=== PATIENT | male | born 1935 | race Hispanic/Latino ===

== ENCOUNTER 2016-11-15 10:06 | Emergency (ER) | payer MEDICARE ==
[2016-11-15 10:09] VITALS: O2SAT 99
[2016-11-15 10:10] VITALS: BMI 31.8
--- NOTE | 2016-11-15 10:20 | ED PDOC ---
HPI: General Adult Time Seen by Provider: 11/15/16 10:17 Chief Complaint (Provider): left shoulder pain History Per: Patient History/Exam Limitations: no limitations Additional Complaint(s): 81yo male complaining of severe left shoulder pain for several days. States he comes here for chemotherapy for "blood cancer".no chest pain. Past Medical History Reviewed: Historical Data, Nursing Documentation, Vital Signs Vital Signs: Last Vital Signs Temp 98.4 F 11/15/16 16:20 Pulse 80 11/15/16 16:20 Resp 20 11/15/16 16:20 BP 153/68 H 11/15/16 16:20 Pulse Ox 99 11/29/16 20:51 - Medical History PMH: Arthritis (ankle), Gastritis, HTN Denies: Chronic Kidney Disease - Surgical History Surgical History: CABG, Cholecystectomy - Family History Family History: States: Unknown Family Hx - Home Medications Home Medications: Ambulatory Orders Medication Instructions Recorded MetFORMIN [glucoPHAGE] 1,000 mg PO BID 04/01/14 Simvastatin 20 mg PO DAILY 04/01/14 Losartan/Hydrochlorothiazide 1 tab PO DAILY 11/18/14 [Hyzaar 25 mg-100 mg] Glipizide [Glucotrol] 5 mg PO BID 09/15/15 Metoprolol Tartrate [Lopressor] 50 mg PO DAILY 09/15/15 Omeprazole [Prilosec] 20 mg PO DAILY 09/15/15 Furosemide [Lasix] 1 tab PO DAILY 11/10/15 Aspirin [Ecotrin] 1 tab PO DAILY 12/08/15 traMADol [Ultram] 50 mg PO TID #20 tab 11/18/16 - Allergies Allergies/Adverse Reactions: Allergies Allergy/AdvReac Type Severity Reaction Status Date / Time tape Allergy RASH Uncoded 11/29/16 10:06 Review of Systems ROS Statement: Except As Marked, All Systems Reviewed And Found Negative Cardiovascular: Negative for: Chest Pain Musculoskeletal: Positive for: Shoulder Pain Physical Exam - Reviewed Nursing Documentation Reviewed: Yes Vital Signs Reviewed: Yes - Physical Exam Appears: Positive for: Well, Non-toxic, Uncomfortable (moderate painful distress ) Head Exam: Positive for: ATRAUMATIC, NORMAL INSPECTION, NORMOCEPHALIC Skin: Positive for: Warm, Dry Eye Exam: Positive for: EOMI, PERRL Cardiovascular/Chest: Positive for: Regular Rate, Rhythm, Other (Port in left chest wall) Respiratory: Positive for: Normal Breath Sounds. Negative for: Rales, Rhonchi, Wheezing Extremity: Positive for: Tenderness (left shoulder), Deformity (left shoulder). Negative for: Other (left shoudler erythema or induration) - Laboratory Results Result Diagrams: 11/15/16 10:48 11/15/16 10:48 - ECG O2 Sat by Pulse Oximetry: 99 (RA) Pulse Ox Interpretation: Normal Medical Decision Making Medical Decision Makin EKG, CXR, XR Left shoulder, labs, morphine 2mg ordered. 1103 XR Left shoulder reviewed. CT left upper extremity ordered 1125 patient still in pain. morphine 2mg ordered. Disposition - Clinical Impression Clinical Impression: Bursitis, Calcific tendinitis - Disposition Referrals: Dann Grey MD [Staff Provider] - Disposition: Routine/Home Disposition Time: 16:06 Condition: IMPROVED Instructions: Shoulder Bursitis (ED), Calcific Tendinitis (ED) Additional Comments - Additional Comments Additional Comments: Scribe Attestation: Documented by Shlomo Cuellar, acting as a scribe for Sangita Lebron MD. Provider Scribe Attestation: All medical record entries made by the Scribe were at my direction and personally dictated by me. I have reviewed the chart and agree that the record accurately reflects my personal performance of the history, physical exam, medical decision making, and the department course for this patient. I have also personally directed, reviewed, and agree with the discharge instructions and disposition.
[2016-11-15 10:59] LABS: BASO % 0.6 % (0.0-2.0); EOS # 0.2 K/uL (0.0-0.7); EOS % 6.5 % (0.0-4.0); HEMATOCRIT 33.6 % (35.0-51.0); LYMPH # 0.5 K/uL (1.0-4.3); LYMPH % 15.6 % (20.0-40.0); MEAN CELL VOLUME 81.7 fl (80.0-94.0); MEAN CORPUSCULAR HEMOGLOBIN 25.7 pg (27.0-31.0); MEAN CORPUSCULAR HGB CONC 31.5 g/dL (33.0-37.0); MEAN PLATELET VOLUME 8.3 fl (7.2-11.7); MONO # 0.1 K/uL (0.0-0.8); MONO % 4.5 % (0.0-10.0); NEUT # 2.1 K/uL (1.8-7.0); NEUT % 72.8 % (50.0-75.0); RED CELL DISTRIBUTION WIDTH 23.3 % (11.5-14.5); WHITE BLOOD COUNT 2.9 K/uL (4.8-10.8)
[2016-11-15 11:31] LABS: ALB/GLOB RATIO 1.2 (1.0-2.1); ALKALINE PHOSPHATASE 127 U/L (38-126); ALT/SGPT 45 U/L (21-72); AST/SGOT 50 U/L (17-59); BLOOD UREA NITROGEN 34 mg/dl (9-20); CALCIUM 9.7 mg/dL (8.4-10.2); CARBON DIOXIDE 24 mmol/L (22-30); CHLORIDE 104 mmol/L (98-107); GFR AFRICAN-AMERICAN > 60; GLUCOSE,RANDOM 206 mg/dL (75-110); POTASSIUM 4.3 MMOL/L (3.6-5.0); SODIUM 143 mmol/l (132-148); TOTAL PROTEIN 6.9 G/DL (6.3-8.2)
[2016-11-15 11:36] VITALS: PULSE 80
[2016-11-15 11:57] LABS: PARTIAL THROMBOPLASTIN TIME 25.3 SECONDS (23.3-32.5)
--- NOTE | 2016-11-15 13:32 | CT ---
PROCEDURE: CT of the left shoulder without contrast HISTORY: Shoulder pain COMPARISON: Comparison is made to the previous x-ray of the left shoulder dated 11/15/2016 TECHNIQUE: Axial and reformatted coronal and sagittal CT images of the left shoulder were obtained without IV contrast administration. Total exam DLP = 329.51 mGy-cm. This CT exam was performed using one or more of the following dose reduction techniques: Automated exposure control, adjustment of the mA and/or kV according to patient size, and/or use of iterative reconstruction technique. FINDINGS: There is no evidence of acute fracture or dislocation. Advanced osteoarthritic changes are noted associated with marginal osteophyte and narrowing of the glenohumeral joint. There are also moderate osteoarthritic changes at the AC joint associated with moderate to severe narrowing of the subacromial space. There are foci of soft tissue calcification lateral and superior to the left humeral head may represent calcified tendinitis. The possibility of rotator cuff tear should be considered. Fluid density surrounding the glenohumeral joint may represent a combination of joint effusion and bursitis. IMPRESSION: No evidence of acute fracture or dislocation. 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 Moderate to severe narrowing of the subacromial space and soft tissue calcifications suspicious for calcified tendinitis. The possibility of rotator cuff tear should be considered. Further assessment by MRI is suggested if not contraindicated.
--- NOTE | 2016-11-15 14:13 | RAD ---
PROCEDURE: Radiographs of the Left Shoulder HISTORY: L shoulder pain COMPARISON: Comparison made with concurrent CT scan of the left shoulder FINDINGS: BONES: Normal. No fracture. JOINTS: Moderate degenerative osteoarthritis of the left acromioclavicular and glenohumeral joints. SOFT TISSUES: Normal. OTHER FINDINGS: None. 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
--- NOTE | 2016-11-15 14:33 | RAD ---
HISTORY: L shoulder pain COMPARISON: Comparison chest 06/21/2016. FINDINGS: LUNGS: Re- demonstrated are what are felt to represent scattered calcified pleural plaque changes within the mid to upper lung zones on bilaterally. Note that on the changes at in the left upper lung field are seen to somewhat better advantage on concurrent CT scan of the left shoulder which also imaged left lung apex and left upper lobe. . These findings may be secondary to prior asbestos exposure however clinical correlation recommended. Poor inspiration with low lung volumes, crowded bronchovascular markings and mild bibasilar atelectasis. PLEURA: No significant pleural effusion identified, no pneumothorax apparent. CARDIOVASCULAR: Sternotomy wires again noted. . OSSEOUS STRUCTURES: No significant abnormalities. VISUALIZED UPPER ABDOMEN: Normal. OTHER FINDINGS: No change right IJ MediPort with tip in the SVC IMPRESSION: Scattered calcified pleural plaque changes seen in the upper lobes bilaterally. Poor inspiration with low lung volumes, mild crowded bronchovascular markings and mild bibasilar atelectasis.
[2016-11-15 15:01] LABS: RBC URINE 3 /hpf (0-3); URINE BACTERIA RARE (<OCC); URINE BILIRUBIN NEGATIVE (NEGATIVE); URINE BLOOD NEGATIVE (NEGATIVE); URINE COLOR YELLOW (YELLOW); URINE GLUCOSE (UA) NEG (Normal); URINE KETONE NEGATIVE (NEGATIVE); URINE LEUKOCYTE ESTERASE NEG Leu/uL (Negative); URINE PROTEIN NEGATIVE (NEGATIVE); URINE UROBILINOGEN 0.2-1.0 mg/dL (0.2-1.0); WBC URINE 3 /hpf (0-5)
[2016-11-15 16:42] VITALS: BP 153/68; RESP 20; TEMP 98.4
--- NOTE | 2016-11-15 19:43 | CARD ---
APPROVED REPORT EKG Measurement Heart [id number] OR 144P-23 [id number] <Conclusion> Sinus rhythm with premature ventricular complexes Right bundle branch block Cannot rule out Inferior infarct, age undetermined Abnormal ECG
== END 2016-11-15 16:44 | disposition home or self-care (01) ==
LOC: H.ER 10:06
DX: M19.012 Primary osteoarthritis, left shoulder (principal); I49.3 Ventricular premature depolarization; C91.00 Acute lymphoblastic leukemia not having achieved remission
CPT/HCPCS: 71010; 73030; 73200; 80053; 80162; 81003; 84484; 85025; 85610; 85730; 93005; 96374; 96376; 99285; J2270

== ENCOUNTER 2016-11-17 19:49 | Observation (INO) | payer MEDICARE ==
[2016-11-17 19:50] VITALS: BMI 36.2
--- NOTE | 2016-11-17 23:15 | CP.PCM.HP ---
History of Present Illness - History of Present Illness History of Present Illness: PCP: Miguel Ángel Walker MD Chief Complaint: Left shoulder Pain HPI: 81 years old male with hx of Myelodysplastic Syndrome on chmotherapy, CAD s /p CABG, and DM II, was seen at the [facility] ED on 11/15/16 for left shoulder pain, Dx with Calcific Tendonitis and discharged with Toradol. He returns today stating that the pain had ceased with the treatment but while doing some activity the pain returned to the left shoulder radiating down the arm ,forearm to the fingers, Sharp, continuous and not relieved with the Toradol. No trauma to the shoulder, no chest pain, palpitation nor SOB, no headache nor dizziness. He could not use his cane to ambulate because of the pain. In the ED he was given Morphine and the pain level decreased. PMH: DM II; HTN: IBS: Cataract; CAD: Gastritis: Arthritis of the ankles; Myelodysplastic Syndrome on Chemotherapy every Tuesday, PSH: CABG: Cholecystectomy; Left Total Hip replacement; Deviated Septum surgery ; Cataract surgery SH: No Illegal Substance abuse; Occasional Alcohol; Never smoked; FH: No known family hx Allergies: NKDA , Allergic to tape Present on Admission - Present on Admission Any Indicators Present on Admission: No History of DVT/PE: No History of Uncontrolled Diabetes: No Urinary Catheter: No Decubitus Ulcer Present: No Review of Systems - Constitutional Constitutional: absent: Anorexia, Chills, Fatigue, Fever, Headache, Lethargy - EENT Eyes: Requires Corrective Lenses. absent: Blurred Vision, Diplopia, Photophobia Nose/Mouth/Throat: absent: Epistaxis, Nasal Congestion, Nasal Discharge, Sinus Pain, Sinus Pressure, Sore Throat Additional comments: Upper and lower dentures. - Cardiovascular Cardiovascular: Leg Edema. absent: Chest Pain, Dyspnea - Respiratory Respiratory: absent: Cough, Dyspnea, Wheezing, Stridor - Gastrointestinal Gastrointestinal: absent: Nausea, Vomiting Additional comments: Diarrhea alternating with constipation. Epigastric pains - Genitourinary Genitourinary: absent: Dysuria, Flank Pain, Hematuria, Urinary Frequency, Freq UTI - Musculoskeletal Additional comments: Walks with canebecause of right leg pain. left shoulder pain, radiating down left arm and forearm. - Integumentary Integumentary: Dry Skin. absent: Pruritus, Sores Additional comments: Bilateral leg swelling with stasis dermatitis - Neurological Neurological: absent: Confusion, Focal Weakness, Headaches, Memory Loss - Psychiatric Psychiatric: absent: Anxiety, Depression, Panic Attacks - Endocrine Endocrine: absent: Palpitations, Polydipsia, Polyphagia, Polyuria - Hematologic/Lymphatic Hematologic: absent: Easy Bleeding, Easy Bruising Past Patient History - Past Medical History & Family History Past Medical History?: Yes - Past Social History Smoking Status: Never Smoked Chewing Tobacco Use: No Cigar Use: No Alcohol: Occasional Drugs: Denies Home Situation {Lives}: With Family - CARDIAC Hx Cardiac Disorders: Yes Hx Hypertension: Yes Hx Peripheral Edema: Yes - PULMONARY Hx Respiratory Disorders: No - NEUROLOGICAL Hx Neurological Disorder: No - HEENT Hx HEENT Problems: Yes Hx Cataracts: Yes - RENAL Hx Chronic Kidney Disease: No - ENDOCRINE/METABOLIC Hx Endocrine Disorders: Yes Hx Diabetes Mellitus Type 2: Yes - HEMATOLOGICAL/ONCOLOGICAL Hx Blood Disorders: Yes Hx Blood Transfusions: Yes Hx Bruising: Yes Hx Cancer: Yes (MDS) Other/Comment: myelodysplasic syndrome - INTEGUMENTARY Hx Dermatological Problems: No - MUSCULOSKELETAL/RHEUMATOLOGICAL Hx Musculoskeletal Disorders: Yes Hx Arthritis: Yes (ankle) - GASTROINTESTINAL Hx Gastrointestinal Disorders: Yes Hx Gastritis: Yes - GENITOURINARY/GYNECOLOGICAL Hx Genitourinary Disorders: No - PSYCHIATRIC Hx Psychophysiologic Disorder: No Hx Substance Use: No - SURGICAL HISTORY Hx Surgeries: Yes Hx Cholecystectomy: Yes Hx Coronary Artery Bypass Graft: Yes - ANESTHESIA Hx Anesthesia: Yes Hx Anesthesia Reactions: No Hx Malignant Hyperthermia: No Meds Allergies/Adverse Reactions: Allergies Allergy/AdvReac Type Severity Reaction Status Date / Time tape Allergy RASH Uncoded 11/17/16 23:30 Physical Exam - Constitutional Appears: No Acute Distress - Head Exam Head Exam: ATRAUMATIC, NORMAL INSPECTION, NORMOCEPHALIC - Eye Exam Eye Exam: EOMI, Normal appearance Pupil Exam: NORMAL ACCOMODATION, PERRL - ENT Exam ENT Exam: Mucous Membranes Moist, Normal Exam, Normal External Ear Exam, Normal Oropharynx - Neck Exam Neck exam: Positive for: Full Rom, Normal Inspection. Negative for: Lymphadenopathy, Tenderness - Respiratory Exam Respiratory Exam: Clear to Auscultation Bilateral. absent: Rales, Rhonchi, Wheezes - Cardiovascular Exam Cardiovascular Exam: REGULAR RHYTHM, RRR, +S1, +S2. absent: Gallop, JVD - GI/Abdominal Exam Additional comments: Obese, soft, mild tenderness at the epigastric region, no guarding, no rebound tenderness - Rectal Exam Rectal Exam: Deferred - Extremities Exam Additional comments: Left shoulder painful on extension, rotation and Abduction. no edema nor erythema seen. both legs with trace edema with bronz color at the distal 2/3 of the legs non blanching and non tender to palpation. - Back Exam Back exam: NORMAL INSPECTION. absent: CVA tenderness (L), CVA tenderness (R) - Neurological Exam Neurological exam: Alert, CN II-XII Intact, Oriented x3, Reflexes Normal - Psychiatric Exam Psychiatric exam: Normal Affect, Normal Mood - Skin Skin Exam: Dry, Intact, Warm Results - Vital Signs Recent Vital Signs: Last Vital Signs Temp 98 F 11/17/16 19:52 Pulse 85 11/17/16 19:52 Resp 22 11/17/16 19:52 BP 150/87 11/17/16 19:52 Pulse Ox 97 11/17/16 19:52 - Labs Result Diagrams: 11/17/16 23:27 11/17/16 23:27 - EKG Data EKG comments: 11/15/16 Sinus with PAC, RBBB, 84/min - Imaging and Cardiology Chest x-ray Status: Image reviewed by me, Report reviewed by me Additional comment: 11/17/16 No active disease. Portacath at upper right chest. Sutures of sternotomy seen. Right Shoulder X-Ray Status: Image reviewed by me, Report reviewed by me Additional comment: 11/15/16 Moderate Degenerative osteoarthritis of Left Glenohymoral and left acromioclavicular joint. CT left arm Status: Report reviewed by me Additional comment: 10/16/16 No fractura nor dislocation Advance degenerative changes at the left shoulder. Moderate to severe narrowing of the subacrominal space and soft tissue calcification, suspicious for Calcific Tendinitis. Possibility of rotator cuff tear should be considered. Assessment & Plan - Assessment and Plan (Free Text) Assessment: #. Calcific Tendinitis #. Intractible left shoulder Pain #. DM II uncontrolled #. HTN #. Myelodysplastic Syndrome #. Pancytopenia #. CAD #. Gastritis Plan: 81 years old male with hx of Myelodysplastic Syndrome on chmotherapy, CAD s/p CABG, and DM II, was seen at the [facility] ED on 11/15/16 for left shoulder pain, Dx with Calcific Tendonitis and discharged with Toradol. He returns today stating that the pain had ceased with the treatment but while doing some activity the pain returned to the left shoulder radiating down the arm ,forearm to the fingers, Sharp, continuous and not relieved with the Toradol. #. Calcific Tendinitis with intractible left shoulder pain - Observation - Pain management with Tramidol and Morphine - consult Anesthesia for Pain management #. DM II uncontrolled - Regular insulin sliding scale according to accucheck - Metformin - Hemaglobin A1c #. HTN Uncontrolled - lopressor/ Losartan - Follow blood Pressures #. 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 Pancytopenia secondary to the Mylodysplastic Syndrome - Followed by Hematology #. CAD stable - ASA/ Simvastatin #. Gastritis -Pantoprazole #. DVT Prophylaxis with SCD #. Code Status: Full - Date & Time Date: 11/17/16 Time: 23:15
[2016-11-17 23:35] LABS: BASO % 0.4 % (0.0-2.0); EOS # 0.2 K/uL (0.0-0.7); EOS % 5.7 % (0.0-4.0); HEMATOCRIT 31.9 % (35.0-51.0); LYMPH # 0.5 K/uL (1.0-4.3); LYMPH % 19.5 % (20.0-40.0); MEAN CELL VOLUME 81.5 fl (80.0-94.0); MEAN CORPUSCULAR HEMOGLOBIN 26.1 pg (27.0-31.0); MEAN PLATELET VOLUME 7.8 fl (7.2-11.7); MONO # 0.2 K/uL (0.0-0.8); MONO % 8.7 % (0.0-10.0); NEUT # 1.8 K/uL (1.8-7.0); NEUT % 65.7 % (50.0-75.0); NRBC % 0.1 % (0.0-0.0); RED CELL DISTRIBUTION WIDTH 22.7 % (11.5-14.5); WHITE BLOOD COUNT 2.7 K/uL (4.8-10.8)
[2016-11-17 23:43] LABS: BLOOD UREA NITROGEN 34 mg/dl (9-20); CALCIUM 8.9 mg/dL (8.4-10.2); CARBON DIOXIDE 24 mmol/L (22-30); CHLORIDE 101 mmol/L (98-107); GFR AFRICAN-AMERICAN > 60; GLUCOSE,RANDOM 172 mg/dL (75-110); POTASSIUM 4.1 MMOL/L (3.6-5.0); SODIUM 141 mmol/l (132-148)
[2016-11-18 02:50] LABS: URINE BILIRUBIN NEGATIVE (NEGATIVE); URINE BLOOD NEGATIVE (NEGATIVE); URINE COLOR YELLOW (YELLOW); URINE GLUCOSE (UA) NEG (Normal); URINE KETONE NEGATIVE (NEGATIVE); URINE LEUKOCYTE ESTERASE NEG Leu/uL (Negative); URINE PROTEIN NEGATIVE (NEGATIVE); URINE UROBILINOGEN 0.2-1.0 mg/dL (0.2-1.0); WBC URINE < 1 /hpf (0-5)
[2016-11-18 07:42] VITALS: PULSE 81; TEMP 98.2
[2016-11-18] MEDS ORDERED: Digoxin 125 mcg (0.125 mg) Tab PO SCH (09:00)
[2016-11-18] MEDS ORDERED: Patient's Own Med (Simvastatin [Simvastatin] 20 MG) PO SCH (09:00)
[2016-11-18] MEDS ORDERED: Pantoprazole 20 mg EC Tab PO SCH (09:00)
[2016-11-18 09:22] VITALS: PULSE 81
--- NOTE | 2016-11-18 09:52 | RAD ---
HISTORY: admission COMPARISON: 11/15/2016 FINDINGS: LUNGS: No active pulmonary disease. PLEURA: Calcified pleural plaques CARDIOVASCULAR: Mild cardiomegaly. OSSEOUS STRUCTURES: Sternal wires VISUALIZED UPPER ABDOMEN: Normal. OTHER FINDINGS: Port-A-Cath IMPRESSION: No active disease.
[2016-11-18 16:30] VITALS: BP 129/68; RESP 68; O2SAT 18
--- NOTE | 2016-11-18 17:15 | CP.PCM.DIS ---
Provider - Provider Date of Admission: 11/17/16 22:17 Attending physician: Eugene Stokes Primary care physician: Hector Celis MD Time Spent in preparation of Discharge (in minutes): 15 Hospital Course - Lab Results Lab Results: Most Recent Lab Values WBC 2.7 K/uL (4.8-10.8) L 11/17/16: RBC 3.91 Mil/uL (4.40-5.90) L 11/17/16: Hgb 10.2 g/dL (12.0-18.0) L 11/17/16: Hct 31.9 % (35.0-51.0) L 11/17/16: MCV 81.5 fl (80.0-94.0) 11/17/16: MCH 26.1 pg (27.0-31.0) L 11/17/16: MCHC 32.0 g/dL (33.0-37.0) L 11/17/16: RDW 22.7 % (11.5-14.5) H 11/17/16: Plt Count 59 K/uL (130-400) L 11/17/16: MPV 7.8 fl (7.2-11.7) 11/17/16: Neut % (Auto) 65.7 % (50.0-75.0) 11/17/16: Lymph % (Auto) 19.5 % (20.0-40.0) L 11/17/16: [place] % (Auto) 8.7 % (0.0-10.0) 11/17/16: Eos % (Auto) 5.7 % (0.0-4.0) H 11/17/16: Baso % (Auto) 0.4 % (0.0-2.0) 11/17/16: Neut # 1.8 K/uL (1.8-7.0) 11/17/16: Lymph # 0.5 K/uL (1.0-4.3) L 11/17/16: [place] # 0.2 K/uL (0.0-0.8) 04/05/17 23:27 Eos # 0.2 K/uL (0.0-0.7) 11/17/16 23:27 Baso # 0.0 K/uL (0.0-0.2) 11/17/16 23:27 Sodium 141 mmol/l (132-148) 11/17/16 23:27 Potassium 4.1 MMOL/L (3.6-5.0) 11/17/16 23:27 Chloride 101 mmol/L (98-107) 11/17/16 23:27 Carbon Dioxide 24 mmol/L (22-30) 11/17/16 23:27 Anion Gap 21 (10-20) H 11/17/16 23:27 BUN 34 mg/dl (9-20) H 11/17/16 23:27 Creatinine 1.0 mg/dL (0.8-1.5) 11/17/16 23:27 Est GFR ( Amer) > 60 11/17/16 23:27 Est GFR (Non-Af Amer) > 60 11/17/16 23:27 POC Glucose (mg/dL) 87 mg/dL (65-110) 11/18/16 15:50 Random Glucose 172 mg/dL (75-110) H 11/17/16 23:27 Hemoglobin A1c 6.0 % (4.2-6.5) 11/18/16 09:24 Calcium 8.9 mg/dL (8.4-10.2) 11/17/16 23:27 Urine Color Yellow (YELLOW) 11/17/16 02:27 Urine Clarity Clear (Clear) 11/17/16 02:27 Urine pH 6.0 (5.0-8.0) 11/17/16 02:27 Ur Specific [place] 1.015 (1.003-1.030) 11/17/16 02:27 Urine Protein Negative mg/dL (NEGATIVE) 11/17/16 02:27 Urine Glucose (UA) Neg mg/dL (Normal) 11/17/16 02:27 Urine Ketones Negative mg/dL (NEGATIVE) 11/17/16 02:27 Urine Blood Negative (NEGATIVE) 11/17/16 02:27 Urine Nitrate Negative (NEGATIVE) 11/17/16 02:27 Urine Bilirubin Negative (NEGATIVE) 11/17/16 02:27 Urine Urobilinogen 0.2-1.0 mg/dL (0.2-1.0) 11/17/16 02:27 Ur Leukocyte Esterase Neg [place]/uL (Negative) 11/17/16 02:27 Urine Microscopic WBC < 1 /hpf (0-5) 11/17/16 02:27 - Hospital Course Hospital Course: 81 years old male with hx of Myelodysplastic Syndrome on chemotherapy, CAD s/p CABG, and DM II, was seen at the [facility] ED on 11/15/16 for left shoulder pain, Dx with Calcific Tendonitis and discharged with Toradol. He returns stating that the pain had ceased with the treatment but while doing some activity the pain returned to the left shoulder radiating down the arm , forearm to the fingers, Sharp, continuous and not relieved with the Toradol. Patient was placed under observation for intrcatable shoulder pain, started omn Morphin eIV, placed on arm sling. Patient clinically improved. Will discharge patient home on PO Ultram. Advised to follow up with ortho as out patient, keep arm sling Patient is hemodynamically stable. Will discharge home. 1 Calcific Tendinitis with intractible left shoulder pain pain controlled at present will d/c home on Ultram Follow up with ortho outpatient 2 DM II uncontrolled Continue home meds 3. HTN Uncontrolled Continue lopressor/ Losartan 4. Myelodysplastic Syndrome Followed by Dr Yanes Stereotype Caster 5. Pancytopenia secondary to the Mylodysplastic Syndrome - Followed by Hematology 6. CAD stable continue ASA/ Simvastatin 7. Gastritis on Pantoprazole 8. DVT Prophylaxis with SCD Discharge Exam - Head Exam Head Exam: ATRAUMATIC, NORMAL INSPECTION, NORMOCEPHALIC - Eye Exam Eye Exam: EOMI, Normal appearance, PERRL Pupil Exam: NORMAL ACCOMODATION - ENT Exam ENT Exam: Mucous Membranes Moist, Normal Exam - Neck Exam Neck exam: Full Rom, Normal Inspection - Respiratory Exam Respiratory Exam: Clear to PA & Lateral. absent: Accessory Muscle Use, Prolonged Expiratory Phase, Respiratory Distress - Cardiovascular Exam Cardiovascular Exam: REGULAR RHYTHM. absent: JVD - GI/Abdominal Exam GI & Abdominal Exam: Normal Bowel Sounds, Soft. absent: Distended, Guarding, Rebound - Rectal Exam Rectal Exam: Deferred - Extremities Exam Extremities exam: pedal pulses present Additional comments: bilateral LE stasis dermatitis pulses intact - Back Exam Back exam: NORMAL INSPECTION - Neurological Exam Neurological exam: Alert, CN II-XII Intact, Reflexes Normal - Psychiatric Exam Psychiatric exam: Anxious - Skin Skin Exam: Dry, Warm Discharge Plan - Discharge Medications Prescriptions: traMADol [Ultram] 50 mg PO TID #20 tab - Follow Up Plan Condition: GOOD Disposition: HOME/ ROUTINE Patient education suggested?: Yes Additional Instructions: Follow up with ortho as out patient Referrals: Hector Celis MD [Primary Care Provider] -
--- NOTE | 2016-11-18 19:09 | CARD ---
APPROVED REPORT EKG Measurement Heart [id number] 144P-21 [id number] <Conclusion> Normal sinus rhythm Right bundle branch block Abnormal ECG
== END 2016-11-18 19:00 | disposition home or self-care (01) ==
LOC: H.ER 19:49 → H.ERHOLD 22:17 → H.MEDSURG1 11-18 00:18
PROVIDERS: ADMIT Internal Medicine; ATTEND Internal Medicine
DX: M75.32 Calcific tendinitis of left shoulder (principal); E11.65 Type 2 diabetes mellitus with hyperglycemia; I10 Essential (primary) hypertension; I25.10 Atherosclerotic heart disease of native coronary artery without angina pectoris; Z95.1 Presence of aortocoronary bypass graft; K29.70 Gastritis, unspecified, without bleeding; K58.9 Irritable bowel syndrome, unspecified; Z96.642 Presence of left artificial hip joint; D61.818 Other pancytopenia; D46.9 Myelodysplastic syndrome, unspecified; I87.2 Venous insufficiency (chronic) (peripheral); M19.072 Primary osteoarthritis, left ankle and foot; M19.071 Primary osteoarthritis, right ankle and foot
CPT/HCPCS: 36415; 71010; 80048; 81003; 82948; 83036; 85025; 93005; 96372; 96374; 96376; 99283; G0378; J2270

== ENCOUNTER 2017-01-21 11:06 | Day surgery (SDC) | payer MEDICARE ==
[2017-01-21 11:49] VITALS: BMI 31.3
[2017-01-21] MEDS ORDERED: Lidocaine 1% Inj (20ml) ONE (13:56)
--- NOTE | 2017-01-21 14:35 | CP.SDSHP ---
Same Day Surgery H & P - History Proposed Procedure: US guided aspiration left shoulder Pre-Op Diagnosis: Left shoulder swelling - Allergies Allergies: Allergies tape Allergy (Uncoded 12/27/16 18:06) RASH - Physical Exam Vital Signs: Vital Signs 01/21/17 01/21/17 01/21/17 11:49 11:57 14:07 Temperature 98.2 F 97 F L Pulse Rate 94 H 93 H 75 Respiratory 18 18 Rate Blood Pressure 137/72 139/69 O2 Sat by Pulse 96 99 Oximetry Mental Status: Alert & Oriented x3 Neuro: WNL Heart: WNL Lungs: WNL - Impression Impression: Pt with complex left shoulder collection. Plan US guided aspiration. Pt. Evaluated Today:Candidate for Anesthesia & Procedure: No - Date & Time Date: 01/21/17 Time: 14:15 Short Stay Discharge - Short Stay Discharge Admitting Diagnosis/Reason for Visit: LT SHOULDER ASP, MDS Referrals: Hector Celis MD [Primary Care Provider] - Progress Note/Discharge Note with Instructions: S/P left shoulder aspiration
--- NOTE | 2017-01-21 14:37 | PCM.SURG1 ---
Surgeon's Initial Post Op Note - Surgeon's Notes Surgeon: Osmar Barrios MD C++ Professor: NONE Type of Anesthesia: Local Pre-Operative Diagnosis: Left shoulder collection Operative Findings: Complex left shoulder collection. Post-Operative Diagnosis: Left shoulder collection Operation Performed: US guided aspiration. Hematoma left shoulder. Very viscous fluid. Specimen/Specimens Removed: 4 cc old blood products Estimated Blood Loss: EBL {In ML}: 0 Blood Products Given: N/A Drains Used: No Drains Post-Op Condition: Good Date of Surgery/Procedure: 01/21/17 Time of Surgery/Procedure: 14:30
[2017-01-21 14:56] VITALS: RESP 20
[2017-01-21 15:23] VITALS: BP 147/69; PULSE 87; TEMP 97.8; O2SAT 100
--- NOTE | 2017-01-24 09:31 | VASCULAR ---
PROCEDURE: Date of procedure: 01/21/2017 Procedure: Ultrasound-guided aspiration of left shoulder collection. Medications: 8 cc 2% Lidocaine HISTORY: Swollen left shoulder with complex collection. TECHNIQUE: Following informed consent and procedure time-out, limb ultrasound of patient's left shoulder showed complex soft tissue collection which is isoechoic to muscle. The patient left shoulder was prepped and draped in the usual sterile fashion. After the skin was anesthetized with 2 percent lidocaine, a BrightTALK catheter was advanced under direct ultrasound guidance into the complex collection of. Correlation was made with the MRI of the shoulder obtained previously. There was return of small amount of dark blood likely representing a resolving hematoma. The fluid specimen was sent for culture and sensitivity along with cytology. IMPRESSION: Ultrasound-guided aspiration of complex left shoulder collection. The shoulder collection may represent an old hematoma. Small amount of fluid was aspirated and sent for culture and sensitivity along with cytology.
== END 2017-01-21 15:30 | disposition home or self-care (01) ==
LOC: H.OPSURG 11:06
PROVIDERS: ATTEND Specialist
DX: M25.412 Effusion, left shoulder (principal)
CPT/HCPCS: 20611; 76942; 82948; 87070; 88173; C1729

== ENCOUNTER 2017-04-02 13:25 | Inpatient (IN) | payer MEDICARE ==
[2017-04-02 13:26] VITALS: PULSE 81; BMI 38.4
[2017-04-02] MEDS ORDERED: Sodium Chloride 0.9% 1,000 ML IV STA (13:46)
--- NOTE | 2017-04-02 13:56 | ED PDOC ---
HPI: Altered Mental Status Chief Complaint (Provider): "he was unresponsive" History Per: Family History/Exam Limitations: Clinical Condition Onset/Duration Of Symptoms: Hrs (2), Sudden Onset Onset Of Symptoms: <3 Hours Current Symptoms Are (Timing): Still Present Description Of Symptoms: Not At Baseline Usual Baseline: Alert Oriented Exacerbating Factor(s): Unknown Use Of Anticoag/Antiplatlets: No Decreased Ability To: Stand, Walk, Sit Severity: Severe Additional History Per: Prior Records Associated Symptoms: Chills, Sweating Additional Complaint(s): 81yo male per daughter undergoing chemo for myelodysplastic syndrome, last night didnt feel well, thought he had a fever, today around noon was standing at table and started having rigors, then became less responsive, EMS called, arrived in ED diaphoretic, unable to give reliable history. <Sanchez Rodriguez III - Last Filed: 04/02/17 15:41> <Sangita Lebron - Last Filed: 04/02/17 18:36> Time Seen by Provider: 04/02/17 13:30 Chief Complaint (Nursing): Altered Mental Status Past Medical History Reviewed: Historical Data, Nursing Documentation, Vital Signs Vital Signs: Last Vital Signs Temp Pulse 97 H 04/02/17 13:29 Resp 23 04/02/17 13:29 BP 107/75 04/02/17 13:29 Pulse Ox 98 04/02/17 13:29 - Medical History PMH: Anemia, Anxiety, Arthritis, Gastritis, HTN, Hypercholesterolemia, Peripheral Edema Denies: Chronic Kidney Disease - Surgical History Surgical History: CABG, Cholecystectomy - Family History Family History: States: Unknown Family Hx - Living Arrangements Living Arrangements: With Family - Social History Current smoker - smoking cessation education provided: No <Sanchez Rodriguez III - Last Filed: 04/02/17 15:41> Vital Signs: Last Vital Signs Temp 98 F 04/02/17 17:30 Pulse 80 04/02/17 17:30 Resp 20 04/02/17 17:30 BP 118/62 04/02/17 17:30 Pulse Ox 96 04/02/17 17:30 <Sangita Lebron - Last Filed: 04/02/17 18:36> - Home Medications Home Medications: Ambulatory Orders Medication Instructions Recorded MetFORMIN [glucoPHAGE] 1,000 mg PO BID 04/01/14 Simvastatin 20 mg PO DAILY 04/01/14 Losartan/Hydrochlorothiazide 1 tab PO DAILY 11/18/14 [Hyzaar 25 mg-100 mg] Glipizide [Glucotrol] 5 mg PO BID 09/15/15 Metoprolol Tartrate [Lopressor] 50 mg PO DAILY 09/15/15 Omeprazole [Prilosec] 20 mg PO DAILY 09/15/15 Gabapentin [Neurontin] 100 mg PO TID 03/15/17 traMADol [Ultram] 50 mg PO Q6 PRN 04/02/17 - Allergies Allergies/Adverse Reactions: Allergies Allergy/AdvReac Type Severity Reaction Status Date / Time tape Allergy RASH Uncoded 04/02/17 13:29 Review of Systems Review Of Systems: ROS cannot be obtained secondary to pt's inabilty to answer questions. <Sanchez Rodriguez III - Last Filed: 04/02/17 15:41> Physical Exam - Reviewed Nursing Documentation Reviewed: Yes Vital Signs Reviewed: Yes - Physical Exam Appears: Positive for: Uncomfortable, In Acute Distress (diaphoretic, speech slow but intact) Head Exam: Positive for: ATRAUMATIC, NORMAL INSPECTION, NORMOCEPHALIC Skin: Positive for: Warm, Diaphoresis, Pallor Eye Exam: Positive for: EOMI, Normal appearance, PERRL ENT: Positive for: Normal ENT Inspection Neck: Positive for: Normal, Painless ROM Cardiovascular/Chest: Positive for: Regular Rate, Rhythm, Other (midline scar) Respiratory: Positive for: Decreased Breath Sounds Gastrointestinal/Abdominal: Positive for: Bowel Sounds, Soft. Negative for: Tenderness Back: Positive for: Normal Inspection Extremity: Positive for: Normal ROM Neurologic/Psych: Positive for: Alert, Gait (unable to assess), Aphasia (slow speech but intact), Other (+moves all extremities with equal tone 4/5, speech slow with mild dysarthria, unable to test finger/nose due to AMS). Negative for : Facial Droop <Sanchez Rodriguez III - Last Filed: 04/02/17 15:41> - Laboratory Results Result Diagrams: 04/02/17 14:08 04/02/17 14:08 - ECG ECG: Positive for: Interpreted By Me Interpretation Of ECG: QRS 136 RBBB Rate: 92 O2 Sat by Pulse Oximetry: 98 Pulse Ox Interpretation: Normal - Critical Care Total Time (In Min): 35 <Sanchez Rodriguez III - Last Filed: 04/02/17 15:41> - Laboratory Results Result Diagrams: 04/02/17 14:08 04/02/17 14:08 <Sangita Lebron - Last Filed: 04/02/17 18:36> Medical Decision Making Medical Decision Making: Pt required immediate bedside attention, 81yo M undergoing chemo with rigors/ diaphoresis/ AMS. Rule-out sepsis syndrome, acute cerebral ischemia, ICH, toxic metabolic encephalopathy, cardiac ischemia, among other diagnoses not listed. labs reviewed, WBC 5.2 (normally leukopenic baseline) Fisher Scallop normal Mild elev LFTs compared to prior, Lactate elev 3.5 CXR mild increased markings L>R but similar to 11/18/16 UA mild RBC, no leuks 330p- more awake, denies cough, urinary symptoms, headache or pain at port site. Does not mild abdominal discomfort and soft stools last few days. Given no obvious source infection, mild elev LFTs, CT abd pelv ordered. Vanco Zosyn initiated. 330p D/w Dr Salma Yanes, requests admit hospitalist 335p d/w Dr Mosley for admission, pending CT abd pelv result. <Sanchez Rodriguez III - Last Filed: 04/02/17 15:41> Disposition - Patient ED Disposition Is Patient to be Admitted: Yes Counseled Patient/Family Regarding: Studies Performed - Disposition Disposition: Routine/Home Disposition Time: 15:15 - Pt Status Changed To: Hospital Disposition Of: Inpatient - Admit Certification Admit to Inpatient:: After my assessment, the patient will require hospitalization for at least two midnights. This is because of the severity of symptoms shown, intensity of services needed, and/or the medical risk in this patient being treated as an outpatient. - POA Present On Arrival: None <Sanchez Rodriguez III - Last Filed: 04/02/17 15:41> <Sangita Lebron - Last Filed: 04/02/17 18:36> - Clinical Impression Clinical Impression: Severe sepsis - Disposition Condition: GUARDED Addendum Addendum: 04/02/17 18:35 Received call in ED from Radiologist: Accession No. : [id number] Patient Name / ID : ERIN GUERRA / [id number] Exam Date : 04/02/2017 16:42:21 ( Approved ) Study Comment : Sex / Age : M / 81Y Creator : Dick Poole MD Dictator : Dick Poole MD Vp & General Counsel : Skin Lifter Bacon : Dick Poole MD Approver2 : Report Date : 04/02/2017 18:35:11 My Comment : This report is currently processing and HAS NOT BEEN OFFICIALLY SIGNED BY THE PHYSICIAN - ESTIMATED TIME OF APPROVAL IS 04/02/2017 18:40. PROCEDURE: CT abdomen pelvis and pelvis 04/02/2017 HISTORY: fever, sepsis, cancer patient COMPARISON: Comparison made with CT scan of the abdomen and pelvis dated 12/26/2013. TECHNIQUE: Contiguous axial images of the abdomen and pelvis performed following intravenous injection of approximately 9 9 cc Omnipaque 300 contrast material. Additional 2 dimensional sagittal and coronal reformats provided. Findings: Intravenous contrast. . Radiation dose: Total exam DLP = 87.65 mGy-cm. This CT exam was performed using one or more of the following dose reduction techniques: Automated exposure control, adjustment of the mA and/or kV according to patient size, and/or use of iterative reconstruction technique. FINDINGS: LOWER THORAX: Mild bibasilar atelectasis and or scarring changes both lung bases including the lingular and middle lobe regions. Questionable minor pleural thickening and /or trace effusions. Heart appears mildly enlarged. Small hiatal hernia. LIVER: The liver is mildly enlarged measuring approximately 19 cm in cc dimension. The liver exhibits nodular surface contour and slightly heterogeneous parenchyma suggesting cirrhosis. Clinical correlation recommended. Portal and splenic veins are opacified. Small to medium amount of perihepatic ascites present extending into right para colonic gutter and pelvis GALLBLADDER AND BILE DUCTS: Status post cholecystectomy. There meant multiple on metallic clips in the gallbladder fossa as well as multiple calculi possibly new within the gallbladder fossa as well. PANCREAS: Pancreas appears atrophic and fatty replaced. SPLEEN: Spleen is markedly enlarged measuring nearly 19 cm in AP dimension. . Small amount of perihepatic splenic ascites noted ADRENALS: No adrenal lesions. KIDNEYS AND URETERS: Kidneys demonstrate symmetric nephrograms. Elliptical shaped low-attenuation focus posteromedial border midpole left kidney probably represent cysts. No evidence of hydronephrosis. BLADDER: Urinary bladder is collapsed about an unclamped in situ Woods catheter. Woods balloon appears distended likely within the floor of the collapsed urinary bladder. It is unclear the balloon is partially located within the prostatic urethra as streak and beam hardening artifact arising from left total hip replacement, the partially obscures the floor urinary bladder prostate gland. Mild wall thickening of the urinary bladder likely due to underdistention and muscular hypertrophy. Cystitis not excluded. REPRODUCTIVE: Prostate is poorly seen due to streak and beam hardening artifact arising from total hip replacement. Prostatic calcifications are present APPENDIX: Appendix not seen with certainty on likely in part due to on opacified bowel and ascites BOWEL: There is marked wall thickening of the stomach of uncertain etiology. Rule out gastritis. Rule out other intrinsic/invasive wall lesion such as gastric carcinoma. Ascites may contribute. Visualized loops of small bowel exhibit normal contour and caliber. No evidence of acute mechanical small bowel obstruction. Stool and air seen throughout the colon. Mild wall thickening of the cecum and at ascending colon may in part be due to incomplete distention peristalsis and under opacified stool however inflammatory process not excluded. Ischemia would be less likely absence of a pertinent clinical history though also not excluded. A moderate amount of stool seen within the rectum. PERITONEUM: Abdominal ascites as described. LYMPH NODES: Evaluation for adenopathy is limited however there does appear to be multiple small nonspecific retroperitoneal lymph nodes. Adenopathy surrounding the celiac access and adjacent to the pancreas also felt to be present. VASCULATURE: No definitive evidence of abdominal aortic aneurysm BONES: Multilevel degenerative spondylosis of the lower thoracic and lumbar spine. Slight anterior subluxation L4 over L5 likely due to hypertrophic facets as no definitive pars defects seen. OTHER FINDINGS: None. IMPRESSION: Cardiomegaly. Hepatomegaly. Findings suggestive of cirrhosis however clinical correlation recommended. Marked splenomegaly. Moderate amount of of abdominal and pelvic ascites. Marked wall thickening of the stomach could be due to gastritis however other intrinsic/invasive wall lesion such as gastric carcinoma not excluded. The the. Cholecystectomy with multiple apparent gallbladder calculi in the gallbladder fossa region. Clinic correlation recommended. Results discussed with Dr. Mosley. <Sangita Lebron - Last Filed: 04/02/17 18:36>
[2017-04-02 14:07] LABS: ABG ALLEN TEST YES; ARTERIAL BLOOD GAS HCO3 24.1 mmol/L (21-28); ARTERIAL BLOOD GAS PH 7.45 (7.35-7.45); ARTERIAL BLOOD GAS PO2 85 mm/Hg (80-100)
[2017-04-02 14:19] LABS: BASO % 0.2 % (0.0-2.0); HEMATOCRIT 28.4 % (35.0-51.0); LYMPH # 0.3 K/uL (1.0-4.3); LYMPH % 5.7 % (20.0-40.0); MEAN CORPUSCULAR HEMOGLOBIN 25.3 pg (27.0-31.0); MEAN CORPUSCULAR HGB CONC 31.2 g/dL (33.0-37.0); MEAN PLATELET VOLUME 7.1 fl (7.2-11.7); MONO # 0.5 K/uL (0.0-0.8); MONO % 9.9 % (0.0-10.0); NEUT # 4.4 K/uL (1.8-7.0); NEUT % 84.2 % (50.0-75.0); PLATELET COUNT 83 K/uL (130-400); RED CELL DISTRIBUTION WIDTH 22.2 % (11.5-14.5)
[2017-04-02 14:27] LABS: RBC URINE 49 /hpf (0-3); URINE BILIRUBIN NEGATIVE (NEGATIVE); URINE BLOOD MODERATE (NEGATIVE); URINE COLOR YELLOW (YELLOW); URINE GLUCOSE (UA) NEG (Normal); URINE KETONE NEGATIVE (NEGATIVE); URINE LEUKOCYTE ESTERASE NEG Leu/uL (Negative); URINE PROTEIN 30 mg/dL (NEGATIVE); WBC URINE 2 /hpf (0-5)
[2017-04-02 14:28] LABS: ALB/GLOB RATIO 1.2 (1.0-2.1); ALKALINE PHOSPHATASE 129 U/L (38-126); ALT/SGPT 73 U/L (21-72); AST/SGOT 98 U/L (17-59); BILIRUBIN,TOTAL 2.8 mg/dl (0.2-1.3); BLOOD UREA NITROGEN 27 mg/dl (9-20); CARBON DIOXIDE 22 mmol/L (22-30); CHLORIDE 103 mmol/L (98-107); GFR AFRICAN-AMERICAN > 60; GLUCOSE,RANDOM 158 mg/dL (75-110); MAGNESIUM 1.7 MG/DL (1.6-2.3); PHOSPHOROUS 2.7 mg/dl (2.5-4.5); POTASSIUM 4.8 MMOL/L (3.6-5.0); SODIUM 137 mmol/l (132-148); TOTAL PROTEIN 6.6 G/DL (6.3-8.2)
[2017-04-02 14:29] LABS: WHITE BLOOD COUNT 5.2 K/uL (4.8-10.8)
[2017-04-02 14:32] LABS: URINE BACTERIA RARE (<OCC)
[2017-04-02 14:33] LABS: PARTIAL THROMBOPLASTIN TIME 29.6 Seconds (25.6-37.1)
[2017-04-02 15:28] LABS: NEUTROPHIL 84 % (42-75); TOTAL CELLS COUNTED 100
[2017-04-02] MEDS ORDERED: Piperacillin/Tazobact 4.5 GM in Sodium Chloride 0.9% 100 ML IVPB STA (15:35)
--- NOTE | 2017-04-02 15:43 | CT ---
PROCEDURE: CT HEAD WITHOUT CONTRAST. HISTORY: AMS/ fever/ on chemo COMPARISON: None available. TECHNIQUE: Axial computed tomography images were obtained through the head/brain without intravenous contrast. Radiation dose: Total exam DLP = 2996.45 mGy-cm. This CT exam was performed using one or more of the following dose reduction techniques: Automated exposure control, adjustment of the mA and/or kV according to patient size, and/or use of iterative reconstruction technique. FINDINGS: HEMORRHAGE: No intracranial hemorrhage. BRAIN: Moderate diffuse/confluent chronic periventricular white matter ischemic changes with patchy presumed ischemic changes seen within deep and subcortical white matter both cerebral hemispheres. There appears to be some extension of these changes into white matter tracts of both basal nuclei. . Note that the possibility of concomitant sequela of chemotherapy not excluded. No obvious parenchymal nor extra-axial mass or collection. Moderate generalized volume loss. Vascular calcifications of both carotid siphons. VENTRICLES: No obstructive hydrocephalus. CALVARIUM: No acute calvarial fractures. PARANASAL SINUSES: Complete opacification of the right maxillary antrum with questionable loculated proteinaceous fluid collection along the lateral margin of the maxillary antrum. MASTOID AIR CELLS: Unremarkable as visualized. No inflammatory changes. OTHER FINDINGS: Changes of bilateral cataract surgery. IMPRESSION: No acute intracranial hemorrhage. Confluent periventricular with more patchy deep and subcortical white matter ischemic changes; rule out concomitant sequela of chemotherapy. Moderate volume loss. No obvious parenchymal nor extra-axial mass or collection seen on this noncontrast study.
[2017-04-02 15:59] LABS: VENOUS BLOOD GAS BASE EXCESS 0.8 mmol/L (0.0-2.0); VENOUS BLOOD GAS PCO2 39 mmHg (40-60); VENOUS BLOOD PH 7.42 (7.32-7.43)
--- NOTE | 2017-04-02 16:15 | RAD ---
HISTORY: Sepsis Patient COMPARISON: Comparison chest dated 11/18/2016 FINDINGS: LUNGS: In situ right IJ MediPort with tip in the SVC. . Mild bibasilar atelectasis PLEURA: No significant pleural effusion identified, no pneumothorax apparent. CARDIOVASCULAR: Sternotomy wires and CABG clips noted. Heart size is upper limits of normal. Open tech OSSEOUS STRUCTURES: No significant abnormalities. VISUALIZED UPPER ABDOMEN: Normal. OTHER FINDINGS: None. IMPRESSION: Mild bibasilar atelectasis
[2017-04-02] MEDS ORDERED: Vancomycin 1 g Inj ONE (16:17)
[2017-04-02] MEDS ORDERED: Iohexol 300 100 ML IJ ONE (16:38)
[2017-04-02] MEDS ORDERED: Sodium Chloride 0.9% 50 ML IV ONE (16:39)
--- NOTE | 2017-04-02 16:46 | CP.PCM.HP ---
History of Present Illness - History of Present Illness History of Present Illness: 81 yo male with history of Myelodysplastic Syndrome, CAD (s/p Quadruple By-Pass , 1995) and DM2 brought in because of confusion accompanied with fever and chills since last night. Denied any other complaint but daughter thought she looked SOB when EMS arrived in their home. Presently more alert and only admitted having chills and feeling cold earlier. Denied chest pain, nausea or vomiting. Present on Admission - Present on Admission Any Indicators Present on Admission: No History of DVT/PE: No History of Uncontrolled Diabetes: No Urinary Catheter: No Decubitus Ulcer Present: No Review of Systems - Review of Systems All systems: reviewed and no additional remarkable complaints except (aside from those mentioned above, 12 point system review were negative by me) Past Patient History - Tetanus Immunizations Tetanus Immunization: Unknown - Past Medical History & Family History Past Medical History?: Yes Past Family History: Reviewed and not pertinent - Past Social History Smoking Status: Former Smoker Alcohol: Occasional - CARDIAC Hx Hypercholesterolemia: Yes Hx Hypertension: Yes Hx Peripheral Edema: Yes - PULMONARY Hx Respiratory Disorders: No - NEUROLOGICAL Hx Neurological Disorder: No - HEENT Hx HEENT Problems: Yes Hx Cataracts: Yes (left) - RENAL Hx Chronic Kidney Disease: No - ENDOCRINE/METABOLIC Hx Endocrine Disorders: Yes Hx Diabetes Mellitus Type 2: Yes - HEMATOLOGICAL/ONCOLOGICAL Hx Anemia: Yes Other/Comment: 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 - INTEGUMENTARY Hx Dermatological Problems: No - MUSCULOSKELETAL/RHEUMATOLOGICAL Hx Arthritis: Yes - GASTROINTESTINAL Hx Gastritis: Yes - GENITOURINARY/GYNECOLOGICAL Hx Genitourinary Disorders: No - PSYCHIATRIC Hx Anxiety: Yes - SURGICAL HISTORY Hx Cholecystectomy: Yes Hx Coronary Artery Bypass Graft: Yes Hx Joint Replacement: Yes (left THR) Hx Orthopedic Surgery: Yes - ANESTHESIA Hx Anesthesia: Yes Hx Anesthesia Reactions: No Hx Malignant Hyperthermia: No Meds Allergies/Adverse Reactions: Allergies Allergy/AdvReac Type Severity Reaction Status Date / Time tape Allergy RASH Uncoded 04/02/17 13:29 Physical Exam - Constitutional Appears: No Acute Distress - Head Exam Head Exam: ATRAUMATIC - Eye Exam Eye Exam: absent: Scleral icterus - ENT Exam ENT Exam: Mucous Membranes Moist - Neck Exam Neck exam: Negative for: Meningismus - Respiratory Exam Respiratory Exam: absent: Rhonchi, Wheezes, Respiratory Distress - Cardiovascular Exam Cardiovascular Exam: REGULAR RHYTHM, +S1, +S2 - GI/Abdominal Exam GI & Abdominal Exam: Distended, Soft. absent: Tenderness - Rectal Exam Rectal Exam: Deferred - Extremities Exam Extremities exam: Positive for: pedal edema - Neurological Exam Neurological exam: Alert, Oriented x3 - Psychiatric Exam Psychiatric exam: Normal Affect - Skin Skin Exam: Dry, Intact Results - Vital Signs Recent Vital Signs: Last Vital Signs Temp 100.4 F H 04/02/17 16:34 Pulse 78 04/02/17 16:34 Resp 19 04/02/17 16:34 BP 125/66 04/02/17 16:34 Pulse Ox 98 04/02/17 16:34 - Labs Result Diagrams: 04/02/17 14:08 04/02/17 14:08 Labs: Laboratory Results - last 24 hr 04/02/17 04/02/17 04/02/17 14:02 14:08 14:08 WBC 5.2 D RBC 3.50 L Hgb 8.9 L Hct 28.4 L MCV 81.0 MCH 25.3 L MCHC 31.2 L RDW 22.2 H Plt Count 83 L D MPV 7.1 L Neut % (Auto) 84.2 H Lymph % (Auto) 5.7 L [place] % (Auto) 9.9 Eos % (Auto) 0.0 Baso % (Auto) 0.2 Neut # 4.4 Lymph # 0.3 L [place] # 0.5 Eos # 0.0 Baso # 0.0 Neutrophils % (Manual) 84 H Lymphocytes % (Manual) 6 L Monocytes % (Manual) 10 Platelet Estimate Slightly decreased L Hypochromasia (manual) Slight Poikilocytosis (manual Slight Anisocytosis (manual) Moderate Microcytosis (manual) Slight Tear Drop Cells Slight Ovalocytes Slight PT INR APTT pCO2 32 L pO2 85 HCO3 24.1 ABG pH 7.45 ABG Total CO2 23.2 ABG O2 Saturation 99.4 H ABG Base Excess -1.0 Mason Test Yes ABG Potassium 4.6 VBG pH VBG pCO2 VBG HCO3 VBG Total CO2 VBG O2 Sat (Calc) VBG Base Excess VBG Potassium A-a O2 Difference 46.0 Sodium 135.0 137 Chloride 105.0 103 Glucose 162 H Lactate 3.5 H FiO2 24.0 Potassium 4.8 Carbon Dioxide 22 Anion Gap 17 BUN 27 H Creatinine 1.2 Est GFR ( Amer) > 60 Est GFR (Non-Af Amer) 58 Random Glucose 158 H Calcium 9.0 Phosphorus 2.7 Magnesium 1.7 Total Bilirubin 2.8 H AST 98 H D ALT 73 H D Alkaline Phosphatase 129 H D Total Creatine Kinase 99 NT-Pro-B Natriuret Pep 1270 H Total Protein 6.6 Albumin 3.7 Globulin 3.0 Albumin/Globulin Ratio 1.2 Arterial Blood Potassium 4.6 Venous Blood Potassium Urine Color Urine Clarity Urine pH Ur Specific [place] Urine Protein Urine Glucose (UA) Urine Ketones Urine Blood Urine Nitrate Urine Bilirubin Urine Urobilinogen Ur Leukocyte Esterase Urine RBC (Auto) Urine Microscopic WBC Urine Bacteria 04/02/17 04/02/17 04/02/17 14:08 14:08 15:55 WBC RBC Hgb Hct MCV MCH MCHC RDW Plt Count MPV Neut % (Auto) Lymph % (Auto) [place] % (Auto) Eos % (Auto) Baso % (Auto) Neut # Lymph # [place] # Eos # Baso # Neutrophils % (Manual) Lymphocytes % (Manual) Monocytes % (Manual) Platelet Estimate Hypochromasia (manual) Poikilocytosis (manual Anisocytosis (manual) Microcytosis (manual) Tear Drop Cells Ovalocytes PT 18.6 H INR 1.8 H APTT 29.6 pCO2 pO2 40 HCO3 ABG pH ABG Total CO2 ABG O2 Saturation ABG Base Excess Mason Test ABG Potassium VBG pH 7.42 VBG pCO2 39 L VBG HCO3 25.0 VBG Total CO2 26.5 VBG O2 Sat (Calc) 83.4 H VBG Base Excess 0.8 VBG Potassium 4.1 A-a O2 Difference Sodium 136.0 Chloride 108.0 H Glucose 118 H Lactate 2.6 H FiO2 21.0 Potassium Carbon Dioxide Anion Gap BUN Creatinine Est GFR ( Amer) Est GFR (Non-Af Amer) Random Glucose Calcium Phosphorus Magnesium Total Bilirubin AST ALT Alkaline Phosphatase Total Creatine Kinase NT-Pro-B Natriuret Pep Total Protein Albumin Globulin Albumin/Globulin Ratio Arterial Blood Potassium Venous Blood Potassium 4.1 Urine Color Yellow Urine Clarity Slighty-cloudy Urine pH 6.0 Ur Specific [place] 1.017 Urine Protein 30 Urine Glucose (UA) Neg Urine Ketones Negative Urine Blood Moderate Urine Nitrate Negative Urine Bilirubin Negative Urine Urobilinogen 2.0 Ur Leukocyte Esterase Neg Urine RBC (Auto) 49 H Urine Microscopic WBC 2 Urine Bacteria Rare Assessment & Plan (1) Severe sepsis Status: Acute Comment: admit to telemetry. blood culture x 2. urine culture. Vanco 1gm IV q 12hrs. Meropenem 1gm IV q 8hrs. ID consult with Dr Wallis (2) Myelodysplasia (myelodysplastic syndrome) Status: Acute Comment: Oncology consult with Dr Torres (3) DM2 (diabetes mellitus, type 2) Status: Acute Comment: BS relatively controlled. accuchek ACHS. Glipizide 5mg PO BID. Metformin 1000mg PO BID. HgA1C, BMP in am (4) HTN (hypertension) Status: Acute Comment: BP stable. continue Losart/HCTZ and Metoprolol (5) CAD (coronary artery disease) Status: Acute Comment: asymptomatic. continue statin and Metoprolol
--- NOTE | 2017-04-02 18:37 | CT ---
PROCEDURE: CT abdomen pelvis and pelvis 04/02/2017 HISTORY: fever, sepsis, cancer patient COMPARISON: Comparison made with CT scan of the abdomen and pelvis dated 12/26/2013. TECHNIQUE: Contiguous axial images of the abdomen and pelvis performed following intravenous injection of approximately 9 9 cc Omnipaque 300 contrast material. Additional 2 dimensional sagittal and coronal reformats provided. Findings: Intravenous contrast. . Radiation dose: Total exam DLP = 87.65 mGy-cm. This CT exam was performed using one or more of the following dose reduction techniques: Automated exposure control, adjustment of the mA and/or kV according to patient size, and/or use of iterative reconstruction technique. FINDINGS: LOWER THORAX: Mild bibasilar atelectasis and or scarring changes both lung bases including the lingular and middle lobe regions. Questionable minor pleural thickening and/or trace effusions. Heart appears mildly enlarged. Small hiatal hernia. LIVER: The liver is mildly enlarged measuring approximately 19 cm in cc dimension. The liver exhibits nodular surface contour and slightly heterogeneous parenchyma suggesting cirrhosis. Clinical correlation recommended. Portal and splenic veins are opacified. Small to medium amount of perihepatic ascites present extending into right para colonic gutter and pelvis GALLBLADDER AND BILE DUCTS: Status post cholecystectomy. There meant multiple on metallic clips in the gallbladder fossa as well as multiple calculi possibly new within the gallbladder fossa as well. PANCREAS: Pancreas appears atrophic and fatty replaced. SPLEEN: Spleen is markedly enlarged measuring nearly 19 cm in AP dimension. . Small amount of perihepatic splenic ascites noted ADRENALS: No adrenal lesions. KIDNEYS AND URETERS: Kidneys demonstrate symmetric nephrograms. Elliptical shaped low-attenuation focus posteromedial border midpole left kidney probably represent cysts. No evidence of hydronephrosis. BLADDER: Urinary bladder is collapsed about an unclamped in situ Woods catheter. Woods balloon appears distended likely within the floor of the collapsed urinary bladder. It is unclear the balloon is partially located within the prostatic urethra as streak and beam hardening artifact arising from left total hip replacement, the partially obscures the floor urinary bladder prostate gland. Mild wall thickening of the urinary bladder likely due to underdistention and muscular hypertrophy. Cystitis not excluded. REPRODUCTIVE: Prostate is poorly seen due to streak and beam hardening artifact arising from total hip replacement. Prostatic calcifications are present APPENDIX: Appendix not seen with certainty on likely in part due to on opacified bowel and ascites BOWEL: There is marked wall thickening of the stomach of uncertain etiology. Rule out gastritis. Rule out other intrinsic/invasive wall lesion such as gastric carcinoma. Ascites may contribute. Visualized loops of small bowel exhibit normal contour and caliber. No evidence of acute mechanical small bowel obstruction. Stool and air seen throughout the colon. Mild wall thickening of the cecum and at ascending colon may in part be due to incomplete distention peristalsis and under opacified stool however inflammatory process not excluded. Ischemia would be less likely absence of a pertinent clinical history though also not excluded. A moderate amount of stool seen within the rectum. PERITONEUM: Abdominal ascites as described. LYMPH NODES: Evaluation for adenopathy is limited however there does appear to be multiple small nonspecific retroperitoneal lymph nodes. Adenopathy surrounding the celiac access and adjacent to the pancreas also felt to be present. VASCULATURE: No definitive evidence of abdominal aortic aneurysm BONES: Multilevel degenerative spondylosis of the lower thoracic and lumbar spine. Slight anterior subluxation L4 over L5 likely due to hypertrophic facets as no definitive pars defects seen. OTHER FINDINGS: None. IMPRESSION: Cardiomegaly. Hepatomegaly. Findings suggestive of cirrhosis however clinical correlation recommended. Marked splenomegaly. Moderate amount of of abdominal and pelvic ascites. Marked wall thickening of the stomach could be due to gastritis however other intrinsic/invasive wall lesion such as gastric carcinoma not excluded. The the. Cholecystectomy with multiple apparent gallbladder calculi in the gallbladder fossa region. Clinic correlation recommended. See above discussion for additional findings and details. Note that these findings were discussed with Dr. Lebron at approximately 6 p.m. with written down and read back verification
[2017-04-02] MEDS ORDERED: Sodium Chloride 3% for Inhalation 4 ML VIAL.NEB IH PRN (18:42)
[2017-04-02] MEDS: Meropenem 1 GM in Sodium Chloride 0.9% 100 ML IVPB SCH (19:30)
[2017-04-02] MEDS ORDERED: Piperacillin/Tazobact 3.375 GM in Sodium Chloride 0.9% 100 ML IVPB SCH (22:00)
[2017-04-03] MEDS: Meropenem 1 GM in Sodium Chloride 0.9% 100 ML IVPB SCH ×3 (01:01→16:36)
[2017-04-03] MEDS: Sodium Chloride 0.9% 1,000 ML IV SCH ×2 (05:37→18:29)
[2017-04-03 08:34] LABS: BLOOD UREA NITROGEN 27 mg/dl (9-20); CALCIUM 8.4 mg/dL (8.4-10.2); CARBON DIOXIDE 26 mmol/L (22-30); CHLORIDE 105 mmol/L (98-107); GFR AFRICAN-AMERICAN > 60; GLUCOSE,RANDOM 129 mg/dL (75-110); POTASSIUM 3.8 MMOL/L (3.6-5.0); SODIUM 137 mmol/l (132-148)
[2017-04-03] MEDS ORDERED: LOSARTAN PO SCH (09:00)
[2017-04-03] MEDS ORDERED: HYDROCHLOROTHIAZIDE PO SCH (09:00)
[2017-04-03 09:04] LABS: THYROID STIMULATING HORMONE 0.44 mIU/ML (0.46-4.68)
[2017-04-03] MEDS: HCTZ/Losartan 12.5/50 Tab PO SCH (09:10)
[2017-04-03] MEDS: Pantoprazole 40 mg EC Tab PO SCH (09:14)
[2017-04-03 09:57] LABS: BASO % 0.7 % (0.0-2.0); HEMATOCRIT 24.5 % (35.0-51.0); LYMPH # 0.3 K/uL (1.0-4.3); LYMPH % 16.8 % (20.0-40.0); MEAN CELL VOLUME 81.8 fl (80.0-94.0); MEAN CORPUSCULAR HEMOGLOBIN 25.5 pg (27.0-31.0); MEAN CORPUSCULAR HGB CONC 31.2 g/dL (33.0-37.0); MONO # 0.5 K/uL (0.0-0.8); MONO % 28.3 % (0.0-10.0); NEUT % 54.2 % (50.0-75.0); NRBC % 0.2 % (0.0-0.0); RED CELL DISTRIBUTION WIDTH 22.1 % (11.5-14.5)
[2017-04-03 10:10] LABS: PLATELET COUNT 54 K/uL (130-400); WHITE BLOOD COUNT 1.8 K/uL (4.8-10.8)
--- NOTE | 2017-04-03 10:19 | CARD ---
APPROVED REPORT EKG Measurement Heart [id number] <Conclusion> Base line artefacts++ P waves could not be identified. Wide QRS rhythm Right bundle branch block Abnormal ECG
--- NOTE | 2017-04-03 11:02 | CP.PCM.CON ---
History of Present Illness - History of Present Illness History of Present Illness: This is a 81 yrs old male who was brought to the ER with c/o a temp of 102, and being a little confused. however when he came to the ER he was well oriented but had a fever. He had a CT scan which showed a cirrhotic liver,with a enlarged spleen. His CBC was stable for his disease, and brain ct was normal. The lungs showed evidence of scarring . 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 He has always tolerated the treatments well. His blood counts are usually a little low and he has been on procrit weekly. His last chemo was 2 weeks ago and at that time I had also given him 1 dose of granix because his WBC was a little lower than usual. He has a past h/o CAD with CABG, and is being followed by Dr Mulligan.for the same. When I first saw him there was a h/o liver cirrhosis and elevated bilirubin. he does not drink and I believe his primary physician had done a work up to see the etiology for the cirrhosis. His LFT however have always been normal, even 2 weeks ago. He had a cholecystectomy in the past so it cannot be a bile stone causing an obstruction. now his LFT are elevated and bilirubin is 2.8. He had a history of smoking in the past, and had a mild COPD. No cough, or expectoration. He is also a diabetic with a foot ulcer for which he is seen in the wound clinic. He has osteoarthritis and recently has been having problems 2ith the left shoulder for which he is on physical therapy and gets steroid injections to the joint. Past Patient History - Tetanus Immunizations Tetanus Immunization: Unknown - Past Medical History & Family History Past Medical History?: Yes Past Family History: Reviewed and not pertinent - Past Social History Smoking Status: Former Smoker Alcohol: Occasional - CARDIAC Hx Cardiac Disorders: Yes Hx Congestive Heart Failure: Yes Hx Hypercholesterolemia: Yes Hx Hypertension: Yes Hx Peripheral Edema: Yes Other/Comment: CABG - PULMONARY Hx Respiratory Disorders: No - NEUROLOGICAL Hx Neurological Disorder: No - HEENT Hx HEENT Problems: Yes Hx Cataracts: Yes (left) - RENAL Hx Chronic Kidney Disease: No - ENDOCRINE/METABOLIC Hx Endocrine Disorders: Yes Hx Diabetes Mellitus Type 2: Yes - HEMATOLOGICAL/ONCOLOGICAL Hx Anemia: Yes Hx Cancer: Yes (MDS) Other/Comment: 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 - INTEGUMENTARY Hx Dermatological Problems: No - MUSCULOSKELETAL/RHEUMATOLOGICAL Hx Arthritis: Yes - GASTROINTESTINAL Hx Gastritis: Yes - GENITOURINARY/GYNECOLOGICAL Hx Genitourinary Disorders: No - PSYCHIATRIC Hx Anxiety: Yes - SURGICAL HISTORY Hx Cholecystectomy: Yes Hx Orthopedic Surgery: Yes - ANESTHESIA Hx Anesthesia: Yes Hx Anesthesia Reactions: No Hx Malignant Hyperthermia: No Meds Allergies/Adverse Reactions: Allergies Allergy/AdvReac Type Severity Reaction Status Date / Time tape Allergy RASH Uncoded 04/02/17 13:29 - Medications Medications: Current Medications Acetaminophen (Tylenol 325 Mg Supp) 975 mg RI ONCE PRN PRN Reason: Fever >100.4 F Last Admin: 04/02/17 15:06 Dose: 975 mg Gabapentin (Neurontin) 100 mg PO TID [facility] Last Admin: 04/03/17 09:14 Dose: 100 mg Glipizide (Glucotrol) 5 mg PO BID [facility] Last Admin: 04/03/17 09:09 Dose: 5 mg HCTZ/Losartan Potassium (Hyzaar 12.5 Mg-50 Mg) 1 tab PO DAILY [facility] Last Admin: 04/03/17 09:10 Dose: 1 tab Sodium Chloride (Sodium Chloride 0.9%) 1,000 mls @ 80 mls/hr IV .[id number] [facility] Last Admin: 04/03/17 05:37 Dose: 80 mls/hr Vancomycin HCl 1 gm/ Sodium (Chloride) 250 mls @ 166.667 mls/hr IVPB Q12 [facility] Last Admin: 04/03/17 09:13 Dose: 166.667 mls/hr Meropenem 1 gm/ Sodium (Chloride) 100 mls @ 100 mls/hr IVPB Q8 [facility] Last Admin: 04/03/17 01:01 Dose: 100 mls/hr Metformin HCl (Glucophage) 1,000 mg PO BID [facility] Last Admin: 04/03/17 09:09 Dose: 1,000 mg Metoprolol Tartrate (Lopressor) 50 mg PO DAILY [facility] Last Admin: 04/03/17 09:10 Dose: 50 mg Pantoprazole Sodium (Protonix Ec Tab) 40 mg PO DAILY [facility] Last Admin: 04/03/17 09:14 Dose: 40 mg Tramadol HCl (Ultram) 50 mg PO Q6 PRN PRN Reason: Pain, moderate (4-7) Physical Exam - Additional Findings Additional findings: Physical Exam; Alert well oriented, in no acute distress neck; Supple, no adenopathy Chest; ASir entry good bilaterally, no rales or rhonchi Heart; RSR, no murmur Abd; Soft, ascitis 2+, liver is not palpable but the spleen is enlarged. Results - Vital Signs Recent Vital Signs: Last Vital Signs Temp 98.4 F 04/03/17 08:00 Pulse 71 04/03/17 09:10 Resp 18 04/03/17 08:00 BP 102/52 L 04/03/17 09:10 Pulse Ox 96 04/03/17 08:00 - Labs Result Diagrams: 04/03/17 06:00 04/03/17 06:00 Labs: Laboratory Results - last 24 hr 04/02/17 04/02/17 04/03/17 15:55 21:57 05:28 WBC RBC Hgb Hct MCV MCH MCHC RDW Plt Count MPV Neut % (Auto) Lymph % (Auto) Dodge % (Auto) Eos % (Auto) Baso % (Auto) Neut # Lymph # Dodge # Eos # Baso # pO2 40 VBG pH 7.42 VBG pCO2 39 L VBG HCO3 25.0 VBG Total CO2 26.5 VBG O2 Sat (Calc) 83.4 H VBG Base Excess 0.8 VBG Potassium 4.1 Sodium 136.0 Chloride 108.0 H Glucose 118 H Lactate 2.6 H FiO2 21.0 Potassium Carbon Dioxide Anion Gap BUN Creatinine Est GFR ( Amer) Est GFR (Non-Af Amer) POC Glucose (mg/dL) 150 H 177 H Random Glucose Calcium TSH 3rd Generation Venous Blood Potassium 4.1 04/03/17 04/03/17 06:00 06:00 WBC 1.8 L* D RBC 2.99 L Hgb 7.6 L Hct 24.5 L MCV 81.8 MCH 25.5 L MCHC 31.2 L RDW 22.1 H Plt Count 54 L D MPV 7.0 L Neut % (Auto) 54.2 Lymph % (Auto) 16.8 L Dodge % (Auto) 28.3 H Eos % (Auto) 0.0 Baso % (Auto) 0.7 Neut # 1.0 L Lymph # 0.3 L Dodge # 0.5 Eos # 0.0 Baso # 0.0 pO2 VBG pH VBG pCO2 VBG HCO3 VBG Total CO2 VBG O2 Sat (Calc) VBG Base Excess VBG Potassium Sodium 137 Chloride 105 Glucose Lactate FiO2 Potassium 3.8 Carbon Dioxide 26 Anion Gap 10 BUN 27 H Creatinine 1.2 Est GFR ( Amer) > 60 Est GFR (Non-Af Amer) 58 POC Glucose (mg/dL) Random Glucose 129 H Calcium 8.4 TSH 3rd Generation 0.44 L Venous Blood Potassium Assessment & Plan - Assessment and Plan (Free Text) Assessment: Impression; Pancytopenia which coulds be a combination of the MDS and the large spleen. Liver cirrhosis, etiology to be determined. Diabetes mellitus with peripheral neuropathy, and non healing wound of the right toe . Plan: Plan; Will give him Granix to keep the ANC above 2000. Procrit q tuesday, Suggest a GI consult to evaluate the cirrhosis, and gastric wall thickening. Would continure the antibiotics and request a consult with podiatry I will be away for [address] Tristan Gee will cover for me - Date & Time Date: 04/03/17 Time: 11:12
--- NOTE | 2017-04-03 11:36 | CP.PCM.PN ---
Subjective - Date & Time of Evaluation Date of Evaluation: 04/03/17 Time of Evaluation: 11:19 - Subjective Subjective: Patient admitted to diarrhea and mild abdominal pain yesterday. Tmax overnight 101.2, otherwise HD stable. CT abd pel yesterday showed cirrhosis with marked splenomegaly. Moderate abdominal and pelvic ascites. Possible gastritis. Cholecystectomy. Complains of diabetic foot ulcer on R great toe, consulted Podiatry. Discussed case with Dr. Salma Yanes, pt LFTs were normal 2 weeks ago. Pt hx of MDS, will give Granx x2, and pt is on Procrit EVERY TUESDAY. GI consulted today for SBP evaluation. Pt is on Merrem, will discuss with ID. No other complaints today, clinically appears well. HD stable, NAD. Objective - Vital Signs/Intake and Output Vital Signs (last 24 hours): Temp Pulse Resp BP Pulse Ox 98.4 F 71 18 102/52 L 96 04/03/17 08:00 04/03/17 09:10 04/03/17 08:00 04/03/17 09:10 04/03/17 08:00 GEN: WDWN, ALERT, COOPERATIVE HEENT: NCAT, PERRL, EOMI HEART: +S1+S2, RRR NO MRG LUNG: CTAB, NO WRR ABD: +ASCITES. OBESE, SOFT BSX4 NT ND NO HSM NO MASS EXT: WARM, WELL PERFUSED NEURO: AAOX3, STRENGTH AND SENSATION EQUAL AND BILATERAL SKIN: WARM DRY PSYCH: NORMAL MOOD NORMAL AFFECT Intake and Output: 04/03/17 04/03/17 06:59 18:59 Intake Total 1490 Output Total 1100 Balance 390 - Medications Medications: Current Medications Acetaminophen (Tylenol 325 Mg Supp) 975 mg WI ONCE PRN PRN Reason: Fever >100.4 F Last Admin: 04/02/17 15:06 Dose: 975 mg Gabapentin (Neurontin) 100 mg PO TID [facility] Last Admin: 04/03/17 09:14 Dose: 100 mg Glipizide (Glucotrol) 5 mg PO BID [facility] Last Admin: 04/03/17 09:09 Dose: 5 mg HCTZ/Losartan Potassium (Hyzaar 12.5 Mg-50 Mg) 1 tab PO DAILY [facility] Last Admin: 04/03/17 09:10 Dose: 1 tab Sodium Chloride (Sodium Chloride 0.9%) 1,000 mls @ 80 mls/hr IV .[id number] [facility] Last Admin: 04/03/17 05:37 Dose: 80 mls/hr Vancomycin HCl 1 gm/ Sodium (Chloride) 250 mls @ 166.667 mls/hr IVPB Q12 [facility] Last Admin: 04/03/17 09:13 Dose: 166.667 mls/hr Meropenem 1 gm/ Sodium (Chloride) 100 mls @ 100 mls/hr IVPB Q8 [facility] Last Admin: 04/03/17 10:44 Dose: 100 mls/hr Metformin HCl (Glucophage) 1,000 mg PO BID [facility] Last Admin: 04/03/17 09:09 Dose: 1,000 mg Metoprolol Tartrate (Lopressor) 50 mg PO DAILY [facility] Last Admin: 04/03/17 09:10 Dose: 50 mg Pantoprazole Sodium (Protonix Ec Tab) 40 mg PO DAILY [facility] Last Admin: 04/03/17 09:14 Dose: 40 mg Tramadol HCl (Ultram) 50 mg PO Q6 PRN PRN Reason: Pain, moderate (4-7) - Labs Labs: 04/03/17 06:00 04/03/17 06:00 PT 18.6 Seconds (9.8-13.1) H 04/02/17 14:08 INR 1.8 (0.9-1.2) H 04/02/17 14:08 APTT 29.6 Seconds (25.6-37.1) 04/02/17 14:08 Assessment and Plan - Assessment and Plan (Free Text) Plan: 81 yo male with history of Myelodysplastic Syndrome, CAD (s/p Quadruple By-Pass , 1995) and DM2 brought in because of confusion accompanied with fever and chills since last night. Denied any other complaint but daughter thought she looked SOB when EMS arrived in their home. Presently more alert and only admitted having chills and feeling cold earlier. Denied chest pain, nausea or vomiting. HEAD CT neg CXR: mild bibasilar atelectasis CT Abd Pel: cirrhosis with marked splenomegaly. Moderate abdominal and pelvic ascites. Possible gastritis. Cholecystectomy. 04/03/17 Patient admitted to diarrhea and mild abdominal pain yesterday. Tmax overnight 101.2, otherwise HD stable. CT abd pel yesterday showed cirrhosis with marked splenomegaly. Moderate abdominal and pelvic ascites. Possible gastritis. Cholecystectomy. Complains of diabetic foot ulcer on R great toe, consulted Podiatry. Discussed case with Dr. Salma Yanes, pt LFTs were normal 2 weeks ago. Pt hx of MDS, will give Granx x2, and pt is on Procrit EVERY TUESDAY. GI consulted today for SBP evaluation. Pt is on Merrem, will discuss with ID. Sepsis secondary to gastritis vs SBP? admit to telemetry. febrile overnight, HD stable currently blood culture x 2 -GRAM POS COCCI IN CHAINS urine culture pending Vanco 1gm IV q 12hrs. Meropenem 1gm IV q 8hrs. ID consult with Dr Wallis GI consult called for eval for possible SBP LFTs pending today, mildly elevated yesterday. TBili 2.8 yesterday, INR 1.8 Myelodysplasia (myelodysplastic syndrome) Oncology consult with Dr Torres, discussed case today Will give Granx x2 doses today and tomorrow Pt receives Procrit EVERY Tuesday baseline WBC 1.5-1.[address] Abd/Pel, pt with history GI Consult Dr. Neri for eval for SBP Hep Panel is pending Coagulopathy INR 1.8 secondary to cirrhosis monitor DM2 (diabetes mellitus, type 2) BS relatively controlled. accuchek ACHS. Glipizide 5mg PO BID. Metformin 1000mg PO BID. HgA1C, BMP in am Diabetic Toe Ulcer R great toe patient sees Dr. Smith, consulted for evaluation HTN (hypertension) BP stable. continue Losart/HCTZ and Metoprolol CAD (coronary artery disease) asymptomatic. continue statin and Metoprolol
[2017-04-03 12:17] LABS: NEUTROPHIL 58 % (42-75); TOTAL CELLS COUNTED 100
[2017-04-03 12:20] LABS: LARGE PLATELETS PRESENT; SPHEROCYTES SLIGHT
--- NOTE | 2017-04-03 12:21 | CP.PCM.CON ---
History of Present Illness - History of Present Illness History of Present Illness: Infectious Disease Consult Note- asked to see this patient at the request of Hospitalist for sepsis HPI- Patient is a 81 year old male with pmh of DM II, CAD s/p CABG, HTN, MDS undergoing once a week chemo by his oncologist who was admitted with fever and somewhat confused and was found to have fever and high lactate and low wbc ( secondary to his MDS) and hence I was asked to evaluate and help with antibiotic management. Pt. states he was feverish yesterday and also felt weak but he states today he feels much better compared to yesterday. Denies any LORENZANA, denies any cough, denies any sob, denies any chest pain, denies any abd. pain. states had loose BM today but not before, denies any dysurea. Upon further questioning pt. also mentions that few weeks ago he fell at home on his right side but denies sustaining any injury. He also mentions he developed right shoulder pain and states he saw 2 orthopedic docs but they recommneded conservative management and PT as he was deemed poor surgical candidate ( as per pt). pt. states he has had his port for about almost 2 years and that he gets one week per month chemo for his MDS and the week after the "boost " for his wbc. Review of Systems - Review of Systems Review of Systems: ROS- denies any LORENZANA, + fever yesterday, denies any cough, denies any sob, denies any chest pain, denies any abd. pain, denies any n/v, denies any dysurea, denies any diarrhea until today right knee/leg pain ( apparently had a fall at home on that side few weeks ago). denies any sick contacts denies any recent travel Past Patient History - Tetanus Immunizations Tetanus Immunization: Unknown - Past Medical History & Family History Past Medical History?: Yes Past Family History: Reviewed and not pertinent - Past Social History Smoking Status: Former Smoker Alcohol: Occasional - CARDIAC Hx Cardiac Disorders: Yes Hx Congestive Heart Failure: Yes Hx Hypercholesterolemia: Yes Hx Hypertension: Yes Hx Peripheral Edema: Yes Other/Comment: CABG - PULMONARY Hx Respiratory Disorders: No - NEUROLOGICAL Hx Neurological Disorder: No - HEENT Hx HEENT Problems: Yes Hx Cataracts: Yes (left) - RENAL Hx Chronic Kidney Disease: No - ENDOCRINE/METABOLIC Hx Endocrine Disorders: Yes Hx Diabetes Mellitus Type 2: Yes - HEMATOLOGICAL/ONCOLOGICAL Hx Anemia: Yes Hx Cancer: Yes (MDS) Other/Comment: 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 - INTEGUMENTARY Hx Dermatological Problems: No - MUSCULOSKELETAL/RHEUMATOLOGICAL Hx Arthritis: Yes - GASTROINTESTINAL Hx Gastritis: Yes - GENITOURINARY/GYNECOLOGICAL Hx Genitourinary Disorders: No - PSYCHIATRIC Hx Anxiety: Yes - SURGICAL HISTORY Hx Cholecystectomy: Yes Hx Orthopedic Surgery: Yes - ANESTHESIA Hx Anesthesia: Yes Hx Anesthesia Reactions: No Hx Malignant Hyperthermia: No Meds Allergies/Adverse Reactions: Allergies Allergy/AdvReac Type Severity Reaction Status Date / Time tape Allergy RASH Uncoded 04/02/17 13:29 - Medications Medications: Current Medications Acetaminophen (Tylenol 325 Mg Supp) 975 mg DE ONCE PRN PRN Reason: Fever >100.4 F Last Admin: 04/02/17 15:06 Dose: 975 mg Gabapentin (Neurontin) 100 mg PO TID [facility] Last Admin: 04/03/17 09:14 Dose: 100 mg Glipizide (Glucotrol) 5 mg PO BID [facility] Last Admin: 04/03/17 09:09 Dose: 5 mg HCTZ/Losartan Potassium (Hyzaar 12.5 Mg-50 Mg) 1 tab PO DAILY [facility] Last Admin: 04/03/17 09:10 Dose: 1 tab Sodium Chloride (Sodium Chloride 0.9%) 1,000 mls @ 80 mls/hr IV .[id number] [facility] Last Admin: 04/03/17 05:37 Dose: 80 mls/hr Vancomycin HCl 1 gm/ Sodium (Chloride) 250 mls @ 166.667 mls/hr IVPB Q12 [facility] Last Admin: 04/03/17 09:13 Dose: 166.667 mls/hr Meropenem 1 gm/ Sodium (Chloride) 100 mls @ 100 mls/hr IVPB Q8 [facility] Last Admin: 04/03/17 10:44 Dose: 100 mls/hr Metformin HCl (Glucophage) 1,000 mg PO BID [facility] Last Admin: 04/03/17 09:09 Dose: 1,000 mg Metoprolol Tartrate (Lopressor) 50 mg PO DAILY [facility] Last Admin: 04/03/17 09:10 Dose: 50 mg Pantoprazole Sodium (Protonix Ec Tab) 40 mg PO DAILY [facility] Last Admin: 04/03/17 09:14 Dose: 40 mg Tramadol HCl (Ultram) 50 mg PO Q6 PRN PRN Reason: Pain, moderate (4-7) Physical Exam - Constitutional Appears: No Acute Distress - Head Exam Head Exam: ATRAUMATIC - Eye Exam Eye Exam: EOMI - ENT Exam ENT Exam: Normal Oropharynx - Neck Exam Neck exam: Positive for: Full Rom - Respiratory Exam Respiratory Exam: NORMAL BREATHING PATTERN Additional comments: slightly decreased breath sounds at left base - Cardiovascular Exam Cardiovascular Exam: RRR, +S1, +S2 Additional comments: ight upper chest port site no erythema, nontender - GI/Abdominal Exam GI & Abdominal Exam: Normal Bowel Sounds, Soft Additional comments: NT, ND - Extremities Exam Additional comments: b/l le edema and venous stasis changes right knee region with erythema and slightly edematous right great toe with small superficial ulcer. no opening, no discharge - Neurological Exam Neurological exam: Alert, Oriented x3 Results - Vital Signs Recent Vital Signs: Last Vital Signs Temp 98.4 F 04/03/17 12:00 Pulse 60 04/03/17 12:00 Resp 18 04/03/17 12:00 BP 108/54 L 04/03/17 12:00 Pulse Ox 96 04/03/17 12:00 - Labs Result Diagrams: 04/03/17 06:00 04/03/17 06:00 Labs: Laboratory Results - last 24 hr 04/02/17 04/02/17 04/03/17 15:55 21:57 05:28 WBC RBC Hgb Hct MCV MCH MCHC RDW Plt Count MPV Neut % (Auto) Lymph % (Auto) [place] % (Auto) Eos % (Auto) Baso % (Auto) Neut # Lymph # [place] # Eos # Baso # Neutrophils % (Manual) Band Neutrophils % Lymphocytes % (Manual) Monocytes % (Manual) Platelet Estimate Large Platelets Hypochromasia (manual) Poikilocytosis (manual Anisocytosis (manual) Spherocytes Tear Drop Cells Ovalocytes Schistocytes pO2 40 VBG pH 7.42 VBG pCO2 39 L VBG HCO3 25.0 VBG Total CO2 26.5 VBG O2 Sat (Calc) 83.4 H VBG Base Excess 0.8 VBG Potassium 4.1 Sodium 136.0 Chloride 108.0 H Glucose 118 H Lactate 2.6 H FiO2 21.0 Potassium Carbon Dioxide Anion Gap BUN Creatinine Est GFR ( Amer) Est GFR (Non-Af Amer) POC Glucose (mg/dL) 150 H 177 H Random Glucose Calcium TSH 3rd Generation Venous Blood Potassium 4.1 04/03/17 04/03/17 04/03/17 06:00 06:00 11:06 WBC 1.8 L* D RBC 2.99 L Hgb 7.6 L Hct 24.5 L MCV 81.8 MCH 25.5 L MCHC 31.2 L RDW 22.1 H Plt Count 54 L D MPV 7.0 L Neut % (Auto) 54.2 Lymph % (Auto) 16.8 L [place] % (Auto) 28.3 H Eos % (Auto) 0.0 Baso % (Auto) 0.7 Neut # 1.0 L Lymph # 0.3 L [place] # 0.5 Eos # 0.0 Baso # 0.0 Neutrophils % (Manual) 58 Band Neutrophils % 4 H Lymphocytes % (Manual) 16 L Monocytes % (Manual) 22 H Platelet Estimate Decreased L Large Platelets Present Hypochromasia (manual) Slight Poikilocytosis (manual Slight Anisocytosis (manual) Moderate Spherocytes Slight Tear Drop Cells Slight Ovalocytes Slight Schistocytes Slight pO2 VBG pH VBG pCO2 VBG HCO3 VBG Total CO2 VBG O2 Sat (Calc) VBG Base Excess VBG Potassium Sodium 137 Chloride 105 Glucose Lactate FiO2 Potassium 3.8 Carbon Dioxide 26 Anion Gap 10 BUN 27 H Creatinine 1.2 Est GFR ( Amer) > 60 Est GFR (Non-Af Amer) 58 POC Glucose (mg/dL) 197 H Random Glucose 129 H Calcium 8.4 TSH 3rd Generation 0.44 L Venous Blood Potassium Laboratory Results - last 72 hr 04/02/17 04/02/17 04/02/17 13:28 14:02 14:08 WBC 5.2 D RBC 3.50 L Hgb 8.9 L Hct 28.4 L MCV 81.0 MCH 25.3 L MCHC 31.2 L RDW 22.2 H Plt Count 83 L D MPV 7.1 L Neut % (Auto) 84.2 H Lymph % (Auto) 5.7 L [place] % (Auto) 9.9 Eos % (Auto) 0.0 Baso % (Auto) 0.2 Neut # 4.4 Lymph # 0.3 L [place] # 0.5 Eos # 0.0 Baso # 0.0 Neutrophils % (Manual) 84 H Band Neutrophils % Lymphocytes % (Manual) 6 L Monocytes % (Manual) 10 Platelet Estimate Slightly decreased L Large Platelets Hypochromasia (manual) Slight Poikilocytosis (manual Slight Anisocytosis (manual) Moderate Microcytosis (manual) Slight Spherocytes Tear Drop Cells Slight Ovalocytes Slight Schistocytes PT INR APTT pCO2 32 L pO2 85 HCO3 24.1 ABG pH 7.45 ABG Total CO2 23.2 ABG O2 Saturation 99.4 H ABG Base Excess -1.0 Mason Test Yes ABG Potassium 4.6 VBG pH VBG pCO2 VBG HCO3 VBG Total CO2 VBG O2 Sat (Calc) VBG Base Excess VBG Potassium A-a O2 Difference 46.0 Sodium 135.0 Chloride 105.0 Glucose 162 H Lactate 3.5 H FiO2 24.0 Potassium Carbon Dioxide Anion Gap BUN Creatinine Est GFR ( Amer) Est GFR (Non-Af Amer) POC Glucose (mg/dL) 183 H Random Glucose Calcium Phosphorus Magnesium Total Bilirubin Direct Bilirubin AST ALT Alkaline Phosphatase Total Creatine Kinase NT-Pro-B Natriuret Pep Total Protein Albumin Globulin Albumin/Globulin Ratio TSH 3rd Generation Arterial Blood Potassium 4.6 Venous Blood Potassium Urine Color Urine Clarity Urine pH Ur Specific [place] Urine Protein Urine Glucose (UA) Urine Ketones Urine Blood Urine Nitrate Urine Bilirubin Urine Urobilinogen Ur Leukocyte Esterase Urine RBC (Auto) Urine Microscopic WBC Urine Bacteria 04/02/17 04/02/17 04/02/17 14:08 14:08 14:08 WBC RBC Hgb Hct MCV MCH MCHC RDW Plt Count MPV Neut % (Auto) Lymph % (Auto) [place] % (Auto) Eos % (Auto) Baso % (Auto) Neut # Lymph # [place] # Eos # Baso # Neutrophils % (Manual) Band Neutrophils % Lymphocytes % (Manual) Monocytes % (Manual) Platelet Estimate Large Platelets Hypochromasia (manual) Poikilocytosis (manual Anisocytosis (manual) Microcytosis (manual) Spherocytes Tear Drop Cells Ovalocytes Schistocytes PT 18.6 H INR 1.8 H APTT 29.6 pCO2 pO2 HCO3 ABG pH ABG Total CO2 ABG O2 Saturation ABG Base Excess Mason Test ABG Potassium VBG pH VBG pCO2 VBG HCO3 VBG Total CO2 VBG O2 Sat (Calc) VBG Base Excess VBG Potassium A-a O2 Difference Sodium 137 Chloride 103 Glucose Lactate FiO2 Potassium 4.8 Carbon Dioxide 22 Anion Gap 17 BUN 27 H Creatinine 1.2 Est GFR ( Amer) > 60 Est GFR (Non-Af Amer) 58 POC Glucose (mg/dL) Random Glucose 158 H Calcium 9.0 Phosphorus 2.7 Magnesium 1.7 Total Bilirubin 2.8 H Direct Bilirubin AST 98 H D ALT 73 H D Alkaline Phosphatase 129 H D Total Creatine Kinase 99 NT-Pro-B Natriuret Pep 1270 H Total Protein 6.6 Albumin 3.7 Globulin 3.0 Albumin/Globulin Ratio 1.2 TSH 3rd Generation Arterial Blood Potassium Venous Blood Potassium Urine Color Yellow Urine Clarity Slighty-cloudy Urine pH 6.0 Ur Specific [place] 1.017 Urine Protein 30 Urine Glucose (UA) Neg Urine Ketones Negative Urine Blood Moderate Urine Nitrate Negative Urine Bilirubin Negative Urine Urobilinogen 2.0 Ur Leukocyte Esterase Neg Urine RBC (Auto) 49 H Urine Microscopic WBC 2 Urine Bacteria Rare 04/02/17 04/02/17 04/03/17 15:55 21:57 05:28 WBC RBC Hgb Hct MCV MCH MCHC RDW Plt Count MPV Neut % (Auto) Lymph % (Auto) [place] % (Auto) Eos % (Auto) Baso % (Auto) Neut # Lymph # [place] # Eos # Baso # Neutrophils % (Manual) Band Neutrophils % Lymphocytes % (Manual) Monocytes % (Manual) Platelet Estimate Large Platelets Hypochromasia (manual) Poikilocytosis (manual Anisocytosis (manual) Microcytosis (manual) Spherocytes Tear Drop Cells Ovalocytes Schistocytes PT INR APTT pCO2 pO2 40 HCO3 ABG pH ABG Total CO2 ABG O2 Saturation ABG Base Excess Mason Test ABG Potassium VBG pH 7.42 VBG pCO2 39 L VBG HCO3 25.0 VBG Total CO2 26.5 VBG O2 Sat (Calc) 83.4 H VBG Base Excess 0.8 VBG Potassium 4.1 A-a O2 Difference Sodium 136.0 Chloride 108.0 H Glucose 118 H Lactate 2.6 H FiO2 21.0 Potassium Carbon Dioxide Anion Gap BUN Creatinine Est GFR ( Amer) Est GFR (Non-Af Amer) POC Glucose (mg/dL) 150 H 177 H Random Glucose Calcium Phosphorus Magnesium Total Bilirubin Direct Bilirubin AST ALT Alkaline Phosphatase Total Creatine Kinase NT-Pro-B Natriuret Pep Total Protein Albumin Globulin Albumin/Globulin Ratio TSH 3rd Generation Arterial Blood Potassium Venous Blood Potassium 4.1 Urine Color Urine Clarity Urine pH Ur Specific [place] Urine Protein Urine Glucose (UA) Urine Ketones Urine Blood Urine Nitrate Urine Bilirubin Urine Urobilinogen Ur Leukocyte Esterase Urine RBC (Auto) Urine Microscopic WBC Urine Bacteria 04/03/17 04/03/17 04/03/17 06:00 06:00 11:06 WBC 1.8 L* D RBC 2.99 L Hgb 7.6 L Hct 24.5 L MCV 81.8 MCH 25.5 L MCHC 31.2 L RDW 22.1 H Plt Count 54 L D MPV 7.0 L Neut % (Auto) 54.2 Lymph % (Auto) 16.8 L [place] % (Auto) 28.3 H Eos % (Auto) 0.0 Baso % (Auto) 0.7 Neut # 1.0 L Lymph # 0.3 L [place] # 0.5 Eos # 0.0 Baso # 0.0 Neutrophils % (Manual) 58 Band Neutrophils % 4 H Lymphocytes % (Manual) 16 L Monocytes % (Manual) 22 H Platelet Estimate Decreased L Large Platelets Present Hypochromasia (manual) Slight Poikilocytosis (manual Slight Anisocytosis (manual) Moderate Microcytosis (manual) Spherocytes Slight Tear Drop Cells Slight Ovalocytes Slight Schistocytes Slight PT INR APTT pCO2 pO2 HCO3 ABG pH ABG Total CO2 ABG O2 Saturation ABG Base Excess [place] Test ABG Potassium VBG pH VBG pCO2 VBG HCO3 VBG Total CO2 VBG O2 Sat (Calc) VBG Base Excess VBG Potassium A-a O2 Difference Sodium 137 Chloride 105 Glucose Lactate FiO2 Potassium 3.8 Carbon Dioxide 26 Anion Gap 10 BUN 27 H Creatinine 1.2 Est GFR ( Amer) > 60 Est GFR (Non-Af Amer) 58 POC Glucose (mg/dL) 197 H Random Glucose 129 H Calcium 8.4 Phosphorus Magnesium Total Bilirubin Direct Bilirubin AST ALT Alkaline Phosphatase Total Creatine Kinase NT-Pro-B Natriuret Pep Total Protein Albumin Globulin Albumin/Globulin Ratio TSH 3rd Generation 0.44 L Arterial Blood Potassium Venous Blood Potassium Urine Color Urine Clarity Urine pH Ur Specific [place] Urine Protein Urine Glucose (UA) Urine Ketones Urine Blood Urine Nitrate Urine Bilirubin Urine Urobilinogen Ur Leukocyte Esterase Urine RBC (Auto) Urine Microscopic WBC Urine Bacteria 04/03/17 04/03/17 12:40 12:40 WBC RBC Hgb Hct MCV MCH MCHC RDW Plt Count MPV Neut % (Auto) Lymph % (Auto) [place] % (Auto) Eos % (Auto) Baso % (Auto) Neut # Lymph # [place] # Eos # Baso # Neutrophils % (Manual) Band Neutrophils % Lymphocytes % (Manual) Monocytes % (Manual) Platelet Estimate Large Platelets Hypochromasia (manual) Poikilocytosis (manual Anisocytosis (manual) Microcytosis (manual) Spherocytes Tear Drop Cells Ovalocytes Schistocytes PT 18.5 H INR 1.8 H APTT 31.5 pCO2 pO2 HCO3 ABG pH ABG Total CO2 ABG O2 Saturation ABG Base Excess [place] Test ABG Potassium VBG pH VBG pCO2 VBG HCO3 VBG Total CO2 VBG O2 Sat (Calc) VBG Base Excess VBG Potassium A-a O2 Difference Sodium Chloride Glucose Lactate FiO2 Potassium Carbon Dioxide Anion Gap BUN Creatinine Est GFR ( Amer) Est GFR (Non-Af Amer) POC Glucose (mg/dL) Random Glucose Calcium Phosphorus Magnesium Total Bilirubin 1.9 H Direct Bilirubin 0.4 AST 70 H D ALT 69 Alkaline Phosphatase 101 Total Creatine Kinase NT-Pro-B Natriuret Pep Total Protein 6.1 L Albumin 3.2 L Globulin 2.9 Albumin/Globulin Ratio 1.1 TSH 3rd Generation Arterial Blood Potassium Venous Blood Potassium Urine Color Urine Clarity Urine pH Ur Specific [place] Urine Protein Urine Glucose (UA) Urine Ketones Urine Blood Urine Nitrate Urine Bilirubin Urine Urobilinogen Ur Leukocyte Esterase Urine RBC (Auto) Urine Microscopic WBC Urine Bacteria Microbiology 04/02/17 14:08 Urine Urine Culture - Final No Growth (<1,000 CFU/ML) 04/02/17 14:08 Blood Blood Culture - Preliminary Gram Pos Cocci In Chains 04/02/17 14:08 Blood Gram Stain - Final Microbiology 01/21/17 14:32 Shoulder - Left Gram Stain - Final 01/21/17 14:32 Shoulder - Left Wound Culture - Final No growth. Accession No. : [id number] Patient Name / ID : ERIN GUERRA / [id number] Exam Date : 04/02/2017 14:13:11 ( Approved ) Study Comment : Sex / Age : M / 81Y Creator : Dick Poole MD Dictator : Dick Poole MD Case Finisher : Jig Borer : Dick Poole MD Approver2 : Report Date : 04/02/2017 16:14:12 My Comment : HISTORY: Sepsis Patient COMPARISON: Comparison chest dated 11/18/2016 FINDINGS: LUNGS: In situ right IJ MediPort with tip in the SVC. . Mild bibasilar atelectasis PLEURA: No significant pleural effusion identified, no pneumothorax apparent. CARDIOVASCULAR: Sternotomy wires and CABG clips noted. Heart size is upper limits of normal. Open tech OSSEOUS STRUCTURES: No significant abnormalities. VISUALIZED UPPER ABDOMEN: Normal. OTHER FINDINGS: None. IMPRESSION: Mild bibasilar atelectasis Accession No. : [id number] Patient Name / ID : ERIN GUERRA / [id number] Exam Date : 04/02/2017 14:41:01 ( Approved ) Study Comment : Sex / Age : M / 81Y Creator : Dick Poole MD Dictator : Dick Poole MD Case Finisher : Jig Borer : Dick Poole MD Approver2 : Report Date : 04/02/2017 15:41:51 My Comment : PROCEDURE: CT HEAD WITHOUT CONTRAST. HISTORY: AMS/ fever/ on chemo COMPARISON: None available. TECHNIQUE: Axial computed tomography images were obtained through the head/brain without intravenous contrast. Radiation dose: Total exam DLP = 2996.45 mGy-cm. This CT exam was performed using one or more of the following dose reduction techniques: Automated exposure control, adjustment of the mA and/or kV according to patient size, and/or use of iterative reconstruction technique. FINDINGS: HEMORRHAGE: No intracranial hemorrhage. BRAIN: Moderate diffuse/confluent chronic periventricular white matter ischemic changes with patchy presumed ischemic changes seen within deep and subcortical white matter both cerebral hemispheres. There appears to be some extension of these changes into white matter tracts of both basal nuclei. . Note that the possibility of concomitant sequela of chemotherapy not excluded. No obvious parenchymal nor extra-axial mass or collection. Moderate generalized volume loss. Vascular calcifications of both carotid siphons. VENTRICLES: No obstructive hydrocephalus. CALVARIUM: No acute calvarial fractures. PARANASAL SINUSES: Complete opacification of the right maxillary antrum with questionable loculated proteinaceous fluid collection along the lateral margin of the maxillary antrum. MASTOID AIR CELLS: Unremarkable as visualized. No inflammatory changes. OTHER FINDINGS: Changes of bilateral cataract surgery. IMPRESSION: No acute intracranial hemorrhage. Confluent periventricular with more patchy deep and subcortical white matter ischemic changes; rule out concomitant sequela of chemotherapy. Moderate volume loss. No obvious parenchymal nor extra-axial mass or collection seen on this noncontrast study. Accession No. : [id number] Patient Name / ID : ERIN GUERRA / [id number] Exam Date : 04/02/2017 16:42:21 ( Approved ) Study Comment : Sex / Age : M / 81Y Creator : Dick Poole MD Dictator : Dick Poole MD Case Finisher : Jig Borer : Dick Poole MD Approver2 : Report Date : 04/02/2017 18:35:11 My Comment : PROCEDURE: CT abdomen pelvis and pelvis 04/02/2017 HISTORY: fever, sepsis, cancer patient COMPARISON: Comparison made with CT scan of the abdomen and pelvis dated 12/26/2013. TECHNIQUE: Contiguous axial images of the abdomen and pelvis performed following intravenous injection of approximately 9 9 cc Omnipaque 300 contrast material. Additional 2 dimensional sagittal and coronal reformats provided. Findings: Intravenous contrast. . Radiation dose: Total exam DLP = 87.65 mGy-cm. This CT exam was performed using one or more of the following dose reduction techniques: Automated exposure control, adjustment of the mA and/or kV according to patient size, and/or use of iterative reconstruction technique. FINDINGS: LOWER THORAX: Mild bibasilar atelectasis and or scarring changes both lung bases including the lingular and middle lobe regions. Questionable minor pleural thickening and /or trace effusions. Heart appears mildly enlarged. Small hiatal hernia. LIVER: The liver is mildly enlarged measuring approximately 19 cm in cc dimension. The liver exhibits nodular surface contour and slightly heterogeneous parenchyma suggesting cirrhosis. Clinical correlation recommended. Portal and splenic veins are opacified. Small to medium amount of perihepatic ascites present extending into right para colonic gutter and pelvis GALLBLADDER AND BILE DUCTS: Status post cholecystectomy. There meant multiple on metallic clips in the gallbladder fossa as well as multiple calculi possibly new within the gallbladder fossa as well. PANCREAS: Pancreas appears atrophic and fatty replaced. SPLEEN: Spleen is markedly enlarged measuring nearly 19 cm in AP dimension. . Small amount of perihepatic splenic ascites noted ADRENALS: No adrenal lesions. KIDNEYS AND URETERS: Kidneys demonstrate symmetric nephrograms. Elliptical shaped low-attenuation focus posteromedial border midpole left kidney probably represent cysts. No evidence of hydronephrosis. BLADDER: Urinary bladder is collapsed about an unclamped in situ Woods catheter. Woods balloon appears distended likely within the floor of the collapsed urinary bladder. It is unclear the balloon is partially located within the prostatic urethra as streak and beam hardening artifact arising from left total hip replacement, the partially obscures the floor urinary bladder prostate gland. Mild wall thickening of the urinary bladder likely due to underdistention and muscular hypertrophy. Cystitis not excluded. REPRODUCTIVE: Prostate is poorly seen due to streak and beam hardening artifact arising from total hip replacement. Prostatic calcifications are present APPENDIX: Appendix not seen with certainty on likely in part due to on opacified bowel and ascites BOWEL: There is marked wall thickening of the stomach of uncertain etiology. Rule out gastritis. Rule out other intrinsic/invasive wall lesion such as gastric carcinoma. Ascites may contribute. Visualized loops of small bowel exhibit normal contour and caliber. No evidence of acute mechanical small bowel obstruction. Stool and air seen throughout the colon. Mild wall thickening of the cecum and at ascending colon may in part be due to incomplete distention peristalsis and under opacified stool however inflammatory process not excluded. Ischemia would be less likely absence of a pertinent clinical history though also not excluded. A moderate amount of stool seen within the rectum. PERITONEUM: Abdominal ascites as described. LYMPH NODES: Evaluation for adenopathy is limited however there does appear to be multiple small nonspecific retroperitoneal lymph nodes. Adenopathy surrounding the celiac access and adjacent to the pancreas also felt to be present. VASCULATURE: No definitive evidence of abdominal aortic aneurysm BONES: Multilevel degenerative spondylosis of the lower thoracic and lumbar spine. Slight anterior subluxation L4 over L5 likely due to hypertrophic facets as no definitive pars defects seen. OTHER FINDINGS: None. IMPRESSION: Cardiomegaly. Hepatomegaly. Findings suggestive of cirrhosis however clinical correlation recommended. Marked splenomegaly. Moderate amount of of abdominal and pelvic ascites. Marked wall thickening of the stomach could be due to gastritis however other intrinsic/invasive wall lesion such as gastric carcinoma not excluded. The the. Cholecystectomy with multiple apparent gallbladder calculi in the gallbladder fossa region. Clinic correlation recommended. See above discussion for additional findings and details. Note that these findings were discussed with Dr. Lebron at approximately 6 p.m. with written down and read back verification Assessment & Plan (1) Myelodysplasia (myelodysplastic syndrome) Status: Acute (2) Severe sepsis Status: Acute (3) DM2 (diabetes mellitus, type 2) Status: Acute (4) Venous stasis dermatitis of both lower extremities Status: Acute - Assessment and Plan (Free Text) Assessment: A/P- 81 year old male with multiple medical conditions including CAD s/p CABG, DM II , MDS undergoing chemo who presented with fever and confusion yesterday. today he is clinically better. and afebrile and not confused. however, found to have positive blood cx for GPC. etiology of the sepsis and bacteremia unclear at this time would advise to continue to cover with broad spectrum antibiotics specially since pt. is immunocompromised with leukopenia and was febrile yesterday pending further results. advise to check echo rule out any vegetations. also advise to check CT of the right knee /thigh region rule out any fluid collection. plan- check 2 more Blood cx. await ID and sensitivity of the GPC in chains in blood cx. check TTE r/o vegetations. continue with IV vancomycin for GPC bacteremia. keep trough <20. continue with empiric meropenem pending further results and till wbc rises. podiatry eval of the superficial right toe ulcer. found to have transaminitis and cirrhosis on ct report, unknown etiology. advise to rule out hepatitis profile . Thank you for allowing met o take part in the care of this patient. will f/u. d/w hospitalist the plan of care.
[2017-04-03 13:30] LABS: ALB/GLOB RATIO 1.1 (1.0-2.1); BILIRUBIN,TOTAL 1.9 mg/dl (0.2-1.3); TOTAL PROTEIN 6.1 G/DL (6.3-8.2)
[2017-04-03 13:40] LABS: PARTIAL THROMBOPLASTIN TIME 31.5 Seconds (25.6-37.1)
--- NOTE | 2017-04-03 15:00 | CP.PCM.CON ---
History of Present Illness - History of Present Illness History of Present Illness: 81 year old male with seen at bedside for right hallux ulceration. Pt is followed by attending, Dr. Smith on an outpatient basis. Pt has noted mild swelling and pain in the right hallux over past week, though did not think much of it. Pt reports about 2 weeks ago he fell on his right side, though fall did not impact his daily activity level as he still ambulates to baseline levels with cane at pre-incident levels. Pt reports h has noted increased swelling ro the right lower leg over the past 5 days. Pt does not recall any traumatic events, bug bites, or invasion from foreign bodies in the area of concern. Pt presented to [facility] ER for lethargy, feeling if chills, confusion, nausea, and rigors. PMH: Anemia, Myelodysplastic Syndrome, Diabetes Mellitus-2, HTN, Anxiety, Arthritis, Gastritis, Hypercholesterolemia, & Peripheral Edema Past Patient History - Tetanus Immunizations Tetanus Immunization: Unknown - Past Medical History & Family History Past Medical History?: Yes Past Family History: Reviewed and not pertinent - Past Social History Smoking Status: Former Smoker Alcohol: Occasional - CARDIAC Hx Cardiac Disorders: Yes Hx Congestive Heart Failure: Yes Hx Hypercholesterolemia: Yes Hx Hypertension: Yes Hx Peripheral Edema: Yes Other/Comment: CABG - PULMONARY Hx Respiratory Disorders: No - NEUROLOGICAL Hx Neurological Disorder: No - HEENT Hx HEENT Problems: Yes Hx Cataracts: Yes (left) - RENAL Hx Chronic Kidney Disease: No - ENDOCRINE/METABOLIC Hx Endocrine Disorders: Yes Hx Diabetes Mellitus Type 2: Yes - HEMATOLOGICAL/ONCOLOGICAL Hx Anemia: Yes Hx Cancer: Yes (MDS) Other/Comment: 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 - INTEGUMENTARY Hx Dermatological Problems: No - MUSCULOSKELETAL/RHEUMATOLOGICAL Hx Arthritis: Yes - GASTROINTESTINAL Hx Gastritis: Yes - GENITOURINARY/GYNECOLOGICAL Hx Genitourinary Disorders: No - PSYCHIATRIC Hx Anxiety: Yes - SURGICAL HISTORY Hx Cholecystectomy: Yes Hx Orthopedic Surgery: Yes - ANESTHESIA Hx Anesthesia: Yes Hx Anesthesia Reactions: No Hx Malignant Hyperthermia: No Meds Allergies/Adverse Reactions: Allergies Allergy/AdvReac Type Severity Reaction Status Date / Time tape Allergy RASH Uncoded 04/02/17 13:29 - Medications Medications: Current Medications Acetaminophen (Tylenol 325 Mg Supp) 975 mg NE ONCE PRN PRN Reason: Fever >100.4 F Last Admin: 04/02/17 15:06 Dose: 975 mg Gabapentin (Neurontin) 100 mg PO TID [facility] Last Admin: 04/03/17 12:47 Dose: 100 mg Glipizide (Glucotrol) 5 mg PO BID [facility] Last Admin: 04/03/17 09:09 Dose: 5 mg HCTZ/Losartan Potassium (Hyzaar 12.5 Mg-50 Mg) 1 tab PO DAILY [facility] Last Admin: 04/03/17 09:10 Dose: 1 tab Sodium Chloride (Sodium Chloride 0.9%) 1,000 mls @ 80 mls/hr IV .[id number] [facility] Last Admin: 04/03/17 05:37 Dose: 80 mls/hr Vancomycin HCl 1 gm/ Sodium (Chloride) 250 mls @ 166.667 mls/hr IVPB Q12 [facility] Last Admin: 04/03/17 09:13 Dose: 166.667 mls/hr Meropenem 1 gm/ Sodium (Chloride) 100 mls @ 100 mls/hr IVPB Q8 [facility] Last Admin: 04/03/17 10:44 Dose: 100 mls/hr Metformin HCl (Glucophage) 1,000 mg PO BID [facility] Last Admin: 04/03/17 09:09 Dose: 1,000 mg Metoprolol Tartrate (Lopressor) 50 mg PO DAILY [facility] Last Admin: 04/03/17 09:10 Dose: 50 mg Pantoprazole Sodium (Protonix Ec Tab) 40 mg PO DAILY [facility] Last Admin: 04/03/17 09:14 Dose: 40 mg Tramadol HCl (Ultram) 50 mg PO Q6 PRN PRN Reason: Pain, moderate (4-7) Physical Exam - Constitutional Appears: Well, Non-toxic, No Acute Distress - Extremities Exam Additional comments: Lower extremity focused exam. Vasc: DP and PT pulses fully palpable b/l, graded 2/4. Diffused non-pitting edema to right lower leg below knee, +1 pitting edema to left foot and leg. Skin temperature warm to warm from proximal to distal in right lower extremity. Skin temperature warm to cool from proximal to distal in left lower extremity, within normal limits. CRF is <3 seconds in all 10 digits. Neuro: Epicritic and protective sensation grossly absent bilaterally. Negative for clonus. Derm: Pre-ulcerative hyperkeratotic lesion noted to distal asprect of right hallux. Lateral border of hallux demonstrates non-blanchable but non-streaking erythema. Patchy streaking non-blanchable erythema noted to proximal lateral aspect of lef, inferior to knee joint. No open wounds noted. MSK:Right foot demonstrates moderate mid-foot arch collapse. Pedal muscle strength in all 4 major pedal muscle groups is graded 4/5 bilaterally. - Neurological Exam Neurological exam: Alert, Oriented x3 - Psychiatric Exam Psychiatric exam: Normal Affect, Normal Mood Results - Vital Signs Recent Vital Signs: Last Vital Signs Temp 98.4 F 04/03/17 12:00 Pulse 60 04/03/17 12:00 Resp 18 04/03/17 12:00 BP 108/54 L 04/03/17 12:00 Pulse Ox 96 04/03/17 12:00 - Labs Result Diagrams: 04/03/17 06:00 04/03/17 06:00 Labs: Laboratory Results - last 24 hr 04/02/17 04/02/17 04/03/17 15:55 21:57 05:28 WBC RBC Hgb Hct MCV MCH MCHC RDW Plt Count MPV Neut % (Auto) Lymph % (Auto) Whitman % (Auto) Eos % (Auto) Baso % (Auto) Neut # Lymph # Whitman # Eos # Baso # Neutrophils % (Manual) Band Neutrophils % Lymphocytes % (Manual) Monocytes % (Manual) Platelet Estimate Large Platelets Hypochromasia (manual) Poikilocytosis (manual Anisocytosis (manual) Spherocytes Tear Drop Cells Ovalocytes Schistocytes PT INR APTT pO2 40 VBG pH 7.42 VBG pCO2 39 L VBG HCO3 25.0 VBG Total CO2 26.5 VBG O2 Sat (Calc) 83.4 H VBG Base Excess 0.8 VBG Potassium 4.1 Sodium 136.0 Chloride 108.0 H Glucose 118 H Lactate 2.6 H FiO2 21.0 Potassium Carbon Dioxide Anion Gap BUN Creatinine Est GFR ( Amer) Est GFR (Non-Af Amer) POC Glucose (mg/dL) 150 H 177 H Random Glucose Calcium Total Bilirubin Direct Bilirubin AST ALT Alkaline Phosphatase Total Protein Albumin Globulin Albumin/Globulin Ratio TSH 3rd Generation Venous Blood Potassium 4.1 04/03/17 04/03/17 04/03/17 06:00 06:00 11:06 WBC 1.8 L* D RBC 2.99 L Hgb 7.6 L Hct 24.5 L MCV 81.8 MCH 25.5 L MCHC 31.2 L RDW 22.1 H Plt Count 54 L D MPV 7.0 L Neut % (Auto) 54.2 Lymph % (Auto) 16.8 L Whitman % (Auto) 28.3 H Eos % (Auto) 0.0 Baso % (Auto) 0.7 Neut # 1.0 L Lymph # 0.3 L Whitman # 0.5 Eos # 0.0 Baso # 0.0 Neutrophils % (Manual) 58 Band Neutrophils % 4 H Lymphocytes % (Manual) 16 L Monocytes % (Manual) 22 H Platelet Estimate Decreased L Large Platelets Present Hypochromasia (manual) Slight Poikilocytosis (manual Slight Anisocytosis (manual) Moderate Spherocytes Slight Tear Drop Cells Slight Ovalocytes Slight Schistocytes Slight PT INR APTT pO2 VBG pH VBG pCO2 VBG HCO3 VBG Total CO2 VBG O2 Sat (Calc) VBG Base Excess VBG Potassium Sodium 137 Chloride 105 Glucose Lactate FiO2 Potassium 3.8 Carbon Dioxide 26 Anion Gap 10 BUN 27 H Creatinine 1.2 Est GFR ( Amer) > 60 Est GFR (Non-Af Amer) 58 POC Glucose (mg/dL) 197 H Random Glucose 129 H Calcium 8.4 Total Bilirubin Direct Bilirubin AST ALT Alkaline Phosphatase Total Protein Albumin Globulin Albumin/Globulin Ratio TSH 3rd Generation 0.44 L Venous Blood Potassium 04/03/17 04/03/17 12:40 12:40 WBC RBC Hgb Hct MCV MCH MCHC RDW Plt Count MPV Neut % (Auto) Lymph % (Auto) Whitman % (Auto) Eos % (Auto) Baso % (Auto) Neut # Lymph # Whitman # Eos # Baso # Neutrophils % (Manual) Band Neutrophils % Lymphocytes % (Manual) Monocytes % (Manual) Platelet Estimate Large Platelets Hypochromasia (manual) Poikilocytosis (manual Anisocytosis (manual) Spherocytes Tear Drop Cells Ovalocytes Schistocytes PT 18.5 H INR 1.8 H APTT 31.5 pO2 VBG pH VBG pCO2 VBG HCO3 VBG Total CO2 VBG O2 Sat (Calc) VBG Base Excess VBG Potassium Sodium Chloride Glucose Lactate FiO2 Potassium Carbon Dioxide Anion Gap BUN Creatinine Est GFR ( Amer) Est GFR (Non-Af Amer) POC Glucose (mg/dL) Random Glucose Calcium Total Bilirubin 1.9 H Direct Bilirubin 0.4 AST 70 H D ALT 69 Alkaline Phosphatase 101 Total Protein 6.1 L Albumin 3.2 L Globulin 2.9 Albumin/Globulin Ratio 1.1 TSH 3rd Generation Venous Blood Potassium Assessment & Plan - Assessment and Plan (Free Text) Assessment: 81 year old diabetic male with right hallux pre-ulcerative lesion and leg cellulits. Plan: Pt evaluated and treated. Chart, labs, and vitals reviewed. Discussed findings with attending, Dr. Smith who endorsed the following plan. Right foot and tib-fib radiographs to rule-out soft tissue empysema. No local wound care planned a thtis time. Cellulits margins marked, trend pattern of regression. Continue IV abx per ID. 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 - Date & Time Date: 04/03/17 Time: 15:00
--- NOTE | 2017-04-03 15:49 | CP.PCM.CON ---
History of Present Illness - History of Present Illness History of Present Illness: 81 yo male with h/o MDS and DM 2admitted for confusion, fever and chills. Patient with h/o liver cirrhosis cause unknownPatint denies heavy alcohol use. Also has h/o CAD and underwenr CABG Review of Systems - Constitutional Constitutional: Chills - EENT Eyes: absent: Blurred Vision Ears: absent: Decreased Hearing Nose/Mouth/Throat: absent: Epistaxis - Cardiovascular Cardiovascular: absent: Chest Pain - Respiratory Respiratory: absent: Dyspnea - Gastrointestinal Gastrointestinal: absent: Abdominal Pain Past Patient History - Tetanus Immunizations Tetanus Immunization: Unknown - Past Medical History & Family History Past Medical History?: Yes Past Family History: Reviewed and not pertinent - Past Social History Smoking Status: Former Smoker Alcohol: Occasional - CARDIAC Hx Cardiac Disorders: Yes Hx Congestive Heart Failure: Yes Hx Hypercholesterolemia: Yes Hx Hypertension: Yes Hx Peripheral Edema: Yes Other/Comment: CABG - PULMONARY Hx Respiratory Disorders: No - NEUROLOGICAL Hx Neurological Disorder: No - HEENT Hx HEENT Problems: Yes Hx Cataracts: Yes (left) - RENAL Hx Chronic Kidney Disease: No - ENDOCRINE/METABOLIC Hx Endocrine Disorders: Yes Hx Diabetes Mellitus Type 2: Yes - HEMATOLOGICAL/ONCOLOGICAL Hx Anemia: Yes Hx Cancer: Yes (MDS) Other/Comment: 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 - INTEGUMENTARY Hx Dermatological Problems: No - MUSCULOSKELETAL/RHEUMATOLOGICAL Hx Arthritis: Yes - GASTROINTESTINAL Hx Gastritis: Yes - GENITOURINARY/GYNECOLOGICAL Hx Genitourinary Disorders: No - PSYCHIATRIC Hx Anxiety: Yes - SURGICAL HISTORY Hx Cholecystectomy: Yes Hx Orthopedic Surgery: Yes - ANESTHESIA Hx Anesthesia: Yes Hx Anesthesia Reactions: No Hx Malignant Hyperthermia: No Meds Allergies/Adverse Reactions: Allergies Allergy/AdvReac Type Severity Reaction Status Date / Time tape Allergy RASH Uncoded 04/02/17 13:29 - Medications Medications: Current Medications Acetaminophen (Tylenol 325 Mg Supp) 975 mg [place] ONCE PRN PRN Reason: Fever >100.4 F Last Admin: 04/02/17 15:06 Dose: 975 mg Gabapentin (Neurontin) 100 mg PO TID [facility] Last Admin: 04/03/17 12:47 Dose: 100 mg Glipizide (Glucotrol) 5 mg PO BID [facility] Last Admin: 04/03/17 09:09 Dose: 5 mg HCTZ/Losartan Potassium (Hyzaar 12.5 Mg-50 Mg) 1 tab PO DAILY [facility] Last Admin: 04/03/17 09:10 Dose: 1 tab Sodium Chloride (Sodium Chloride 0.9%) 1,000 mls @ 80 mls/hr IV .[id number] [facility] Last Admin: 04/03/17 05:37 Dose: 80 mls/hr Vancomycin HCl 1 gm/ Sodium (Chloride) 250 mls @ 166.667 mls/hr IVPB Q12 [facility] Last Admin: 04/03/17 09:13 Dose: 166.667 mls/hr Meropenem 1 gm/ Sodium (Chloride) 100 mls @ 100 mls/hr IVPB Q8 [facility] Last Admin: 04/03/17 10:44 Dose: 100 mls/hr Lactic Acid (Lac-Hydrin 12% Cream (140 G)) 1 ea TOP DAILY [facility] Metformin HCl (Glucophage) 1,000 mg PO BID [facility] Last Admin: 04/03/17 09:09 Dose: 1,000 mg Metoprolol Tartrate (Lopressor) 50 mg PO DAILY [facility] Last Admin: 04/03/17 09:10 Dose: 50 mg Pantoprazole Sodium (Protonix Ec Tab) 40 mg PO DAILY [facility] Last Admin: 04/03/17 09:14 Dose: 40 mg Tramadol HCl (Ultram) 50 mg PO Q6 PRN PRN Reason: Pain, moderate (4-7) Physical Exam - Head Exam Head Exam: ATRAUMATIC - Eye Exam Pupil Exam: PERRL - ENT Exam ENT Exam: Mucous Membranes Moist - Neck Exam Neck exam: Positive for: Full Rom - Respiratory Exam Respiratory Exam: Clear to Auscultation Bilateral - Cardiovascular Exam Cardiovascular Exam: REGULAR RHYTHM, +S1, +S2 - GI/Abdominal Exam GI & Abdominal Exam: Normal Bowel Sounds, Soft Results - Vital Signs Recent Vital Signs: Last Vital Signs Temp 98.4 F 04/03/17 12:00 Pulse 60 04/03/17 12:00 Resp 18 04/03/17 12:00 BP 108/54 L 04/03/17 12:00 Pulse Ox 96 04/03/17 12:00 - Labs Result Diagrams: 04/03/17 06:00 04/03/17 06:00 Labs: Laboratory Results - last 24 hr 04/02/17 04/02/17 04/03/17 15:55 21:57 05:28 WBC RBC Hgb Hct MCV MCH MCHC RDW Plt Count MPV Neut % (Auto) Lymph % (Auto) Lares % (Auto) Eos % (Auto) Baso % (Auto) Neut # Lymph # Lares # Eos # Baso # Neutrophils % (Manual) Band Neutrophils % Lymphocytes % (Manual) Monocytes % (Manual) Platelet Estimate Large Platelets Hypochromasia (manual) Poikilocytosis (manual Anisocytosis (manual) Spherocytes Tear Drop Cells Ovalocytes Schistocytes PT INR APTT pO2 40 VBG pH 7.42 VBG pCO2 39 L VBG HCO3 25.0 VBG Total CO2 26.5 VBG O2 Sat (Calc) 83.4 H VBG Base Excess 0.8 VBG Potassium 4.1 Sodium 136.0 Chloride 108.0 H Glucose 118 H Lactate 2.6 H FiO2 21.0 Potassium Carbon Dioxide Anion Gap BUN Creatinine Est GFR ( Amer) Est GFR (Non-Af Amer) POC Glucose (mg/dL) 150 H 177 H Random Glucose Calcium Total Bilirubin Direct Bilirubin AST ALT Alkaline Phosphatase Total Protein Albumin Globulin Albumin/Globulin Ratio TSH 3rd Generation Venous Blood Potassium 4.1 04/03/17 04/03/17 04/03/17 06:00 06:00 11:06 WBC 1.8 L* D RBC 2.99 L Hgb 7.6 L Hct 24.5 L MCV 81.8 MCH 25.5 L MCHC 31.2 L RDW 22.1 H Plt Count 54 L D MPV 7.0 L Neut % (Auto) 54.2 Lymph % (Auto) 16.8 L Lares % (Auto) 28.3 H Eos % (Auto) 0.0 Baso % (Auto) 0.7 Neut # 1.0 L Lymph # 0.3 L Lares # 0.5 Eos # 0.0 Baso # 0.0 Neutrophils % (Manual) 58 Band Neutrophils % 4 H Lymphocytes % (Manual) 16 L Monocytes % (Manual) 22 H Platelet Estimate Decreased L Large Platelets Present Hypochromasia (manual) Slight Poikilocytosis (manual Slight Anisocytosis (manual) Moderate Spherocytes Slight Tear Drop Cells Slight Ovalocytes Slight Schistocytes Slight PT INR APTT pO2 VBG pH VBG pCO2 VBG HCO3 VBG Total CO2 VBG O2 Sat (Calc) VBG Base Excess VBG Potassium Sodium 137 Chloride 105 Glucose Lactate FiO2 Potassium 3.8 Carbon Dioxide 26 Anion Gap 10 BUN 27 H Creatinine 1.2 Est GFR ( Amer) > 60 Est GFR (Non-Af Amer) 58 POC Glucose (mg/dL) 197 H Random Glucose 129 H Calcium 8.4 Total Bilirubin Direct Bilirubin AST ALT Alkaline Phosphatase Total Protein Albumin Globulin Albumin/Globulin Ratio TSH 3rd Generation 0.44 L Venous Blood Potassium 04/03/17 04/03/17 12:40 12:40 WBC RBC Hgb Hct MCV MCH MCHC RDW Plt Count MPV Neut % (Auto) Lymph % (Auto) Lares % (Auto) Eos % (Auto) Baso % (Auto) Neut # Lymph # Lares # Eos # Baso # Neutrophils % (Manual) Band Neutrophils % Lymphocytes % (Manual) Monocytes % (Manual) Platelet Estimate Large Platelets Hypochromasia (manual) Poikilocytosis (manual Anisocytosis (manual) Spherocytes Tear Drop Cells Ovalocytes Schistocytes PT 18.5 H INR 1.8 H APTT 31.5 pO2 VBG pH VBG pCO2 VBG HCO3 VBG Total CO2 VBG O2 Sat (Calc) VBG Base Excess VBG Potassium Sodium Chloride Glucose Lactate FiO2 Potassium Carbon Dioxide Anion Gap BUN Creatinine Est GFR ( Amer) Est GFR (Non-Af Amer) POC Glucose (mg/dL) Random Glucose Calcium Total Bilirubin 1.9 H Direct Bilirubin 0.4 AST 70 H D ALT 69 Alkaline Phosphatase 101 Total Protein 6.1 L Albumin 3.2 L Globulin 2.9 Albumin/Globulin Ratio 1.1 TSH 3rd Generation Venous Blood Potassium - Imaging and Cardiology CT scan - abdomen Status: Report reviewed by me Assessment & Plan (1) Cirrhosis of liver Assessment and Plan: H/o cryptogenic cirrhosis. Currently LFTs are moderately elevated though Bili has gone down since admission admission (2.8 to 1.9). There is gastric wall thickening and upper endoscopy is indicated when patient's sepsis is controlled to rule out malignancy. Status: Acute
[2017-04-04] MEDS: Meropenem 1 GM in Sodium Chloride 0.9% 100 ML IVPB SCH ×3 (00:41→16:12)
[2017-04-04] MEDS: Sodium Chloride 0.9% 1,000 ML IV SCH ×2 (05:51→20:33)
--- NOTE | 2017-04-04 06:51 | CP.PCM.PN ---
Subjective - Date & Time of Evaluation Date of Evaluation: 04/04/17 Time of Evaluation: 06:50 - Subjective Subjective: Podiatry- Dr. Smith 81 year old male with seen at bedside for right hallux ulceration. Pt is followed by attending, Dr. Smith on an outpatient basis. Pt has noted mild swelling and pain in the right hallux over past week, though did not think much of it. Pt presented to [facility] ER for lethargy, feeling if chills, confusion, nausea, and rigors. Patient states that today he is feeling markedly improved. Denies any pain and denies any further pedal complaints at this time. Denies N/V /F/C/CP/SOB PMH: Anemia, Myelodysplastic Syndrome, Diabetes Mellitus-2, HTN, Anxiety, Arthritis, Gastritis, Hypercholesterolemia, & Peripheral Edema Objective - Vital Signs/Intake and Output Vital Signs (last 24 hours): Temp Pulse Resp BP Pulse Ox 98.1 F 74 18 108/68 96 04/04/17 05:00 04/04/17 05:00 04/04/17 05:00 04/04/17 05:00 04/04/17 05:00 Intake and Output: 04/03/17 04/04/17 18:59 06:59 Intake Total 3075 Output Total 1101 Balance 1974 - Medications Medications: Current Medications Acetaminophen (Tylenol 325 Mg Supp) 975 mg [place] ONCE PRN PRN Reason: Fever >100.4 F Last Admin: 04/02/17 15:06 Dose: 975 mg Gabapentin (Neurontin) 100 mg PO TID [facility] Last Admin: 04/03/17 16:36 Dose: 100 mg Glipizide (Glucotrol) 5 mg PO BID [facility] Last Admin: 04/03/17 16:36 Dose: 5 mg HCTZ/Losartan Potassium (Hyzaar 12.5 Mg-50 Mg) 1 tab PO DAILY [facility] Last Admin: 04/03/17 09:10 Dose: 1 tab Sodium Chloride (Sodium Chloride 0.9%) 1,000 mls @ 80 mls/hr IV .[id number] [facility] Last Admin: 04/04/17 05:51 Dose: 80 mls/hr Vancomycin HCl 1 gm/ Sodium (Chloride) 250 mls @ 166.667 mls/hr IVPB Q12 [facility] Last Admin: 04/03/17 20:23 Dose: 166.667 mls/hr Meropenem 1 gm/ Sodium (Chloride) 100 mls @ 100 mls/hr IVPB Q8 [facility] Last Admin: 04/04/17 00:41 Dose: 100 mls/hr Lactic Acid (Lac-Hydrin 12% Cream (140 G)) 1 ea TOP DAILY [facility] Metformin HCl (Glucophage) 1,000 mg PO BID [facility] Last Admin: 04/03/17 16:36 Dose: 1,000 mg Metoprolol Tartrate (Lopressor) 50 mg PO DAILY [facility] Last Admin: 04/03/17 09:10 Dose: 50 mg Pantoprazole Sodium (Protonix Ec Tab) 40 mg PO DAILY [facility] Last Admin: 04/03/17 09:14 Dose: 40 mg Tramadol HCl (Ultram) 50 mg PO Q6 PRN PRN Reason: Pain, moderate (4-7) Last Admin: 04/04/17 00:40 Dose: 50 mg - Labs Labs: 04/03/17 06:00 04/03/17 06:00 PT 18.5 Seconds (9.8-13.1) H 04/03/17 12:40 INR 1.8 (0.9-1.2) H 04/03/17 12:40 APTT 31.5 Seconds (25.6-37.1) 04/03/17 12:40 - Constitutional Appears: Well, Non-toxic, No Acute Distress - Extremities Exam Additional comments: Lower extremity focused exam. Vasc: DP and PT pulses fully palpable b/l, graded 2/4. Diffused non-pitting edema to right lower leg below knee, +1 pitting edema to left foot and leg. Skin temperature warm to warm from proximal to distal in right lower extremity. Skin temperature warm to cool from proximal to distal in left lower extremity, within normal limits. CRF is <3 seconds in all 10 digits. Neuro: Epicritic and protective sensation grossly absent bilaterally. Negative for clonus. Derm: Pre-ulcerative hyperkeratotic lesion noted to distal asprect of right hallux. Lateral border of hallux demonstrates non-blanchable but non-streaking erythema. Patchy streaking non-blanchable erythema noted to proximal lateral aspect of le, inferior to knee joint. No open wounds noted. Erythema is noted to be at same level of knee as yesterday MSK:Right foot demonstrates moderate mid-foot arch collapse. Pedal muscle strength in all 4 major pedal muscle groups is graded 4/5 bilaterally. - Neurological Exam Neurological Exam: Alert, Awake, Oriented x3 - Psychiatric Exam Psychiatric exam: Normal Affect, Normal Mood Assessment and Plan - Assessment and Plan (Free Text) Assessment: 81 year old diabetic male with right hallux pre-ulcerative lesion and leg cellulits. Plan: Pt evaluated and treated. Chart, labs, and vitals reviewed. Discussed findings with attending, Dr. Smith who endorsed the following plan. Right foot and tib-fib radiographs to rule-out soft tissue emphysema still pending No local wound care planned a this time. Cellulits margins marked, trend pattern of regression. Continue IV abx per ID. Dr. Smith to round tomorrow with possible debridement of right hallux ulceration at that time Podiatry will continue to follow patient while inhouse.
[2017-04-04 07:10] LABS: BASO % 0.2 % (0.0-2.0); EOS % 0.1 % (0.0-4.0); HEMATOCRIT 24.7 % (35.0-51.0); LYMPH # 0.5 K/uL (1.0-4.3); LYMPH % 8.2 % (20.0-40.0); MEAN CELL VOLUME 80.9 fl (80.0-94.0); MEAN CORPUSCULAR HEMOGLOBIN 26.2 pg (27.0-31.0); MEAN CORPUSCULAR HGB CONC 32.4 g/dL (33.0-37.0); MEAN PLATELET VOLUME 7.5 fl (7.2-11.7); MONO # 0.7 K/uL (0.0-0.8); MONO % 11.2 % (0.0-10.0); NEUT # 4.8 K/uL (1.8-7.0); NEUT % 80.3 % (50.0-75.0); NRBC % 0.2 % (0.0-0.0); RED CELL DISTRIBUTION WIDTH 22.6 % (11.5-14.5)
[2017-04-04 07:29] LABS: ALKALINE PHOSPHATASE 89 U/L (38-126); ALT/SGPT 61 U/L (21-72); AST/SGOT 55 U/L (17-59); BILIRUBIN,TOTAL 1.6 mg/dl (0.2-1.3); BLOOD UREA NITROGEN 30 mg/dl (9-20); CALCIUM 8.4 mg/dL (8.4-10.2); CARBON DIOXIDE 24 mmol/L (22-30); CHLORIDE 107 mmol/L (98-107); GFR AFRICAN-AMERICAN > 60; GLUCOSE,RANDOM 108 mg/dL (75-110); POTASSIUM 4.1 MMOL/L (3.6-5.0); SODIUM 138 mmol/l (132-148); TOTAL PROTEIN 5.4 G/DL (6.3-8.2)
[2017-04-04 08:26] LABS: PARTIAL THROMBOPLASTIN TIME 30.8 Seconds (25.6-37.1)
--- NOTE | 2017-04-04 08:48 | RAD ---
PROCEDURE: Radiographs of the right tibia and fibula. HISTORY: r/o soft tissue emphysema COMPARISON: None available. TECHNIQUE: Frontal and lateral views obtained. FINDINGS: BONES: No fracture or destructive lesion. JOINT SPACES: Degenerate changes seen at the knee and ankle joints incidentally. OTHER FINDINGS: Soft tissue calcification at the distal leg soft tissues laterally more than medially, likely reflecting phleboliths. IMPRESSION: No acute fracture or dislocation right tibia and fibula.
--- NOTE | 2017-04-04 08:52 | RAD ---
PROCEDURE: Right Foot Radiographs. HISTORY: r/o soft tissue emphysema COMPARISON: None. FINDINGS: BONES: Pes planus is not excluded. Gross degenerate changes seen at the tibiotalar joint with the neck of the anterior calcaneus appearing somewhat compressed either on degenerative basis or from or chronic fracture. Acute fracture is not excluded. Clinically correlate further. Diffuse osteopenia suggests osteoporosis. JOINTS: Advanced degenerate changes are also seen at the talonavicular joint inner moderate at the tarsal metatarsal and tarsal tarsal joints diffusely. Similar moderate degenerative joint changes seen throughout the metatarsal phalangeal joints and throughout the digits as well. SOFT TISSUES: No emphysema soft tissue changes are identified with trace nonspecific soft tissue calcification seen the mid dorsal foot soft tissues. OTHER FINDINGS: None. IMPRESSION: 1. No emphysema soft tissue changes are identified. 2. Probable degenerative deformity of the anterior calcaneus is appreciated this patient with potential pes planus. Clinically correlate further. A fracture of indeterminate age is difficult to exclude. 3. 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 4. Diffuse osteopenia suggests osteoporosis.
--- NOTE | 2017-04-04 08:52 | CP.PCM.PN ---
Subjective - Date & Time of Evaluation Date of Evaluation: 04/04/17 Time of Evaluation: 08:48 - Subjective Subjective: Pt is afebrile, but c/o pain in the right hallux The LFT are trending down..CBC is stable. Pt is to have a endoscopy. Objective - Vital Signs/Intake and Output Vital Signs (last 24 hours): Temp Pulse Resp BP Pulse Ox 97.7 F 88 18 136/58 L 98 04/04/17 08:00 04/04/17 08:00 04/04/17 08:00 04/04/17 08:00 04/04/17 08:00 Intake and Output: 04/04/17 04/04/17 06:59 18:59 Intake Total 3075 Output Total 1101 Balance 1974 - Medications Medications: Current Medications Acetaminophen (Tylenol 325 Mg Supp) 975 mg [place] ONCE PRN PRN Reason: Fever >100.4 F Last Admin: 04/02/17 15:06 Dose: 975 mg Gabapentin (Neurontin) 100 mg PO TID [facility] Last Admin: 04/03/17 16:36 Dose: 100 mg Glipizide (Glucotrol) 5 mg PO BID [facility] Last Admin: 04/03/17 16:36 Dose: 5 mg HCTZ/Losartan Potassium (Hyzaar 12.5 Mg-50 Mg) 1 tab PO DAILY [facility] Last Admin: 04/03/17 09:10 Dose: 1 tab Sodium Chloride (Sodium Chloride 0.9%) 1,000 mls @ 80 mls/hr IV .[id number] [facility] Last Admin: 04/04/17 05:51 Dose: 80 mls/hr Vancomycin HCl 1 gm/ Sodium (Chloride) 250 mls @ 166.667 mls/hr IVPB Q12 [facility] Last Admin: 04/03/17 20:23 Dose: 166.667 mls/hr Meropenem 1 gm/ Sodium (Chloride) 100 mls @ 100 mls/hr IVPB Q8 [facility] Last Admin: 04/04/17 00:41 Dose: 100 mls/hr Lactic Acid (Lac-Hydrin 12% Cream (140 G)) 1 ea TOP DAILY [facility] Metformin HCl (Glucophage) 1,000 mg PO BID [facility] Last Admin: 04/03/17 16:36 Dose: 1,000 mg Metoprolol Tartrate (Lopressor) 50 mg PO DAILY [facility] Last Admin: 04/03/17 09:10 Dose: 50 mg Pantoprazole Sodium (Protonix Ec Tab) 40 mg PO DAILY [facility] Last Admin: 04/03/17 09:14 Dose: 40 mg Tramadol HCl (Ultram) 50 mg PO Q6 PRN PRN Reason: Pain, moderate (4-7) Last Admin: 04/04/17 00:40 Dose: 50 mg - Labs Labs: 04/04/17 05:35 04/04/17 05:35 PT 15.1 Seconds (9.8-13.1) H 04/04/17 05:35 INR 1.5 (0.9-1.2) H 04/04/17 05:35 APTT 30.8 Seconds (25.6-37.1) 04/04/17 05:35
--- NOTE | 2017-04-04 09:17 | PQF GENQUE ---
This form is a permanent part of the medical record 04/04/17 Dr. Marty Yanes, Would you be able to further clarify the Myelodysplastic Syndrome : See physician response section. Documentation of a history of Myelodysplastic Syndrome in a patient who is receiving chemotherapy presents with Sepsis. Clarification of your documentation is requested to better reflect the severity of illness and intensity of treatment of your patient. 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 Present On Admission (POA) Indicator: [] Present at the time of admission [] Not present at the time of admission [] Clinically Undetermined In responding to this query, please exercise your independent professional judgment. The fact that a question is asked does not imply that any particular answer is desired or expected. Thank you for your clarification on this documentation. If you have any questions please call:ext [phone] * Thank you, Alem Melendez RN [facility]
[2017-04-04] MEDS: HCTZ/Losartan 12.5/50 Tab PO SCH (09:21)
[2017-04-04] MEDS: Ammonium Lactate 12% Cream (140 g) TOP SCH (09:22)
[2017-04-04] MEDS: Pantoprazole 40 mg EC Tab PO SCH (09:23)
--- NOTE | 2017-04-04 12:17 | CP.PCM.PN ---
Subjective - Date & Time of Evaluation Date of Evaluation: 04/04/17 Time of Evaluation: 12:16 - Subjective Subjective: Pt seen and examined at bedside. No complaints this morning, feeling mildly improved. Denies CP, Dyspnea, Calftenderness. HD stable NAD. Objective - Vital Signs/Intake and Output Vital Signs (last 24 hours): Temp Pulse Resp BP Pulse Ox 97.7 F 88 18 136/58 L 98 04/04/17 08:00 04/04/17 09:28 04/04/17 08:00 04/04/17 09:28 04/04/17 08:00 GEN: WDWN, alert, cooperative HEENT: NCAT, PERRL, EOMI NECK: supple, no JVD, no lymphadenopathy CARDIAC: +S1S2 RRR LUNG: CTAB No WRR ABD: SOFT NT ND BSX4 NO MASSES NO HSM EXT: +pedal pulses, equal strength NEURO: AAOx3 SKIN warm, dry PSYCH normal mood, normal affect Intake and Output: 04/04/17 04/04/17 06:59 18:59 Intake Total 3075 Output Total 1101 Balance 1974 - Medications Medications: Current Medications Acetaminophen (Tylenol 325 Mg Supp) 975 mg [place] ONCE PRN PRN Reason: Fever >100.4 F Last Admin: 04/02/17 15:06 Dose: 975 mg Gabapentin (Neurontin) 100 mg PO TID [facility] Last Admin: 04/04/17 09:23 Dose: 100 mg Glipizide (Glucotrol) 5 mg PO BID [facility] Last Admin: 04/04/17 09:21 Dose: 5 mg HCTZ/Losartan Potassium (Hyzaar 12.5 Mg-50 Mg) 1 tab PO DAILY [facility] Last Admin: 04/04/17 09:21 Dose: 1 tab Sodium Chloride (Sodium Chloride 0.9%) 1,000 mls @ 80 mls/hr IV .[id number] [facility] Last Admin: 04/04/17 05:51 Dose: 80 mls/hr Vancomycin HCl 1 gm/ Sodium (Chloride) 250 mls @ 166.667 mls/hr IVPB Q12 [facility] Last Admin: 04/04/17 09:23 Dose: 166.667 mls/hr Meropenem 1 gm/ Sodium (Chloride) 100 mls @ 100 mls/hr IVPB Q8 [facility] Last Admin: 04/04/17 09:22 Dose: 100 mls/hr Lactic Acid (Lac-Hydrin 12% Cream (140 G)) 1 ea TOP DAILY [facility] Last Admin: 04/04/17 09:22 Dose: 1 applic Metformin HCl (Glucophage) 1,000 mg PO BID [facility] Last Admin: 04/04/17 09:21 Dose: 1,000 mg Metoprolol Tartrate (Lopressor) 50 mg PO DAILY [facility] Last Admin: 04/04/17 09:28 Dose: 50 mg Pantoprazole Sodium (Protonix Ec Tab) 40 mg PO DAILY [facility] Last Admin: 04/04/17 09:23 Dose: 40 mg Tramadol HCl (Ultram) 50 mg PO Q6 PRN PRN Reason: Pain, moderate (4-7) Last Admin: 04/04/17 00:40 Dose: 50 mg - Labs Labs: 04/04/17 05:35 04/04/17 05:35 PT 15.1 Seconds (9.8-13.1) H 04/04/17 05:35 INR 1.5 (0.9-1.2) H 04/04/17 05:35 APTT 30.8 Seconds (25.6-37.1) 04/04/17 05:35 Assessment and Plan - Assessment and Plan (Free Text) Plan: 81 yo male with history of Myelodysplastic Syndrome, CAD (s/p Quadruple By-Pass , 1995) and DM2 brought in because of confusion accompanied with fever and chills since last night. Denied any other complaint but daughter thought she looked SOB when EMS arrived in their home. Presently more alert and only admitted having chills and feeling cold earlier. Denied chest pain, nausea or vomiting. HEAD CT neg CXR: mild bibasilar atelectasis CT Abd Pel: cirrhosis with marked splenomegaly. Moderate abdominal and pelvic ascites. Possible gastritis. Cholecystectomy. 04/03/17 Patient admitted to diarrhea and mild abdominal pain yesterday. Tmax overnight 101.2, otherwise HD stable. CT abd pel yesterday showed cirrhosis with marked splenomegaly. Moderate abdominal and pelvic ascites. Possible gastritis. Cholecystectomy. Complains of diabetic foot ulcer on R great toe, consulted Podiatry. Discussed case with Dr. Salma Yanes, pt LFTs were normal 2 weeks ago. Pt hx of MDS, will give Granx x2, and pt is on Procrit EVERY TUESDAY. GI consulted today for SBP evaluation. Pt is on Merrem, will discuss with ID. 04/04/17 discussed wtih GI, EGD likely Tue. Afebrile overnight. Sepsis secondary to gastritis vs SBP? admit to telemetry. febrile overnight, HD stable currently blood culture x 2 -GRAM POS COCCI IN CHAINS urine culture pending Vanco 1gm IV q 12hrs. Meropenem 1gm IV q 8hrs. ID consult with Dr Wallis GI consult called for eval for possible SBP LFTs pending today, mildly elevated yesterday. TBili 2.8 yesterday, INR 1.8 Myelodysplasia (myelodysplastic syndrome) Oncology consult with Dr Torres, discussed case today Will give Granx x2 doses today and tomorrow Pt receives Procrit EVERY Tuesday baseline WBC 1.5-1.[address] Abd/Pel, pt with history GI Consult Dr. Neri for eval for SBP Hep Panel is pending Upper Endo with GI once stable, likely Tue Bili trending down Coagulopathy INR 1.8 secondary to cirrhosis monitor DM2 (diabetes mellitus, type 2) BS relatively controlled. accuchek ACHS. Glipizide 5mg PO BID. Metformin 1000mg PO BID. HgA1C, BMP in am Diabetic Toe Ulcer R great toe patient sees Dr. Smith, consulted for evaluation HTN (hypertension) BP stable. continue Losart/HCTZ and Metoprolol CAD (coronary artery disease) asymptomatic. continue statin and Metoprolol
--- NOTE | 2017-04-04 13:29 | CP.PCM.PN ---
Subjective - Date & Time of Evaluation Date of Evaluation: 04/04/17 Time of Evaluation: 13:29 - Subjective Subjective: ID Note- Pt. seen and examined today. Denies any fever or chills today. states feels slightly better but states the right great toe has been bothering him for some time. Objective - Vital Signs/Intake and Output Vital Signs (last 24 hours): Temp Pulse Resp BP Pulse Ox 97.5 F L 58 L 18 106/58 L 98 04/04/17 13:00 04/04/17 13:00 04/04/17 13:00 04/04/17 13:00 04/04/17 13:00 Intake and Output: 04/04/17 04/04/17 06:59 18:59 Intake Total 3075 Output Total 1101 Balance 1974 - Medications Medications: Current Medications Acetaminophen (Tylenol 325 Mg Supp) 975 mg ID ONCE PRN PRN Reason: Fever >100.4 F Last Admin: 04/02/17 15:06 Dose: 975 mg Gabapentin (Neurontin) 100 mg PO TID [facility] Last Admin: 04/04/17 12:18 Dose: 100 mg Glipizide (Glucotrol) 5 mg PO BID [facility] Last Admin: 04/04/17 09:21 Dose: 5 mg HCTZ/Losartan Potassium (Hyzaar 12.5 Mg-50 Mg) 1 tab PO DAILY [facility] Last Admin: 04/04/17 09:21 Dose: 1 tab Sodium Chloride (Sodium Chloride 0.9%) 1,000 mls @ 80 mls/hr IV .[id number] [facility] Last Admin: 04/04/17 05:51 Dose: 80 mls/hr Vancomycin HCl 1 gm/ Sodium (Chloride) 250 mls @ 166.667 mls/hr IVPB Q12 [facility] Last Admin: 04/04/17 09:23 Dose: 166.667 mls/hr Meropenem 1 gm/ Sodium (Chloride) 100 mls @ 100 mls/hr IVPB Q8 [facility] Last Admin: 04/04/17 09:22 Dose: 100 mls/hr Lactic Acid (Lac-Hydrin 12% Cream (140 G)) 1 ea TOP DAILY [facility] Last Admin: 04/04/17 09:22 Dose: 1 applic Metformin HCl (Glucophage) 1,000 mg PO BID [facility] Last Admin: 04/04/17 09:21 Dose: 1,000 mg Metoprolol Tartrate (Lopressor) 50 mg PO DAILY [facility] Last Admin: 04/04/17 09:28 Dose: 50 mg Pantoprazole Sodium (Protonix Ec Tab) 40 mg PO DAILY [facility] Last Admin: 04/04/17 09:23 Dose: 40 mg Tramadol HCl (Ultram) 50 mg PO Q6 PRN PRN Reason: Pain, moderate (4-7) Last Admin: 04/04/17 00:40 Dose: 50 mg - Labs Labs: - Additional Findings Additional findings: - Constitutional Appears: No Acute Distress - Head Exam Head Exam: ATRAUMATIC - Eye Exam Eye Exam: EOMI - ENT Exam ENT Exam: Normal Oropharynx - Neck Exam Neck exam: Positive for: Full Rom - Respiratory Exam Respiratory Exam: NORMAL BREATHING PATTERN Additional comments: slightly decreased breath sounds at left base - Cardiovascular Exam Cardiovascular Exam: RRR, +S1, +S2 Additional comments: ight upper chest port site no erythema, nontender - GI/Abdominal Exam GI & Abdominal Exam: Normal Bowel Sounds, Soft Additional comments: NT, ND - Extremities Exam Additional comments: b/l le edema and venous stasis changes right knee region with erythema and slightly edematous, less erythema today right great toe with small superficial ulcer. no opening, no discharge - Neurological Exam Neurological exam: Alert, Oriented x 3 Laboratory Results - last 72 hr 04/02/17 04/02/17 04/02/17 13:28 14:02 14:08 WBC 5.2 D RBC 3.50 L Hgb 8.9 L Hct 28.4 L MCV 81.0 MCH 25.3 L MCHC 31.2 L RDW 22.2 H Plt Count 83 L D MPV 7.1 L Neut % (Auto) 84.2 H Lymph % (Auto) 5.7 L Hudson % (Auto) 9.9 Eos % (Auto) 0.0 Baso % (Auto) 0.2 Neut # 4.4 Lymph # 0.3 L Hudson # 0.5 Eos # 0.0 Baso # 0.0 Neutrophils % (Manual) 84 H Band Neutrophils % Lymphocytes % (Manual) 6 L Monocytes % (Manual) 10 Platelet Estimate Slightly decreased L Large Platelets Hypochromasia (manual) Slight Poikilocytosis (manual Slight Anisocytosis (manual) Moderate Microcytosis (manual) Slight Spherocytes Tear Drop Cells Slight Ovalocytes Slight Schistocytes PT INR APTT pCO2 32 L pO2 85 HCO3 24.1 ABG pH 7.45 ABG Total CO2 23.2 ABG O2 Saturation 99.4 H ABG Base Excess -1.0 Mason Test Yes ABG Potassium 4.6 VBG pH VBG pCO2 VBG HCO3 VBG Total CO2 VBG O2 Sat (Calc) VBG Base Excess VBG Potassium A-a O2 Difference 46.0 Sodium 135.0 Chloride 105.0 Glucose 162 H Lactate 3.5 H FiO2 24.0 Potassium Carbon Dioxide Anion Gap BUN Creatinine Est GFR ( Amer) Est GFR (Non-Af Amer) POC Glucose (mg/dL) 183 H Random Glucose Hemoglobin A1c Calcium Phosphorus Magnesium Total Bilirubin Direct Bilirubin AST ALT Alkaline Phosphatase Total Creatine Kinase NT-Pro-B Natriuret Pep Total Protein Albumin Globulin Albumin/Globulin Ratio TSH 3rd Generation Arterial Blood Potassium 4.6 Venous Blood Potassium Urine Color Urine Clarity Urine pH Ur Specific [place] Urine Protein Urine Glucose (UA) Urine Ketones Urine Blood Urine Nitrate Urine Bilirubin Urine Urobilinogen Ur Leukocyte Esterase Urine RBC (Auto) Urine Microscopic WBC Urine Bacteria Vancomycin Trough 04/02/17 04/02/17 04/02/17 14:08 14:08 14:08 WBC RBC Hgb Hct MCV MCH MCHC RDW Plt Count MPV Neut % (Auto) Lymph % (Auto) Hudson % (Auto) Eos % (Auto) Baso % (Auto) Neut # Lymph # Hudson # Eos # Baso # Neutrophils % (Manual) Band Neutrophils % Lymphocytes % (Manual) Monocytes % (Manual) Platelet Estimate Large Platelets Hypochromasia (manual) Poikilocytosis (manual Anisocytosis (manual) Microcytosis (manual) Spherocytes Tear Drop Cells Ovalocytes Schistocytes PT 18.6 H INR 1.8 H APTT 29.6 pCO2 pO2 HCO3 ABG pH ABG Total CO2 ABG O2 Saturation ABG Base Excess Mason Test ABG Potassium VBG pH VBG pCO2 VBG HCO3 VBG Total CO2 VBG O2 Sat (Calc) VBG Base Excess VBG Potassium A-a O2 Difference Sodium 137 Chloride 103 Glucose Lactate FiO2 Potassium 4.8 Carbon Dioxide 22 Anion Gap 17 BUN 27 H Creatinine 1.2 Est GFR ( Amer) > 60 Est GFR (Non-Af Amer) 58 POC Glucose (mg/dL) Random Glucose 158 H Hemoglobin A1c Calcium 9.0 Phosphorus 2.7 Magnesium 1.7 Total Bilirubin 2.8 H Direct Bilirubin AST 98 H D ALT 73 H D Alkaline Phosphatase 129 H D Total Creatine Kinase 99 NT-Pro-B Natriuret Pep 1270 H Total Protein 6.6 Albumin 3.7 Globulin 3.0 Albumin/Globulin Ratio 1.2 TSH 3rd Generation Arterial Blood Potassium Venous Blood Potassium Urine Color Yellow Urine Clarity Slighty-cloudy Urine pH 6.0 Ur Specific [place] 1.017 Urine Protein 30 Urine Glucose (UA) Neg Urine Ketones Negative Urine Blood Moderate Urine Nitrate Negative Urine Bilirubin Negative Urine Urobilinogen 2.0 Ur Leukocyte Esterase Neg Urine RBC (Auto) 49 H Urine Microscopic WBC 2 Urine Bacteria Rare Vancomycin Trough 04/02/17 04/02/17 04/03/17 15:55 21:57 05:28 WBC RBC Hgb Hct MCV MCH MCHC RDW Plt Count MPV Neut % (Auto) Lymph % (Auto) Hudson % (Auto) Eos % (Auto) Baso % (Auto) Neut # Lymph # Hudson # Eos # Baso # Neutrophils % (Manual) Band Neutrophils % Lymphocytes % (Manual) Monocytes % (Manual) Platelet Estimate Large Platelets Hypochromasia (manual) Poikilocytosis (manual Anisocytosis (manual) Microcytosis (manual) Spherocytes Tear Drop Cells Ovalocytes Schistocytes PT INR APTT pCO2 pO2 40 HCO3 ABG pH ABG Total CO2 ABG O2 Saturation ABG Base Excess Mason Test ABG Potassium VBG pH 7.42 VBG pCO2 39 L VBG HCO3 25.0 VBG Total CO2 26.5 VBG O2 Sat (Calc) 83.4 H VBG Base Excess 0.8 VBG Potassium 4.1 A-a O2 Difference Sodium 136.0 Chloride 108.0 H Glucose 118 H Lactate 2.6 H FiO2 21.0 Potassium Carbon Dioxide Anion Gap BUN Creatinine Est GFR ( Amer) Est GFR (Non-Af Amer) POC Glucose (mg/dL) 150 H 177 H Random Glucose Hemoglobin A1c Calcium Phosphorus Magnesium Total Bilirubin Direct Bilirubin AST ALT Alkaline Phosphatase Total Creatine Kinase NT-Pro-B Natriuret Pep Total Protein Albumin Globulin Albumin/Globulin Ratio TSH 3rd Generation Arterial Blood Potassium Venous Blood Potassium 4.1 Urine Color Urine Clarity Urine pH Ur Specific [place] Urine Protein Urine Glucose (UA) Urine Ketones Urine Blood Urine Nitrate Urine Bilirubin Urine Urobilinogen Ur Leukocyte Esterase Urine RBC (Auto) Urine Microscopic WBC Urine Bacteria Vancomycin Trough 04/03/17 04/03/17 04/03/17 06:00 06:00 06:00 WBC 1.8 L* D RBC 2.99 L Hgb 7.6 L Hct 24.5 L MCV 81.8 MCH 25.5 L MCHC 31.2 L RDW 22.1 H Plt Count 54 L D MPV 7.0 L Neut % (Auto) 54.2 Lymph % (Auto) 16.8 L Hudson % (Auto) 28.3 H Eos % (Auto) 0.0 Baso % (Auto) 0.7 Neut # 1.0 L Lymph # 0.3 L Hudson # 0.5 Eos # 0.0 Baso # 0.0 Neutrophils % (Manual) 58 Band Neutrophils % 4 H Lymphocytes % (Manual) 16 L Monocytes % (Manual) 22 H Platelet Estimate Decreased L Large Platelets Present Hypochromasia (manual) Slight Poikilocytosis (manual Slight Anisocytosis (manual) Moderate Microcytosis (manual) Spherocytes Slight Tear Drop Cells Slight Ovalocytes Slight Schistocytes Slight PT INR APTT pCO2 pO2 HCO3 ABG pH ABG Total CO2 ABG O2 Saturation ABG Base Excess Mason Test ABG Potassium VBG pH VBG pCO2 VBG HCO3 VBG Total CO2 VBG O2 Sat (Calc) VBG Base Excess VBG Potassium A-a O2 Difference Sodium 137 Chloride 105 Glucose Lactate FiO2 Potassium 3.8 Carbon Dioxide 26 Anion Gap 10 BUN 27 H Creatinine 1.2 Est GFR ( Amer) > 60 Est GFR (Non-Af Amer) 58 POC Glucose (mg/dL) Random Glucose 129 H Hemoglobin A1c 5.6 Calcium 8.4 Phosphorus Magnesium Total Bilirubin Direct Bilirubin AST ALT Alkaline Phosphatase Total Creatine Kinase NT-Pro-B Natriuret Pep Total Protein Albumin Globulin Albumin/Globulin Ratio TSH 3rd Generation 0.44 L Arterial Blood Potassium Venous Blood Potassium Urine Color Urine Clarity Urine pH Ur Specific [place] Urine Protein Urine Glucose (UA) Urine Ketones Urine Blood Urine Nitrate Urine Bilirubin Urine Urobilinogen Ur Leukocyte Esterase Urine RBC (Auto) Urine Microscopic WBC Urine Bacteria Vancomycin Trough 04/03/17 04/03/17 04/03/17 11:06 12:40 12:40 WBC RBC Hgb Hct MCV MCH MCHC RDW Plt Count MPV Neut % (Auto) Lymph % (Auto) Hudson % (Auto) Eos % (Auto) Baso % (Auto) Neut # Lymph # Hudson # Eos # Baso # Neutrophils % (Manual) Band Neutrophils % Lymphocytes % (Manual) Monocytes % (Manual) Platelet Estimate Large Platelets Hypochromasia (manual) Poikilocytosis (manual Anisocytosis (manual) Microcytosis (manual) Spherocytes Tear Drop Cells Ovalocytes Schistocytes PT 18.5 H INR 1.8 H APTT 31.5 pCO2 pO2 HCO3 ABG pH ABG Total CO2 ABG O2 Saturation ABG Base Excess Mason Test ABG Potassium VBG pH VBG pCO2 VBG HCO3 VBG Total CO2 VBG O2 Sat (Calc) VBG Base Excess VBG Potassium A-a O2 Difference Sodium Chloride Glucose Lactate FiO2 Potassium Carbon Dioxide Anion Gap BUN Creatinine Est GFR ( Amer) Est GFR (Non-Af Amer) POC Glucose (mg/dL) 197 H Random Glucose Hemoglobin A1c Calcium Phosphorus Magnesium Total Bilirubin 1.9 H Direct Bilirubin 0.4 AST 70 H D ALT 69 Alkaline Phosphatase 101 Total Creatine Kinase NT-Pro-B Natriuret Pep Total Protein 6.1 L Albumin 3.2 L Globulin 2.9 Albumin/Globulin Ratio 1.1 TSH 3rd Generation Arterial Blood Potassium Venous Blood Potassium Urine Color Urine Clarity Urine pH Ur Specific [place] Urine Protein Urine Glucose (UA) Urine Ketones Urine Blood Urine Nitrate Urine Bilirubin Urine Urobilinogen Ur Leukocyte Esterase Urine RBC (Auto) Urine Microscopic WBC Urine Bacteria Vancomycin Trough 04/03/17 04/03/17 04/04/17 17:19 22:53 05:35 WBC 6.0 D RBC 3.05 L Hgb 8.0 L Hct 24.7 L MCV 80.9 MCH 26.2 L MCHC 32.4 L RDW 22.6 H Plt Count 62 L MPV 7.5 Neut % (Auto) 80.3 H Lymph % (Auto) 8.2 L Hudson % (Auto) 11.2 H Eos % (Auto) 0.1 Baso % (Auto) 0.2 Neut # 4.8 Lymph # 0.5 L Hudson # 0.7 Eos # 0.0 Baso # 0.0 Neutrophils % (Manual) Band Neutrophils % Lymphocytes % (Manual) Monocytes % (Manual) Platelet Estimate Large Platelets Hypochromasia (manual) Poikilocytosis (manual Anisocytosis (manual) Microcytosis (manual) Spherocytes Tear Drop Cells Ovalocytes Schistocytes PT INR APTT pCO2 pO2 HCO3 ABG pH ABG Total CO2 ABG O2 Saturation ABG Base Excess Mason Test ABG Potassium VBG pH VBG pCO2 VBG HCO3 VBG Total CO2 VBG O2 Sat (Calc) VBG Base Excess VBG Potassium A-a O2 Difference Sodium Chloride Glucose Lactate FiO2 Potassium Carbon Dioxide Anion Gap BUN Creatinine Est GFR ( Amer) Est GFR (Non-Af Amer) POC Glucose (mg/dL) 122 H 111 H Random Glucose Hemoglobin A1c Calcium Phosphorus Magnesium Total Bilirubin Direct Bilirubin AST ALT Alkaline Phosphatase Total Creatine Kinase NT-Pro-B Natriuret Pep Total Protein Albumin Globulin Albumin/Globulin Ratio TSH 3rd Generation Arterial Blood Potassium Venous Blood Potassium Urine Color Urine Clarity Urine pH Ur Specific [place] Urine Protein Urine Glucose (UA) Urine Ketones Urine Blood Urine Nitrate Urine Bilirubin Urine Urobilinogen Ur Leukocyte Esterase Urine RBC (Auto) Urine Microscopic WBC Urine Bacteria Vancomycin Trough 04/04/17 04/04/17 04/04/17 05:35 05:35 05:41 WBC RBC Hgb Hct MCV MCH MCHC RDW Plt Count MPV Neut % (Auto) Lymph % (Auto) [place] % (Auto) Eos % (Auto) Baso % (Auto) Neut # Lymph # [place] # Eos # Baso # Neutrophils % (Manual) Band Neutrophils % Lymphocytes % (Manual) Monocytes % (Manual) Platelet Estimate Large Platelets Hypochromasia (manual) Poikilocytosis (manual Anisocytosis (manual) Microcytosis (manual) Spherocytes Tear Drop Cells Ovalocytes Schistocytes PT 15.1 H INR 1.5 H APTT 30.8 pCO2 pO2 HCO3 ABG pH ABG Total CO2 ABG O2 Saturation ABG Base Excess Mason Test ABG Potassium VBG pH VBG pCO2 VBG HCO3 VBG Total CO2 VBG O2 Sat (Calc) VBG Base Excess VBG Potassium A-a O2 Difference Sodium 138 Chloride 107 Glucose Lactate FiO2 Potassium 4.1 Carbon Dioxide 24 Anion Gap 11 BUN 30 H Creatinine 1.2 Est GFR ( Amer) > 60 Est GFR (Non-Af Amer) 58 POC Glucose (mg/dL) 128 H Random Glucose 108 Hemoglobin A1c Calcium 8.4 Phosphorus Magnesium Total Bilirubin 1.6 H Direct Bilirubin AST 55 ALT 61 Alkaline Phosphatase 89 Total Creatine Kinase NT-Pro-B Natriuret Pep Total Protein 5.4 L Albumin 2.7 L Globulin 2.7 Albumin/Globulin Ratio 1.0 TSH 3rd Generation Arterial Blood Potassium Venous Blood Potassium Urine Color Urine Clarity Urine pH Ur Specific [place] Urine Protein Urine Glucose (UA) Urine Ketones Urine Blood Urine Nitrate Urine Bilirubin Urine Urobilinogen Ur Leukocyte Esterase Urine RBC (Auto) Urine Microscopic WBC Urine Bacteria Vancomycin Trough 04/04/17 04/04/17 08:50 11:58 WBC RBC Hgb Hct MCV MCH MCHC RDW Plt Count MPV Neut % (Auto) Lymph % (Auto) [place] % (Auto) Eos % (Auto) Baso % (Auto) Neut # Lymph # [place] # Eos # Baso # Neutrophils % (Manual) Band Neutrophils % Lymphocytes % (Manual) Monocytes % (Manual) Platelet Estimate Large Platelets Hypochromasia (manual) Poikilocytosis (manual Anisocytosis (manual) Microcytosis (manual) Spherocytes Tear Drop Cells Ovalocytes Schistocytes PT INR APTT pCO2 pO2 HCO3 ABG pH ABG Total CO2 ABG O2 Saturation ABG Base Excess Mason Test ABG Potassium VBG pH VBG pCO2 VBG HCO3 VBG Total CO2 VBG O2 Sat (Calc) VBG Base Excess VBG Potassium A-a O2 Difference Sodium Chloride Glucose Lactate FiO2 Potassium Carbon Dioxide Anion Gap BUN Creatinine Est GFR ( Amer) Est GFR (Non-Af Amer) POC Glucose (mg/dL) 195 H Random Glucose Hemoglobin A1c Calcium Phosphorus Magnesium Total Bilirubin Direct Bilirubin AST ALT Alkaline Phosphatase Total Creatine Kinase NT-Pro-B Natriuret Pep Total Protein Albumin Globulin Albumin/Globulin Ratio TSH 3rd Generation Arterial Blood Potassium Venous Blood Potassium Urine Color Urine Clarity Urine pH Ur Specific [place] Urine Protein Urine Glucose (UA) Urine Ketones Urine Blood Urine Nitrate Urine Bilirubin Urine Urobilinogen Ur Leukocyte Esterase Urine RBC (Auto) Urine Microscopic WBC Urine Bacteria Vancomycin Trough 16.5 H Microbiology 04/02/17 18:42 Sputum Gram Stain - Preliminary 04/02/17 19:00 Blood Blood Culture - Preliminary Gram Positive Cocci 04/02/17 19:00 Blood Gram Stain - Final 04/02/17 14:08 Blood Blood Culture - Preliminary Gram Pos Cocci In Chains 04/02/17 14:08 Blood Gram Stain - Final 04/02/17 14:08 Urine Urine Culture - Final No Growth (<1,000 CFU/ML) Accession No. : [id number] Patient Name / ID : ERIN GUERRA / [id number] Exam Date : 04/03/2017 17:04:36 ( Approved ) Study Comment : Sex / Age : M / 81Y Creator : Atilio King MD Dictator : Atilio King MD Staff Development Coordinator : Waste Baler : Atilio King MD Approver2 : Report Date : 04/04/2017 08:47:16 My Comment : PROCEDURE: Right Foot Radiographs. HISTORY: r/o soft tissue emphysema COMPARISON: None. FINDINGS: BONES: Pes planus is not excluded. Gross degenerate changes seen at the tibiotalar joint with the neck of the anterior calcaneus appearing somewhat compressed either on degenerative basis or from or chronic fracture. Acute fracture is not excluded. Clinically correlate further. Diffuse osteopenia suggests osteoporosis. JOINTS: Advanced degenerate changes are also seen at the talonavicular joint inner moderate at the tarsal metatarsal and tarsal tarsal joints diffusely. Similar moderate degenerative joint changes seen throughout the metatarsal phalangeal joints and throughout the digits as well. SOFT TISSUES: No emphysema soft tissue changes are identified with trace nonspecific soft tissue calcification seen the mid dorsal foot soft tissues. OTHER FINDINGS: None. IMPRESSION: 1. No emphysema soft tissue changes are identified. 2. Probable degenerative deformity of the anterior calcaneus is appreciated this patient with potential pes planus. Clinically correlate further. A fracture of indeterminate age is difficult to exclude. 3. 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 4. Diffuse osteopenia suggests osteoporosis. Accession No. : [id number] Patient Name / ID : ERIN GUERRA / [id number] Exam Date : 04/03/2017 17:01:40 ( Approved ) Study Comment : Sex / Age : M / 81Y Creator : Atilio King MD Dictator : Atilio King MD Staff Development Coordinator : Waste Baler : Atilio King MD Approver2 : Report Date : 04/04/2017 08:42:18 My Comment : PROCEDURE: Radiographs of the right tibia and fibula. HISTORY: r/o soft tissue emphysema COMPARISON: None available. TECHNIQUE: Frontal and lateral views obtained. FINDINGS: BONES: No fracture or destructive lesion. JOINT SPACES: Degenerate changes seen at the knee and ankle joints incidentally. OTHER FINDINGS: Soft tissue calcification at the distal leg soft tissues laterally more than medially, likely reflecting phleboliths. IMPRESSION: No acute fracture or dislocation right tibia and fibula. Assessment and Plan (1) Myelodysplasia (myelodysplastic syndrome) Status: Acute (2) Severe sepsis Status: Acute (3) DM2 (diabetes mellitus, type 2) Status: Acute (4) Venous stasis dermatitis of both lower extremities Status: Acute - Assessment and Plan (Free Text) Assessment: A/P- 81 year old male with multiple medical conditions including CAD s/p CABG, DM II , MDS undergoing chemo who presented with fever and confusion yesterday. afebrile today. Leukopenia resolved post granix injection but has anemia and thrombocytopenia most likely from his MDS . blood cx- gram pos cocci in chains x 2 urine cx- neg sputum cx- pending tib/fib xray- no fracture pr report foot xray- no emphysema as per report. plan- check 2 more Blood cx. await ID and sensitivity of the GPC in chains in blood cx. check TTE r/o vegetations. continue with IV vancomycin for GPC bacteremia. keep trough <20. day #2 continue with empiric meropenem pending further results . podiatry eval of the superficial right toe ulcer. check ESR. may need CT or MRI for better evaluation of the toe ulcer and rule out OM. found to have transaminitis and cirrhosis on ct report, unknown etiology. advise to rule out hepatitis profile .
--- NOTE | 2017-04-04 14:23 | CARD ---
APPROVED REPORT EXAM: Two-dimensional and M-mode echocardiogram with Doppler and color Doppler. Other Information Quality : GoodRhythm : NSR INDICATION Infection: Surgery/Intervention CABD DIMENSIONS IVSd1.30 (0.7-1.1cm)LVDd5.41 (3.9-5.9cm) LVOT Diameter2.46 (1.8-2.4cm)PWd0.84 (0.7-1.1cm) IVSs1.66 (0.8-1.2cm)LVDs3.60 (2.5-4.0cm) FS (%) 33.3 %PWs1.16 (0.8-1.2cm) M-Mode DIMENSIONS Left Atrium (MM)4.72 (2.5-4.0cm)IVSd0.84 (0.7-1.1cm) Aortic Root3.28 (2.2-3.7cm)LVDd7.47 (4.0-5.6cm) Aortic Cusp Exc.1.75 (1.5-2.0cm)PWd1.29 (0.7-1.1cm) IVSs1.82 cmFS (%) 50 % LVDs3.77 (2.0-3.8cm)PWs1.68 cm Mitral Valve MV E Pzgmpxlk18.0cm/sMV DECEL [id number] A Tibstvkx77.8cm/s MV [id number]/A ratio1.1MVA (PHT)3.52cm2 TDI Lateral E' Peak V16.87cm/sMedial E' Peak V9.53cm/sE/Lateral E'5.6 E/Medial E'10.0 Tricuspid Valve TR Peak [id number] [id number] Peak Gr.19mmHg [id number] LEFT VENTRICLE The left ventricle is normal size. There is borderline to mild concentric left ventricular hypertrophy. The left ventricular function is normal. The left ventricular ejection fraction is - 70%. There is normal LV segmental wall motion. The left ventricular diastolic function is normal. No left ventricle thrombus noted on this study. There is no ventricular septal defect visualized. There is no left ventricular aneurysm. There is no mass noted in the left ventricle. RIGHT VENTRICLE The right ventricle is mildly dilated on some 2D views. There is normal right ventricular wall thickness. The right ventricular systolic function is normal. ATRIA The left atrium is mildly dilated. There is no thrombus suspected in the left atrium. The right atrium is mildly dilated on some 2D views. The interatrial septum is intact with no evidence for an atrial septal defect. AORTIC VALVE The aortic valve is normal in structure and function. No aortic regurgitation is present. There is no aortic valvular stenosis. There is no aortic valvular vegetation. MITRAL VALVE The mitral valve is normal in structure and function. There is no evidence of mitral valve prolapse. There is no mitral valve stenosis. Mitral regurgitation is mild. TRICUSPID VALVE The tricuspid valve is normal in structure and function. There is mild tricuspid regurgitation. Right ventricular systolic pressure is estimated at 29 mmHg. There is no tricuspid valve prolapse or vegetation. There is no tricuspid valve stenosis. PULMONIC VALVE The pulmonic valve is not well visualized. Doppler studies of the left ventricle were not performed. GREAT VESSELS The aortic root is normal in size. The IVC collapses <50% with inspiration. PERICARDIAL EFFUSION The pericardium appears normal. There is no pleural effusion. <Conclusion> The left ventricle is normal in size. There is borderline to mild concentric left ventricular hypertrophy. The left ventricular function is normal. The left ventricular ejection fraction is - 70%. The left atrium is mildly dilated. The right ventricle and right atrium are mildly enlarged on some 2D views. The aortic, mitral and tricuspid valves are normal. No valvular vegetations were seen. There is mild mitral regurgitation and mild tricuspid regurgitation.
[2017-04-04 16:47] LABS: IRON 12 ug/dL (49-181)
--- NOTE | 2017-04-04 18:41 | CP.PCM.PN ---
Subjective - Date & Time of Evaluation Date of Evaluation: 04/04/17 Time of Evaluation: 18:38 - Subjective Subjective: Clinically feeling well. WBC is up after given growth factor. Objective - Vital Signs/Intake and Output Vital Signs (last 24 hours): Temp Pulse Resp BP Pulse Ox 98.4 F 72 20 121/65 94 L 04/04/17 15:39 04/04/17 15:39 04/04/17 15:39 04/04/17 15:39 04/04/17 15:39 Intake and Output: 04/04/17 04/04/17 06:59 18:59 Intake Total 3075 1250 Output Total 1101 500 Balance 1974 750 - Medications Medications: Current Medications Acetaminophen (Tylenol 325 Mg Supp) 975 mg [place] ONCE PRN PRN Reason: Fever >100.4 F Last Admin: 04/02/17 15:06 Dose: 975 mg Gabapentin (Neurontin) 100 mg PO TID [facility] Last Admin: 04/04/17 16:11 Dose: 100 mg Glipizide (Glucotrol) 5 mg PO BID [facility] Last Admin: 04/04/17 16:11 Dose: 5 mg HCTZ/Losartan Potassium (Hyzaar 12.5 Mg-50 Mg) 1 tab PO DAILY [facility] Last Admin: 04/04/17 09:21 Dose: 1 tab Sodium Chloride (Sodium Chloride 0.9%) 1,000 mls @ 80 mls/hr IV .[id number] [facility] Last Admin: 04/04/17 05:51 Dose: 80 mls/hr Vancomycin HCl 1 gm/ Sodium (Chloride) 250 mls @ 166.667 mls/hr IVPB Q12 [facility] Last Admin: 04/04/17 09:23 Dose: 166.667 mls/hr Meropenem 1 gm/ Sodium (Chloride) 100 mls @ 100 mls/hr IVPB Q8 [facility] Last Admin: 04/04/17 16:12 Dose: 100 mls/hr Lactic Acid (Lac-Hydrin 12% Cream (140 G)) 1 ea TOP DAILY [facility] Last Admin: 04/04/17 09:22 Dose: 1 applic Metformin HCl (Glucophage) 1,000 mg PO BID [facility] Last Admin: 04/04/17 16:11 Dose: 1,000 mg Metoprolol Tartrate (Lopressor) 50 mg PO DAILY [facility] Last Admin: 04/04/17 09:28 Dose: 50 mg Pantoprazole Sodium (Protonix Ec Tab) 40 mg PO DAILY [facility] Last Admin: 04/04/17 09:23 Dose: 40 mg Tramadol HCl (Ultram) 50 mg PO Q6 PRN PRN Reason: Pain, moderate (4-7) Last Admin: 04/04/17 00:40 Dose: 50 mg - Labs Labs: 04/04/17 05:35 04/04/17 05:35 PT 15.1 Seconds (9.8-13.1) H 04/04/17 05:35 INR 1.5 (0.9-1.2) H 04/04/17 05:35 APTT 30.8 Seconds (25.6-37.1) 04/04/17 05:35 - Head Exam Head Exam: ATRAUMATIC - Eye Exam Eye Exam: Normal appearance Pupil Exam: PERRL - ENT Exam ENT Exam: Normal Exam - Respiratory Exam Respiratory Exam: NORMAL BREATHING PATTERN - Cardiovascular Exam Cardiovascular Exam: +S1, +S2 - GI/Abdominal Exam GI & Abdominal Exam: Distended, Soft Assessment and Plan (1) Cirrhosis of liver Assessment & Plan: Sepsis related to MDS. On antibiotics. Gastric wall thickening on imaging. Will do upper endoscopy on Tuesday. Status: Acute
[2017-04-05] MEDS: Meropenem 1 GM in Sodium Chloride 0.9% 100 ML IVPB SCH ×3 (00:40→16:34)
[2017-04-05 06:23] LABS: BASO % 0.2 % (0.0-2.0); EOS % 0.4 % (0.0-4.0); HEMATOCRIT 28.2 % (35.0-51.0); LYMPH # 0.7 K/uL (1.0-4.3); LYMPH % 7.6 % (20.0-40.0); MEAN CELL VOLUME 81.8 fl (80.0-94.0); MEAN CORPUSCULAR HEMOGLOBIN 25.5 pg (27.0-31.0); MEAN CORPUSCULAR HGB CONC 31.1 g/dL (33.0-37.0); MEAN PLATELET VOLUME 7.1 fl (7.2-11.7); MONO # 0.6 K/uL (0.0-0.8); MONO % 6.5 % (0.0-10.0); NEUT # 8.2 K/uL (1.8-7.0); NEUT % 85.3 % (50.0-75.0); NRBC % 0.1 % (0.0-0.0); RED CELL DISTRIBUTION WIDTH 22.8 % (11.5-14.5); WHITE BLOOD COUNT 9.7 K/uL (4.8-10.8)
[2017-04-05 06:31] LABS: ALB/GLOB RATIO 1.1 (1.0-2.1); ALKALINE PHOSPHATASE 109 U/L (38-126); ALT/SGPT 54 U/L (21-72); AST/SGOT 50 U/L (17-59); BILIRUBIN,TOTAL 1.2 mg/dl (0.2-1.3); BLOOD UREA NITROGEN 31 mg/dl (9-20); CALCIUM 8.7 mg/dL (8.4-10.2); CARBON DIOXIDE 23 mmol/L (22-30); CHLORIDE 108 mmol/L (98-107); GFR AFRICAN-AMERICAN > 60; GLUCOSE,RANDOM 99 mg/dL (75-110); POTASSIUM 4.1 MMOL/L (3.6-5.0); SODIUM 141 mmol/l (132-148); TOTAL PROTEIN 5.9 G/DL (6.3-8.2)
[2017-04-05 06:32] LABS: PARTIAL THROMBOPLASTIN TIME 28.6 Seconds (25.6-37.1)
--- NOTE | 2017-04-05 08:19 | CP.PCM.PN ---
Subjective - Date & Time of Evaluation Date of Evaluation: 04/05/17 Time of Evaluation: 08:16 - Subjective Subjective: Podiatry- Dr. Smith 81 year old male with seen at bedside with attending Dr. Smith for right hallux ulceration. Pt is followed by attending, Dr. Smith on an outpatient basis. Patient states that today he is feeling markedly improved. overall but states that his right hallux ulceration continues to hurt him. Denies any further pedal complaints at this time. Denies N/V/F/C/CP/SOB PMH: Anemia, Myelodysplastic Syndrome, Diabetes Mellitus-2, HTN, Anxiety, Arthritis, Gastritis, Hypercholesterolemia, & Peripheral Edema Objective - Vital Signs/Intake and Output Vital Signs (last 24 hours): Temp Pulse Resp BP Pulse Ox 98.5 F 86 20 120/68 97 04/05/17 04:39 04/05/17 04:39 04/05/17 04:39 04/05/17 04:39 04/05/17 04:39 Intake and Output: 04/05/17 04/05/17 06:59 18:59 Intake Total 1250 Output Total 800 Balance 450 - Medications Medications: Current Medications Acetaminophen (Tylenol 325 Mg Supp) 975 mg [place] ONCE PRN PRN Reason: Fever >100.4 F Last Admin: 04/02/17 15:06 Dose: 975 mg Gabapentin (Neurontin) 100 mg PO TID [facility] Last Admin: 04/04/17 16:11 Dose: 100 mg Glipizide (Glucotrol) 5 mg PO BID [facility] Last Admin: 04/04/17 16:11 Dose: 5 mg HCTZ/Losartan Potassium (Hyzaar 12.5 Mg-50 Mg) 1 tab PO DAILY [facility] Last Admin: 04/04/17 09:21 Dose: 1 tab Sodium Chloride (Sodium Chloride 0.9%) 1,000 mls @ 80 mls/hr IV .[id number] [facility] Last Admin: 04/04/17 20:33 Dose: 80 mls/hr Vancomycin HCl 1 gm/ Sodium (Chloride) 250 mls @ 166.667 mls/hr IVPB Q12 [facility] Last Admin: 04/04/17 20:32 Dose: 166.667 mls/hr Meropenem 1 gm/ Sodium (Chloride) 100 mls @ 100 mls/hr IVPB Q8 [facility] Last Admin: 04/05/17 00:40 Dose: 100 mls/hr Lactic Acid (Lac-Hydrin 12% Cream (140 G)) 1 ea TOP DAILY [facility] Last Admin: 04/04/17 09:22 Dose: 1 applic Metformin HCl (Glucophage) 1,000 mg PO BID [facility] Last Admin: 04/04/17 16:11 Dose: 1,000 mg Metoprolol Tartrate (Lopressor) 50 mg PO DAILY [facility] Last Admin: 04/04/17 09:28 Dose: 50 mg Pantoprazole Sodium (Protonix Ec Tab) 40 mg PO DAILY [facility] Last Admin: 04/04/17 09:23 Dose: 40 mg Tramadol HCl (Ultram) 50 mg PO Q6 PRN PRN Reason: Pain, moderate (4-7) Last Admin: 04/04/17 00:40 Dose: 50 mg - Labs Labs: 04/05/17 05:40 04/05/17 05:40 PT 14.8 Seconds (9.8-13.1) H 04/05/17 05:40 INR 1.4 (0.9-1.2) H 04/05/17 05:40 APTT 28.6 Seconds (25.6-37.1) 04/05/17 05:40 - Constitutional Appears: Well, Non-toxic, No Acute Distress - Extremities Exam Additional comments: Lower extremity focused exam. Vasc: DP and PT pulses fully palpable b/l, graded 2/4. Diffuse non-pitting edema to right lower leg below knee, +1 pitting edema to left foot and leg. Skin temperature warm to warm from proximal to distal in right lower extremity WNL. Skin temperature warm to cool from proximal to distal in left lower extremity, within normal limits. CRF is <3 seconds in all 10 digits. Neuro: Epicritic and protective sensation grossly absent bilaterally. Negative for clonus. Derm: Pre-ulcerative hyperkeratotic lesion noted to distal asprect of right hallux. Erythema at lateral border of right hallux has diminished significantly since yesterday. Patchy streaking non-blanchable erythema noted to proximal lateral aspect of leg, inferior to knee joint and decreased since yesterday. No open wounds noted to b/l LE. MSK: Right foot demonstrates moderate mid-foot arch collapse. Pedal muscle strength in all 4 major pedal muscle groups is graded 4/5 bilaterally. - Neurological Exam Neurological Exam: Alert, Awake, Oriented x3 - Psychiatric Exam Psychiatric exam: Normal Affect, Normal Mood Assessment and Plan - Assessment and Plan (Free Text) Assessment: 81 year old diabetic male with right hallux pre-ulcerative lesion and leg cellulits. Plan: Pt evaluated and treated with attending Dr. Smith. Chart, labs, and vitals reviewed. Right foot and tib-fib radiographs show OA degenerative changes to foot with no signs of OM and no fx of tib/fib with no signs of OM No local wound care planned a this time. Cellulits margins to RLE decreased from yesterday Continue IV abx per ID. Podiatry will continue to follow patient while in house.
--- NOTE | 2017-04-05 08:29 | CP.PCM.PN ---
Subjective - Date & Time of Evaluation Date of Evaluation: 04/05/17 Time of Evaluation: 08:26 - Subjective Subjective: Generally better though he c/o multiple loose BMs daily Objective - Vital Signs/Intake and Output Vital Signs (last 24 hours): Temp Pulse Resp BP Pulse Ox 98.5 F 86 20 120/68 97 04/05/17 04:39 04/05/17 04:39 04/05/17 04:39 04/05/17 04:39 04/05/17 04:39 Intake and Output: 04/05/17 04/05/17 06:59 18:59 Intake Total 1250 Output Total 800 Balance 450 - Medications Medications: Current Medications Acetaminophen (Tylenol 325 Mg Supp) 975 mg IN ONCE PRN PRN Reason: Fever >100.4 F Last Admin: 04/02/17 15:06 Dose: 975 mg Gabapentin (Neurontin) 100 mg PO TID [facility] Last Admin: 04/04/17 16:11 Dose: 100 mg Glipizide (Glucotrol) 5 mg PO BID [facility] Last Admin: 04/04/17 16:11 Dose: 5 mg HCTZ/Losartan Potassium (Hyzaar 12.5 Mg-50 Mg) 1 tab PO DAILY [facility] Last Admin: 04/04/17 09:21 Dose: 1 tab Sodium Chloride (Sodium Chloride 0.9%) 1,000 mls @ 80 mls/hr IV .[id number] [facility] Last Admin: 04/04/17 20:33 Dose: 80 mls/hr Vancomycin HCl 1 gm/ Sodium (Chloride) 250 mls @ 166.667 mls/hr IVPB Q12 [facility] Last Admin: 04/04/17 20:32 Dose: 166.667 mls/hr Meropenem 1 gm/ Sodium (Chloride) 100 mls @ 100 mls/hr IVPB Q8 [facility] Last Admin: 04/05/17 00:40 Dose: 100 mls/hr Lactic Acid (Lac-Hydrin 12% Cream (140 G)) 1 ea TOP DAILY [facility] Last Admin: 04/04/17 09:22 Dose: 1 applic Metformin HCl (Glucophage) 1,000 mg PO BID [facility] Last Admin: 04/04/17 16:11 Dose: 1,000 mg Metoprolol Tartrate (Lopressor) 50 mg PO DAILY [facility] Last Admin: 04/04/17 09:28 Dose: 50 mg Pantoprazole Sodium (Protonix Ec Tab) 40 mg PO DAILY [facility] Last Admin: 04/04/17 09:23 Dose: 40 mg Tramadol HCl (Ultram) 50 mg PO Q6 PRN PRN Reason: Pain, moderate (4-7) Last Admin: 04/04/17 00:40 Dose: 50 mg - Labs Labs: 04/05/17 05:40 04/05/17 05:40 PT 14.8 Seconds (9.8-13.1) H 04/05/17 05:40 INR 1.4 (0.9-1.2) H 04/05/17 05:40 APTT 28.6 Seconds (25.6-37.1) 04/05/17 05:40 - Head Exam Head Exam: ATRAUMATIC - Eye Exam Eye Exam: Normal appearance - ENT Exam ENT Exam: Normal Exam - Respiratory Exam Respiratory Exam: Clear to Ausculation Bilateral - Cardiovascular Exam Cardiovascular Exam: REGULAR RHYTHM - GI/Abdominal Exam GI & Abdominal Exam: Soft, Normal Bowel Sounds Assessment and Plan (1) Cirrhosis of liver Status: Acute (2) Diarrhea Assessment & Plan: Stools sent for C. diff Status: Acute (3) Abnormal abdominal CT scan Assessment & Plan: Upper endoscopy tomorrow AM to evaluate gastric wall thickening Status: Acute
[2017-04-05] MEDS: Ammonium Lactate 12% Cream (140 g) TOP SCH (09:00)
[2017-04-05] MEDS: HCTZ/Losartan 12.5/50 Tab PO SCH (09:00)
[2017-04-05] MEDS: Pantoprazole 40 mg EC Tab PO SCH (09:01)
[2017-04-05] MEDS: Sodium Chloride 0.9% 1,000 ML IV SCH ×2 (09:01→20:00)
[2017-04-05] MEDS ORDERED: Epoetin Alfa 4000 UNIT/ML Inj IV ONE (10:19)
--- NOTE | 2017-04-05 10:22 | CP.PCM.PN ---
Subjective - Date & Time of Evaluation Date of Evaluation: 04/05/17 Time of Evaluation: 10:14 - Subjective Subjective: pt complains of some loose stools no abd pain n/v Procrit today physical therapy today ok to transfer to [facility] Objective - Vital Signs/Intake and Output Vital Signs (last 24 hours): Temp Pulse Resp BP Pulse Ox 97.4 F L 85 18 119/69 98 04/05/17 08:29 04/05/17 09:04 04/05/17 08:29 04/05/17 09:04 04/05/17 08:29 Exam: GEN: WDWN, alert, cooperative HEENT: NCAT, PERRL, EOMI NECK: supple, no JVD, no lymphadenopathy CARDIAC: +S1S2 RRR LUNG: CTAB No WRR ABD: SOFT NT ND BSX4 +ascites EXT: +pedal pulses, equal strength NEURO: AAOx3 SKIN warm, dry PSYCH normal mood, normal affect Intake and Output: 04/05/17 04/05/17 06:59 18:59 Intake Total 1250 Output Total 800 Balance 450 - Medications Medications: Current Medications Acetaminophen (Tylenol 325 Mg Supp) 975 mg [place] ONCE PRN PRN Reason: Fever >100.4 F Last Admin: 04/02/17 15:06 Dose: 975 mg Gabapentin (Neurontin) 100 mg PO TID [facility] Last Admin: 04/05/17 09:00 Dose: 100 mg Glipizide (Glucotrol) 5 mg PO BID [facility] Last Admin: 04/05/17 09:00 Dose: 5 mg HCTZ/Losartan Potassium (Hyzaar 12.5 Mg-50 Mg) 1 tab PO DAILY [facility] Last Admin: 04/05/17 09:00 Dose: 1 tab Sodium Chloride (Sodium Chloride 0.9%) 1,000 mls @ 80 mls/hr IV .[id number] [facility] Last Admin: 04/05/17 09:01 Dose: 80 mls/hr Vancomycin HCl 1 gm/ Sodium (Chloride) 250 mls @ 166.667 mls/hr IVPB Q12 [facility] Last Admin: 04/05/17 09:02 Dose: 166.667 mls/hr Meropenem 1 gm/ Sodium (Chloride) 100 mls @ 100 mls/hr IVPB Q8 [facility] Last Admin: 04/05/17 09:02 Dose: 100 mls/hr Lactic Acid (Lac-Hydrin 12% Cream (140 G)) 1 ea TOP DAILY [facility] Last Admin: 04/05/17 09:00 Dose: 1 applic Metformin HCl (Glucophage) 1,000 mg PO BID [facility] Last Admin: 04/05/17 09:00 Dose: 1,000 mg Metoprolol Tartrate (Lopressor) 50 mg PO DAILY [facility] Last Admin: 04/05/17 09:04 Dose: 50 mg Pantoprazole Sodium (Protonix Ec Tab) 40 mg PO DAILY [facility] Last Admin: 04/05/17 09:01 Dose: 40 mg Tramadol HCl (Ultram) 50 mg PO Q6 PRN PRN Reason: Pain, moderate (4-7) Last Admin: 04/04/17 00:40 Dose: 50 mg - Labs Labs: 04/05/17 05:40 04/05/17 05:40 PT 14.8 Seconds (9.8-13.1) H 04/05/17 05:40 INR 1.4 (0.9-1.2) H 04/05/17 05:40 APTT 28.6 Seconds (25.6-37.1) 04/05/17 05:40 Assessment and Plan - Assessment and Plan (Free Text) Plan: 81 yo male with history of Myelodysplastic Syndrome, CAD (s/p Quadruple By-Pass , 1995) and DM2 brought in because of confusion accompanied with fever and chills since last night. Denied any other complaint but daughter thought she looked SOB when EMS arrived in their home. Presently more alert and only admitted having chills and feeling cold earlier. Denied chest pain, nausea or vomiting. HEAD CT neg CXR: mild bibasilar atelectasis CT Abd Pel: cirrhosis with marked splenomegaly. Moderate abdominal and pelvic ascites. Possible gastritis. Cholecystectomy. 04/03/17 Patient admitted to diarrhea and mild abdominal pain yesterday. Tmax overnight 101.2, otherwise HD stable. CT abd pel yesterday showed cirrhosis with marked splenomegaly. Moderate abdominal and pelvic ascites. Possible gastritis. Cholecystectomy. Complains of diabetic foot ulcer on R great toe, consulted Podiatry. Discussed case with Dr. Salma Yanes, pt LFTs were normal 2 weeks ago. Pt hx of MDS, will give Granx x2, and pt is on Procrit EVERY TUESDAY. GI consulted today for SBP evaluation. Pt is on Merrem, will discuss with ID. 04/04/17 discussed wtih GI, EGD likely Tue. Afebrile overnight. 04/05/17 afebrile, vitals stable pt for EGD tomorrow new set of BC neg TTE neg for vegetations hep panel was neg discharge planning, discussed with ID - will need 3 weeks abx Sepsis secondary to gastritis vs SBP? admit to telemetry. febrile overnight, HD stable currently 04/02/17 BLOOD culture-[facility]A HEMOLYTIC STREP [facility] B (S: Ampicillin, PCN, Vanco) 04/02/17 BLOOD culture-GRAM POS COCCI 04/02/17 URINE culture NO GROWTH 04/02/17 SPUTUM culture-pending 04/03/17 BLOOD CX X2- PRELIM NO GROWTH after 24 hours Vanco 1gm IV q 12hrs. Meropenem 1gm IV q 8hrs. ID consult with Dr Wallis GI consult called for eval, not likely SBP TTE: NO vegetations Will need 3 weeks abx Myelodysplasia (myelodysplastic syndrome) Oncology consult with Dr Torres, discussed case Chemo once a month, with PORT Will give Granx x2 doses today and tomorrow Pt receives Procrit EVERY Tuesday. receiving today baseline WBC 1.5-1.[address] Abd/Pel, pt with history GI Consult Dr. Neri for eval for SBP Hep Panel is negative Upper Endo with GI TOMORROW Bili trending down Coagulopathy INR 1.4 today secondary to cirrhosis monitor DM2 (diabetes mellitus, type 2) BS relatively controlled. accuchek ACHS. Glipizide 5mg PO BID. Metformin 1000mg PO BID. HgA1C, BMP in am Diabetic Toe Ulcer R great toe patient sees Dr. Smith, consulted for evaluation r foot / tib fib XR = no OM No wound care planned as of now HTN (hypertension) BP stable. continue Losart/HCTZ and Metoprolol CAD (coronary artery disease) asymptomatic. continue statin and Metoprolol
[2017-04-06] MEDS: Meropenem 1 GM in Sodium Chloride 0.9% 100 ML IVPB SCH ×3 (01:08→17:21)
[2017-04-06] MEDS ORDERED: Lactated Ringer's 500 ML IV ONE (08:14)
[2017-04-06 08:15] LABS: BASO % 0.5 % (0.0-2.0); EOS # 0.1 K/uL (0.0-0.7); EOS % 1.2 % (0.0-4.0); HEMATOCRIT 28.3 % (35.0-51.0); LYMPH # 0.7 K/uL (1.0-4.3); LYMPH % 11.6 % (20.0-40.0); MEAN CELL VOLUME 81.6 fl (80.0-94.0); MEAN CORPUSCULAR HEMOGLOBIN 25.2 pg (27.0-31.0); MEAN CORPUSCULAR HGB CONC 30.9 g/dL (33.0-37.0); MEAN PLATELET VOLUME 7.2 fl (7.2-11.7); MONO # 0.3 K/uL (0.0-0.8); MONO % 5.8 % (0.0-10.0); NEUT # 4.7 K/uL (1.8-7.0); NEUT % 80.9 % (50.0-75.0); NRBC % 0.4 % (0.0-0.0); RED CELL DISTRIBUTION WIDTH 22.1 % (11.5-14.5); WHITE BLOOD COUNT 5.8 K/uL (4.8-10.8)
[2017-04-06] MEDS ORDERED: Midazolam 2 MG/2 ML VIAL ONE (08:25)
[2017-04-06 08:27] LABS: ALKALINE PHOSPHATASE 122 U/L (38-126); ALT/SGPT 56 U/L (21-72); AST/SGOT 51 U/L (17-59); BILIRUBIN,TOTAL 1.2 mg/dl (0.2-1.3); BLOOD UREA NITROGEN 25 mg/dl (9-20); CALCIUM 8.8 mg/dL (8.4-10.2); CARBON DIOXIDE 24 mmol/L (22-30); CHLORIDE 109 mmol/L (98-107); GFR AFRICAN-AMERICAN > 60; GLUCOSE,RANDOM 135 mg/dL (75-110); POTASSIUM 3.9 MMOL/L (3.6-5.0); SODIUM 141 mmol/l (132-148)
--- NOTE | 2017-04-06 08:30 | CP.PCM.PN ---
Subjective - Date & Time of Evaluation Date of Evaluation: 04/06/17 Time of Evaluation: 08:26 - Subjective Subjective: Podiatry- Dr. Smith 81 year old male with PMH of Anemia, Myelodysplastic Syndrome, Diabetes Mellitus-2, HTN, Anxiety, Arthritis, Gastritis, Hypercholesterolemia, & Peripheral Edema seen at bedside with attending Dr. Smith for right hallux ulceration. Pt is followed by attending, Dr. Smith on an outpatient basis. Patient states that he had multiple bouts of diarrhead overnight and is refusing to take his antibiotics this morning. Patient will have upper endoscopy today to evaluate esophageal thickening. Patient states that his ulceration to his right hallux is feeling better today. Denies any further pedal complaints at this time. Denies N/V/F/C/CP/SOB Objective - Vital Signs/Intake and Output Vital Signs (last 24 hours): Temp Pulse Resp BP Pulse Ox 97.5 F L 79 14 134/45 L 99 04/06/17 08:14 04/06/17 08:14 04/06/17 08:14 04/06/17 08:14 04/06/17 08:14 Intake and Output: 04/06/17 04/06/17 06:59 18:59 Intake Total 3020 Output Total 600 Balance 2420 - Medications Medications: Current Medications Acetaminophen (Tylenol 325 Mg Supp) 975 mg [place] ONCE PRN PRN Reason: Fever >100.4 F Last Admin: 04/02/17 15:06 Dose: 975 mg Gabapentin (Neurontin) 100 mg PO TID [facility] Last Admin: 04/05/17 16:34 Dose: 100 mg Glipizide (Glucotrol) 5 mg PO BID [facility] Last Admin: 04/05/17 16:34 Dose: 5 mg HCTZ/Losartan Potassium (Hyzaar 12.5 Mg-50 Mg) 1 tab PO DAILY [facility] Last Admin: 04/05/17 09:00 Dose: 1 tab Sodium Chloride (Sodium Chloride 0.9%) 1,000 mls @ 80 mls/hr IV .[id number] [facility] Last Admin: 04/05/17 20:00 Dose: Not Given Vancomycin HCl 1 gm/ Sodium (Chloride) 250 mls @ 166.667 mls/hr IVPB Q12 [facility] Last Admin: 04/05/17 21:34 Dose: 166.667 mls/hr Meropenem 1 gm/ Sodium (Chloride) 100 mls @ 100 mls/hr IVPB Q8 [facility] Last Admin: 04/06/17 01:08 Dose: 100 mls/hr Lactic Acid (Lac-Hydrin 12% Cream (140 G)) 1 ea TOP DAILY [facility] Last Admin: 04/05/17 09:00 Dose: 1 applic Metformin HCl (Glucophage) 1,000 mg PO BID [facility] Last Admin: 04/05/17 16:34 Dose: 1,000 mg Metoprolol Tartrate (Lopressor) 50 mg PO DAILY [facility] Last Admin: 04/05/17 09:04 Dose: 50 mg Pantoprazole Sodium (Protonix Ec Tab) 40 mg PO DAILY [facility] Last Admin: 04/05/17 09:01 Dose: 40 mg Tramadol HCl (Ultram) 50 mg PO Q6 PRN PRN Reason: Pain, moderate (4-7) Last Admin: 04/04/17 00:40 Dose: 50 mg - Labs Labs: 04/06/17 06:25 04/05/17 05:40 PT 14.8 Seconds (9.8-13.1) H 04/05/17 05:40 INR 1.4 (0.9-1.2) H 04/05/17 05:40 APTT 28.6 Seconds (25.6-37.1) 04/05/17 05:40 - Constitutional Appears: Well, Non-toxic, No Acute Distress - Extremities Exam Additional comments: Lower extremity focused exam. Vasc: DP and PT pulses fully palpable b/l, graded 2/4. LE edema noted to be improved today vs. yesterday. Skin temperature warm to warm from proximal to distal in right lower extremity, WNL. Skin temperature warm to cool from proximal to distal in left lower extremity, within normal limits. CRF is <3 seconds in all 10 digits. Neuro: Epicritic and protective sensation grossly absent bilaterally. Negative for clonus. Derm: Pre-ulcerative hyperkeratotic lesion noted to distal asprect of right hallux. Erythema previously noted at right knee has diminished. No open wounds noted to b/l LE. MSK: Right foot demonstrates moderate mid-foot arch collapse. Pedal muscle strength in all 4 major pedal muscle groups is graded 4/5 bilaterally. - Neurological Exam Neurological Exam: Alert, Awake, Oriented x3 - Psychiatric Exam Psychiatric exam: Normal Affect, Normal Mood Assessment and Plan - Assessment and Plan (Free Text) Assessment: 81 year old diabetic male with right hallux pre-ulcerative lesion and leg cellulits. Plan: Pt evaluated at bedside Chart, labs, and vitals reviewed; afebrile No local wound care planned at this time. Cellulits margins to RLE decreased from yesterday Continue IV abx per ID. Podiatry will continue to follow patient while in house.
[2017-04-06 08:32] LABS: PARTIAL THROMBOPLASTIN TIME 29.3 Seconds (25.6-37.1)
[2017-04-06 08:33] LABS: ALB/GLOB RATIO 1.1 (1.0-2.1)
[2017-04-06 08:43] VITALS: RESP 20
--- NOTE | 2017-04-06 10:45 | CP.PCM.PN ---
Subjective - Date & Time of Evaluation Date of Evaluation: 04/06/17 Time of Evaluation: 10:45 - Subjective Subjective: ID Note- Pt. seen and examined today. nurse also at his bedside. he c/o diarrhea x 3 times today. also apparently earlier this am he slipped and fell on his buttock while walking to the bathroom by himself, he states the floor , he denies any weakness . denies any fever or chills. Objective - Vital Signs/Intake and Output Vital Signs (last 24 hours): Temp Pulse Resp BP Pulse Ox 96.8 F L 84 20 129/61 98 04/06/17 08:55 04/06/17 08:55 04/06/17 08:55 04/06/17 08:55 04/06/17 08:55 Intake and Output: 04/06/17 04/06/17 06:59 18:59 Intake Total 3020 100 Output Total 600 Balance 2420 100 - Medications Medications: Current Medications Acetaminophen (Tylenol 325 Mg Supp) 975 mg [place] ONCE PRN PRN Reason: Fever >100.4 F Last Admin: 04/02/17 15:06 Dose: 975 mg Gabapentin (Neurontin) 100 mg PO TID [facility] Last Admin: 04/05/17 16:34 Dose: 100 mg Glipizide (Glucotrol) 5 mg PO BID [facility] Last Admin: 04/05/17 16:34 Dose: 5 mg HCTZ/Losartan Potassium (Hyzaar 12.5 Mg-50 Mg) 1 tab PO DAILY [facility] Last Admin: 04/05/17 09:00 Dose: 1 tab Sodium Chloride (Sodium Chloride 0.9%) 1,000 mls @ 80 mls/hr IV .[id number] [facility] Last Admin: 04/05/17 20:00 Dose: Not Given Vancomycin HCl 1 gm/ Sodium (Chloride) 250 mls @ 166.667 mls/hr IVPB Q12 [facility] Last Admin: 04/05/17 21:34 Dose: 166.667 mls/hr Meropenem 1 gm/ Sodium (Chloride) 100 mls @ 100 mls/hr IVPB Q8 [facility] Last Admin: 04/06/17 01:08 Dose: 100 mls/hr Lactic Acid (Lac-Hydrin 12% Cream (140 G)) 1 ea TOP DAILY [facility] Last Admin: 04/05/17 09:00 Dose: 1 applic Metformin HCl (Glucophage) 1,000 mg PO BID [facility] Last Admin: 04/05/17 16:34 Dose: 1,000 mg Metoprolol Tartrate (Lopressor) 50 mg PO DAILY [facility] Last Admin: 04/05/17 09:04 Dose: 50 mg Pantoprazole Sodium (Protonix Ec Tab) 40 mg PO DAILY [facility] Last Admin: 04/05/17 09:01 Dose: 40 mg Tramadol HCl (Ultram) 50 mg PO Q6 PRN PRN Reason: Pain, moderate (4-7) Last Admin: 04/04/17 00:40 Dose: 50 mg - Labs Labs: 04/06/17 06:25 04/06/17 06:25 PT 14.1 Seconds (9.8-13.1) H 04/06/17 06:25 INR 1.4 (0.9-1.2) H 04/06/17 06:25 APTT 29.3 Seconds (25.6-37.1) 04/06/17 06:25 - Additional Findings Additional findings: - Constitutional Appears: No Acute Distress - Head Exam Head Exam: ATRAUMATIC - Eye Exam Eye Exam: EOMI - ENT Exam ENT Exam: Normal Oropharynx - Neck Exam Neck exam: Positive for: Full Rom - Respiratory Exam Respiratory Exam: NORMAL BREATHING PATTERN Additional comments: slightly decreased breath sounds at left base - Cardiovascular Exam Cardiovascular Exam: RRR, +S1, +S2 Additional comments: ight upper chest port site no erythema, nontender - GI/Abdominal Exam GI & Abdominal Exam: Normal Bowel Sounds, Soft Additional comments: NT, ND - Extremities Exam Additional comments: b/l le edema and venous stasis changes right knee region with much decreased erythema , less erythema today right great toe with small superficial ulcer. no opening, no discharge - Neurological Exam Neurological exam: Alert, Oriented x 3 Microbiology 04/04/17 19:00 Blood-Venous Blood Culture - Preliminary NO GROWTH AFTER 48 HOURS 04/03/17 16:45 Blood-Venous Blood Culture - Preliminary NO GROWTH AFTER 3 DAYS 04/03/17 16:45 Blood-Venous Blood Culture - Preliminary NO GROWTH AFTER 3 DAYS 04/02/17 18:42 Sputum Gram Stain - Final 04/02/17 18:42 Sputum Sputum Culture - Final NORMAL ORAL HARRY 04/02/17 14:08 Blood S.aureus & Coag-Neg Staph PNA FISH - Final 04/02/17 14:08 Blood Blood Culture - Final Beta Hemolytic Strep Group B 04/02/17 14:08 Blood Gram Stain - Final 04/02/17 19:00 Blood Blood Culture - Final Beta Hemolytic Strep Group B 04/02/17 19:00 Blood Gram Stain - Final 04/02/17 14:08 Urine Urine Culture - Final No Growth (<1,000 CFU/ML) H Assessment and Plan (1) Myelodysplasia (myelodysplastic syndrome) Status: Acute (2) Severe sepsis Status: Acute (3) DM2 (diabetes mellitus, type 2) Status: Acute (4) Venous stasis dermatitis of both lower extremities Status: Deleted - Assessment and Plan (Free Text) Assessment: A/P- 81 year old male with multiple medical conditions including CAD s/p CABG, DM II , MDS undergoing chemo who presented with fever and confusion yesterday. afebrile Leukopenia resolved post granix injection but has anemia and thrombocytopenia most likely from his MDS . blood cx- group B beta hemolytic strep x 2 urine cx- neg sputum cx- negative tib/fib xray- no fracture pr report foot xray- no emphysema as per report. TTE- n ovegetations per report. repeat blood cx- neg x 3 hepatitis profile- neg c.diff- neg x 3 plan- continue with IV vancomycin for strep bacteremia. keep trough <20. day #4 will need total of 21 days of Iv abx for the strep bacteremia. can d/c meropenem.
[2017-04-06] MEDS: HCTZ/Losartan 12.5/50 Tab PO SCH (11:28)
[2017-04-06] MEDS: Ammonium Lactate 12% Cream (140 g) TOP SCH (11:29)
[2017-04-06] MEDS: Pantoprazole 40 mg EC Tab PO SCH (11:31)
[2017-04-06] MEDS ORDERED: Epoetin Alfa 20000 UNIT/ML Inj SC ONE (11:38)
--- NOTE | 2017-04-06 11:38 | CP.PCM.PN ---
Subjective - Date & Time of Evaluation Date of Evaluation: 04/06/17 Time of Evaluation: 11:15 - Subjective Subjective: Covering Dr. Yanes No complaints Objective - Vital Signs/Intake and Output Vital Signs (last 24 hours): Temp Pulse Resp BP Pulse Ox 96.8 F L 82 20 138/78 98 04/06/17 08:55 04/06/17 11:29 04/06/17 08:55 04/06/17 11:29 04/06/17 08:55 Intake and Output: 04/06/17 04/06/17 06:59 18:59 Intake Total 3020 100 Output Total 600 Balance 2420 100 - Medications Medications: Current Medications Acetaminophen (Tylenol 325 Mg Supp) 975 mg [place] ONCE PRN PRN Reason: Fever >100.4 F Last Admin: 04/02/17 15:06 Dose: 975 mg Gabapentin (Neurontin) 100 mg PO TID [facility] Last Admin: 04/06/17 11:31 Dose: Not Given Glipizide (Glucotrol) 5 mg PO BID [facility] Last Admin: 04/06/17 11:28 Dose: Not Given HCTZ/Losartan Potassium (Hyzaar 12.5 Mg-50 Mg) 1 tab PO DAILY [facility] Last Admin: 04/06/17 11:28 Dose: 1 tab Sodium Chloride (Sodium Chloride 0.9%) 1,000 mls @ 80 mls/hr IV .[id number] [facility] Last Admin: 04/05/17 20:00 Dose: Not Given Vancomycin HCl 1 gm/ Sodium (Chloride) 250 mls @ 166.667 mls/hr IVPB Q12 [facility] Last Admin: 04/06/17 11:31 Dose: 166.667 mls/hr Meropenem 1 gm/ Sodium (Chloride) 100 mls @ 100 mls/hr IVPB Q8 [facility] Last Admin: 04/06/17 11:29 Dose: 100 mls/hr Lactic Acid (Lac-Hydrin 12% Cream (140 G)) 1 ea TOP DAILY [facility] Last Admin: 04/06/17 11:29 Dose: 1 applic Metformin HCl (Glucophage) 1,000 mg PO BID [facility] Last Admin: 04/06/17 11:28 Dose: Not Given Metoprolol Tartrate (Lopressor) 50 mg PO DAILY [facility] Last Admin: 04/06/17 11:29 Dose: 50 mg Pantoprazole Sodium (Protonix Ec Tab) 40 mg PO DAILY [facility] Last Admin: 04/06/17 11:31 Dose: 40 mg Tramadol HCl (Ultram) 50 mg PO Q6 PRN PRN Reason: Pain, moderate (4-7) Last Admin: 04/04/17 00:40 Dose: 50 mg - Labs Labs: 04/06/17 06:25 04/06/17 06:25 PT 14.1 Seconds (9.8-13.1) H 04/06/17 06:25 INR 1.4 (0.9-1.2) H 04/06/17 06:25 APTT 29.3 Seconds (25.6-37.1) 04/06/17 06:25 - Head Exam Head Exam: ATRAUMATIC - Eye Exam Eye Exam: Normal appearance - ENT Exam ENT Exam: Mucous Membranes Dry - Respiratory Exam Respiratory Exam: NORMAL BREATHING PATTERN - Cardiovascular Exam Cardiovascular Exam: +S1, +S2 - GI/Abdominal Exam GI & Abdominal Exam: Normal Bowel Sounds Assessment and Plan (1) Myelodysplasia (myelodysplastic syndrome) Assessment & Plan: with intermittent neutropenia requiring Granix growth factor support chronic anemia receiving weekly Procrit in an attempt to decrease transfusion dependence will redose Procrit today outpatient f/u with Dr. Yanes Status: Acute
--- NOTE | 2017-04-06 13:45 | CP.PCM.PN ---
Subjective - Date & Time of Evaluation Date of Evaluation: 04/06/17 Time of Evaluation: 11:30 - Subjective Subjective: Pt seen and examined. He claimed he is feeling much better. He said he didn't want to go to [facility] but would rather go home if he is discharged. Objective - Vital Signs/Intake and Output Vital Signs (last 24 hours): Temp Pulse Resp BP Pulse Ox 96.8 F L 82 20 138/78 98 04/06/17 08:55 04/06/17 11:29 04/06/17 08:55 04/06/17 11:29 04/06/17 08:55 Intake and Output: 04/06/17 04/06/17 06:59 18:59 Intake Total 3020 100 Output Total 600 Balance 2420 100 - Medications Medications: Current Medications Acetaminophen (Tylenol 325 Mg Supp) 975 mg IN ONCE PRN PRN Reason: Fever >100.4 F Last Admin: 04/02/17 15:06 Dose: 975 mg Gabapentin (Neurontin) 100 mg PO TID [facility] Last Admin: 04/06/17 11:31 Dose: Not Given Glipizide (Glucotrol) 5 mg PO BID [facility] Last Admin: 04/06/17 11:28 Dose: Not Given HCTZ/Losartan Potassium (Hyzaar 12.5 Mg-50 Mg) 1 tab PO DAILY [facility] Last Admin: 04/06/17 11:28 Dose: 1 tab Sodium Chloride (Sodium Chloride 0.9%) 1,000 mls @ 80 mls/hr IV .[id number] [facility] Last Admin: 04/05/17 20:00 Dose: Not Given Vancomycin HCl 1 gm/ Sodium (Chloride) 250 mls @ 166.667 mls/hr IVPB Q12 [facility] Last Admin: 04/06/17 11:31 Dose: 166.667 mls/hr Meropenem 1 gm/ Sodium (Chloride) 100 mls @ 100 mls/hr IVPB Q8 [facility] Last Admin: 04/06/17 11:29 Dose: 100 mls/hr Lactic Acid (Lac-Hydrin 12% Cream (140 G)) 1 ea TOP DAILY [facility] Last Admin: 04/06/17 11:29 Dose: 1 applic Metformin HCl (Glucophage) 1,000 mg PO BID [facility] Last Admin: 04/06/17 11:28 Dose: Not Given Metoprolol Tartrate (Lopressor) 50 mg PO DAILY [facility] Last Admin: 04/06/17 11:29 Dose: 50 mg Pantoprazole Sodium (Protonix Ec Tab) 40 mg PO DAILY [facility] Last Admin: 04/06/17 11:31 Dose: 40 mg Tramadol HCl (Ultram) 50 mg PO Q6 PRN PRN Reason: Pain, moderate (4-7) Last Admin: 04/04/17 00:40 Dose: 50 mg - Labs Labs: 04/06/17 06:25 04/06/17 06:25 PT 14.1 Seconds (9.8-13.1) H 04/06/17 06:25 INR 1.4 (0.9-1.2) H 04/06/17 06:25 APTT 29.3 Seconds (25.6-37.1) 04/06/17 06:25 - Constitutional Appears: No Acute Distress - Head Exam Head Exam: ATRAUMATIC - Eye Exam Eye Exam: absent: Scleral icterus - ENT Exam ENT Exam: Mucous Membranes Moist - Neck Exam Neck Exam: absent: Meningismus - Respiratory Exam Respiratory Exam: absent: Rhonchi, Wheezes, Respiratory Distress - Cardiovascular Exam Cardiovascular Exam: REGULAR RHYTHM, +S1, +S2 - GI/Abdominal Exam GI & Abdominal Exam: Soft. absent: Tenderness - Rectal Exam Rectal Exam: Deferred - Neurological Exam Neurological Exam: Alert, Oriented x3 - Psychiatric Exam Psychiatric exam: Normal Affect - Skin Skin Exam: Dry, Intact Assessment and Plan (1) Severe sepsis Status: Acute (2) Myelodysplasia (myelodysplastic syndrome) Status: Acute (3) DM2 (diabetes mellitus, type 2) Status: Acute (4) Venous stasis dermatitis of both lower extremities Status: Acute (5) Cirrhosis of liver Status: Acute - Assessment and Plan (Free Text) Assessment: 81 yo nale with history of Myelodysplastic Syndrome, CAD and DM was brought in because of confusion, fever and chills. Admitted with a diagnosis of sepsis, source probably from gastritis or SBP. Presently doing well after hydration and started with antibiotics. 1. Sepsis secondary to gastritis vs SBP? 04/02/17 BLOOD culture-BETA HEMOLYTIC STREP GROUP B (S: Ampicillin, PCN, Vanco) continue Vanco 1gm IV q 12hrs. and Meropenem 1gm IV q 8hrs. ID consult with Dr Wallis appreciated TTE: NO vegetations Will need 3 weeks of antibiotics refused to go to [facility], but willing to go to TCU for continuation of IV antibiotics for 3 weeks will discharge to TCU tomorrow spoke with Dr Torres by phone and advised to hold chemo for a month 2. Myelodysplasia (myelodysplastic syndrome) Chemo once a month, with PORT but will hold for a month Received Granx for 2 doses yesterday and today continue Procrit EVERY Tuesday. WBC today: 5.8 [address] with Ascites CT Abd/Pel: hepatosplenomegaly with ascites upper endoscopy done by Dr Neri revealed significant only for gastritis Hep Panel is negative 4. Coagulopathy INR stable at 1.4 today secondary to cirrhosis monitor 5. DM2 (diabetes mellitus, type 2) BS relatively controlled. accuchek ACHS. Glipizide 5mg PO BID. Metformin 1000mg PO BID. HgA1C 6. Diabetic Toe Ulcer right great toe patient sees Dr. Smith, consulted for evaluation X ray of foot /tib fib = no OM No wound care planned as of now 7.HTN (hypertension) BP stable. continue Losart/HCTZ and Metoprolol 8. CAD (coronary artery disease) asymptomatic. continue statin and Metoprolol
[2017-04-06] MEDS: Sodium Chloride 0.9% 1,000 ML IV SCH ×2 (17:28→21:42)
[2017-04-07] MEDS: Meropenem 1 GM in Sodium Chloride 0.9% 100 ML IVPB SCH ×2 (00:51→09:16)
[2017-04-07 08:26] VITALS: BP 147/62; PULSE 79; TEMP 98.3; O2SAT 94
--- NOTE | 2017-04-07 09:05 | CP.PCM.PN ---
Subjective - Date & Time of Evaluation Date of Evaluation: 04/07/17 Time of Evaluation: 09:01 - Subjective Subjective: Podiatry- Dr. Smith 81 year old male with PMH of Anemia, Myelodysplastic Syndrome, Diabetes Mellitus-2, HTN, Anxiety, Arthritis, Gastritis, Hypercholesterolemia, & Peripheral Edema seen at bedside with attending Dr. Smith for right hallux ulceration and cellulitic changes of right leg. Patient states that pain in leg and foot is improved from yesterday. Pt is followed by attending, Dr. Smith on an outpatient basis. Patient states that he continues to have episodes of diarrhea but less frequently than yesterday. Patient underwent upper endoscopy yesterday to evaluate esophageal thickening. Patient states that his ulceration to his right hallux is feeling better today. Denies any further pedal complaints at this time. Denies N/V/F/C/CP/SOB Objective - Vital Signs/Intake and Output Vital Signs (last 24 hours): Temp Pulse Resp BP Pulse Ox 98.3 F 79 20 147/62 94 L 04/07/17 08:29 04/07/17 08:29 04/07/17 08:29 04/07/17 08:29 04/07/17 08:29 Intake and Output: 04/07/17 04/07/17 06:59 18:59 Intake Total 410 Output Total 1100 Balance -690 - Medications Medications: Current Medications Acetaminophen (Tylenol 325 Mg Supp) 975 mg [place] ONCE PRN PRN Reason: Fever >100.4 F Last Admin: 04/02/17 15:06 Dose: 975 mg Gabapentin (Neurontin) 100 mg PO TID [facility] Last Admin: 04/06/17 17:22 Dose: 100 mg Glipizide (Glucotrol) 5 mg PO BID [facility] Last Admin: 04/06/17 17:21 Dose: 5 mg HCTZ/Losartan Potassium (Hyzaar 12.5 Mg-50 Mg) 1 tab PO DAILY [facility] Last Admin: 04/06/17 11:28 Dose: 1 tab Sodium Chloride (Sodium Chloride 0.9%) 1,000 mls @ 80 mls/hr IV .[id number] [facility] Last Admin: 04/06/17 21:42 Dose: 80 mls/hr Vancomycin HCl 1 gm/ Sodium (Chloride) 250 mls @ 166.667 mls/hr IVPB Q12 [facility] Last Admin: 04/06/17 21:43 Dose: 166.667 mls/hr Meropenem 1 gm/ Sodium (Chloride) 100 mls @ 100 mls/hr IVPB Q8 [facility] Last Admin: 04/07/17 00:51 Dose: 100 mls/hr Lactic Acid (Lac-Hydrin 12% Cream (140 G)) 1 ea TOP DAILY [facility] Last Admin: 04/06/17 11:29 Dose: 1 applic Metformin HCl (Glucophage) 1,000 mg PO BID [facility] Last Admin: 04/06/17 17:20 Dose: 1,000 mg Metoprolol Tartrate (Lopressor) 50 mg PO DAILY [facility] Last Admin: 04/06/17 11:29 Dose: 50 mg Pantoprazole Sodium (Protonix Ec Tab) 40 mg PO DAILY [facility] Last Admin: 04/06/17 11:31 Dose: 40 mg Tramadol HCl (Ultram) 50 mg PO Q6 PRN PRN Reason: Pain, moderate (4-7) Last Admin: 04/04/17 00:40 Dose: 50 mg - Labs Labs: 04/06/17 06:25 04/06/17 06:25 PT 14.1 Seconds (9.8-13.1) H 04/06/17 06:25 INR 1.4 (0.9-1.2) H 04/06/17 06:25 APTT 29.3 Seconds (25.6-37.1) 04/06/17 06:25 - Constitutional Appears: Well, Non-toxic, No Acute Distress - Extremities Exam Additional comments: Lower extremity focused exam. Vasc: DP and PT pulses fully palpable b/l, graded 2/4. LE edema noted to be improved today vs. yesterday. Skin temperature warm to warm from proximal to distal b/l WNL. CRF is <3 seconds in all 10 digits. Neuro: Epicritic and protective sensation grossly absent bilaterally. Negative for clonus. Derm: Pre-ulcerative hyperkeratotic lesion noted to distal asprect of right hallux, stable. Erythema previously noted at right knee has diminished. No open wounds noted to b/l LE. MSK: Right foot demonstrates moderate mid-foot arch collapse. Pedal muscle strength in all 4 major pedal muscle groups is graded 4/5 bilaterally. - Neurological Exam Neurological Exam: Alert, Awake, Oriented x3 - Psychiatric Exam Psychiatric exam: Normal Affect, Normal Mood Assessment and Plan - Assessment and Plan (Free Text) Assessment: 81 year old diabetic male with right hallux pre-ulcerative lesion and leg cellulits. Plan: Pt evaluated at bedside Chart, labs, and vitals reviewed; afebrile No local wound care planned at this time. Cellulits margins to RLE decreased from yesterday Continue IV abx per ID. Podiatry will continue to follow patient while in house.
[2017-04-07] MEDS: Pantoprazole 40 mg EC Tab PO SCH (09:11)
[2017-04-07] MEDS: HCTZ/Losartan 12.5/50 Tab PO SCH (09:11)
[2017-04-07] MEDS: Ammonium Lactate 12% Cream (140 g) TOP SCH (09:14)
--- NOTE | 2017-04-07 10:17 | CP.PCM.DIS ---
Provider - Provider Date of Admission: 04/02/17 15:38 Attending physician: Sadiq Mosley MD Consults: Dr Bimal Smith Time Spent in preparation of Discharge (in minutes): 25 Diagnosis - Discharge Diagnosis (1) Severe sepsis Status: Acute Comment: secondary to Beta Hemolytic Strep Group B but source unknown. continue Vanco and Meropenem for 3 weeks (2) Myelodysplasia (myelodysplastic syndrome) Status: Acute Comment: chemo will be held for a month as per Dr. Torres in order to treat present condition. received 2 doses of Granx. continue Procrit every Tuesday (3) DM2 (diabetes mellitus, type 2) Status: Acute Comment: BS controlled. continue Glipizide 5mg PO BID. Metformin 1000mg PO BID. HgA1C: 5.6 (4) Cirrhosis of liver Status: Acute Comment: CT of Abd/Pelvis: showed liver cirrhoses with splenomegaly and ascites. GI consult with Dr Neri appreciated. endoscopy: congestive gastropathy probably from portal hypertension Hospital Course - Lab Results Lab Results: Micro Results 04/04/17 19:00 Blood-Venous Blood Culture - Preliminary NO GROWTH AFTER 48 HOURS 04/03/17 16:45 Blood-Venous Blood Culture - Preliminary NO GROWTH AFTER 3 DAYS 04/03/17 16:45 Blood-Venous Blood Culture - Preliminary NO GROWTH AFTER 3 DAYS 04/02/17 18:42 Sputum Gram Stain - Final 04/02/17 18:42 Sputum Sputum Culture - Final NORMAL ORAL HARRY 04/02/17 19:00 Blood Blood Culture - Final Beta Hemolytic Strep Group B 04/02/17 19:00 Blood Gram Stain - Final Most Recent Lab Values WBC 5.8 K/uL (4.8-10.8) 04/06/17 06:25 RBC 3.47 Mil/uL (4.40-5.90) L 04/06/17 06:25 Hgb 8.7 g/dL (12.0-18.0) L 04/06/17 06:25 Hct 28.3 % (35.0-51.0) L 04/06/17 06:25 MCV 81.6 fl (80.0-94.0) 04/06/17 06:25 MCH 25.2 pg (27.0-31.0) L 04/06/17 06:25 MCHC 30.9 g/dL (33.0-37.0) L 04/06/17 06:25 RDW 22.1 % (11.5-14.5) H 04/06/17 06:25 Plt Count 83 K/uL (130-400) L 04/06/17 06:25 MPV 7.2 fl (7.2-11.7) 04/06/17 06:25 Neut % (Auto) 80.9 % (50.0-75.0) H 04/06/17 06:25 Lymph % (Auto) 11.6 % (20.0-40.0) L 04/06/17 06:25 [place] % (Auto) 5.8 % (0.0-10.0) 04/06/17 06:25 Eos % (Auto) 1.2 % (0.0-4.0) 04/06/17 06:25 Baso % (Auto) 0.5 % (0.0-2.0) 04/06/17 06:25 Neut # 4.7 K/uL (1.8-7.0) 04/06/17 06:25 Lymph # 0.7 K/uL (1.0-4.3) L 04/06/17 06:25 [place] # 0.3 K/uL (0.0-0.8) 04/06/17 06:25 Eos # 0.1 K/uL (0.0-0.7) 04/06/17 06:25 Baso # 0.0 K/uL (0.0-0.2) 04/06/17 06:25 Neutrophils % (Manual) 58 % (42-75) 04/03/17 06:00 Band Neutrophils % 4 % (0-2) H 04/03/17 06:00 Lymphocytes % (Manual) 16 % (20-50) L 04/03/17 06:00 Monocytes % (Manual) 22 % (0-10) H 04/03/17 06:00 Platelet Estimate Decreased (NORMAL) L 04/03/17 06:00 Large Platelets Present 04/03/17 06:00 Hypochromasia (manual) Slight 04/03/17 06:00 Poikilocytosis (manual Slight 04/03/17 06:00 Anisocytosis (manual) Moderate 04/03/17 06:00 Microcytosis (manual) Slight 04/02/17 14:08 Spherocytes Slight 04/03/17 06:00 Tear Drop Cells Slight 04/03/17 06:00 Ovalocytes Slight 04/03/17 06:00 Schistocytes Slight 04/03/17 06:00 PT 14.1 Seconds (9.8-13.1) H 04/06/17 06:25 INR 1.4 (0.9-1.2) H 04/06/17 06:25 APTT 29.3 Seconds (25.6-37.1) 04/06/17 06:25 pCO2 32 mm/Hg (35-45) L 04/02/17 14:02 pO2 40 mm/Hg (30-55) 04/02/17 15:55 HCO3 24.1 mmol/L (21-28) 04/02/17 14:02 ABG pH 7.45 (7.35-7.45) 04/02/17 14:02 ABG Total CO2 23.2 mmol/L (22-28) 04/02/17 14:02 ABG O2 Saturation 99.4 % (95-98) H 04/02/17 14:02 ABG Base Excess -1.0 mmol/L (-2.0-3.0) 04/02/17 14:02 Mason Test Yes 04/02/17 14:02 ABG Potassium 4.6 mmol/L (3.6-5.2) 04/02/17 14:02 VBG pH 7.42 (7.32-7.43) 04/02/17 15:55 VBG pCO2 39 mmHg (40-60) L 04/02/17 15:55 VBG HCO3 25.0 mmol/L 04/02/17 15:55 VBG Total CO2 26.5 mmol/L (22-28) 04/02/17 15:55 VBG O2 Sat (Calc) 83.4 % (40-65) H 04/02/17 15:55 VBG Base Excess 0.8 mmol/L (0.0-2.0) 04/02/17 15:55 VBG Potassium 4.1 mmol/L (3.6-5.2) 04/02/17 15:55 A-a O2 Difference 46.0 mm/Hg 04/02/17 14:02 Sodium 136.0 mmol/L (132-148) 04/02/17 15:55 Chloride 108.0 mmol/L (98-107) H 04/02/17 15:55 Glucose 118 mg/dL (75-110) H 04/02/17 15:55 Lactate 2.6 mmol/L (0.7-2.1) H 04/02/17 15:55 FiO2 21.0 % 04/02/17 15:55 Sodium 141 mmol/l (132-148) 04/06/17 06:25 Potassium 3.9 MMOL/L (3.6-5.0) 04/06/17 06:25 Chloride 109 mmol/L (98-107) H 04/06/17 06:25 Carbon Dioxide 24 mmol/L (22-30) 04/06/17 06:25 Anion Gap 12 (10-20) 04/06/17 06:25 BUN 25 mg/dl (9-20) H 04/06/17 06:25 Creatinine 1.0 mg/dL (0.8-1.5) 04/06/17 06:25 Est GFR ( Amer) > 60 04/06/17 06:25 Est GFR (Non-Af Amer) > 60 04/06/17 06:25 POC Glucose (mg/dL) 136 mg/dL (65-110) H 04/07/17 05:49 Random Glucose 135 mg/dL (75-110) H 04/06/17 06:25 Hemoglobin A1c 5.6 % (4.2-6.5) 04/03/17 06:00 Calcium 8.8 mg/dL (8.4-10.2) 04/06/17 06:25 Phosphorus 2.7 mg/dl (2.5-4.5) 04/02/17 14:08 Magnesium 1.7 MG/DL (1.6-2.3) 04/02/17 14:08 Iron 12 ug/dL (49-181) L 04/04/17 16:00 TIBC 326 ug/dL (250-450) 04/04/17 16:00 % Saturation 4 % (20-55) L 04/04/17 16:00 Total Bilirubin 1.2 mg/dl (0.2-1.3) 04/06/17 06:25 Direct Bilirubin 0.4 mg/ml (0.0-0.4) 04/03/17 12:40 AST 51 U/L (17-59) 04/06/17 06:25 ALT 56 U/L (21-72) 04/06/17 06:25 Alkaline Phosphatase 122 U/L (38-126) 04/06/17 06:25 Total Creatine Kinase 99 U/L (55-170) 04/02/17 14:08 NT-Pro-B Natriuret Pep 1270 pg/ml (0-900) H 04/02/17 14:08 Total Protein 6.0 G/DL (6.3-8.2) L 04/06/17 06:25 Albumin 3.2 g/dL (3.5-5.0) L 04/06/17 06:25 Globulin 2.8 gm/dL (2.2-3.9) 04/06/17 06:25 Albumin/Globulin Ratio 1.1 (1.0-2.1) 04/06/17 06:25 TSH 3rd Generation 0.44 mIU/ML (0.46-4.68) L 04/03/17 06:00 Arterial Blood Potassium 4.6 mmol/L (3.6-5.2) 04/02/17 14:02 Venous Blood Potassium 4.1 mmol/L (3.6-5.2) 04/02/17 15:55 Urine Color Yellow (YELLOW) 04/02/17 14:08 Urine Clarity Slighty-cloudy (Clear) 04/02/17 14:08 Urine pH 6.0 (5.0-8.0) 04/02/17 14:08 Ur Specific [place] 1.017 (1.003-1.030) 04/02/17 14:08 Urine Protein 30 mg/dL (NEGATIVE) 04/02/17 14:08 Urine Glucose (UA) Neg mg/dL (Normal) 04/02/17 14:08 Urine Ketones Negative mg/dL (NEGATIVE) 04/02/17 14:08 Urine Blood Moderate (NEGATIVE) 04/02/17 14:08 Urine Nitrate Negative (NEGATIVE) 04/02/17 14:08 Urine Bilirubin Negative (NEGATIVE) 04/02/17 14:08 Urine Urobilinogen 2.0 mg/dL (0.2-1.0) 04/02/17 14:08 Ur Leukocyte Esterase Neg [place]/uL (Negative) 04/02/17 14:08 Urine RBC (Auto) 49 /hpf (0-3) H 04/02/17 14:08 Urine Microscopic WBC 2 /hpf (0-5) 04/02/17 14:08 Urine Bacteria Rare (<OCC) 04/02/17 14:08 Vancomycin Trough 16.5 ug/mL (5.0-10.0) H 04/04/17 08:50 C. difficile Ag & Toxin Negative (NEGATIVE) 04/05/17 09:05 Hepatitis A IgM Ab Negative (NEGATIVE) 04/03/17 16:45 Hep Bs Antigen Negative (NEGATIVE) 04/03/17 16:45 Hep B Core IgM Ab Negative (NEGATIVE) 04/03/17 16:45 Hepatitis C Antibody Negative (NEGATIVE) 04/03/17 16:45 - Hospital Course Hospital Course: 81 yo male with history of Myelodysplastic Syndrome, CAD and DM brought in because of confusion, fever and chills. Diagnosed with Sepsis, patient was admitted initially to telemetry then moved to regular floor. Blood culture grew Beta Hemolytic Strep Group B and was found to have liver cirrhosis with splenomegaly and ascites. The source of infection was still unknown, but could be from Gastritis or SBP. He was put on Meropenem and Vanco and would need at least 3 weeks of those. He is transferred to TCU for continuation of IV antibiotics and PT. Discharge Exam - Head Exam Head Exam: ATRAUMATIC - Eye Exam Eye Exam: absent: Scleral icterus - ENT Exam ENT Exam: Mucous Membranes Moist - Respiratory Exam Respiratory Exam: absent: Wheezes, Respiratory Distress - Cardiovascular Exam Cardiovascular Exam: REGULAR RHYTHM, +S1, +S2 - GI/Abdominal Exam GI & Abdominal Exam: Soft. absent: Tenderness - Rectal Exam Rectal Exam: Deferred - Neurological Exam Neurological exam: Alert, Oriented x3 - Psychiatric Exam Psychiatric exam: Normal Affect - Skin Skin Exam: Dry, Intact Discharge Plan - Follow Up Plan Condition: GUARDED Disposition: REHAB FACILITY/REHAB UNIT
== END 2017-04-07 15:13 | DRG 872 ==
LOC: H.ER 13:25 → H.ERHOLD 15:38 → H.TEL 17:08 → H.MEDSURG1 04-05 18:37
PROC: 0DB38ZX Excision of Lower Esophagus, Via Natural or Artificial Opening Endoscopic, Diagnostic (ICD-10-PCS; principal; 2017-04-06 08:30)
DX: A40.1 Sepsis due to streptococcus, group B (principal); R65.20 Severe sepsis without septic shock; D61.818 Other pancytopenia; R18.8 Other ascites; D68.9 Coagulation defect, unspecified; I11.0 Hypertensive heart disease with heart failure; I50.9 Heart failure, unspecified; K76.6 Portal hypertension; J98.11 Atelectasis; R17 Unspecified jaundice; E11.42 Type 2 diabetes mellitus with diabetic polyneuropathy; E11.621 Type 2 diabetes mellitus with foot ulcer; D46.9 Myelodysplastic syndrome, unspecified; E78.00 Pure hypercholesterolemia, unspecified; I25.10 Atherosclerotic heart disease of native coronary artery without angina pectoris; I87.2 Venous insufficiency (chronic) (peripheral); J44.9 Chronic obstructive pulmonary disease, unspecified; K29.70 Gastritis, unspecified, without bleeding; K31.89 Other diseases of stomach and duodenum; K74.69 Other cirrhosis of liver; K80.20 Calculus of gallbladder without cholecystitis without obstruction; L97.519 Non-pressure chronic ulcer of other part of right foot with unspecified severity; M19.90 Unspecified osteoarthritis, unspecified site; M85.80 Other specified disorders of bone density and structure, unspecified site; Z79.84 Long term (current) use of oral hypoglycemic drugs; Z79.899 Other long term (current) drug therapy; Z87.891 Personal history of nicotine dependence; Z95.1 Presence of aortocoronary bypass graft; Z96.642 Presence of left artificial hip joint; D64.9 Anemia, unspecified; D69.6 Thrombocytopenia, unspecified; F41.9 Anxiety disorder, unspecified; H26.9 Unspecified cataract; M25.511 Pain in right shoulder; R16.0 Hepatomegaly, not elsewhere classified; R16.1 Splenomegaly, not elsewhere classified; R19.7 Diarrhea, unspecified; D46.4 Refractory anemia, unspecified

== ENCOUNTER 2017-04-07 10:24 | Inpatient (IN) | payer OTHER, MEDICARE ==
[2017-04-07 16:59] VITALS: RESP 20
[2017-04-07] MEDS ORDERED: Patient's Own Med (Vancomycin 1 Gm [Vancomycin 1gm In Normal Saline Addvantage] 1 GM) IVPB SCH (21:00)
[2017-04-07] MEDS ORDERED: Meropenem 1 GM/NS 100 ML IVPB SCH (22:30)
[2017-04-08] MEDS ORDERED: Patient's Own Med (Meropenem [Merrem Iv] 1 GM) IVPB SCH (01:00)
[2017-04-08] MEDS: Meropenem 1 GM/NS 100 ML IVPB SCH ×2 (04:37→12:28)
[2017-04-08] MEDS: Ammonium Lactate 12% Cream (140 g) TOP SCH (08:44)
[2017-04-08] MEDS: HCTZ/Losartan 12.5/50 Tab PO SCH (08:44)
[2017-04-08] MEDS: Pantoprazole 40 mg EC Tab PO SCH (08:44)
[2017-04-08] MEDS ORDERED: HCTZ/Losartan 12.5/50 Tab PO SCH (09:00)
--- NOTE | 2017-04-08 09:15 | CP.PCM.CON ---
History of Present Illness - History of Present Illness History of Present Illness: Podiatry- Dr. Smith 81 year old male with PMH of Anemia, Myelodysplastic Syndrome, Diabetes Mellitus-2, HTN, Anxiety, Arthritis, Gastritis, Hypercholesterolemia, & Peripheral Edema seen at bedside for right hallux ulceration and cellulitic changes of right leg. Patient states that pain in leg and foot is improved. Pt is followed by attending, Dr. Smith on an outpatient basis. Patient denies any recent episodes of diarrhea. Patient states that his ulceration to his right hallux is feeling better today. Denies any further pedal complaints at this time. Denies N/V/F/C/CP/SOB Review of Systems - Review of Systems Review of Systems: ROS unremarkable outside of HPI Past Patient History - Tetanus Immunizations Tetanus Immunization: Unknown - Past Medical History & Family History Past Medical History?: Yes - Past Social History Smoking Status: Former Smoker - CARDIAC Hx Cardiac Disorders: Yes Hx Congestive Heart Failure: Yes Hx Hypercholesterolemia: Yes Hx Hypertension: Yes Hx Peripheral Edema: Yes Other/Comment: CABG - PULMONARY Hx Respiratory Disorders: No - NEUROLOGICAL Hx Neurological Disorder: No - HEENT Hx HEENT Problems: Yes Hx Cataracts: Yes (left) - RENAL Hx Chronic Kidney Disease: No - ENDOCRINE/METABOLIC Hx Endocrine Disorders: Yes Hx Diabetes Mellitus Type 2: Yes - HEMATOLOGICAL/ONCOLOGICAL Hx Anemia: Yes Hx Cancer: Yes (MDS) Other/Comment: 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 - INTEGUMENTARY Hx Dermatological Problems: No - MUSCULOSKELETAL/RHEUMATOLOGICAL Hx Arthritis: Yes Hx Falls: Yes - GASTROINTESTINAL Hx Gastritis: Yes - GENITOURINARY/GYNECOLOGICAL Hx Genitourinary Disorders: No - PSYCHIATRIC Hx Anxiety: Yes Hx Substance Use: No - SURGICAL HISTORY Hx Cholecystectomy: Yes Hx Orthopedic Surgery: Yes - ANESTHESIA Hx Anesthesia: Yes Hx Anesthesia Reactions: No Hx Malignant Hyperthermia: No Meds Allergies/Adverse Reactions: Allergies Allergy/AdvReac Type Severity Reaction Status Date / Time tape Allergy RASH Uncoded 04/07/17 15:46 - Medications Medications: Current Medications Atorvastatin Calcium (Lipitor) 20 mg PO DAILY [facility] Gabapentin (Neurontin) 100 mg PO TID [facility] Last Admin: 04/08/17 08:44 Dose: 100 mg Glipizide (Glucotrol) 5 mg PO BID [facility] Last Admin: 04/08/17 08:44 Dose: 5 mg HCTZ/Losartan Potassium (Hyzaar 12.5 Mg-50 Mg) 1 tab PO DAILY [facility] Last Admin: 04/08/17 08:44 Dose: 1 tab Vancomycin HCl 1 gm/ Sodium (Chloride) 250 mls @ 166.667 mls/hr IVPB Q12@0600, 1800 [facility] Last Admin: 04/08/17 05:43 Dose: 166.667 mls/hr Meropenem 1 gm/ Sodium (Chloride) 100 mls @ 100 mls/hr IVPB Q8@0500,1300,2100 [facility] Last Admin: 04/08/17 04:37 Dose: 100 mls/hr Lactic Acid (Lac-Hydrin 12% Cream (140 G)) 1 ea TOP DAILY [facility] Last Admin: 04/08/17 08:44 Dose: 1 unit Metformin HCl (Glucophage) 1,000 mg PO BID [facility] Last Admin: 04/08/17 08:44 Dose: 1,000 mg Metoprolol Tartrate (Lopressor) 50 mg PO DAILY [facility] Last Admin: 04/08/17 08:44 Dose: 50 mg Pantoprazole Sodium (Protonix Ec Tab) 40 mg PO DAILY [facility] Last Admin: 04/08/17 08:44 Dose: 40 mg Tramadol HCl (Ultram) 50 mg PO Q6 PRN PRN Reason: Pain, moderate (4-7) Physical Exam - Constitutional Appears: Well, Non-toxic, No Acute Distress - Extremities Exam Additional comments: Lower extremity focused exam. Vasc: DP and PT pulses fully palpable b/l, graded 2/4. LE edema noted to be improved today vs. yesterday. Skin temperature warm to warm from proximal to distal b/l WNL. CRF is <3 seconds in all 10 digits. Neuro: Epicritic and protective sensation grossly absent bilaterally. Negative for clonus. Derm: Pre-ulcerative hyperkeratotic lesion noted to distal asprect of right hallux, stable. Erythema previously noted at right knee is resolved at this time. No open wounds noted to b/l LE. MSK: Right foot demonstrates moderate mid-foot arch collapse. Pedal muscle strength in all 4 major pedal muscle groups is graded 4/5 bilaterally. - Neurological Exam Neurological exam: Alert, Oriented x3 - Psychiatric Exam Psychiatric exam: Normal Affect, Normal Mood Results - Vital Signs Recent Vital Signs: Last Vital Signs Temp 97.9 F 04/08/17 09:03 Pulse 83 04/08/17 09:03 Resp 20 04/08/17 09:03 BP 141/75 04/08/17 09:03 Pulse Ox 98 04/08/17 09:03 - Labs Labs: Laboratory Results - last 24 hr 04/07/17 04/08/17 20:50 05:59 POC Glucose (mg/dL) 163 H 161 H Assessment & Plan - Assessment and Plan (Free Text) Assessment: 81 year old diabetic male with right hallux pre-ulcerative lesion and leg cellulits. Plan: Pt evaluated at bedside Chart, labs, and vitals reviewed; afebrile No local wound care planned at this time. Cellulits margins to RLE resolved Continue IV abx per ID. Podiatry will continue to follow patient while in house. - Date & Time Date: 04/08/17 Time: 07:18
--- NOTE | 2017-04-08 11:16 | CP.PCM.HP ---
History of Present Illness - History of Present Illness History of Present Illness: 81 yo male with history of Myelodysplastic Syndrome, CAD and DM was brought in because of confusion, fever and chills. Diagnosed with Sepsis, patient was admitted to telemetry and then moved to regular floor once he became stable. Blood culture grew Beta Hemolytic Strep Group B. He was also found to have liver cirrhosis with splenomegaly and ascites. The source of infection is still unknown, but could be from Gastritis or SBP. He was put on Meropenem and Vanco and as per ID consult, Dr Wallis, patient would need at least 3 weeks of antibiotics (started on 04/02/17). He was transferred to TCU for continuation of IV antibiotics and PT. Present on Admission - Present on Admission Any Indicators Present on Admission: No History of DVT/PE: No History of Uncontrolled Diabetes: No Urinary Catheter: No Decubitus Ulcer Present: No Review of Systems - Review of Systems All systems: reviewed and no additional remarkable complaints except (aside from those mentioned above, 12 point system review were negative by me) Past Patient History - Tetanus Immunizations Tetanus Immunization: Unknown - Past Medical History & Family History Past Medical History?: Yes Past Family History: Reviewed and not pertinent - Past Social History Smoking Status: Former Smoker Alcohol: Occasional Drugs: Denies - CARDIAC Hx Cardiac Disorders: Yes Hx Hypercholesterolemia: Yes Hx Hypertension: Yes Hx Peripheral Edema: Yes Other/Comment: CABG - PULMONARY Hx Respiratory Disorders: No - NEUROLOGICAL Hx Neurological Disorder: No - HEENT Hx HEENT Problems: Yes Hx Cataracts: Yes (left) - RENAL Hx Chronic Kidney Disease: No - ENDOCRINE/METABOLIC Hx Endocrine Disorders: Yes Hx Diabetes Mellitus Type 2: Yes - HEMATOLOGICAL/ONCOLOGICAL Hx Anemia: Yes Other/Comment: 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 - INTEGUMENTARY Hx Dermatological Problems: No - MUSCULOSKELETAL/RHEUMATOLOGICAL Hx Arthritis: Yes Hx Falls: Yes - GASTROINTESTINAL Hx Gastritis: Yes - GENITOURINARY/GYNECOLOGICAL Hx Genitourinary Disorders: No - PSYCHIATRIC Hx Anxiety: Yes Hx Substance Use: No - SURGICAL HISTORY Hx Surgeries: Yes Hx Cholecystectomy: Yes Hx Coronary Artery Bypass Graft: Yes Hx Joint Replacement: Yes (left THR) Hx Orthopedic Surgery: Yes - ANESTHESIA Hx Anesthesia: Yes Hx Anesthesia Reactions: No Hx Malignant Hyperthermia: No Meds Allergies/Adverse Reactions: Allergies Allergy/AdvReac Type Severity Reaction Status Date / Time tape Allergy RASH Uncoded 04/07/17 15:46 Physical Exam - Constitutional Appears: No Acute Distress - Head Exam Head Exam: ATRAUMATIC - Eye Exam Eye Exam: absent: Scleral icterus - ENT Exam ENT Exam: Mucous Membranes Moist - Neck Exam Neck exam: Negative for: Meningismus - Respiratory Exam Respiratory Exam: absent: Rhonchi, Wheezes, Respiratory Distress - Cardiovascular Exam Cardiovascular Exam: REGULAR RHYTHM, +S1, +S2 - GI/Abdominal Exam GI & Abdominal Exam: Soft. absent: Tenderness - Rectal Exam Rectal Exam: Deferred - Extremities Exam Extremities exam: Positive for: pedal edema - Back Exam Back exam: NORMAL INSPECTION - Neurological Exam Neurological exam: Alert, Oriented x3 - Psychiatric Exam Psychiatric exam: Normal Affect - Skin Skin Exam: Dry, Intact Results - Vital Signs Recent Vital Signs: Last Vital Signs Temp 97.9 F 04/08/17 09:03 Pulse 83 04/08/17 09:03 Resp 20 04/08/17 09:03 BP 141/75 04/08/17 09:03 Pulse Ox 98 04/08/17 09:03 - Labs Labs: Laboratory Results - last 24 hr 04/07/17 04/08/17 04/08/17 20:50 05:59 10:48 POC Glucose (mg/dL) 163 H 161 H 204 H Assessment & Plan - Assessment and Plan (Free Text) Assessment: 81 yo nale with history of Myelodysplastic Syndrome, CAD and DM was brought in because of confusion, fever and chills. Admitted with a diagnosis of sepsis, source probably from gastritis or SBP. Presently doing well after hydration and started with antibiotics. 1. Sepsis afebrile blood culture grew Beta Hemolytic Strep Group B (S: Ampicillin, PCN, Vanco) source of bacteria still unknown continue Vanco 1gm IV q 12hrs. and Meropenem 1gm IV q 8hrs. ID consult with Dr Wallis appreciated TTE: no vegetations Will need 3 weeks of antibiotics (2 more weeks to go) 2. Myelodysplasia (myelodysplastic syndrome) Chemo once a month, with PORT but will hold for a month as per Dr Torres Received Granix for 2 doses continue Procrit every Tuesday. WBC today: 5.8 [address] with Ascites CT Abd/Pel: hepatosplenomegaly with ascites upper endoscopy done by Dr Neri revealed significant only for gastritis Hep Panel was negative LFTs back to normal 4. Coagulopathy INR elevated but stable secondary to cirrhosis 5. DM2 (diabetes mellitus, type 2) BS relatively controlled. accuchek ACHS. Glipizide 5mg PO BID. Metformin 1000mg PO BID. HgA1C: 5.6 6. Diabetic Toe Ulcer right great toe ulcer improving Dr. Smith on consult 7. HTN (hypertension) BP stable. continue Losartan/HCTZ and Metoprolol 8. CAD (coronary artery disease) asymptomatic. continue statin and Metoprolol
--- NOTE | 2017-04-08 16:07 | CP.PCM.PN ---
Subjective - Date & Time of Evaluation Date of Evaluation: 04/08/17 Time of Evaluation: 16:00 - Subjective Subjective: ID note- Pt. seen and examined in TCU transferred from tele unit. pt. states he feels better and di PT today. denies any fever or chills. denies any dysurea, + diarrhea, denies any abd. pain,d enies any n/v, denies any cough Objective - Vital Signs/Intake and Output Vital Signs (last 24 hours): Temp Pulse Resp BP Pulse Ox 97.9 F 83 20 141/75 98 04/08/17 09:03 04/08/17 09:03 04/08/17 09:03 04/08/17 09:03 04/08/17 09:03 - Medications Medications: Current Medications Atorvastatin Calcium (Lipitor) 20 mg PO DAILY [facility] Last Admin: 04/08/17 10:55 Dose: 20 mg Gabapentin (Neurontin) 100 mg PO TID [facility] Last Admin: 04/08/17 12:29 Dose: 100 mg Glipizide (Glucotrol) 5 mg PO BID [facility] Last Admin: 04/08/17 08:44 Dose: 5 mg HCTZ/Losartan Potassium (Hyzaar 12.5 Mg-50 Mg) 1 tab PO DAILY [facility] Last Admin: 04/08/17 08:44 Dose: 1 tab Vancomycin HCl 1 gm/ Sodium (Chloride) 250 mls @ 166.667 mls/hr IVPB Q12@0600, 1800 [facility] Last Admin: 04/08/17 05:43 Dose: 166.667 mls/hr Meropenem 1 gm/ Sodium (Chloride) 100 mls @ 100 mls/hr IVPB Q8@0500,1300,2100 [facility] Last Admin: 04/08/17 12:28 Dose: 100 mls/hr Lactic Acid (Lac-Hydrin 12% Cream (140 G)) 1 ea TOP DAILY [facility] Last Admin: 04/08/17 08:44 Dose: 1 unit Metformin HCl (Glucophage) 1,000 mg PO BID [facility] Last Admin: 04/08/17 08:44 Dose: 1,000 mg Metoprolol Tartrate (Lopressor) 50 mg PO DAILY [facility] Last Admin: 04/08/17 08:44 Dose: 50 mg Pantoprazole Sodium (Protonix Ec Tab) 40 mg PO DAILY [facility] Last Admin: 04/08/17 08:44 Dose: 40 mg Tramadol HCl (Ultram) 50 mg PO Q6 PRN PRN Reason: Pain, moderate (4-7) - Additional Findings Additional findings: - Constitutional Appears: No Acute Distress - Head Exam Head Exam: ATRAUMATIC - Eye Exam Eye Exam: EOMI - ENT Exam ENT Exam: Normal Oropharynx - Neck Exam Neck exam: Positive for: Full Rom - Respiratory Exam Respiratory Exam: NORMAL BREATHING PATTERN Additional comments: slightly decreased breath sounds at left base - Cardiovascular Exam Cardiovascular Exam: RRR, +S1, +S2 Additional comments: ight upper chest port site no erythema, nontender - GI/Abdominal Exam GI & Abdominal Exam: Normal Bowel Sounds, Soft Additional comments: NT, ND - Extremities Exam Additional comments: b/l le edema and venous stasis changes right knee region erythema resolved, still edematous right great toe with small superficial ulcer. no opening, no discharge - Neurological Exam Neurological exam: Alert, Oriented x 3 Laboratory Results - last 72 hr 04/07/17 04/08/17 04/08/17 20:50 05:59 10:48 POC Glucose (mg/dL) 163 H 161 H 204 H 04/08/17 16:05 POC Glucose (mg/dL) 115 H Microbiology 04/03/17 16:45 Blood-Venous Blood Culture - Final 04/03/17 16:45 Blood-Venous Gram Stain - Final NO GROWTH AFTER 5 DAYS TEST NOT PERFORMED 04/03/17 16:45 Blood-Venous Blood Culture - Final 04/03/17 16:45 Blood-Venous Gram Stain - Final NO GROWTH AFTER 5 DAYS TEST NOT PERFORMED 04/02/17 19:00 Blood Blood Culture - Final 04/02/17 19:00 Blood Gram Stain - Final Beta Hemolytic Strep Group B 04/02/17 18:42 Sputum Gram Stain - Final 04/02/17 18:42 Sputum Sputum Culture - Final NORMAL ORAL HARRY 04/02/17 14:08 Urine Urine Culture - Final No Growth (<1,000 CFU/ML) 04/02/17 14:08 Blood S.aureus & Coag-Neg Staph PNA FISH - Final 04/02/17 14:08 Blood Gram Stain - Final Beta Hemolytic Strep Group B 04/04/17 19:00 Blood-Venous Blood Culture - Preliminary 04/04/17 19:00 Blood-Venous NO GROWTH AFTER 3 DAYS Assessment and Plan (1) Myelodysplasia (myelodysplastic syndrome) Status: Acute (2) Bacteremia due to group B Streptococcus Status: Acute - Assessment and Plan (Free Text) Assessment: A/P- 81 year old male with multiple medical conditions including CAD s/p CABG, DM II , MDS undergoing chemo who presented with fever and confusion , found to be bacteremic with group b strep and has been on IV vancomycin and was also on IV meropenem since on admission was febrile and leukopenic ( MDS) , however post granix his leukopenia has resolved, repeat blood cx are negative. afebrile Leukopenia resolved post granix injection but has anemia and thrombocytopenia most likely from his MDS . blood cx- group B beta hemolytic strep x 2 urine cx- neg sputum cx- negative tib/fib xray- no fracture pr report foot xray- no emphysema as per report. TTE- NO vegetations per report. repeat blood cx- neg x 3 hepatitis profile- neg c.diff- neg x 3 plan- continue with IV vancomycin for strep bacteremia. keep trough <20. day #6 will need total of 21 days of Iv abx for the strep bacteremia. can d/c meropenem. advise to check b/l LE US rule out dvt.
[2017-04-09 06:27] LABS: BASO # 0.1 K/uL (0.0-0.2); BASO % 1.2 % (0.0-2.0); EOS # 0.1 K/uL (0.0-0.7); EOS % 1.4 % (0.0-4.0); HEMATOCRIT 29.9 % (35.0-51.0); LYMPH # 0.8 K/uL (1.0-4.3); LYMPH % 17.3 % (20.0-40.0); MEAN CELL VOLUME 80.8 fl (80.0-94.0); MEAN CORPUSCULAR HEMOGLOBIN 25.4 pg (27.0-31.0); MEAN CORPUSCULAR HGB CONC 31.5 g/dL (33.0-37.0); MONO # 0.2 K/uL (0.0-0.8); MONO % 5.1 % (0.0-10.0); NEUT # 3.5 K/uL (1.8-7.0); NRBC % 0.3 % (0.0-0.0); RED CELL DISTRIBUTION WIDTH 21.4 % (11.5-14.5); WHITE BLOOD COUNT 4.6 K/uL (4.8-10.8)
[2017-04-09] MEDS: HCTZ/Losartan 12.5/50 Tab PO SCH (08:40)
[2017-04-09] MEDS: Ammonium Lactate 12% Cream (140 g) TOP SCH (08:41)
[2017-04-09] MEDS: Pantoprazole 40 mg EC Tab PO SCH (08:41)
[2017-04-10] MEDS: Ammonium Lactate 12% Cream (140 g) TOP SCH (09:01)
[2017-04-10] MEDS: HCTZ/Losartan 12.5/50 Tab PO SCH (09:02)
[2017-04-10] MEDS: Pantoprazole 40 mg EC Tab PO SCH (09:02)
--- NOTE | 2017-04-10 14:24 | CP.PCM.PN ---
Subjective - Date & Time of Evaluation Date of Evaluation: 04/10/17 Time of Evaluation: 11:25 - Subjective Subjective: Podiatry note for Dr. Smith 81 year old male seen at bedside for right hallux ulceration and cellulitic changes of right leg. Patient states that pain in leg and foot is improved. Patient states that his ulceration to his right hallux is feeling better today. Patient states that his legs feel swollen but denies any further pedal complaints at this time. Denies N/V/F/C/CP/SOB Objective - Vital Signs/Intake and Output Vital Signs (last 24 hours): Temp Pulse Resp BP Pulse Ox 97.5 F L 96 H 20 133/71 94 L 04/10/17 09:06 04/10/17 09:06 04/10/17 09:06 04/10/17 09:06 04/10/17 09:06 - Medications Medications: Current Medications Atorvastatin Calcium (Lipitor) 20 mg PO DAILY@2100 [facility] Last Admin: 04/09/17 21:23 Dose: 20 mg Gabapentin (Neurontin) 100 mg PO TID [facility] Last Admin: 04/10/17 12:31 Dose: 100 mg Glipizide (Glucotrol) 5 mg PO BID [facility] Last Admin: 04/10/17 09:03 Dose: 5 mg HCTZ/Losartan Potassium (Hyzaar 12.5 Mg-50 Mg) 1 tab PO DAILY [facility] Last Admin: 04/10/17 09:02 Dose: 1 tab Vancomycin HCl 1 gm/ Sodium (Chloride) 250 mls @ 166.667 mls/hr IVPB Q12@0600, 1800 [facility] Last Admin: 04/10/17 06:59 Dose: Not Given Lactic Acid (Lac-Hydrin 12% Cream (140 G)) 1 ea TOP DAILY [facility] Last Admin: 04/10/17 09:01 Dose: 1 unit Metformin HCl (Glucophage) 1,000 mg PO BID [facility] Last Admin: 04/10/17 09:02 Dose: 1,000 mg Metoprolol Tartrate (Lopressor) 50 mg PO DAILY [facility] Last Admin: 04/10/17 09:02 Dose: 50 mg Pantoprazole Sodium (Protonix Ec Tab) 40 mg PO DAILY [facility] Last Admin: 04/10/17 09:02 Dose: 40 mg Tramadol HCl (Ultram) 50 mg PO Q6 PRN PRN Reason: Pain, moderate (4-7) - Labs Labs: 04/09/17 06:17 - Constitutional Appears: Well, Non-toxic, No Acute Distress - Extremities Exam Additional comments: Lower extremity focused exam. Vasc: DP and PT pulses fully palpable b/l, graded 2/4. LE edema noted to be improving. Skin temperature warm to warm from proximal to distal b/l WNL. CRF is <3 seconds in all 10 digits. Derm: Pre-ulcerative hyperkeratotic lesion noted to distal asprect of right hallux, stable. Erythema previously noted at right knee is resolved at this time. No open wounds noted to b/l LE. Neuro: Epicritic and protective sensation grossly absent bilaterally. Negative for clonus. MSK: Right foot demonstrates moderate mid-foot arch collapse. Pedal muscle strength in all 4 major pedal muscle groups is graded 4/5 bilaterally. - Neurological Exam Neurological Exam: Alert, Awake, Oriented x3 - Psychiatric Exam Psychiatric exam: Normal Affect, Normal Mood Assessment and Plan - Assessment and Plan (Free Text) Assessment: 81 year old diabetic male with right hallux pre-ulcerative lesion and leg cellulits. Plan: Pt evaluated at bedside Chart, labs, and vitals reviewed; afebrile, WBC @ 4.6 today No local wound care planned at this time. Cellulits margins to RLE resolved Continue IV abx per ID. Podiatry will continue to follow patient while in house.
[2017-04-10] MEDS: Lactobacillus Acidophilus 500 MU Cap PO SCH (20:47)
[2017-04-11 08:15] LABS: BASO % 1.1 % (0.0-2.0); HEMATOCRIT 26.7 % (35.0-51.0); LYMPH # 0.5 K/uL (1.0-4.3); LYMPH % 14.6 % (20.0-40.0); MEAN CELL VOLUME 80.7 fl (80.0-94.0); MEAN CORPUSCULAR HEMOGLOBIN 25.2 pg (27.0-31.0); MEAN CORPUSCULAR HGB CONC 31.2 g/dL (33.0-37.0); MEAN PLATELET VOLUME 6.6 fl (7.2-11.7); MONO # 0.2 K/uL (0.0-0.8); MONO % 7.2 % (0.0-10.0); NEUT # 2.6 K/uL (1.8-7.0); NEUT % 76.1 % (50.0-75.0); NRBC % 0.5 % (0.0-0.0); RED CELL DISTRIBUTION WIDTH 21.4 % (11.5-14.5); WHITE BLOOD COUNT 3.4 K/uL (4.8-10.8)
[2017-04-11 08:52] LABS: BLOOD UREA NITROGEN 16 mg/dl (9-20); CALCIUM 8.7 mg/dL (8.4-10.2); CARBON DIOXIDE 25 mmol/L (22-30); CHLORIDE 108 mmol/L (98-107); GFR AFRICAN-AMERICAN > 60; GLUCOSE,RANDOM 135 mg/dL (75-110); POTASSIUM 4.4 MMOL/L (3.6-5.0); SODIUM 140 mmol/l (132-148)
[2017-04-11] MEDS: Pantoprazole 40 mg EC Tab PO SCH (09:13)
[2017-04-11] MEDS: Lactobacillus Acidophilus 500 MU Cap PO SCH ×2 (09:13→17:42)
[2017-04-11] MEDS: HCTZ/Losartan 12.5/50 Tab PO SCH (09:13)
[2017-04-11] MEDS: Ammonium Lactate 12% Cream (140 g) TOP SCH (09:19)
--- NOTE | 2017-04-11 09:43 | CP.PCM.PN ---
Subjective - Date & Time of Evaluation Date of Evaluation: 04/11/17 Time of Evaluation: 09:35 - Subjective Subjective: Pt is afebrile in no acute distress. Because of the initial positive blood c/s and the inflammation in the foot, he will be on antibiotics for a total of 3 weeks.His hgb is 8.3 , and he is due for procrit injection tomorrow. Repeat cbc and cmp in am Objective - Vital Signs/Intake and Output Vital Signs (last 24 hours): Temp Pulse Resp BP Pulse Ox 97.5 F L 88 20 127/68 98 04/11/17 08:11 04/11/17 09:13 04/11/17 08:11 04/11/17 09:13 04/11/17 08:11 - Medications Medications: Current Medications Atorvastatin Calcium (Lipitor) 20 mg PO DAILY@2100 [facility] Last Admin: 04/10/17 20:47 Dose: 20 mg Gabapentin (Neurontin) 100 mg PO TID [facility] Last Admin: 04/11/17 09:13 Dose: 100 mg Glipizide (Glucotrol) 5 mg PO BID [facility] Last Admin: 04/11/17 09:13 Dose: 5 mg HCTZ/Losartan Potassium (Hyzaar 12.5 Mg-50 Mg) 1 tab PO DAILY [facility] Last Admin: 04/11/17 09:13 Dose: 1 tab Vancomycin HCl 1 gm/ Sodium (Chloride) 250 mls @ 166.667 mls/hr IVPB Q12@0600, 1800 [facility] Last Admin: 04/11/17 07:05 Dose: Not Given Lactic Acid (Lac-Hydrin 12% Cream (140 G)) 1 ea TOP DAILY [facility] Last Admin: 04/11/17 09:19 Dose: 1 unit Lactobacillus Acidophilus (Bacid Acidophilus) 1 cap PO BID [facility] Last Admin: 04/11/17 09:13 Dose: 1 cap Metformin HCl (Glucophage) 1,000 mg PO BID [facility] Last Admin: 04/11/17 09:13 Dose: 1,000 mg Metoprolol Tartrate (Lopressor) 50 mg PO DAILY [facility] Last Admin: 04/11/17 09:13 Dose: 50 mg Pantoprazole Sodium (Protonix Ec Tab) 40 mg PO DAILY [facility] Last Admin: 04/11/17 09:13 Dose: 40 mg Tramadol HCl (Ultram) 50 mg PO Q6 PRN PRN Reason: Pain, moderate (4-7) - Labs Labs: 04/11/17 07:40 04/11/17 07:40
--- NOTE | 2017-04-11 12:26 | CP.PCM.PN ---
Subjective - Date & Time of Evaluation Date of Evaluation: 04/11/17 Time of Evaluation: 14:35 - Subjective Subjective: ID Note- Pt. seen and examined today. pt. in PT and stats overall he feels better. denies any fever or chills. states he still has loose stools. Objective - Vital Signs/Intake and Output Vital Signs (last 24 hours): Temp Pulse Resp BP Pulse Ox 97.5 F L 88 20 127/68 98 04/11/17 08:11 04/11/17 09:13 04/11/17 08:11 04/11/17 09:13 04/11/17 08:11 - Medications Medications: Current Medications Atorvastatin Calcium (Lipitor) 20 mg PO DAILY@2100 [facility] Last Admin: 04/10/17 20:47 Dose: 20 mg Gabapentin (Neurontin) 100 mg PO TID [facility] Last Admin: 04/11/17 09:13 Dose: 100 mg Glipizide (Glucotrol) 5 mg PO BID [facility] Last Admin: 04/11/17 09:13 Dose: 5 mg HCTZ/Losartan Potassium (Hyzaar 12.5 Mg-50 Mg) 1 tab PO DAILY [facility] Last Admin: 04/11/17 09:13 Dose: 1 tab Vancomycin HCl 1 gm/ Sodium (Chloride) 250 mls @ 166.667 mls/hr IVPB DAILY [facility] Last Admin: 04/11/17 11:17 Dose: 166.667 mls/hr Lactic Acid (Lac-Hydrin 12% Cream (140 G)) 1 ea TOP DAILY [facility] Last Admin: 04/11/17 09:19 Dose: 1 unit Lactobacillus Acidophilus (Bacid Acidophilus) 1 cap PO BID [facility] Last Admin: 04/11/17 09:13 Dose: 1 cap Metformin HCl (Glucophage) 1,000 mg PO BID [facility] Last Admin: 04/11/17 09:13 Dose: 1,000 mg Metoprolol Tartrate (Lopressor) 50 mg PO DAILY [facility] Last Admin: 04/11/17 09:13 Dose: 50 mg Pantoprazole Sodium (Protonix Ec Tab) 40 mg PO DAILY [facility] Last Admin: 04/11/17 09:13 Dose: 40 mg Tramadol HCl (Ultram) 50 mg PO Q6 PRN PRN Reason: Pain, moderate (4-7) - Labs Labs: - Additional Findings Additional findings: - Constitutional Appears: No Acute Distress - Head Exam Head Exam: ATRAUMATIC - Eye Exam Eye Exam: EOMI - ENT Exam ENT Exam: Normal Oropharynx - Neck Exam Neck exam: Positive for: Full Rom - Respiratory Exam Respiratory Exam: NORMAL BREATHING PATTERN Additional comments: slightly decreased breath sounds at left base - Cardiovascular Exam Cardiovascular Exam: RRR, +S1, +S2 Additional comments: ight upper chest port site no erythema, nontender - GI/Abdominal Exam GI & Abdominal Exam: Normal Bowel Sounds, Soft Additional comments: NT, ND - Extremities Exam Additional comments: b/l le edema and venous stasis changes right knee region erythema resolved, still edematous but less than before right great toe with small superficial ulcer. no opening, no discharge - Neurological Exam Neurological exam: Alert, Oriented x 3 Laboratory Results - last 72 hr 04/08/17 04/08/17 04/09/17 16:05 19:45 05:12 WBC RBC Hgb Hct MCV MCH MCHC RDW Plt Count MPV Neut % (Auto) Lymph % (Auto) [place] % (Auto) Eos % (Auto) Baso % (Auto) Neut # Lymph # [place] # Eos # Baso # Sodium Potassium Chloride Carbon Dioxide Anion Gap BUN Creatinine Est GFR ( Amer) Est GFR (Non-Af Amer) POC Glucose (mg/dL) 115 H 175 H 141 H Random Glucose Calcium Vancomycin Trough 04/09/17 04/09/17 04/09/17 06:17 06:17 10:54 WBC 4.6 L RBC 3.71 L Hgb 9.4 L Hct 29.9 L MCV 80.8 MCH 25.4 L MCHC 31.5 L RDW 21.4 H Plt Count 95 L MPV 7.0 L Neut % (Auto) 75.0 Lymph % (Auto) 17.3 L [place] % (Auto) 5.1 Eos % (Auto) 1.4 Baso % (Auto) 1.2 Neut # 3.5 Lymph # 0.8 L [place] # 0.2 Eos # 0.1 Baso # 0.1 Sodium Potassium Chloride Carbon Dioxide Anion Gap BUN Creatinine Est GFR ( Amer) Est GFR (Non-Af Amer) POC Glucose (mg/dL) 103 Random Glucose Calcium Vancomycin Trough 26.1 H 04/10/17 04/11/17 04/11/17 05:45 07:40 07:40 WBC 3.4 L RBC 3.31 L Hgb 8.3 L Hct 26.7 L MCV 80.7 MCH 25.2 L MCHC 31.2 L RDW 21.4 H Plt Count 77 L MPV 6.6 L Neut % (Auto) 76.1 H Lymph % (Auto) 14.6 L [place] % (Auto) 7.2 Eos % (Auto) 1.0 Baso % (Auto) 1.1 Neut # 2.6 Lymph # 0.5 L [place] # 0.2 Eos # 0.0 Baso # 0.0 Sodium Potassium Chloride Carbon Dioxide Anion Gap BUN Creatinine Est GFR ( Amer) Est GFR (Non-Af Amer) POC Glucose (mg/dL) Random Glucose Calcium Vancomycin Trough 21.4 H 14.7 H 04/11/17 07:40 WBC RBC Hgb Hct MCV MCH MCHC RDW Plt Count MPV Neut % (Auto) Lymph % (Auto) [place] % (Auto) Eos % (Auto) Baso % (Auto) Neut # Lymph # [place] # Eos # Baso # Sodium 140 Potassium 4.4 Chloride 108 H Carbon Dioxide 25 Anion Gap 11 BUN 16 Creatinine 1.2 Est GFR ( Amer) > 60 Est GFR (Non-Af Amer) 58 POC Glucose (mg/dL) Random Glucose 135 H Calcium 8.7 Vancomycin Trough Microbiology 04/04/17 19:00 Blood-Venous Blood Culture - Final 04/04/17 19:00 Blood-Venous Gram Stain - Final NO GROWTH AFTER 5 DAYS TEST NOT PERFORMED 04/03/17 16:45 Blood-Venous Blood Culture - Final 04/03/17 16:45 Blood-Venous Gram Stain - Final NO GROWTH AFTER 5 DAYS TEST NOT PERFORMED 04/03/17 16:45 Blood-Venous Blood Culture - Final 04/03/17 16:45 Blood-Venous Gram Stain - Final NO GROWTH AFTER 5 DAYS TEST NOT PERFORMED 04/02/17 19:00 Blood Blood Culture - Final 04/02/17 19:00 Blood Gram Stain - Final Beta Hemolytic Strep Group B 04/02/17 18:42 Sputum Gram Stain - Final 04/02/17 18:42 Sputum Sputum Culture - Final NORMAL ORAL HARRY 04/02/17 14:08 Urine Urine Culture - Final No Growth (<1,000 CFU/ML) 04/02/17 14:08 Blood S.aureus & Coag-Neg Staph PNA FISH - Final 04/02/17 14:08 Blood Gram Stain - Final Beta Hemolytic Strep Group B Accession No. : [id number] Patient Name / ID : ERIN GUERRA / [id number] Exam Date : 04/09/2017 17:30:24 ( Approved ) Study Comment : Sex / Age : M / 81Y Creator : PAZ FARFAN Dictator : Ceiling Insulation Blower : Coding Clerk : PAZ FARFAN Approver2 : Report Date : 04/09/2017 22:19:00 My Comment : [facility] Division of Radiology [address] [place] [address] Tel. no. Patient Name: CHARLIE KHAN Pt. Address: [address] [place] [address] Rec #: [id number] [place] [address]: Pancho GARSIA,Kevin Pt CELL Order Location: [facility] : 1935 Male Age: 81 Order #: [id number] Reason for exam: LEG SWELLING Ultrasound DUPLEX LOWER EXTRM VEIN BILAT Exam Date: 04/09/17 This imaging exam was performed at [facility] EXAM: US Duplex Bilateral Lower Extremity Veins CLINICAL HISTORY: 81 years old, male; Pain; Leg, lower; Bilateral; Additional info: Leg swelling TECHNIQUE: Real-time ultrasound scan of the veins of the bilateral lower extremities with color Doppler flow, spectral waveform analysis and compression. COMPARISON: No relevant prior studies available. FINDINGS: Right deep veins: Unremarkable. No DVT in the right common femoral, femoral, proximal deep femoral or popliteal veins. The veins demonstrate normal color flow, are normally compressible, with normal phasic flow and/or augmentation response. Right superficial veins: Unremarkable. Left deep veins: Unremarkable. No DVT in the left common femoral, femoral, proximal deep femoral or popliteal veins. The veins demonstrate normal color flow, are normally compressible, with normal phasic flow and/or augmentation response. Left superficial veins: Unremarkable. Soft tissues: No acute findings. No popliteal cyst. IMPRESSION: Normal bilateral lower extremity duplex venous ultrasound. Dictated By: Paz Farfan MD Dictated Date/Time: 04/09/172218 Signed By: Paz Farfan MD Date Signed: 2218 Transcribed By: MELODY Transcribe Date/Time : 04/09/172218 DENISA/ADRIAN Assessment and Plan (1) Myelodysplasia (myelodysplastic syndrome) Status: Acute (2) Bacteremia due to group B Streptococcus Status: Acute - Assessment and Plan (Free Text) Assessment: A/P- 81 year old male with multiple medical conditions including CAD s/p CABG, DM II , MDS undergoing chemo who presented with fever and confusion , found to be bacteremic with group b strep and has been on IV vancomycin and was also on IV meropenem since on admission was febrile and leukopenic ( MDS) , however post granix his leukopenia has resolved, repeat blood cx are negative. afebrile Leukopenia resolved post granix injection but has anemia and thrombocytopenia most likely from his MDS . blood cx- group B beta hemolytic strep x 2 urine cx- neg sputum cx- negative tib/fib xray- no fracture pr report foot xray- no emphysema as per report. TTE- NO vegetations per report. repeat blood cx- neg x 3 hepatitis profile- neg c.diff- neg x 3 LE us- negative as per report plan- continue with IV vancomycin for strep bacteremia. keep trough <20. day #7 will need total of 21 days of Iv abx for the strep bacteremia.
[2017-04-12 07:42] LABS: BASO % 1.1 % (0.0-2.0); EOS % 1.1 % (0.0-4.0); HEMATOCRIT 25.7 % (35.0-51.0); LYMPH # 0.6 K/uL (1.0-4.3); LYMPH % 16.2 % (20.0-40.0); MEAN CELL VOLUME 80.3 fl (80.0-94.0); MEAN CORPUSCULAR HEMOGLOBIN 25.2 pg (27.0-31.0); MEAN CORPUSCULAR HGB CONC 31.4 g/dL (33.0-37.0); MEAN PLATELET VOLUME 7.2 fl (7.2-11.7); MONO # 0.2 K/uL (0.0-0.8); MONO % 7.2 % (0.0-10.0); NEUT # 2.6 K/uL (1.8-7.0); NEUT % 74.4 % (50.0-75.0); NRBC % 0.3 % (0.0-0.0); RED CELL DISTRIBUTION WIDTH 20.8 % (11.5-14.5); WHITE BLOOD COUNT 3.4 K/uL (4.8-10.8)
[2017-04-12] MEDS ORDERED: Epoetin Alfa 40000 UNIT/ml Inj SC ONE (09:25)
[2017-04-12] MEDS: HCTZ/Losartan 12.5/50 Tab PO SCH (09:27)
[2017-04-12] MEDS: Pantoprazole 40 mg EC Tab PO SCH (09:28)
[2017-04-12] MEDS: Lactobacillus Acidophilus 500 MU Cap PO SCH ×2 (09:29→16:47)
[2017-04-12] MEDS: Ammonium Lactate 12% Cream (140 g) TOP SCH (09:29)
--- NOTE | 2017-04-12 10:12 | CP.PCM.PN ---
Subjective - Date & Time of Evaluation Date of Evaluation: 04/12/17 Time of Evaluation: 10:11 - Subjective Subjective: Pt is afebrile in no acute distress. Right foot pain is better, but his neuropathy still bothers him. His CBC done today showed a WBC of 3.4, HGB 8.1gms , and platelets 71K. He is still on antibiotics. If HGB gets lower, will have to transfuse. Objective - Vital Signs/Intake and Output Vital Signs (last 24 hours): Temp Pulse Resp BP Pulse Ox 98.1 F 85 20 126/59 L 98 04/12/17 08:20 04/12/17 09:28 04/12/17 08:20 04/12/17 09:28 04/12/17 08:20 - Medications Medications: Current Medications Atorvastatin Calcium (Lipitor) 20 mg PO DAILY@2100 [facility] Last Admin: 04/11/17 21:24 Dose: 20 mg Gabapentin (Neurontin) 100 mg PO TID [facility] Last Admin: 04/12/17 09:27 Dose: 100 mg Glipizide (Glucotrol) 5 mg PO BID [facility] Last Admin: 04/12/17 09:27 Dose: 5 mg HCTZ/Losartan Potassium (Hyzaar 12.5 Mg-50 Mg) 1 tab PO DAILY [facility] Last Admin: 04/12/17 09:27 Dose: 1 tab Vancomycin HCl 1 gm/ Sodium (Chloride) 250 mls @ 166.667 mls/hr IVPB DAILY [facility] Last Admin: 04/11/17 11:17 Dose: 166.667 mls/hr Lactic Acid (Lac-Hydrin 12% Cream (140 G)) 1 ea TOP DAILY [facility] Last Admin: 04/12/17 09:29 Dose: 1 unit Lactobacillus Acidophilus (Bacid Acidophilus) 1 cap PO BID [facility] Last Admin: 04/12/17 09:29 Dose: 1 cap Metformin HCl (Glucophage) 1,000 mg PO BID [facility] Last Admin: 04/12/17 09:28 Dose: 1,000 mg Metoprolol Tartrate (Lopressor) 50 mg PO DAILY [facility] Last Admin: 04/12/17 09:28 Dose: 50 mg Pantoprazole Sodium (Protonix Ec Tab) 40 mg PO DAILY [facility] Last Admin: 04/12/17 09:28 Dose: 40 mg Tramadol HCl (Ultram) 50 mg PO Q6 PRN PRN Reason: Pain, moderate (4-7) - Labs Labs: 04/12/17 07:22 04/11/17 07:40
--- NOTE | 2017-04-12 11:31 | CP.PCM.PN ---
Subjective - Date & Time of Evaluation Date of Evaluation: 04/12/17 Time of Evaluation: 11:31 - Subjective Subjective: PT DOING WELL NO COMPLAINTS AT THIS TIME TOLERATING ABX WELL HD STABLE NAD Objective - Vital Signs/Intake and Output Vital Signs (last 24 hours): Temp Pulse Resp BP Pulse Ox 98.1 F 85 20 126/59 L 98 04/12/17 08:20 04/12/17 09:28 04/12/17 08:20 04/12/17 09:28 04/12/17 08:20 GEN: WDWN, alert, cooperative HEENT: NCAT, PERRL, EOMI NECK: supple, no JVD, no lymphadenopathy CARDIAC: +S1S2 RRR LUNG: CTAB No WRR ABD: SOFT NT obese BSX4 NO MASSES NO HSM EXT: +pedal pulses, equal strength NEURO: AAOx3 SKIN warm, dry PSYCH normal mood, normal affect - Medications Medications: Current Medications Atorvastatin Calcium (Lipitor) 20 mg PO DAILY@2100 [facility] Last Admin: 04/11/17 21:24 Dose: 20 mg Gabapentin (Neurontin) 100 mg PO TID [facility] Last Admin: 04/12/17 09:27 Dose: 100 mg Glipizide (Glucotrol) 5 mg PO BID [facility] Last Admin: 04/12/17 09:27 Dose: 5 mg HCTZ/Losartan Potassium (Hyzaar 12.5 Mg-50 Mg) 1 tab PO DAILY [facility] Last Admin: 04/12/17 09:27 Dose: 1 tab Vancomycin HCl 1 gm/ Sodium (Chloride) 250 mls @ 166.667 mls/hr IVPB DAILY@ 1700 [facility] Lactic Acid (Lac-Hydrin 12% Cream (140 G)) 1 ea TOP DAILY [facility] Last Admin: 04/12/17 09:29 Dose: 1 unit Lactobacillus Acidophilus (Bacid Acidophilus) 1 cap PO BID [facility] Last Admin: 04/12/17 09:29 Dose: 1 cap Metformin HCl (Glucophage) 1,000 mg PO BID [facility] Last Admin: 04/12/17 09:28 Dose: 1,000 mg Metoprolol Tartrate (Lopressor) 50 mg PO DAILY [facility] Last Admin: 04/12/17 09:28 Dose: 50 mg Pantoprazole Sodium (Protonix Ec Tab) 40 mg PO DAILY [facility] Last Admin: 04/12/17 09:28 Dose: 40 mg Tramadol HCl (Ultram) 50 mg PO Q6 PRN PRN Reason: Pain, moderate (4-7) - Labs Labs: 04/12/17 07:22 04/11/17 07:40 Assessment and Plan - Assessment and Plan (Free Text) Plan: 81 yo nale with history of Myelodysplastic Syndrome, CAD and DM was brought in because of confusion, fever and chills. Admitted with a diagnosis of sepsis, source probably from gastritis or SBP. Presently doing well after hydration and started with antibiotics. 1. Sepsis afebrile blood culture grew Beta Hemolytic Strep Group B (S: Ampicillin, PCN, Vanco) continue Vanco 1gm IV q 12hrs day ID consult with Dr Wallis appreciated TTE: no vegetations 2. Myelodysplasia (myelodysplastic syndrome) Chemo once a month, with PORT but will hold for a month as per Dr Torres Received Granix for 2 doses continue Procrit every Tuesday. WBC today: 5.8 3. Cir[address]osis with Ascites CT Abd/Pel: hepatosplenomegaly with ascites upper endoscopy done by Dr Neri revealed significant only for gastritis Hep Panel was negative LFTs back to normal 4. Coagulopathy INR elevated but stable secondary to cirrhosis 5. DM2 (diabetes mellitus, type 2) BS relatively controlled. accuchek ACHS. Glipizide 5mg PO BID. Metformin 1000mg PO BID. HgA1C: 5.6 6. Diabetic Toe Ulcer right great toe ulcer improving Dr. Smith on consult 7. HTN (hypertension) BP stable. continue Losartan/HCTZ and Metoprolol 8. CAD (coronary artery disease) asymptomatic. continue statin and Metoprolol
[2017-04-12 18:55] LABS: ALKALINE PHOSPHATASE 95 U/L (38-126); ALT/SGPT 30 U/L (21-72); AST/SGOT 30 U/L (17-59); BILIRUBIN,TOTAL 1.4 mg/dl (0.2-1.3); BLOOD UREA NITROGEN 19 mg/dl (9-20); CALCIUM 8.6 mg/dL (8.4-10.2); CARBON DIOXIDE 26 mmol/L (22-30); CHLORIDE 107 mmol/L (98-107); GFR AFRICAN-AMERICAN > 60; GLUCOSE,RANDOM 125 mg/dL (75-110); POTASSIUM 4.5 MMOL/L (3.6-5.0); SODIUM 138 mmol/l (132-148); TOTAL PROTEIN 5.4 G/DL (6.3-8.2)
[2017-04-12 18:57] LABS: ALB/GLOB RATIO 1.1 (1.0-2.1)
--- NOTE | 2017-04-13 08:35 | CP.PCM.PN ---
Subjective - Date & Time of Evaluation Date of Evaluation: 04/13/17 Time of Evaluation: 08:32 - Subjective Subjective: Pt is feeling well. his hgb however is only 8.1 and he sometimes gets short of breath when he exercises. Will transfuse 2 units of packed cells tomorrow. Objective - Vital Signs/Intake and Output Vital Signs (last 24 hours): Temp Pulse Resp BP Pulse Ox 97.7 F 98 H 20 143/60 99 04/13/17 07:57 04/13/17 07:57 04/13/17 07:57 04/13/17 07:57 04/13/17 07:57 - Medications Medications: Current Medications Atorvastatin Calcium (Lipitor) 20 mg PO DAILY@2100 [facility] Last Admin: 04/12/17 21:14 Dose: 20 mg Gabapentin (Neurontin) 100 mg PO TID [facility] Last Admin: 04/12/17 16:46 Dose: 100 mg Glipizide (Glucotrol) 5 mg PO BID [facility] Last Admin: 04/12/17 16:46 Dose: 5 mg HCTZ/Losartan Potassium (Hyzaar 12.5 Mg-50 Mg) 1 tab PO DAILY [facility] Last Admin: 04/12/17 09:27 Dose: 1 tab Vancomycin HCl 1 gm/ Sodium (Chloride) 250 mls @ 166.667 mls/hr IVPB DAILY@ 1700 [facility] Last Admin: 04/12/17 16:45 Dose: 166.667 mls/hr Lactic Acid (Lac-Hydrin 12% Cream (140 G)) 1 ea TOP DAILY [facility] Last Admin: 04/12/17 09:29 Dose: 1 unit Lactobacillus Acidophilus (Bacid Acidophilus) 1 cap PO BID [facility] Last Admin: 04/12/17 16:47 Dose: 1 cap Metformin HCl (Glucophage) 1,000 mg PO BID [facility] Last Admin: 04/12/17 16:46 Dose: 1,000 mg Metoprolol Tartrate (Lopressor) 50 mg PO DAILY [facility] Last Admin: 04/12/17 09:28 Dose: 50 mg Pantoprazole Sodium (Protonix Ec Tab) 40 mg PO DAILY [facility] Last Admin: 04/12/17 09:28 Dose: 40 mg Tramadol HCl (Ultram) 50 mg PO Q6 PRN PRN Reason: Pain, moderate (4-7) - Labs Labs: 04/12/17 07:22 04/12/17 18:40
[2017-04-13] MEDS: Pantoprazole 40 mg EC Tab PO SCH (08:51)
[2017-04-13] MEDS: HCTZ/Losartan 12.5/50 Tab PO SCH (08:51)
[2017-04-13] MEDS: Ammonium Lactate 12% Cream (140 g) TOP SCH (08:51)
[2017-04-13] MEDS: Lactobacillus Acidophilus 500 MU Cap PO SCH ×2 (08:53→17:25)
--- NOTE | 2017-04-13 08:56 | CP.PCM.PN ---
Subjective - Date & Time of Evaluation Date of Evaluation: 04/13/17 Time of Evaluation: 07:54 - Subjective Subjective: Podiatry note for Dr. Smith 81 year old male seen at bedside for right hallux ulceration and cellulitic changes of right leg. Patient states that pain in leg and foot is improved. Patient states that his ulceration to his right hallux is feeling better today. Patient states that his legs feel swollen but denies any further pedal complaints at this time. States that PT is going well and that upon discharge he plans to make a follow up appointment with Dr. Smith. Denies N/V/F/C/CP/SOB Objective - Vital Signs/Intake and Output Vital Signs (last 24 hours): Temp Pulse Resp BP Pulse Ox 97.7 F 98 H 20 143/60 99 04/13/17 07:57 04/13/17 08:51 04/13/17 07:57 04/13/17 08:51 04/13/17 07:57 - Medications Medications: Current Medications Atorvastatin Calcium (Lipitor) 20 mg PO DAILY@2100 [facility] Last Admin: 04/12/17 21:14 Dose: 20 mg Gabapentin (Neurontin) 100 mg PO TID [facility] Last Admin: 04/13/17 08:51 Dose: 100 mg Glipizide (Glucotrol) 5 mg PO BID [facility] Last Admin: 04/13/17 08:50 Dose: 5 mg HCTZ/Losartan Potassium (Hyzaar 12.5 Mg-50 Mg) 1 tab PO DAILY [facility] Last Admin: 04/13/17 08:51 Dose: 1 tab Vancomycin HCl 1 gm/ Sodium (Chloride) 250 mls @ 166.667 mls/hr IVPB DAILY@ 1700 [facility] Last Admin: 04/12/17 16:45 Dose: 166.667 mls/hr Lactic Acid (Lac-Hydrin 12% Cream (140 G)) 1 ea TOP DAILY [facility] Last Admin: 04/13/17 08:51 Dose: 1 unit Lactobacillus Acidophilus (Bacid Acidophilus) 1 cap PO BID [facility] Last Admin: 04/13/17 08:53 Dose: 1 cap Metformin HCl (Glucophage) 1,000 mg PO BID [facility] Last Admin: 04/13/17 08:51 Dose: 1,000 mg Metoprolol Tartrate (Lopressor) 50 mg PO DAILY [facility] Last Admin: 04/13/17 08:51 Dose: 50 mg Pantoprazole Sodium (Protonix Ec Tab) 40 mg PO DAILY [facility] Last Admin: 04/13/17 08:51 Dose: 40 mg Tramadol HCl (Ultram) 50 mg PO Q6 PRN PRN Reason: Pain, moderate (4-7) - Labs Labs: 04/12/17 07:22 04/12/17 18:40 - Constitutional Appears: Well, Non-toxic, No Acute Distress - Extremities Exam Additional comments: Lower extremity focused exam. Vasc: DP and PT pulses fully palpable b/l, graded 2/4. LE edema noted to be improving. Skin temperature warm to warm from proximal to distal b/l WNL. CRF is <3 seconds in all 10 digits. Derm: Pre-ulcerative hyperkeratotic lesion noted to distal aspect of right hallux, stable. Erythema previously noted at right knee is resolved at this time. No open wounds noted to b/l LE. Neuro: Epicritic and protective sensation grossly absent bilaterally. Negative for clonus. MSK: Right foot demonstrates moderate mid-foot arch collapse. Pedal muscle strength in all 4 major pedal muscle groups is graded 4/5 bilaterally. - Neurological Exam Neurological Exam: Alert, Awake, Oriented x3 - Psychiatric Exam Psychiatric exam: Normal Affect, Normal Mood Assessment and Plan - Assessment and Plan (Free Text) Assessment: 81 year old diabetic male with right hallux pre-ulcerative lesion and leg cellulits. Plan: Pt evaluated at bedside Chart, labs, and vitals reviewed No local wound care planned at this time. Cellulits margins to RLE resolved Continue IV abx per ID. Podiatry will continue to follow patient while in house.
--- NOTE | 2017-04-14 07:47 | CP.PCM.PN ---
Subjective - Date & Time of Evaluation Date of Evaluation: 04/14/17 Time of Evaluation: 07:43 - Subjective Subjective: Pt continues to have diarrhea. This mainly happens right after he eats. 3 consecutive samples of stools have been negative for c diff. He is on Bacid but i feel he needs immodium as well. Will order that Objective - Vital Signs/Intake and Output Vital Signs (last 24 hours): Temp Pulse Resp BP Pulse Ox 98.1 F 81 20 132/68 100 04/13/17 21:49 04/13/17 21:49 04/13/17 21:49 04/13/17 21:49 04/13/17 21:49 - Medications Medications: Current Medications Atorvastatin Calcium (Lipitor) 20 mg PO DAILY@2100 [facility] Last Admin: 04/13/17 21:58 Dose: 20 mg Gabapentin (Neurontin) 100 mg PO TID [facility] Last Admin: 04/13/17 17:25 Dose: 100 mg Glipizide (Glucotrol) 5 mg PO BID [facility] Last Admin: 04/13/17 17:25 Dose: 5 mg HCTZ/Losartan Potassium (Hyzaar 12.5 Mg-50 Mg) 1 tab PO DAILY [facility] Last Admin: 04/13/17 08:51 Dose: 1 tab Vancomycin HCl 1 gm/ Sodium (Chloride) 250 mls @ 166.667 mls/hr IVPB DAILY@ 1700 [facility] Last Admin: 04/13/17 17:25 Dose: 166.667 mls/hr Lactic Acid (Lac-Hydrin 12% Cream (140 G)) 1 ea TOP DAILY [facility] Last Admin: 04/13/17 08:51 Dose: 1 unit Lactobacillus Acidophilus (Bacid Acidophilus) 1 cap PO BID [facility] Last Admin: 04/13/17 17:25 Dose: 1 cap Metformin HCl (Glucophage) 1,000 mg PO BID [facility] Last Admin: 04/13/17 17:25 Dose: 1,000 mg Metoprolol Tartrate (Lopressor) 50 mg PO DAILY [facility] Last Admin: 04/13/17 08:51 Dose: 50 mg Pantoprazole Sodium (Protonix Ec Tab) 40 mg PO DAILY [facility] Last Admin: 04/13/17 08:51 Dose: 40 mg Tramadol HCl (Ultram) 50 mg PO Q6 PRN PRN Reason: Pain, moderate (4-7) - Labs Labs: 04/12/17 07:22 04/12/17 18:40
[2017-04-14] MEDS: Ammonium Lactate 12% Cream (140 g) TOP SCH (08:25)
[2017-04-14] MEDS: HCTZ/Losartan 12.5/50 Tab PO SCH (08:27)
[2017-04-14] MEDS: Lactobacillus Acidophilus 500 MU Cap PO SCH ×2 (08:27→17:39)
[2017-04-14] MEDS: Pantoprazole 40 mg EC Tab PO SCH (08:31)
--- NOTE | 2017-04-14 11:58 | CP.PCM.PN ---
Subjective - Date & Time of Evaluation Date of Evaluation: 04/14/17 Time of Evaluation: 11:56 - Subjective Subjective: PT FOR TRANSFUSION TODAY 2 UNITS PRBC DOING WELL HD STABLE NO COMPLAINTS NAD Objective - Vital Signs/Intake and Output Vital Signs (last 24 hours): Temp Pulse Resp BP Pulse Ox 98.1 F 93 H 20 115/59 L 99 04/14/17 08:04 04/14/17 08:30 04/14/17 08:04 04/14/17 08:30 04/14/17 08:04 GEN: WDWN, alert, cooperative HEENT: NCAT, PERRL, EOMI NECK: supple, no JVD, no lymphadenopathy CARDIAC: +S1S2 RRR LUNG: CTAB No WRR ABD: SOFT NT obese BSX4 NO MASSES NO HSM EXT: +pedal pulses, equal strength NEURO: AAOx3 SKIN warm, dry PSYCH normal mood, normal affect - Medications Medications: Current Medications Atorvastatin Calcium (Lipitor) 20 mg PO DAILY@2100 [facility] Last Admin: 04/13/17 21:58 Dose: 20 mg Gabapentin (Neurontin) 100 mg PO TID [facility] Last Admin: 04/14/17 08:31 Dose: 100 mg Glipizide (Glucotrol) 5 mg PO BID [facility] Last Admin: 04/14/17 08:27 Dose: 5 mg HCTZ/Losartan Potassium (Hyzaar 12.5 Mg-50 Mg) 1 tab PO DAILY [facility] Last Admin: 04/14/17 08:27 Dose: 1 tab Vancomycin HCl 1 gm/ Sodium (Chloride) 250 mls @ 166.667 mls/hr IVPB DAILY@ 1700 [facility] Last Admin: 04/13/17 17:25 Dose: 166.667 mls/hr Lactic Acid (Lac-Hydrin 12% Cream (140 G)) 1 ea TOP DAILY [facility] Last Admin: 04/14/17 08:25 Dose: 1 unit Lactobacillus Acidophilus (Bacid Acidophilus) 1 cap PO BID [facility] Last Admin: 04/14/17 08:27 Dose: 1 cap Loperamide HCl (Imodium) 2 mg PO QID PRN PRN Reason: Diarrhea Metformin HCl (Glucophage) 1,000 mg PO BID [facility] Last Admin: 04/14/17 08:27 Dose: 1,000 mg Metoprolol Tartrate (Lopressor) 50 mg PO DAILY [facility] Last Admin: 04/14/17 08:30 Dose: 50 mg Pantoprazole Sodium (Protonix Ec Tab) 40 mg PO DAILY [facility] Last Admin: 04/14/17 08:31 Dose: 40 mg Tramadol HCl (Ultram) 50 mg PO Q6 PRN PRN Reason: Pain, moderate (4-7) - Labs Labs: 04/12/17 07:22 04/12/17 18:40 Assessment and Plan - Assessment and Plan (Free Text) Plan: 81 yo Male with history of Myelodysplastic Syndrome, CAD and DM was brought in because of confusion, fever and chills. Admitted with a diagnosis of sepsis, source probably from gastritis or SBP. Presently doing well after hydration and started with antibiotics. 1. Sepsis RESOLVED afebrile blood culture grew Beta Hemolytic Strep Group B (S: Ampicillin, PCN, Vanco) continue Vanco 1gm IV q 12hrs day ID consult with Dr Wallis appreciated TTE: no vegetations 2. Myelodysplasia (myelodysplastic syndrome) Chemo once a month, with PORT but will hold for a month as per Dr Torres Received Granix for 2 doses continue Procrit every Tuesday. WBC today: 5.8 2 UNITS PRBC transfused 04/14/17 3. [address] with Ascites CT Abd/Pel: hepatosplenomegaly with ascites upper endoscopy done by Dr Neri revealed significant only for gastritis Hep Panel was negative LFTs back to normal 4. Coagulopathy INR elevated but stable secondary to cirrhosis 5. DM2 (diabetes mellitus, type 2) BS relatively controlled. accuchek ACHS. Glipizide 5mg PO BID. Metformin 1000mg PO BID. HgA1C: 5.6 6. Diabetic Toe Ulcer right great toe ulcer improving Dr. Smith on consult 7. HTN (hypertension) BP stable. continue Losartan/HCTZ and Metoprolol 8. CAD (coronary artery disease) asymptomatic. continue statin and Metoprolol
[2017-04-15 06:34] LABS: HEMATOCRIT 32.2 % (35.0-51.0); MEAN CELL VOLUME 80.3 fl (80.0-94.0); MEAN CORPUSCULAR HEMOGLOBIN 25.8 pg (27.0-31.0); MEAN CORPUSCULAR HGB CONC 32.1 g/dL (33.0-37.0); RED CELL DISTRIBUTION WIDTH 20.4 % (11.5-14.5); WHITE BLOOD COUNT 4.6 K/uL (4.8-10.8)
[2017-04-15] MEDS: Lactobacillus Acidophilus 500 MU Cap PO SCH ×2 (08:16→17:17)
[2017-04-15] MEDS: Pantoprazole 40 mg EC Tab PO SCH (08:16)
--- NOTE | 2017-04-15 08:16 | CP.PCM.PN ---
Subjective - Date & Time of Evaluation Date of Evaluation: 04/15/17 Time of Evaluation: 08:13 - Subjective Subjective: Pt is feeling much better after receiving 2 units of blood yesterday. His hgb today is 10.5gms. Platelets 85k. His foot wound is better, and he has been afebrile. Diarrhea still continues but is much lesser in amount. Objective - Vital Signs/Intake and Output Vital Signs (last 24 hours): Temp Pulse Resp BP Pulse Ox 97.9 F 77 20 114/64 97 04/14/17 20:06 04/14/17 20:06 04/14/17 20:06 04/14/17 20:06 04/14/17 20:06 - Medications Medications: Current Medications Atorvastatin Calcium (Lipitor) 20 mg PO DAILY@2100 [facility] Last Admin: 04/14/17 21:30 Dose: 20 mg Gabapentin (Neurontin) 100 mg PO TID [facility] Last Admin: 04/14/17 17:37 Dose: 100 mg Glipizide (Glucotrol) 5 mg PO BID [facility] Last Admin: 04/14/17 17:37 Dose: 5 mg HCTZ/Losartan Potassium (Hyzaar 12.5 Mg-50 Mg) 1 tab PO DAILY [facility] Last Admin: 04/14/17 08:27 Dose: 1 tab Vancomycin HCl 1 gm/ Sodium (Chloride) 250 mls @ 166.667 mls/hr IVPB DAILY@ 1700 [facility] Last Admin: 04/14/17 17:38 Dose: 166.667 mls/hr Lactic Acid (Lac-Hydrin 12% Cream (140 G)) 1 ea TOP DAILY [facility] Last Admin: 04/14/17 08:25 Dose: 1 unit Lactobacillus Acidophilus (Bacid Acidophilus) 1 cap PO BID [facility] Last Admin: 04/14/17 17:39 Dose: 1 cap Loperamide HCl (Imodium) 2 mg PO QID PRN PRN Reason: Diarrhea Metformin HCl (Glucophage) 1,000 mg PO BID [facility] Last Admin: 04/14/17 17:37 Dose: 1,000 mg Metoprolol Tartrate (Lopressor) 50 mg PO DAILY [facility] Last Admin: 04/14/17 08:30 Dose: 50 mg Pantoprazole Sodium (Protonix Ec Tab) 40 mg PO DAILY [facility] Last Admin: 04/14/17 08:31 Dose: 40 mg Tramadol HCl (Ultram) 50 mg PO Q6 PRN PRN Reason: Pain, moderate (4-7) - Labs Labs: 04/15/17 06:15 04/12/17 18:40
[2017-04-15] MEDS: Ammonium Lactate 12% Cream (140 g) TOP SCH (08:17)
[2017-04-15] MEDS: HCTZ/Losartan 12.5/50 Tab PO SCH (08:17)
--- NOTE | 2017-04-15 16:09 | CP.PCM.PN ---
Subjective - Date & Time of Evaluation Date of Evaluation: 04/15/17 Time of Evaluation: 14:00 - Subjective Subjective: ID Note- Pt. seen and examined today in TCU. pt. denies any fever or chills. states he feels better. states he still has diarrhea but much less today. denies any abd. pain. Objective - Vital Signs/Intake and Output Vital Signs (last 24 hours): Temp Pulse Resp BP Pulse Ox 97.3 F L 82 20 133/64 96 04/15/17 09:43 04/15/17 09:43 04/15/17 09:43 04/15/17 09:43 04/15/17 09:43 - Medications Medications: Current Medications Atorvastatin Calcium (Lipitor) 20 mg PO DAILY@2100 [facility] Last Admin: 04/14/17 21:30 Dose: 20 mg Gabapentin (Neurontin) 100 mg PO TID [facility] Last Admin: 04/15/17 08:16 Dose: 100 mg Glipizide (Glucotrol) 5 mg PO BID [facility] Last Admin: 04/15/17 08:17 Dose: 5 mg HCTZ/Losartan Potassium (Hyzaar 12.5 Mg-50 Mg) 1 tab PO DAILY [facility] Last Admin: 04/15/17 08:17 Dose: 1 tab Vancomycin HCl 1 gm/ Sodium (Chloride) 250 mls @ 166.667 mls/hr IVPB DAILY@ 1700 [facility] Last Admin: 04/14/17 17:38 Dose: 166.667 mls/hr Lactic Acid (Lac-Hydrin 12% Cream (140 G)) 1 ea TOP DAILY [facility] Last Admin: 04/15/17 08:17 Dose: 1 unit Lactobacillus Acidophilus (Bacid Acidophilus) 1 cap PO BID [facility] Last Admin: 04/15/17 08:16 Dose: 1 cap Loperamide HCl (Imodium) 2 mg PO QID PRN PRN Reason: Diarrhea Last Admin: 04/15/17 08:16 Dose: 2 mg Metformin HCl (Glucophage) 1,000 mg PO BID [facility] Last Admin: 04/15/17 08:16 Dose: 1,000 mg Metoprolol Tartrate (Lopressor) 50 mg PO DAILY [facility] Last Admin: 04/15/17 08:16 Dose: 50 mg Nystatin (Nystop Topical Powder) 1 applic TOP TID [facility] Pantoprazole Sodium (Protonix Ec Tab) 40 mg PO DAILY [facility] Last Admin: 04/15/17 08:16 Dose: 40 mg Tramadol HCl (Ultram) 50 mg PO Q6 PRN PRN Reason: Pain, moderate (4-7) - Labs Labs: - Additional Findings Additional findings: - Constitutional Appears: No Acute Distress - Head Exam Head Exam: ATRAUMATIC - Eye Exam Eye Exam: EOMI - ENT Exam ENT Exam: Normal Oropharynx - Neck Exam Neck exam: Positive for: Full Rom - Respiratory Exam Respiratory Exam: NORMAL BREATHING PATTERN Additional comments: slightly decreased breath sounds at left base - Cardiovascular Exam Cardiovascular Exam: RRR, +S1, +S2 Additional comments: ight upper chest port site no erythema, nontender - GI/Abdominal Exam GI & Abdominal Exam: Normal Bowel Sounds, Soft Additional comments: NT, ND - Extremities Exam Additional comments: b/l le edema and venous stasis changes right knee region erythema resolved, still edematous but less than before right great toe with small superficial ulcer. no opening, no discharge - Neurological Exam Neurological exam: Alert, Oriented x 3 Laboratory Results - last 72 hr 04/12/17 04/12/17 04/13/17 18:40 20:56 04:52 WBC RBC Hgb Hct MCV MCH MCHC RDW Plt Count Sodium 138 Potassium 4.5 Chloride 107 Carbon Dioxide 26 Anion Gap 10 BUN 19 Creatinine 1.3 Est GFR ( Amer) > 60 Est GFR (Non-Af Amer) 53 POC Glucose (mg/dL) 122 H 139 H Random Glucose 125 H Calcium 8.6 Total Bilirubin 1.4 H Direct Bilirubin 0.3 AST 30 ALT 30 Alkaline Phosphatase 95 Total Protein 5.4 L Albumin 2.8 L Globulin 2.6 Albumin/Globulin Ratio 1.1 Blood Type Antibody Screen Crossmatch BBK History Checked 04/13/17 04/13/17 04/13/17 09:32 10:55 16:27 WBC RBC Hgb Hct MCV MCH MCHC RDW Plt Count Sodium Potassium Chloride Carbon Dioxide Anion Gap BUN Creatinine Est GFR ( Amer) Est GFR (Non-Af Amer) POC Glucose (mg/dL) 182 H 131 H Random Glucose Calcium Total Bilirubin Direct Bilirubin AST ALT Alkaline Phosphatase Total Protein Albumin Globulin Albumin/Globulin Ratio Blood Type O POSITIVE Antibody Screen Negative Crossmatch See Detail BBK History Checked Patient has bt 04/13/17 04/14/17 04/14/17 21:17 07:04 20:22 WBC RBC Hgb Hct MCV MCH MCHC RDW Plt Count Sodium Potassium Chloride Carbon Dioxide Anion Gap BUN Creatinine Est GFR ( Amer) Est GFR (Non-Af Amer) POC Glucose (mg/dL) 140 H 159 H 183 H Random Glucose Calcium Total Bilirubin Direct Bilirubin AST ALT Alkaline Phosphatase Total Protein Albumin Globulin Albumin/Globulin Ratio Blood Type Antibody Screen Crossmatch BBK History Checked 04/15/17 04/15/17 04/15/17 06:15 06:20 11:01 WBC 4.6 L RBC 4.01 L Hgb 10.3 L D Hct 32.2 L MCV 80.3 MCH 25.8 L MCHC 32.1 L RDW 20.4 H Plt Count 83 L Sodium Potassium Chloride Carbon Dioxide Anion Gap BUN Creatinine Est GFR ( Amer) Est GFR (Non-Af Amer) POC Glucose (mg/dL) 118 H 216 H Random Glucose Calcium Total Bilirubin Direct Bilirubin AST ALT Alkaline Phosphatase Total Protein Albumin Globulin Albumin/Globulin Ratio Blood Type Antibody Screen Crossmatch BBK History Checked Microbiology 04/04/17 19:00 Blood-Venous Blood Culture - Final 04/04/17 19:00 Blood-Venous Gram Stain - Final NO GROWTH AFTER 5 DAYS TEST NOT PERFORMED 04/03/17 16:45 Blood-Venous Blood Culture - Final 04/03/17 16:45 Blood-Venous Gram Stain - Final NO GROWTH AFTER 5 DAYS TEST NOT PERFORMED 04/03/17 16:45 Blood-Venous Blood Culture - Final 04/03/17 16:45 Blood-Venous Gram Stain - Final NO GROWTH AFTER 5 DAYS TEST NOT PERFORMED 04/02/17 19:00 Blood Blood Culture - Final 04/02/17 19:00 Blood Gram Stain - Final Beta Hemolytic Strep Group B 04/02/17 18:42 Sputum Gram Stain - Final 04/02/17 18:42 Sputum Sputum Culture - Final NORMAL ORAL HARRY 04/02/17 14:08 Urine Urine Culture - Final No Growth (<1,000 CFU/ML) 04/02/17 14:08 Blood S.aureus & Coag-Neg Staph PNA FISH - Final 04/02/17 14:08 Blood Gram Stain - Final Beta Hemolytic Strep Group B Assessment and Plan (1) Myelodysplasia (myelodysplastic syndrome) Status: Acute (2) Bacteremia due to group B Streptococcus Status: Acute - Assessment and Plan (Free Text) Assessment: A/P- 81 year old male with multiple medical conditions including CAD s/p CABG, DM II , MDS undergoing chemo who presented with fever and confusion , found to be bacteremic with group b strep and has been on IV vancomycin and was also on IV meropenem since on admission was febrile and leukopenic ( MDS) , however post granix his leukopenia has resolved, repeat blood cx are negative. in TCU for Pt and completion of abx . afebrile Leukopenia resolved post granix injection but has anemia and thrombocytopenia most likely from his MDS . blood cx- group B beta hemolytic strep x 2 urine cx- neg sputum cx- negative tib/fib xray- no fracture pr report foot xray- no emphysema as per report. TTE- NO vegetations per report. repeat blood cx- neg x 3 hepatitis profile- neg c.diff- neg LE us- negative as per report plan- continue with IV vancomycin for strep bacteremia. keep trough <20. day #11 will need total of 21 days of Iv abx for the strep bacteremia. check one more stool c.diff. check one more repeat blood cx.
[2017-04-15 21:09] VITALS: TEMP 98.4
[2017-04-16 08:22] VITALS: BP 122/65; PULSE 81; O2SAT 99
[2017-04-16] MEDS: HCTZ/Losartan 12.5/50 Tab PO SCH (08:42)
[2017-04-16] MEDS: Pantoprazole 40 mg EC Tab PO SCH (08:43)
--- NOTE | 2017-04-16 11:04 | CP.PCM.DIS ---
Provider - Provider Date of Admission: 04/07/17 15:47 Attending physician: Sadiq Mosley MD Primary care physician: Dr Celis Consults: Dr Brian Wallis Time Spent in preparation of Discharge (in minutes): 25 Diagnosis - Discharge Diagnosis (1) Bacteremia due to group B Streptococcus Status: Acute Comment: continue IV Vanco 1 gm IV daily for another 6 days starting tomorrow (2) Myelodysplasia (myelodysplastic syndrome) Status: Acute Comment: Dr Torres on hematology consult. chemo held for this month per Dr Torres's advise. received Granix and Procrit (3) Cirrhosis of liver Status: Acute Comment: LFTs back to normal (4) DM2 (diabetes mellitus, type 2) Status: Acute Comment: BS relatively controlled. continue Glipizide and Metformin (5) CAD (coronary artery disease) Status: Acute Comment: asymptomatic. continue statin and Metoprolol (6) HTN (hypertension) Status: Acute Comment: BP stable. continue Losartan/HCTZ and Metoprolol Hospital Course - Lab Results Lab Results: Most Recent Lab Values WBC 4.6 K/uL (4.8-10.8) L 04/15/17 06:15 RBC 4.01 Mil/uL (4.40-5.90) L 04/15/17 06:15 Hgb 10.3 g/dL (12.0-18.0) L D 04/15/17 06:15 Hct 32.2 % (35.0-51.0) L 04/15/17 06:15 MCV 80.3 fl (80.0-94.0) 04/15/17 06:15 MCH 25.8 pg (27.0-31.0) L 04/15/17 06:15 MCHC 32.1 g/dL (33.0-37.0) L 04/15/17 06:15 RDW 20.4 % (11.5-14.5) H 04/15/17 06:15 Plt Count 83 K/uL (130-400) L 04/15/17 06:15 MPV 7.2 fl (7.2-11.7) 04/12/17 07:22 Neut % (Auto) 74.4 % (50.0-75.0) 04/12/17 07:22 Lymph % (Auto) 16.2 % (20.0-40.0) L 04/12/17 07:22 Peach % (Auto) 7.2 % (0.0-10.0) 04/12/17 07:22 Eos % (Auto) 1.1 % (0.0-4.0) 04/12/17 07:22 Baso % (Auto) 1.1 % (0.0-2.0) 04/12/17 07:22 Neut # 2.6 K/uL (1.8-7.0) 04/12/17 07:22 Lymph # 0.6 K/uL (1.0-4.3) L 04/12/17 07:22 Peach # 0.2 K/uL (0.0-0.8) 04/12/17 07: Eos # 0.0 K/uL (0.0-0.7) 04/12/17 07: Baso # 0.0 K/uL (0.0-0.2) 04/12/17 07:22 Sodium 138 mmol/l (132-148) 04/12/17 18:40 Potassium 4.5 MMOL/L (3.6-5.0) 04/12/17 18:40 Chloride 107 mmol/L (98-107) 04/12/17 18:40 Carbon Dioxide 26 mmol/L (22-30) 04/12/17 18:40 Anion Gap 10 (10-20) 04/12/17 18:40 BUN 19 mg/dl (9-20) 04/12/17 18:40 Creatinine 1.3 mg/dL (0.8-1.5) 04/12/17 18:40 Est GFR ( Amer) > 60 04/12/17 18:40 Est GFR (Non-Af Amer) 53 04/12/17 18:40 POC Glucose (mg/dL) 149 mg/dL (65-110) H 04/16/17 06:47 Random Glucose 125 mg/dL (75-110) H 04/12/17 18:40 Calcium 8.6 mg/dL (8.4-10.2) 04/12/17 18:40 Total Bilirubin 1.4 mg/dl (0.2-1.3) H 04/12/17 18:40 Direct Bilirubin 0.3 mg/ml (0.0-0.4) 04/12/17 18:40 AST 30 U/L (17-59) 04/12/17 18:40 ALT 30 U/L (21-72) 04/12/17 18:40 Alkaline Phosphatase 95 U/L (38-126) 04/12/17 18:40 Total Protein 5.4 G/DL (6.3-8.2) L 04/12/17 18:40 Albumin 2.8 g/dL (3.5-5.0) L 04/12/17 18:40 Globulin 2.6 gm/dL (2.2-3.9) 04/12/17 18:40 Albumin/Globulin Ratio 1.1 (1.0-2.1) 04/12/17 18:40 Vancomycin Trough 17.4 ug/mL (5.0-10.0) H 04/15/17 15:50 C. difficile Ag & Toxin Negative (NEGATIVE) 04/15/17 14:00 Blood Type O POSITIVE 04/13/17 09:32 Antibody Screen Negative 04/13/17 09:32 Crossmatch See Detail 04/13/17 09:32 BBK History Checked Patient has bt 04/13/17 09:32 - Hospital Course Hospital Course: 81 yo male with history of Myelodysplastic Syndrome, CAD and DM brought in because of confusion, fever and chills. Diagnosed with Sepsis, patient was admitted to telemetry then moved to regular floor. Blood culture grew Beta Hemolytic Strep Group B and was found to have liver cirrhosis with splenomegaly and ascites. The source of infection was still unknown, but could be from Gastritis or SBP. He was initially put on Meropenem and Vanco but later on Meropenem was DC by ID consult. He was transferred to TCU for PT and continuation of IV antibiotics. Pt is discharged in stable condition to [facility] where he would countinue his therapy and IV antibiotics. Discharge Exam - Head Exam Head Exam: ATRAUMATIC - Eye Exam Eye Exam: absent: Scleral icterus - ENT Exam ENT Exam: Mucous Membranes Moist - Respiratory Exam Respiratory Exam: absent: Wheezes, Respiratory Distress - Cardiovascular Exam Cardiovascular Exam: REGULAR RHYTHM, +S1, +S2 - GI/Abdominal Exam GI & Abdominal Exam: Soft. absent: Tenderness - Rectal Exam Rectal Exam: Deferred - Extremities Exam Extremities exam: pedal edema (with hyperpigmentation on lower half) - Neurological Exam Neurological exam: Alert, Oriented x3 - Psychiatric Exam Psychiatric exam: Normal Affect Discharge Plan - Follow Up Plan Condition: GOOD Disposition: REHAB FACILITY/REHAB UNIT
[2017-04-16] MEDS: Ammonium Lactate 12% Cream (140 g) TOP SCH (11:06)
[2017-04-16] MEDS: Lactobacillus Acidophilus 500 MU Cap PO SCH (11:06)
== END 2017-04-16 14:15 | DRG 872 ==
LOC: H.MEDSURG2 15:47 → H.TCU 16:02
PROC: 3E03329 Introduction of Other Anti-infective into Peripheral Vein, Percutaneous Approach (ICD-10-PCS; principal; 2017-04-07)
PROC: F07Z9FZ Gait Training/Functional Ambulation Treatment using Assistive, Adaptive, Supportive or Protective Equipment (ICD-10-PCS; 2017-04-07)
PROC: F08Z4FZ Home Management Treatment using Assistive, Adaptive, Supportive or Protective Equipment (ICD-10-PCS; 2017-04-08)
PROC: 30233N1 Transfusion of Nonautologous Red Blood Cells into Peripheral Vein, Percutaneous Approach (ICD-10-PCS; 2017-04-14)
DX: A40.1 Sepsis due to streptococcus, group B (principal); R18.8 Other ascites; D68.9 Coagulation defect, unspecified; E11.621 Type 2 diabetes mellitus with foot ulcer; I11.0 Hypertensive heart disease with heart failure; I50.9 Heart failure, unspecified; L03.115 Cellulitis of right lower limb; L97.519 Non-pressure chronic ulcer of other part of right foot with unspecified severity; D46.9 Myelodysplastic syndrome, unspecified; K74.60 Unspecified cirrhosis of liver; D69.59 Other secondary thrombocytopenia; D63.8 Anemia in other chronic diseases classified elsewhere; I25.10 Atherosclerotic heart disease of native coronary artery without angina pectoris; K29.70 Gastritis, unspecified, without bleeding; E78.00 Pure hypercholesterolemia, unspecified; Z96.642 Presence of left artificial hip joint; Z95.1 Presence of aortocoronary bypass graft; Z87.891 Personal history of nicotine dependence; Z79.84 Long term (current) use of oral hypoglycemic drugs

== ENCOUNTER 2017-05-18 12:06 | Day surgery (SDC) | payer MEDICARE ==
[2017-05-18 08:41] VITALS: BMI 39.9
--- NOTE | 2017-05-18 08:44 | CP.SDSHP ---
Same Day Surgery H & P - History Proposed Procedure: abdominal paracenrtesis, Pre-Op Diagnosis: MDS,liver cirrhosis (non alcoholic)., ascitis. - Previous Medical/Surgical History Cardiac: Hypertension, ASHD/CAD Pulmonary: Emphysema/COPD Endocrine/Metabolic: Diabetes Comments: pt has MDS and is on chemotherapy for the same. - Allergies Allergies: Allergies tape Allergy (Uncoded 05/09/17 13:32) RASH tolerates paper tape - Current Medications Current Medications: Physical exam; Alert, well oriented, in no acute distress neck; Supple, no adenopathy Chest; Clear, no rales or rhonchi heart; RSR, no murmur] Abd; Soft, no mass, no h/s megaly - Physical Exam General Appearance: obese, large ascitis, alert, awake well oriented Short Stay Discharge - Short Stay Discharge Admitting Diagnosis/Reason for Visit: D46.20/ D63.0 Disposition: HOME/ ROUTINE Referrals: Asya Yanes MD [Primary Care Provider] -
[2017-05-18] MEDS ORDERED: Lidocaine 1% Inj (20ml) ONE (13:42)
--- NOTE | 2017-05-18 14:19 | PCM.SURG1 ---
Surgeon's Initial Post Op Note - Surgeon's Notes Surgeon: Osmar Barrios MD Expeller Operator: NONE Type of Anesthesia: Local Pre-Operative Diagnosis: Ascites Operative Findings: US showed moderate ascites Post-Operative Diagnosis: Ascites Operation Performed: US guided paracentesis. Specimen/Specimens Removed: 4 liters of yellow fluid Estimated Blood Loss: EBL {In ML}: 0 Blood Products Given: N/A Drains Used: No Drains Post-Op Condition: Good Date of Surgery/Procedure: 05/18/17 Time of Surgery/Procedure: 14:15
--- NOTE | 2017-05-18 14:27 | CP.SDSHP ---
Same Day Surgery H & P - History Proposed Procedure: US guided paracentesis Pre-Op Diagnosis: Ascites - Allergies Allergies: Allergies tape Allergy (Uncoded 05/09/17 13:32) RASH tolerates paper tape - Physical Exam Vital Signs: Vital Signs 05/18/17 05/18/17 12:48 13:23 Temperature 98.2 F 98.0 F Pulse Rate 70 70 Respiratory 20 18 Rate Blood Pressure 117/67 112/40 L O2 Sat by Pulse 100 99 Oximetry Mental Status: Alert & Oriented x3 Neuro: WNL Heart: WNL Lungs: WNL - {Optional Preform as Required} Abdomen: Other (distended, non tender.) - Impression Impression: Pt with refractory ascites refered for paracentesis. Plan US guided paracentesis. Informed consent obtained. Pt. Evaluated Today:Candidate for Anesthesia & Procedure: No - Date & Time Date: 05/18/17 Time: 14:20 Short Stay Discharge - Short Stay Discharge Admitting Diagnosis/Reason for Visit: D46.20/ D63.0 Referrals: Asya Yanes MD [Primary Care Provider] -
--- NOTE | 2017-05-18 14:52 | US ---
Date of Procedure: 05/18/2017 PROCEDURE: Ultrasound-guided paracentesis, CPT 97232 Medications: 7 cc 1% Lidocaine HISTORY: Ascites, abdominal pain TECHNIQUE: Following informed consent , the patient was placed supine on the stretcher and the site was marked. A limited abdominal ultrasound was performed that showed a large amount of intra-abdominal fluid. Procedural time out was called and the Pt's abdomen was marked and prepped and draped in the usual sterile fashion. Ultrasound-guided large volume paracentesis performed. A total of 4 liters of straw colored fluid was removed without complication. IMPRESSION: Ultrasound-guided large volume paracentesis.
[2017-05-18 14:59] VITALS: BP 134/62; PULSE 75; RESP 20; TEMP 98.1; O2SAT 100
== END 2017-05-18 15:34 | disposition home or self-care (01) ==
LOC: H.OPSURG 12:06
PROVIDERS: ATTEND Specialist
DX: R18.8 Other ascites (principal); D46.20 Refractory anemia with excess of blasts, unspecified; D63.0 Anemia in neoplastic disease
CPT/HCPCS: 49083; C1729

== ENCOUNTER 2017-06-18 11:17 | Inpatient (IN) | payer OTHER, MEDICARE ==
[2017-06-09 00:10] VITALS: PULSE 81
[2017-06-18] MEDS: Oxycodone/Acetaminophen 5/325 mg Tab PO PRN ×2 (14:38→21:01)
--- NOTE | 2017-06-18 15:12 | CP.PCM.CON ---
History of Present Illness - History of Present Illness History of Present Illness: 81 year old male seen at bedside 2 days s/p failed internal fixation of right fibular fx with IM ashanti as patient's bone was too brittle to handle ashanti. Patient states that he has been having pain at the site of the medial pin of his external fixator since last night. Per nursing patient had not recieved any pain medication because order had not been placed since his arrival in TCU. Patient denies any changes or complaints to external fixator or wound vac on his right leg. Patient denies any further pedal complaints at this time. Patient denies any recent N/V/F/C/CP/SOB. Review of Systems - Review of Systems Review of Systems: ROS unremarkable outside of HPI Past Patient History - Tetanus Immunizations Tetanus Immunization: Unknown - Past Medical History & Family History Past Medical History?: Yes - Past Social History Smoking Status: Never Smoked - CARDIAC Hx Cardiac Disorders: Yes Hx Congestive Heart Failure: Yes Hx Hypercholesterolemia: Yes Hx Hypertension: Yes - PULMONARY Hx Respiratory Disorders: No - NEUROLOGICAL Hx Neurological Disorder: No - HEENT Hx HEENT Problems: Yes Hx Cataracts: Yes (left) - RENAL Hx Chronic Kidney Disease: No - ENDOCRINE/METABOLIC Hx Endocrine Disorders: Yes Hx Diabetes Mellitus Type 2: Yes - HEMATOLOGICAL/ONCOLOGICAL Hx Anemia: Yes - INTEGUMENTARY Hx Dermatological Problems: No - MUSCULOSKELETAL/RHEUMATOLOGICAL Hx Arthritis: Yes - GASTROINTESTINAL Hx Gastritis: Yes - GENITOURINARY/GYNECOLOGICAL Hx Genitourinary Disorders: No - PSYCHIATRIC Hx Substance Use: No - SURGICAL HISTORY Hx Cholecystectomy: Yes Hx Coronary Artery Bypass Graft: Yes - ANESTHESIA Hx Anesthesia: Yes Hx Anesthesia Reactions: No Hx Malignant Hyperthermia: No Meds Allergies/Adverse Reactions: Allergies Allergy/AdvReac Type Severity Reaction Status Date / Time tape Allergy Mild RASH Uncoded 06/18/17 12:27 - Medications Medications: Current Medications Acetaminophen (Tylenol 325mg Tab) 650 mg PO Q4 PRN PRN Reason: Pain, Mild (1-3) Acetaminophen (Tylenol 325mg Tab) 650 mg PO Q4 PRN PRN Reason: Pain, Mild (1-3) Albuterol/Ipratropium (Duoneb 3 Mg/0.5 Mg (3 Ml) Ud) 3 ml INH RQID [facility] Enoxaparin Sodium (Lovenox) 40 mg SC DAILY [facility] PRN Reason: Protocol Ferrous Sulfate (Feosol) 325 mg PO BID [facility] Gabapentin (Neurontin) 100 mg PO TID [facility] Glipizide (Glucotrol) 5 mg PO BID [facility] Home Med (Simvastatin [Simvastatin]) 20 mg PO DAILY [facility] Vancomycin HCl 750 mg/ Sodium (Chloride) 250 mls @ 125 mls/hr IVPB Q12 [facility] Insulin Human Regular (Humulin R) 0 units SC Q6 [facility] PRN Reason: Protocol Lactic Acid (Lac-Hydrin 12% Cream (140 G)) 1 ea TOP DAILY [facility] Lactobacillus Acidophilus (Bacid Acidophilus) 1 cap PO BID [facility] Nystatin (Nystop Topical Powder) 1 applic TOP TID [facility] Oxycodone/Acetaminophen (Percocet 5/325 Mg Tab) 1 tab PO Q4 PRN PRN Reason: Pain, moderate (4-7) Stop: 06/21/17 14:02 Oxycodone/Acetaminophen (Percocet 5/325 Mg Tab) 2 tab PO Q6 PRN PRN Reason: Pain, severe (8-10) Stop: 06/21/17 14:02 Last Admin: 06/18/17 14:38 Dose: 2 tab Pantoprazole Sodium (Protonix Ec Tab) 40 mg PO DAILY [facility] Physical Exam - Constitutional Appears: Well, Non-toxic - Extremities Exam Additional comments: Dressing is clean, dry, intact with no strikethrough noted to the dressing. External fixation is intact and stable with no backing out Wound VAC on continously at 125mmHg Vasc: DP is 1/4, temperature to the right foot is warm, skin color normal, CFT is delayed to digits at 5 seconds but present Dressings pulled away from medial pin site. No dermatological signs of infection noted. No malodor, no erythema, no drainage - Neurological Exam Neurological exam: Alert, Oriented x3 - Psychiatric Exam Psychiatric exam: Normal Affect, Normal Mood Assessment & Plan - Assessment and Plan (Free Text) Assessment: 81 year old male seen at bedside for displaced fibular fx 2 days s/p failed fibular fx IM ashanti placement Plan: Patient seen and evaluated at bedside Charts, labs and vitals reviewed Plan discussed in detail with attending Dr. Avila Patient is to be STRICT NWB for 6-8 weeks. No further internal fixation will be attempted Post operative xrays reviewed: displaced right fibular fracture seen Will coordinate with Dr. Avila, Dr. Yanes and case management to determine future course of care for patient given extensive range of medical conditions on Tuesday Podiatry will change wound vac every three to four days Podiatry will continue to follow while patient in house - Date & Time Date: 06/18/17 Time: 15:13
[2017-06-18] MEDS: Albuterol-Ipratrop 3 mg / 0.5 (3 ml) UD INH SCH ×2 (16:15→19:13)
[2017-06-18] MEDS: Insulin Regular 100 units/ml SC SCH ×2 (17:05→21:59)
[2017-06-18] MEDS: Lactobacillus Acidophilus 500 MU Cap PO SCH (17:10)
[2017-06-18] MEDS ORDERED: [UNRECOGNIZED DRUG - OTHER] IV SCH (21:00)
[2017-06-18] MEDS ORDERED: VANCOMYCIN IV SCH (21:00)
[2017-06-18] MEDS ORDERED: SOD CHLORIDE IV SCH (21:00)
[2017-06-19 07:04] LABS: HEMATOCRIT 29.7 % (35.0-51.0); MEAN CELL VOLUME 88.3 fl (80.0-94.0); MEAN CORPUSCULAR HEMOGLOBIN 28.5 pg (27.0-31.0); MEAN CORPUSCULAR HGB CONC 32.3 g/dL (33.0-37.0); RED CELL DISTRIBUTION WIDTH 18.2 % (11.5-14.5); WHITE BLOOD COUNT 4.3 K/uL (4.8-10.8)
[2017-06-19] MEDS: Albuterol-Ipratrop 3 mg / 0.5 (3 ml) UD INH SCH ×4 (07:12→19:17)
[2017-06-19] MEDS: Insulin Regular 100 units/ml SC SCH ×4 (07:14→22:00)
[2017-06-19 07:15] LABS: BLOOD UREA NITROGEN 28 mg/dl (9-20); CALCIUM 7.9 mg/dL (8.4-10.2); CARBON DIOXIDE 25 mmol/L (22-30); CHLORIDE 106 mmol/L (98-107); GFR AFRICAN-AMERICAN > 60; GLUCOSE,RANDOM 167 mg/dL (75-110); SODIUM 137 mmol/l (132-148)
[2017-06-19 07:18] LABS: POTASSIUM 5.3 MMOL/L (3.6-5.0)
[2017-06-19] MEDS: Ammonium Lactate 12% Cream (140 g) TOP SCH (09:47)
[2017-06-19] MEDS: Oxycodone/Acetaminophen 5/325 mg Tab PO PRN ×2 (09:49→16:44)
[2017-06-19] MEDS: Lactobacillus Acidophilus 500 MU Cap PO SCH ×2 (09:51→16:40)
[2017-06-19] MEDS: Pantoprazole 40 mg EC Tab PO SCH (09:52)
[2017-06-19] MEDS: Enoxaparin 40 mg Syringe SC SCH (09:52)
--- NOTE | 2017-06-19 14:59 | CP.PCM.HP ---
History of Present Illness - History of Present Illness History of Present Illness: 81 yo male with history of HTN, CHF, CAD/CABG, Myelodysplastic Syndrome, Cirrhosis and DMII had closed reduction with external fixation and wound debridement of the right ankle on 06/09/2017 followed with wound washout and debridement with wound vac placement on 06/13/2017. Unable to do ORIF because of very brittle bone. He was transferred to TCU for therapy. Present on Admission - Present on Admission Any Indicators Present on Admission: No History of DVT/PE: No History of Uncontrolled Diabetes: No Urinary Catheter: No Decubitus Ulcer Present: No Review of Systems - Review of Systems All systems: reviewed and no additional remarkable complaints except (aside from those mentioned above, 12 point system review were negative by me) Past Patient History - Tetanus Immunizations Tetanus Immunization: Unknown - Past Medical History & Family History Past Medical History?: Yes - Past Social History Smoking Status: Never Smoked Alcohol: None - CARDIAC Hx Cardiac Disorders: Yes Hx Congestive Heart Failure: Yes Hx Hypercholesterolemia: Yes Hx Hypertension: Yes - PULMONARY Hx Respiratory Disorders: No - NEUROLOGICAL Hx Neurological Disorder: No - HEENT Hx HEENT Problems: Yes Hx Cataracts: Yes (left) - RENAL Hx Chronic Kidney Disease: No - ENDOCRINE/METABOLIC Hx Endocrine Disorders: Yes Hx Diabetes Mellitus Type 2: Yes - HEMATOLOGICAL/ONCOLOGICAL Hx Anemia: Yes - INTEGUMENTARY Hx Dermatological Problems: No - MUSCULOSKELETAL/RHEUMATOLOGICAL Hx Arthritis: Yes - GASTROINTESTINAL Hx Gastritis: Yes - GENITOURINARY/GYNECOLOGICAL Hx Genitourinary Disorders: No - PSYCHIATRIC Hx Psychophysiologic Disorder: No Hx Substance Use: No - SURGICAL HISTORY Hx Cholecystectomy: Yes Hx Coronary Artery Bypass Graft: Yes - ANESTHESIA Hx Anesthesia: Yes Hx Anesthesia Reactions: No Hx Malignant Hyperthermia: No Meds Allergies/Adverse Reactions: Allergies Allergy/AdvReac Type Severity Reaction Status Date / Time tape Allergy Mild RASH Uncoded 06/18/17 12:27 Physical Exam - Constitutional Appears: No Acute Distress - Head Exam Head Exam: ATRAUMATIC - Eye Exam Eye Exam: absent: Scleral icterus - ENT Exam ENT Exam: Mucous Membranes Moist - Neck Exam Neck exam: Negative for: Meningismus - Respiratory Exam Respiratory Exam: absent: Rhonchi, Wheezes, Respiratory Distress - Cardiovascular Exam Cardiovascular Exam: REGULAR RHYTHM, +S1, +S2 - GI/Abdominal Exam GI & Abdominal Exam: Distended, Soft. absent: Guarding, Tenderness - Rectal Exam Rectal Exam: Deferred - Extremities Exam Extremities exam: Negative for: full ROM (right ankle on external fixator) - Neurological Exam Neurological exam: Alert, Oriented x3 - Psychiatric Exam Psychiatric exam: Normal Affect - Skin Skin Exam: Dry, Intact Results - Vital Signs Recent Vital Signs: Last Vital Signs Temp Pulse Resp 20 06/18/17 14:50 BP Pulse Ox 98 06/18/17 14:50 - Labs Result Diagrams: 06/19/17 05:30 06/19/17 05:30 Labs: Laboratory Results - last 24 hr 06/18/17 06/18/17 06/19/17 16:21 20:56 05:30 WBC 4.3 L RBC 3.36 L Hgb 9.6 L Hct 29.7 L MCV 88.3 MCH 28.5 MCHC 32.3 L RDW 18.2 H Plt Count 110 L D Sodium Potassium Chloride Carbon Dioxide Anion Gap BUN Creatinine Est GFR ( Amer) Est GFR (Non-Af Amer) POC Glucose (mg/dL) 259 H 214 H Random Glucose Calcium Vancomycin Trough 06/19/17 06/19/17 06/19/17 05:30 05:30 07:45 WBC RBC Hgb Hct MCV MCH MCHC RDW Plt Count Sodium 137 Potassium 5.3 H Chloride 106 Carbon Dioxide 25 Anion Gap 11 BUN 28 H Creatinine 1.1 Est GFR ( Amer) > 60 Est GFR (Non-Af Amer) > 60 POC Glucose (mg/dL) 167 H Random Glucose 167 H Calcium 7.9 L Vancomycin Trough 12.3 H 06/19/17 11:06 WBC RBC Hgb Hct MCV MCH MCHC RDW Plt Count Sodium Potassium Chloride Carbon Dioxide Anion Gap BUN Creatinine Est GFR ( Amer) Est GFR (Non-Af Amer) POC Glucose (mg/dL) 205 H Random Glucose Calcium Vancomycin Trough Assessment & Plan (1) Ankle fracture Status: Acute Comment: NWB to RLE as per podiatry. wound vac to draining bloody fluid (need to be changed three times/week). continue pain management. Dr. Wallis, ID consult recommended to continue Vanco but should be below 15 trough. Vanco trough today: 12.3. continue Vancomycin 1gm IV daily (2) Myelodysplasia (myelodysplastic syndrome) Status: Chronic Comment: Dr VDamle on consult (3) DM2 (diabetes mellitus, type 2) Status: Chronic Comment: HgA1C: 6.1. continue Glipizide 5mg PO BID. accuchek ACHS (4) CAD (coronary artery disease) Status: Chronic Comment: continue statin (5) Cirrhosis of liver Status: Chronic Comment: 9 liters of ascitic fluid removed on 06/15/2017 (6) DVT prophylaxis Status: Acute Comment: continue Lovenox 40mg SC daily but hold when platelets is below 80,000
--- NOTE | 2017-06-19 19:37 | CP.PCM.PN ---
Subjective - Date & Time of Evaluation Date of Evaluation: 06/19/17 Time of Evaluation: 17:35 - Subjective Subjective: Paged to patient's room because wound vac kept momentarily dropping to 0 mmHg and then returning to 125 mmHg. Changed some of the settings on wound vac. Problem appears to be resolve. Pt states that he has no pain today. Dressing CDI. CFT < 3 seconds to [address] digits. Dr. Avila aware. Will round with him on patient tomorrow. Objective - Vital Signs/Intake and Output Vital Signs (last 24 hours): Temp Pulse Resp BP Pulse Ox 20 98 06/18/17 14:50 06/18/17 14:50 - Medications Medications: Current Medications Acetaminophen (Tylenol 325mg Tab) 650 mg PO Q4 PRN PRN Reason: Pain, Mild (1-3) Acetaminophen (Tylenol 325mg Tab) 650 mg PO Q4 PRN PRN Reason: Pain, Mild (1-3) Albuterol/Ipratropium (Duoneb 3 Mg/0.5 Mg (3 Ml) Ud) 3 ml INH RQID [facility] Last Admin: 06/19/17 19:17 Dose: 3 ml Atorvastatin Calcium (Lipitor) 10 mg PO DAILY [facility] Last Admin: 06/19/17 09:52 Dose: 10 mg Enoxaparin Sodium (Lovenox) 40 mg SC DAILY [facility] PRN Reason: Protocol Last Admin: 06/19/17 09:52 Dose: 40 mg Ferrous Sulfate (Feosol) 325 mg PO BID [facility] Last Admin: 06/19/17 16:41 Dose: 325 mg Gabapentin (Neurontin) 100 mg PO TID [facility] Last Admin: 06/19/17 16:41 Dose: 100 mg Glipizide (Glucotrol) 5 mg PO BID [facility] Last Admin: 06/19/17 16:41 Dose: 5 mg Vancomycin HCl 1 gm/ Sodium (Chloride) 250 mls @ 166.667 mls/hr IVPB DAILY@ 1700 [facility] PRN Reason: Protocol Last Admin: 06/19/17 16:39 Dose: 166.667 mls/hr Insulin Human Regular (Humulin R) 0 units SC ACHS [facility] PRN Reason: Protocol Last Admin: 06/19/17 16:40 Dose: 2 units Lactic Acid (Lac-Hydrin 12% Cream (140 G)) 1 ea TOP DAILY [facility] Last Admin: 06/19/17 09:47 Dose: 1 unit Lactobacillus Acidophilus (Bacid Acidophilus) 1 cap PO BID [facility] Last Admin: 06/19/17 16:40 Dose: 1 cap Nystatin (Nystop Topical Powder) 1 applic TOP TID [facility] Last Admin: 06/19/17 16:40 Dose: 1 applic Oxycodone/Acetaminophen (Percocet 5/325 Mg Tab) 1 tab PO Q4 PRN PRN Reason: Pain, moderate (4-7) Stop: 06/21/17 14:02 Last Admin: 06/19/17 16:44 Dose: 1 tab Oxycodone/Acetaminophen (Percocet 5/325 Mg Tab) 2 tab PO Q6 PRN PRN Reason: Pain, severe (8-10) Stop: 06/21/17 14:02 Last Admin: 06/19/17 09:49 Dose: 2 tab Pantoprazole Sodium (Protonix Ec Tab) 40 mg PO DAILY [facility] Last Admin: 06/19/17 09:52 Dose: 40 mg - Labs Labs: 06/19/17 05:30 06/19/17 05:30
[2017-06-20] MEDS: Oxycodone/Acetaminophen 5/325 mg Tab PO PRN ×3 (03:15→13:59)
[2017-06-20] MEDS: Insulin Regular 100 units/ml SC SCH ×4 (06:50→22:00)
[2017-06-20] MEDS: Albuterol-Ipratrop 3 mg / 0.5 (3 ml) UD INH SCH ×4 (07:45→19:23)
--- NOTE | 2017-06-20 09:08 | CP.PCM.PN ---
Subjective - Date & Time of Evaluation Date of Evaluation: 06/20/17 Time of Evaluation: 09:06 - Subjective Subjective: Pt slept well at night and had also moved his bowels. He needs to get p for PT but has been refusing it. Will talk to him today regarding the same. CBC is more or less stable. Objective - Vital Signs/Intake and Output Vital Signs (last 24 hours): Temp Pulse Resp BP Pulse Ox 99.7 F H 90 20 149/78 93 L 06/20/17 07:57 06/20/17 07:57 06/20/17 07:57 06/20/17 07:57 06/20/17 07:57 - Medications Medications: Current Medications Acetaminophen (Tylenol 325mg Tab) 650 mg PO Q4 PRN PRN Reason: Pain, Mild (1-3) Acetaminophen (Tylenol 325mg Tab) 650 mg PO Q4 PRN PRN Reason: Pain, Mild (1-3) Albuterol/Ipratropium (Duoneb 3 Mg/0.5 Mg (3 Ml) Ud) 3 ml INH RQID [facility] Last Admin: 06/20/17 07:45 Dose: 3 ml Alteplase, Recombinant (Cathflo 2 Mg Inj) 2 mg IV ONCE ONE Stop: 06/20/17 09:04 Atorvastatin Calcium (Lipitor) 10 mg PO DAILY [facility] Last Admin: 06/19/17 09:52 Dose: 10 mg Enoxaparin Sodium (Lovenox) 40 mg SC DAILY [facility] PRN Reason: Protocol Last Admin: 06/19/17 09:52 Dose: 40 mg Ferrous Sulfate (Feosol) 325 mg PO BID [facility] Last Admin: 06/19/17 16:41 Dose: 325 mg Gabapentin (Neurontin) 100 mg PO TID [facility] Last Admin: 06/19/17 16:41 Dose: 100 mg Glipizide (Glucotrol) 5 mg PO BID [facility] Last Admin: 06/19/17 16:41 Dose: 5 mg Vancomycin HCl 1 gm/ Sodium (Chloride) 250 mls @ 166.667 mls/hr IVPB DAILY@ 1700 [facility] PRN Reason: Protocol Last Admin: 06/19/17 16:39 Dose: 166.667 mls/hr Insulin Human Regular (Humulin R) 0 units SC ACHS [facility] PRN Reason: Protocol Last Admin: 06/20/17 06:50 Dose: 3 units Lactic Acid (Lac-Hydrin 12% Cream (140 G)) 1 ea TOP DAILY [facility] Last Admin: 06/19/17 09:47 Dose: 1 unit Lactobacillus Acidophilus (Bacid Acidophilus) 1 cap PO BID [facility] Last Admin: 06/19/17 16:40 Dose: 1 cap Nystatin (Nystop Topical Powder) 1 applic TOP TID [facility] Last Admin: 06/19/17 16:40 Dose: 1 applic Oxycodone/Acetaminophen (Percocet 5/325 Mg Tab) 1 tab PO Q4 PRN PRN Reason: Pain, moderate (4-7) Stop: 06/21/17 14:02 Last Admin: 06/20/17 03:15 Dose: 1 tab Oxycodone/Acetaminophen (Percocet 5/325 Mg Tab) 2 tab PO Q6 PRN PRN Reason: Pain, severe (8-10) Stop: 06/21/17 14:02 Last Admin: 06/20/17 06:57 Dose: 2 tab Pantoprazole Sodium (Protonix Ec Tab) 40 mg PO DAILY [facility] Last Admin: 06/19/17 09:52 Dose: 40 mg - Labs Labs: 06/19/17 05:30 06/19/17 05:30
[2017-06-20] MEDS ORDERED: Enoxaparin 30 mg Syringe SC SCH (09:15)
[2017-06-20] MEDS: Lactobacillus Acidophilus 500 MU Cap PO SCH ×2 (09:17→17:01)
[2017-06-20] MEDS: Ammonium Lactate 12% Cream (140 g) TOP SCH (09:18)
[2017-06-20] MEDS: Pantoprazole 40 mg EC Tab PO SCH (09:19)
--- NOTE | 2017-06-20 09:57 | CP.PCM.PCO ---
Physician Communication Note - Physician Communication Note Physician Communication Note: Wound Vac per podiatry. No surgical intervention
[2017-06-20] MEDS ORDERED: Sod Polystyrene Sulf 15 gm/60 ml Susp PO ONE (10:25)
[2017-06-20] MEDS: Enoxaparin 40 mg Syringe SC SCH (11:16)
--- NOTE | 2017-06-20 14:23 | CP.PCM.PN ---
Subjective - Date & Time of Evaluation Date of Evaluation: 06/20/17 Time of Evaluation: 14:20 - Subjective Subjective: 81 year old male seen at bedside with attending Dr. Avila 4 days s/p failed internal fixation of right fibular fx with IM ashanti as patient's bone was too brittle to handle ashanti. Per physical therapy, patient has been non-compliant with them over past few days and says that he is in too much pain to move. PT believes that this is just anticipatory pain. THey state that today he was able to sit up and hang his feet off the bed for about ten minutes. Patient's wound vac seen to be working properly at 125 mmHg of constant pressure. Patient denies any further pedal complaints at this time. Patient denies any recent N/V/ F/C/CP/SOB. Objective - Vital Signs/Intake and Output Vital Signs (last 24 hours): Temp Pulse Resp BP Pulse Ox 99.7 F H 90 20 149/78 93 L 06/20/17 07:57 06/20/17 07:57 06/20/17 07:57 06/20/17 07:57 06/20/17 07:57 - Medications Medications: Current Medications Acetaminophen (Tylenol 325mg Tab) 650 mg PO Q4 PRN PRN Reason: Pain, Mild (1-3) Acetaminophen (Tylenol 325mg Tab) 650 mg PO Q4 PRN PRN Reason: Pain, Mild (1-3) Albuterol/Ipratropium (Duoneb 3 Mg/0.5 Mg (3 Ml) Ud) 3 ml INH RQID [facility] Last Admin: 06/20/17 11:07 Dose: 3 ml Atorvastatin Calcium (Lipitor) 10 mg PO DAILY [facility] Last Admin: 06/20/17 09:19 Dose: 10 mg Enoxaparin Sodium (Lovenox) 40 mg SC DAILY [facility] PRN Reason: Protocol Last Admin: 06/20/17 11:16 Dose: 40 mg Ferrous Sulfate (Feosol) 325 mg PO BID [facility] Last Admin: 06/20/17 09:19 Dose: 325 mg Gabapentin (Neurontin) 100 mg PO TID [facility] Last Admin: 06/20/17 12:14 Dose: 100 mg Glipizide (Glucotrol) 5 mg PO BID [facility] Last Admin: 06/20/17 09:19 Dose: 5 mg Vancomycin HCl 1 gm/ Sodium (Chloride) 250 mls @ 166.667 mls/hr IVPB DAILY@ 1700 [facility] PRN Reason: Protocol Last Admin: 06/19/17 16:39 Dose: 166.667 mls/hr Insulin Human Regular (Humulin R) 0 units SC ACHS [facility] PRN Reason: Protocol Last Admin: 06/20/17 12:13 Dose: 3 units Lactic Acid (Lac-Hydrin 12% Cream (140 G)) 1 ea TOP DAILY [facility] Last Admin: 06/20/17 09:18 Dose: 1 unit Lactobacillus Acidophilus (Bacid Acidophilus) 1 cap PO BID [facility] Last Admin: 06/20/17 09:17 Dose: 1 cap Nystatin (Nystop Topical Powder) 1 applic TOP TID [facility] Last Admin: 06/20/17 12:13 Dose: 1 applic Oxycodone/Acetaminophen (Percocet 5/325 Mg Tab) 1 tab PO Q4 PRN PRN Reason: Pain, moderate (4-7) Stop: 06/21/17 14:02 Last Admin: 06/20/17 03:15 Dose: 1 tab Oxycodone/Acetaminophen (Percocet 5/325 Mg Tab) 2 tab PO Q6 PRN PRN Reason: Pain, severe (8-10) Stop: 06/21/17 14:02 Last Admin: 06/20/17 13:59 Dose: 2 tab Pantoprazole Sodium (Protonix Ec Tab) 40 mg PO DAILY [facility] Last Admin: 06/20/17 09:19 Dose: 40 mg - Labs Labs: 06/19/17 05:30 06/19/17 05:30 - Constitutional Appears: Well, Non-toxic, No Acute Distress - Extremities Exam Additional comments: Dressing is clean, dry, intact with no strikethrough noted to the dressing. External fixation is intact and stable with no backing out Wound VAC on continously at 125mmHg Vasc: DP is 1/4, temperature to the right foot is warm, skin color normal, CFT is delayed to digits at 5 seconds but present - Neurological Exam Neurological Exam: Alert, Awake, Oriented x3 - Psychiatric Exam Psychiatric exam: Normal Affect, Normal Mood Assessment and Plan - Assessment and Plan (Free Text) Assessment: 81 year old male seen at bedside for displaced fibular fx 4 days s/p failed fibular fx IM ashanti placement Plan: Patient seen and evaluated at bedside with attending, Dr. Avila Charts, labs and vitals reviewed Patient is to be STRICT NWB for 6-8 weeks. No further internal fixation will be attempted Podiatry will change wound vac tomorrow while patient is undergoing PT and has his feet off the bed as this will hopefully provide him the least amount of pain Podiatry will continue to follow while patient in house
[2017-06-20 15:43] LABS: BLOOD UREA NITROGEN 29 mg/dl (9-20); CALCIUM 7.7 mg/dL (8.4-10.2); CARBON DIOXIDE 25 mmol/L (22-30); CHLORIDE 104 mmol/L (98-107); GFR AFRICAN-AMERICAN > 60; GLUCOSE,RANDOM 196 mg/dL (75-110); SODIUM 134 mmol/l (132-148)
[2017-06-20 15:57] VITALS: BMI 37.6
[2017-06-21] MEDS ORDERED: Albuterol-Ipratrop 3 mg / 0.5 (3 ml) UD INH STA (00:17)
[2017-06-21] MEDS: Oxycodone/Acetaminophen 5/325 mg Tab PO PRN ×3 (06:16→22:17)
[2017-06-21] MEDS: Insulin Regular 100 units/ml SC SCH ×4 (06:51→22:03)
[2017-06-21] MEDS: Albuterol-Ipratrop 3 mg / 0.5 (3 ml) UD INH SCH ×4 (07:33→19:02)
[2017-06-21] MEDS: Ammonium Lactate 12% Cream (140 g) TOP SCH (08:56)
[2017-06-21] MEDS: Enoxaparin 40 mg Syringe SC SCH (08:56)
[2017-06-21] MEDS: Pantoprazole 40 mg EC Tab PO SCH (08:57)
[2017-06-21] MEDS: Lactobacillus Acidophilus 500 MU Cap PO SCH ×2 (09:00→16:52)
--- NOTE | 2017-06-21 09:41 | CP.PCM.PN ---
<Sanjay Mo - Last Filed: 06/21/17 10:24> Subjective - Date & Time of Evaluation Date of Evaluation: 06/21/17 Time of Evaluation: 09:41 - Subjective Subjective: Hospitalist Progress Note 81 year old male patient PMHx HTN, CHF, CAD/CABG, Myelodysplastic Syndrome, Cirrhosis and DMII seen at bedside in TCU 5 days s/p failed internal fixation of right fibular fx with IM ashanti. Patient underwent a right ankle closed reduction external fixation and wound debridement (DOS: 05/30/17) followed with wound washout and debridement and wound vac placement (DOS 06/13/17). Patient seen resting in bed comfortably, NAD. Patient denies any acute events overnight. Denies any pain to right leg currently, well controlled. Patient states that he recently developed a cough since being transferred to TCU, occasionally able to produce some phlegm. Patient states he started working with physical therapy again, with strict NWB per podiatry. Patient denies N/V/F/ D/C/SOB/chest palpitations. Objective - Vital Signs/Intake and Output Vital Signs (last 24 hours): Temp Pulse Resp BP Pulse Ox 98.1 F 80 20 130/65 94 L 06/21/17 08:00 06/21/17 08:00 06/21/17 08:00 06/21/17 08:00 06/21/17 08:00 - Medications Medications: Current Medications Acetaminophen (Tylenol 325mg Tab) 650 mg PO Q4 PRN PRN Reason: Pain, Mild (1-3) Acetaminophen (Tylenol 325mg Tab) 650 mg PO Q4 PRN PRN Reason: Pain, Mild (1-3) Acetaminophen (Tylenol 325mg Tab) 650 mg PO Q6 PRN PRN Reason: Fever >100.4 F Last Admin: 06/20/17 16:37 Dose: 650 mg Albuterol/Ipratropium (Duoneb 3 Mg/0.5 Mg (3 Ml) Ud) 3 ml INH RQID [facility] Last Admin: 06/21/17 07:33 Dose: 3 ml Atorvastatin Calcium (Lipitor) 10 mg PO DAILY [facility] Last Admin: 06/21/17 08:56 Dose: 10 mg Enoxaparin Sodium (Lovenox) 40 mg SC DAILY [facility] PRN Reason: Protocol Last Admin: 06/21/17 08:56 Dose: 40 mg Ferrous Sulfate (Feosol) 325 mg PO BID [facility] Last Admin: 06/21/17 08:55 Dose: 325 mg Gabapentin (Neurontin) 100 mg PO TID [facility] Last Admin: 06/21/17 08:56 Dose: 100 mg Glipizide (Glucotrol) 5 mg PO BID [facility] Last Admin: 06/21/17 08:56 Dose: 5 mg Vancomycin HCl 1 gm/ Sodium (Chloride) 250 mls @ 166.667 mls/hr IVPB DAILY@ 1700 [facility] PRN Reason: Protocol Last Admin: 06/20/17 16:35 Dose: 166.667 mls/hr Insulin Human Regular (Humulin R) 0 units SC ACHS [facility] PRN Reason: Protocol Last Admin: 06/21/17 06:51 Dose: 3 units Lactic Acid (Lac-Hydrin 12% Cream (140 G)) 1 ea TOP DAILY [facility] Last Admin: 06/21/17 08:56 Dose: 1 unit Lactobacillus Acidophilus (Bacid Acidophilus) 1 cap PO BID [facility] Last Admin: 06/21/17 09:00 Dose: 1 cap Nystatin (Nystop Topical Powder) 1 applic TOP TID [facility] Last Admin: 06/21/17 08:56 Dose: 1 applic Oxycodone/Acetaminophen (Percocet 5/325 Mg Tab) 1 tab PO Q4 PRN PRN Reason: Pain, moderate (4-7) Stop: 06/21/17 14:02 Last Admin: 06/21/17 06:16 Dose: 1 tab Oxycodone/Acetaminophen (Percocet 5/325 Mg Tab) 2 tab PO Q6 PRN PRN Reason: Pain, severe (8-10) Stop: 06/21/17 14:02 Last Admin: 06/20/17 13:59 Dose: 2 tab Pantoprazole Sodium (Protonix Ec Tab) 40 mg PO DAILY [facility] Last Admin: 06/21/17 08:57 Dose: 40 mg - Labs Labs: 06/19/17 05:30 06/20/17 15:20 - Constitutional Appears: Well, Non-toxic, No Acute Distress, Confused - Head Exam Head Exam: ATRAUMATIC, NORMAL INSPECTION, NORMOCEPHALIC - Eye Exam Eye Exam: EOMI, Normal appearance, PERRL Pupil Exam: NORMAL ACCOMODATION, PERRL - ENT Exam ENT Exam: Mucous Membranes Moist, Normal Exam - Neck Exam Neck Exam: Full ROM, Normal Inspection. absent: Tenderness - Respiratory Exam Respiratory Exam: Clear to Ausculation Bilateral, NORMAL BREATHING PATTERN. absent: Rales, Rhonchi, Wheezes, Respiratory Distress - Cardiovascular Exam Cardiovascular Exam: REGULAR RHYTHM, +S1, +S2. absent: Rubs, Murmur - GI/Abdominal Exam GI & Abdominal Exam: Soft, Normal Bowel Sounds. absent: Distended, Tenderness - Rectal Exam Rectal Exam: Deferred - Extremities Exam Extremities Exam: Full ROM, Normal Capillary Refill, Normal Inspection. absent : Calf Tenderness Additional comments: Right leg external fixator present with dressing clean/dry/intact. CFT brisk. No tenderness to palpation right popliteal fossa. Left leg noted to have hemosiderin deposits. LLE DP and PT pulses palpable 2/4. - Back Exam Back Exam: NORMAL INSPECTION. absent: CVA tenderness (L), CVA tenderness (R), tenderness - Neurological Exam Neurological Exam: Alert, Awake - Psychiatric Exam Psychiatric exam: Normal Affect, Normal Mood - Skin Skin Exam: Warm Additional comments: Ecchymotic lesions noted to R forearm with no breaks in skin, no surrounding cellulitis, no increase in warmth, no swelling Assessment and Plan (1) Ankle fracture Assessment & Plan: Podiatry consult on board - Dr. Avila 5 days s/p failed internal fixation right fibular fx with IM ashanti & WoundVAC application (DOS: 06/16/17) 8 days s/p right ankle wound wash out, debridement, and wound vac placement (DOS : 06/13/17) by Dr. Benson 12 days s/p right ankle closed reduction external fixation and wound debridement (DOS: 06/09/17) Per podiatry, NWB RLE; no further internal fixation Wound care per podiatry (plan to change 3-4x/week) WoundVAC noted to have approximately 50cc of sanguinous drainage @ 9:30 today Continue pain management Continue Vancomycin, keep Vancomycin trough <15 (trough on 06/19/17 12.3) -ID consulted, recs appreciated Status: Acute (2) Myelodysplasia (myelodysplastic syndrome) Assessment & Plan: Dr. Salma Yanes consulted, recs appreciated Hgb 9.6 Continue to follow CBC Status: Chronic (3) DM2 (diabetes mellitus, type 2) Assessment & Plan: A1c = 6.1 Continue Glipizide 5 mg PO BID Regular insulin sliding scale according to Accucheck - ACHS Heart healthy diet Status: Chronic (4) CAD (coronary artery disease) Status: Chronic (5) Cirrhosis of liver Status: Chronic (6) DVT prophylaxis Status: Acute <KettyCarlitos - Last Filed: 06/21/17 13:31> Objective - Vital Signs/Intake and Output Vital Signs (last 24 hours): Temp Pulse Resp BP Pulse Ox 98.1 F 80 20 130/65 94 L 06/21/17 08:00 06/21/17 08:00 06/21/17 08:00 06/21/17 08:00 06/21/17 08:00 - Medications Medications: Current Medications Acetaminophen (Tylenol 325mg Tab) 650 mg PO Q4 PRN PRN Reason: Pain, Mild (1-3) Acetaminophen (Tylenol 325mg Tab) 650 mg PO Q4 PRN PRN Reason: Pain, Mild (1-3) Acetaminophen (Tylenol 325mg Tab) 650 mg PO Q6 PRN PRN Reason: Fever >100.4 F Last Admin: 06/20/17 16:37 Dose: 650 mg Albuterol/Ipratropium (Duoneb 3 Mg/0.5 Mg (3 Ml) Ud) 3 ml INH RQID [facility] Last Admin: 06/21/17 11:25 Dose: 3 ml Atorvastatin Calcium (Lipitor) 10 mg PO DAILY [facility] Last Admin: 06/21/17 08:56 Dose: 10 mg Enoxaparin Sodium (Lovenox) 40 mg SC DAILY [facility] PRN Reason: Protocol Last Admin: 06/21/17 08:56 Dose: 40 mg Ferrous Sulfate (Feosol) 325 mg PO BID [facility] Last Admin: 06/21/17 08:55 Dose: 325 mg Gabapentin (Neurontin) 100 mg PO TID [facility] Last Admin: 06/21/17 12:16 Dose: 100 mg Glipizide (Glucotrol) 5 mg PO BID [facility] Last Admin: 06/21/17 08:56 Dose: 5 mg Vancomycin HCl 1 gm/ Sodium (Chloride) 250 mls @ 166.667 mls/hr IVPB DAILY@ 1700 [facility] PRN Reason: Protocol Last Admin: 06/20/17 16:35 Dose: 166.667 mls/hr Insulin Human Regular (Humulin R) 0 units SC ACHS [facility] PRN Reason: Protocol Last Admin: 06/21/17 12:17 Dose: 4 units Lactic Acid (Lac-Hydrin 12% Cream (140 G)) 1 ea TOP DAILY [facility] Last Admin: 06/21/17 08:56 Dose: 1 unit Lactobacillus Acidophilus (Bacid Acidophilus) 1 cap PO BID [facility] Last Admin: 06/21/17 09:00 Dose: 1 cap Nystatin (Nystop Topical Powder) 1 applic TOP TID [facility] Last Admin: 06/21/17 12:16 Dose: 1 applic Oxycodone/Acetaminophen (Percocet 5/325 Mg Tab) 1 tab PO Q4 PRN PRN Reason: Pain, moderate (4-7) Stop: 06/21/17 14:02 Last Admin: 06/21/17 06:16 Dose: 1 tab Oxycodone/Acetaminophen (Percocet 5/325 Mg Tab) 2 tab PO Q6 PRN PRN Reason: Pain, severe (8-10) Stop: 06/21/17 14:02 Last Admin: 06/20/17 13:59 Dose: 2 tab Pantoprazole Sodium (Protonix Ec Tab) 40 mg PO DAILY [facility] Last Admin: 06/21/17 08:57 Dose: 40 mg - Labs Labs: 06/21/17 11:00 06/20/17 15:20 Assessment and Plan - Assessment and Plan (Free Text) Plan: ATTENDING ATTESTATION: I have seen and examined the patient and fully agree with the findings as above. Continue PT/OT. ID recommends discontinuation of the Woods catheter as the patient is spiking low grade fevers. Currently the patient is refusing discontinuation of the Woods despite letting him know of the risk for infection.
[2017-06-21 11:17] LABS: BASO % 0.4 % (0.0-2.0); HEMATOCRIT 25.7 % (35.0-51.0); LYMPH # 0.4 K/uL (1.0-4.3); LYMPH % 10.1 % (20.0-40.0); MEAN CELL VOLUME 88.8 fl (80.0-94.0); MEAN CORPUSCULAR HEMOGLOBIN 28.2 pg (27.0-31.0); MEAN CORPUSCULAR HGB CONC 31.7 g/dL (33.0-37.0); MEAN PLATELET VOLUME 6.4 fl (7.2-11.7); MONO # 0.6 K/uL (0.0-0.8); NEUT # 2.6 K/uL (1.8-7.0); NEUT % 72.5 % (50.0-75.0); NRBC % 0.3 % (0.0-0.0); RED CELL DISTRIBUTION WIDTH 18.9 % (11.5-14.5); WHITE BLOOD COUNT 3.6 K/uL (4.8-10.8)
--- NOTE | 2017-06-21 12:25 | CP.PCM.PN ---
Subjective - Date & Time of Evaluation Date of Evaluation: 06/21/17 Time of Evaluation: 12:24 - Subjective Subjective: ID Note- Pt. seen and examined today in TCU. pt. c/o pain in the right leg region and he also states he found out his son today he is very sad understandably. he denies any fever or chills, denies any diarrhea. wound vac in place and draining Objective - Vital Signs/Intake and Output Vital Signs (last 24 hours): Temp Pulse Resp BP Pulse Ox 98.1 F 80 20 130/65 94 L 06/21/17 08:00 06/21/17 08:00 06/21/17 08:00 06/21/17 08:00 06/21/17 08:00 - Medications Medications: Current Medications Acetaminophen (Tylenol 325mg Tab) 650 mg PO Q4 PRN PRN Reason: Pain, Mild (1-3) Acetaminophen (Tylenol 325mg Tab) 650 mg PO Q4 PRN PRN Reason: Pain, Mild (1-3) Acetaminophen (Tylenol 325mg Tab) 650 mg PO Q6 PRN PRN Reason: Fever >100.4 F Last Admin: 06/20/17 16:37 Dose: 650 mg Albuterol/Ipratropium (Duoneb 3 Mg/0.5 Mg (3 Ml) Ud) 3 ml INH RQID [facility] Last Admin: 06/21/17 11:25 Dose: 3 ml Atorvastatin Calcium (Lipitor) 10 mg PO DAILY [facility] Last Admin: 06/21/17 08:56 Dose: 10 mg Enoxaparin Sodium (Lovenox) 40 mg SC DAILY [facility] PRN Reason: Protocol Last Admin: 06/21/17 08:56 Dose: 40 mg Ferrous Sulfate (Feosol) 325 mg PO BID [facility] Last Admin: 06/21/17 08:55 Dose: 325 mg Gabapentin (Neurontin) 100 mg PO TID [facility] Last Admin: 06/21/17 12:16 Dose: 100 mg Glipizide (Glucotrol) 5 mg PO BID [facility] Last Admin: 06/21/17 08:56 Dose: 5 mg Vancomycin HCl 1 gm/ Sodium (Chloride) 250 mls @ 166.667 mls/hr IVPB DAILY@ 1700 [facility] PRN Reason: Protocol Last Admin: 06/20/17 16:35 Dose: 166.667 mls/hr Insulin Human Regular (Humulin R) 0 units SC ACHS [facility] PRN Reason: Protocol Last Admin: 06/21/17 12:17 Dose: 4 units Lactic Acid (Lac-Hydrin 12% Cream (140 G)) 1 ea TOP DAILY [facility] Last Admin: 06/21/17 08:56 Dose: 1 unit Lactobacillus Acidophilus (Bacid Acidophilus) 1 cap PO BID [facility] Last Admin: 06/21/17 09:00 Dose: 1 cap Nystatin (Nystop Topical Powder) 1 applic TOP TID [facility] Last Admin: 06/21/17 12:16 Dose: 1 applic Oxycodone/Acetaminophen (Percocet 5/325 Mg Tab) 1 tab PO Q4 PRN PRN Reason: Pain, moderate (4-7) Stop: 06/21/17 14:02 Last Admin: 06/21/17 06:16 Dose: 1 tab Oxycodone/Acetaminophen (Percocet 5/325 Mg Tab) 2 tab PO Q6 PRN PRN Reason: Pain, severe (8-10) Stop: 06/21/17 14:02 Last Admin: 06/20/17 13:59 Dose: 2 tab Pantoprazole Sodium (Protonix Ec Tab) 40 mg PO DAILY [facility] Last Admin: 06/21/17 08:57 Dose: 40 mg - Labs Labs: - Additional Findings Additional findings: - Constitutional Appears: No Acute Distress - Head Exam Head Exam: ATRAUMATIC - Eye Exam Eye Exam: EOMI, PERRL - ENT Exam ENT Exam: Normal Oropharynx - Neck Exam Neck Exam: Full ROM - Respiratory Exam Respiratory Exam: NORMAL BREATHING PATTERN Additional comments: good aeration b/l - Cardiovascular Exam Cardiovascular Exam: RRR, +S1, +S2 - GI/Abdominal Exam GI & Abdominal Exam: Soft, Normal Bowel Sounds Additional comments: NT, ND - Extremities Exam Additional comments: left LE with chronic venous stasis changes RLE in external fixator Dressing appears to be dry, clean, and intact with no strikethrough noted to the dressing. wound vac also in pace and draining sanguinous fluid - Neurological Exam Neurological Exam: Alert, Awake, Oriented x 3 Laboratory Results - last 72 hr 06/18/17 06/19/17 06/19/17 20:56 05:30 05:30 WBC 4.3 L RBC 3.36 L Hgb 9.6 L Hct 29.7 L MCV 88.3 MCH 28.5 MCHC 32.3 L RDW 18.2 H Plt Count 110 L D MPV Neut % (Auto) Lymph % (Auto) [place] % (Auto) Eos % (Auto) Baso % (Auto) Neut # Lymph # [place] # Eos # Baso # Sodium 137 Potassium 5.3 H Chloride 106 Carbon Dioxide 25 Anion Gap 11 BUN 28 H Creatinine 1.1 Est GFR ( Amer) > 60 Est GFR (Non-Af Amer) > 60 POC Glucose (mg/dL) 214 H Random Glucose 167 H Calcium 7.9 L Urine Color Urine Clarity Urine pH Ur Specific [place] Urine Protein Urine Glucose (UA) Urine Ketones Urine Blood Urine Nitrate Urine Bilirubin Urine Urobilinogen Ur Leukocyte Esterase Urine RBC (Auto) Urine Microscopic WBC Ur Squamous Epith Cells Uric Acid Crystals Urine Bacteria Vancomycin Trough 06/19/17 06/19/17 06/19/17 05:30 07:45 11:06 WBC RBC Hgb Hct MCV MCH MCHC RDW Plt Count MPV Neut % (Auto) Lymph % (Auto) [place] % (Auto) Eos % (Auto) Baso % (Auto) Neut # Lymph # [place] # Eos # Baso # Sodium Potassium Chloride Carbon Dioxide Anion Gap BUN Creatinine Est GFR ( Amer) Est GFR (Non-Af Amer) POC Glucose (mg/dL) 167 H 205 H Random Glucose Calcium Urine Color Urine Clarity Urine pH Ur Specific [place] Urine Protein Urine Glucose (UA) Urine Ketones Urine Blood Urine Nitrate Urine Bilirubin Urine Urobilinogen Ur Leukocyte Esterase Urine RBC (Auto) Urine Microscopic WBC Ur Squamous Epith Cells Uric Acid Crystals Urine Bacteria Vancomycin Trough 12.3 H 06/19/17 06/19/17 06/20/17 16:15 20:49 06:17 WBC RBC Hgb Hct MCV MCH MCHC RDW Plt Count MPV Neut % (Auto) Lymph % (Auto) [place] % (Auto) Eos % (Auto) Baso % (Auto) Neut # Lymph # [place] # Eos # Baso # Sodium Potassium Chloride Carbon Dioxide Anion Gap BUN Creatinine Est GFR ( Amer) Est GFR (Non-Af Amer) POC Glucose (mg/dL) 165 H 186 H 204 H Random Glucose Calcium Urine Color Urine Clarity Urine pH Ur Specific [place] Urine Protein Urine Glucose (UA) Urine Ketones Urine Blood Urine Nitrate Urine Bilirubin Urine Urobilinogen Ur Leukocyte Esterase Urine RBC (Auto) Urine Microscopic WBC Ur Squamous Epith Cells Uric Acid Crystals Urine Bacteria Vancomycin Trough 06/20/17 06/20/17 06/20/17 10:52 15:20 16:23 WBC RBC Hgb Hct MCV MCH MCHC RDW Plt Count MPV Neut % (Auto) Lymph % (Auto) [place] % (Auto) Eos % (Auto) Baso % (Auto) Neut # Lymph # [place] # Eos # Baso # Sodium 134 Potassium 5.0 Chloride 104 Carbon Dioxide 25 Anion Gap 10 BUN 29 H Creatinine 1.1 Est GFR ( Amer) > 60 Est GFR (Non-Af Amer) > 60 POC Glucose (mg/dL) 241 H 199 H Random Glucose 196 H Calcium 7.7 L Urine Color Urine Clarity Urine pH Ur Specific [place] Urine Protein Urine Glucose (UA) Urine Ketones Urine Blood Urine Nitrate Urine Bilirubin Urine Urobilinogen Ur Leukocyte Esterase Urine RBC (Auto) Urine Microscopic WBC Ur Squamous Epith Cells Uric Acid Crystals Urine Bacteria Vancomycin Trough 06/20/17 06/21/17 06/21/17 21:10 06:33 10:48 WBC RBC Hgb Hct MCV MCH MCHC RDW Plt Count MPV Neut % (Auto) Lymph % (Auto) [place] % (Auto) Eos % (Auto) Baso % (Auto) Neut # Lymph # [place] # Eos # Baso # Sodium Potassium Chloride Carbon Dioxide Anion Gap BUN Creatinine Est GFR ( Amer) Est GFR (Non-Af Amer) POC Glucose (mg/dL) 212 H 221 H 266 H Random Glucose Calcium Urine Color Urine Clarity Urine pH Ur Specific [place] Urine Protein Urine Glucose (UA) Urine Ketones Urine Blood Urine Nitrate Urine Bilirubin Urine Urobilinogen Ur Leukocyte Esterase Urine RBC (Auto) Urine Microscopic WBC Ur Squamous Epith Cells Uric Acid Crystals Urine Bacteria Vancomycin Trough 06/21/17 06/21/17 11:00 15:27 WBC 3.6 L RBC 2.90 L Hgb 8.2 L Hct 25.7 L MCV 88.8 MCH 28.2 MCHC 31.7 L RDW 18.9 H Plt Count 95 L MPV 6.4 L Neut % (Auto) 72.5 Lymph % (Auto) 10.1 L [place] % (Auto) 16.0 H Eos % (Auto) 1.0 Baso % (Auto) 0.4 Neut # 2.6 Lymph # 0.4 L [place] # 0.6 Eos # 0.0 Baso # 0.0 Sodium Potassium Chloride Carbon Dioxide Anion Gap BUN Creatinine Est GFR ( Amer) Est GFR (Non-Af Amer) POC Glucose (mg/dL) Random Glucose Calcium Urine Color Yellow Urine Clarity Turbid Urine pH 5.0 Ur Specific [place] 1.021 Urine Protein 30 Urine Glucose (UA) Neg Urine Ketones Negative Urine Blood Moderate Urine Nitrate Negative Urine Bilirubin Negative Urine Urobilinogen 0.2-1.0 Ur Leukocyte Esterase Trace Urine RBC (Auto) 22 H Urine Microscopic WBC 17 H Ur Squamous Epith Cells < 1 Uric Acid Crystals Few H Urine Bacteria Rare Vancomycin Trough Microbiology 06/09/17 20:30 Blood-Venous Blood Culture - Final 06/09/17 20:30 Blood-Venous Gram Stain - Final NO GROWTH AFTER 5 DAYS TEST NOT PERFORMED 06/09/17 20:30 Blood-Venous Blood Culture - Final 06/09/17 20:30 Blood-Venous Gram Stain - Final NO GROWTH AFTER 5 DAYS TEST NOT PERFORMED Assessment and Plan (1) History of bacteremia Status: Acute (2) Ankle fracture Status: Acute - Assessment and Plan (Free Text) Assessment: A/P- 81 year old male with multiple medical conditions including CAD, MDS, DM II, Obesity admitted with right ankle fracture s/p closed reduction and external fixation by podiatry last week ands/p wpun debridement and wound vac last week now transferred to TCU for PT. new onset fever this am. minimal leukopenia blood cx- neg x 2 1. right ankle fracture s/p closed reduction and external fixation 2.MDS 3.DM II 4.CAD Plan- has been on empiric vanco for past 12 days prevention of any wound infection since pt. does have h/o bacteremia on previous admission and since he has open wound and wound vac in place. advise 2 more days of empiric vanco. however in light of new fever advise to send UA and urine cx from the current ansari which apparenlty has been n place since admission. advise to d/c ansari . check blood cx x 2. wound vac management as per surgical/podiatry teams. would also advise perhaps berevement counseling for patient to talk to in regards to the news of his son's passing . all above d/w Hospitalist .
[2017-06-21] MEDS ORDERED: Oxycodone/Acetaminophen 5/325 mg Tab PO PRN (14:07)
[2017-06-21 15:42] LABS: RBC URINE 22 /hpf (0-3); URINE BACTERIA RARE (<OCC); URINE BILIRUBIN NEGATIVE (NEGATIVE); URINE BLOOD MODERATE (NEGATIVE); URINE COLOR YELLOW (YELLOW); URINE GLUCOSE (UA) NEG (Normal); URINE KETONE NEGATIVE (NEGATIVE); URINE LEUKOCYTE ESTERASE TRACE Leu/uL (Negative); URINE PROTEIN 30 mg/dL (NEGATIVE); URINE URIC ACID CRYSTALS FEW /hpf (<OCC); URINE UROBILINOGEN 0.2-1.0 mg/dL (0.2-1.0); WBC URINE 17 /hpf (0-5)
--- NOTE | 2017-06-21 16:22 | CP.PCM.PN ---
Subjective - Date & Time of Evaluation Date of Evaluation: 06/21/17 Time of Evaluation: 16:19 - Subjective Subjective: 81 year old male seen at bedside 5 days s/p failed internal fixation of right fibular fx with IM ashanti as patient's bone was too brittle to handle ashanti. Patient states that he is feeling well today and says pain in left leg is well controlled. He is NAD and AAO x3 resting and eating in bed. Patient's wound vac seen to be working properly at 125 mmHg of constant pressure. Patient denies any further pedal complaints at this time. Patient denies any recent N/V/F/C/CP/ SOB. Objective - Vital Signs/Intake and Output Vital Signs (last 24 hours): Temp Pulse Resp BP Pulse Ox 98.1 F 80 20 130/65 94 L 06/21/17 08:00 06/21/17 08:00 06/21/17 08:00 06/21/17 08:00 06/21/17 08:00 - Medications Medications: Current Medications Acetaminophen (Tylenol 325mg Tab) 650 mg PO Q4 PRN PRN Reason: Pain, Mild (1-3) Acetaminophen (Tylenol 325mg Tab) 650 mg PO Q4 PRN PRN Reason: Pain, Mild (1-3) Acetaminophen (Tylenol 325mg Tab) 650 mg PO Q6 PRN PRN Reason: Fever >100.4 F Last Admin: 06/20/17 16:37 Dose: 650 mg Albuterol/Ipratropium (Duoneb 3 Mg/0.5 Mg (3 Ml) Ud) 3 ml INH RQID [facility] Last Admin: 06/21/17 15:40 Dose: 3 ml Atorvastatin Calcium (Lipitor) 10 mg PO DAILY [facility] Last Admin: 06/21/17 08:56 Dose: 10 mg Enoxaparin Sodium (Lovenox) 40 mg SC DAILY [facility] PRN Reason: Protocol Last Admin: 06/21/17 08:56 Dose: 40 mg Ferrous Sulfate (Feosol) 325 mg PO BID [facility] Last Admin: 06/21/17 08:55 Dose: 325 mg Gabapentin (Neurontin) 100 mg PO TID [facility] Last Admin: 06/21/17 12:16 Dose: 100 mg Glipizide (Glucotrol) 5 mg PO BID [facility] Last Admin: 06/21/17 08:56 Dose: 5 mg Vancomycin HCl 1 gm/ Sodium (Chloride) 250 mls @ 166.667 mls/hr IVPB DAILY@ 1700 [facility] PRN Reason: Protocol Last Admin: 06/20/17 16:35 Dose: 166.667 mls/hr Insulin Human Regular (Humulin R) 0 units SC ACHS [facility] PRN Reason: Protocol Last Admin: 06/21/17 12:17 Dose: 4 units Lactic Acid (Lac-Hydrin 12% Cream (140 G)) 1 ea TOP DAILY [facility] Last Admin: 06/21/17 08:56 Dose: 1 unit Lactobacillus Acidophilus (Bacid Acidophilus) 1 cap PO BID [facility] Last Admin: 06/21/17 09:00 Dose: 1 cap Nystatin (Nystop Topical Powder) 1 applic TOP TID [facility] Last Admin: 06/21/17 12:16 Dose: 1 applic Oxycodone/Acetaminophen (Percocet 5/325 Mg Tab) 1 tab PO Q4 PRN PRN Reason: Pain, moderate (4-7) Stop: 06/24/17 14:08 Oxycodone/Acetaminophen (Percocet 5/325 Mg Tab) 2 tab PO Q4 PRN PRN Reason: Pain, severe (8-10) Stop: 06/24/17 14:23 Last Admin: 06/21/17 14:43 Dose: 2 tab Pantoprazole Sodium (Protonix Ec Tab) 40 mg PO DAILY [facility] Last Admin: 06/21/17 08:57 Dose: 40 mg - Labs Labs: 06/21/17 11:00 06/20/17 15:20 - Constitutional Appears: Well, Non-toxic, No Acute Distress - Extremities Exam Additional comments: Dressing is clean, dry, intact with no strikethrough noted to the dressing. External fixation is intact and stable with no backing out Wound VAC on continously at 125mmHg Vasc: DP is 1/4, temperature to the right foot is warm, skin color normal, CFT is delayed to digits at 5 seconds but present Epicritic and protective sensation grossly intact b/l Extreme POP to wound site and fibular fracture site - Neurological Exam Neurological Exam: Alert, Awake, Oriented x3 - Psychiatric Exam Psychiatric exam: Normal Affect, Normal Mood Assessment and Plan - Assessment and Plan (Free Text) Assessment: 81 year old male seen at bedside for displaced fibular fx 5 days s/p failed fibular fx IM ashanti placement for wound vac change Plan: Patient seen and evaluated at bedside with attending, Dr. Avila Charts, labs and vitals reviewed Patient is to be STRICT NWB for 6-8 weeks. No further internal fixation will be attempted Changed wound vac and dressings without incident Will plan for next wound vac change in 3-[address] Avila to reach out to Dr. Singh to see if there is any chance of applying a skin graft to patient's wound Podiatry will continue to follow while patient in house
[2017-06-22] MEDS: Insulin Regular 100 units/ml SC SCH ×4 (06:55→21:23)
[2017-06-22] MEDS: Oxycodone/Acetaminophen 5/325 mg Tab PO PRN ×2 (07:05→21:08)
[2017-06-22] MEDS: Albuterol-Ipratrop 3 mg / 0.5 (3 ml) UD INH SCH ×4 (07:32→19:06)
--- NOTE | 2017-06-22 08:37 | CP.PCM.PN ---
Subjective - Date & Time of Evaluation Date of Evaluation: 06/22/17 Time of Evaluation: 08:35 - Subjective Subjective: 81 year old male seen at bedside with attending Dr. Avila 6 days s/p failed internal fixation of right fibular fx with IM ashanti as patient's bone was too brittle to handle ashanti. Patient states that he is feeling well after wound vac change yesterday. Patient's wound vac seen to be working properly at 125 mmHg of constant pressure. Patient denies any further pedal complaints at this time. Patient is AAO x3 and NAD resting comfortably in bed. Patient denies any recent N/V/F/C/CP/SOB. Objective - Vital Signs/Intake and Output Vital Signs (last 24 hours): Temp Pulse Resp BP Pulse Ox 97.1 F L 81 20 137/68 94 L 06/22/17 08:18 06/22/17 08:18 06/22/17 08:18 06/22/17 08:18 06/22/17 08:18 - Medications Medications: Current Medications Acetaminophen (Tylenol 325mg Tab) 650 mg PO Q4 PRN PRN Reason: Pain, Mild (1-3) Acetaminophen (Tylenol 325mg Tab) 650 mg PO Q4 PRN PRN Reason: Pain, Mild (1-3) Acetaminophen (Tylenol 325mg Tab) 650 mg PO Q6 PRN PRN Reason: Fever >100.4 F Last Admin: 06/20/17 16:37 Dose: 650 mg Albuterol/Ipratropium (Duoneb 3 Mg/0.5 Mg (3 Ml) Ud) 3 ml INH RQID [facility] Last Admin: 06/22/17 07:32 Dose: 3 ml Atorvastatin Calcium (Lipitor) 10 mg PO DAILY [facility] Last Admin: 06/21/17 08:56 Dose: 10 mg Enoxaparin Sodium (Lovenox) 40 mg SC DAILY [facility] PRN Reason: Protocol Last Admin: 06/21/17 08:56 Dose: 40 mg Ferrous Sulfate (Feosol) 325 mg PO BID [facility] Last Admin: 06/21/17 16:52 Dose: 325 mg Gabapentin (Neurontin) 100 mg PO TID [facility] Last Admin: 06/21/17 16:53 Dose: 100 mg Glipizide (Glucotrol) 5 mg PO BID [facility] Last Admin: 06/21/17 16:53 Dose: 5 mg Vancomycin HCl 1 gm/ Sodium (Chloride) 250 mls @ 166.667 mls/hr IVPB DAILY@ 1700 [facility] PRN Reason: Protocol Last Admin: 06/21/17 16:51 Dose: 166.667 mls/hr Insulin Human Regular (Humulin R) 0 units SC ACHS [facility] PRN Reason: Protocol Last Admin: 06/22/17 06:55 Dose: 2 units Lactic Acid (Lac-Hydrin 12% Cream (140 G)) 1 ea TOP DAILY [facility] Last Admin: 06/21/17 08:56 Dose: 1 unit Lactobacillus Acidophilus (Bacid Acidophilus) 1 cap PO BID [facility] Last Admin: 06/21/17 16:52 Dose: 1 cap Nystatin (Nystop Topical Powder) 1 applic TOP TID [facility] Last Admin: 06/21/17 16:52 Dose: 1 applic Oxycodone/Acetaminophen (Percocet 5/325 Mg Tab) 1 tab PO Q4 PRN PRN Reason: Pain, moderate (4-7) Stop: 06/24/17 14:08 Oxycodone/Acetaminophen (Percocet 5/325 Mg Tab) 2 tab PO Q4 PRN PRN Reason: Pain, severe (8-10) Stop: 06/24/17 14:23 Last Admin: 06/22/17 07:05 Dose: 2 tab Pantoprazole Sodium (Protonix Ec Tab) 40 mg PO DAILY [facility] Last Admin: 06/21/17 08:57 Dose: 40 mg - Labs Labs: 06/21/17 11:00 06/20/17 15:20 - Constitutional Appears: Well, Non-toxic, No Acute Distress - Extremities Exam Additional comments: Dressing is clean, dry, intact with no strikethrough noted to the dressing. External fixation is intact and stable with no backing out Wound VAC on continously at 125mmHg Vasc: DP is 1/4, temperature to the right foot is warm, skin color normal, CFT is delayed to digits at 5 seconds but present - Neurological Exam Neurological Exam: Alert, Awake, Oriented x3 - Psychiatric Exam Psychiatric exam: Normal Affect, Normal Mood Assessment and Plan - Assessment and Plan (Free Text) Assessment: 81 year old male seen at bedside for displaced fibular fx 6 days s/p failed fibular fx IM ashanti placement Plan: Patient seen and evaluated at bedside Charts, labs and vitals reviewed Patient is to be STRICT NWB for 6-8 weeks. No further internal fixation will be attempted Podiatry will change wound vac in [address] Avila to speak with Dr. Singh about possibility of skin graft for patient 's anterior leg wound Podiatry will continue to follow while patient in house
[2017-06-22] MEDS: Ammonium Lactate 12% Cream (140 g) TOP SCH (08:52)
[2017-06-22] MEDS: Enoxaparin 40 mg Syringe SC SCH (08:53)
[2017-06-22] MEDS: Lactobacillus Acidophilus 500 MU Cap PO SCH ×2 (08:53→16:53)
[2017-06-22] MEDS: Pantoprazole 40 mg EC Tab PO SCH (08:54)
--- NOTE | 2017-06-22 16:03 | CARD ---
APPROVED REPORT EXAM: Two-dimensional and M-mode echocardiogram with Doppler and color Doppler. Other Information Quality : GoodRhythm : NSR INDICATION Infection:Subacute bacterial endocarditis Surgery/Intervention CABD DIMENSIONS IVSd1.01 (0.7-1.1cm)LVDd5.22 (3.9-5.9cm) LVOT Diameter2.12 (1.8-2.4cm)PWd1.33 (0.7-1.1cm) IVSs1.68 (0.8-1.2cm)LVDs3.80 (2.5-4.0cm) FS (%) 27.3 %PWs1.41 (0.8-1.2cm) LVEF (%)55.0 (>50%) M-Mode DIMENSIONS Left Atrium (MM)5.37 (2.5-4.0cm)IVSd1.58 (0.7-1.1cm) Aortic Root3.74 (2.2-3.7cm)LVDd5.40 (4.0-5.6cm) Aortic Cusp Exc.2.16 (1.5-2.0cm)PWd1.43 (0.7-1.1cm) IVSs1.78 cmFS (%) 26 % LVDs3.98 (2.0-3.8cm)PWs1.97 cm Mitral Valve E/A ratio0.0 TDI E/Lateral E'0.0E/Medial E'0.0 LEFT VENTRICLE The left ventricle is normal size. There is normal left ventricular wall thickness. The left ventricular function is normal. The left ventricular ejection fraction is within the normal range. There is normal LV segmental wall motion. Transmitral Doppler flow pattern is Grade I-abnormal relaxation pattern. RIGHT VENTRICLE The right ventricle is normal size. There is normal right ventricular wall thickness. The right ventricular systolic function is normal. ATRIA The left atrium is mildly dilated. The right atrium is mildly dilated. AORTIC VALVE The aortic valve is not well visualized. No aortic regurgitation is present. There is no aortic valvular stenosis. MITRAL VALVE The mitral valve is mildly thickened. There is no mitral valve stenosis. There is no mitral valve regurgitation noted. TRICUSPID VALVE The tricuspid valve is normal in structure. There is trace to mild tricuspid regurgitation. PULMONIC VALVE The pulmonary valve is normal in structure. There is no pulmonic valvular regurgitation. GREAT VESSELS The aortic root is normal in size. The IVC was not visualized. PERICARDIAL EFFUSION The pericardium appears normal. <Conclusion> The left ventricle is normal size. There is normal left ventricular wall thickness. The left ventricular function is normal. The left ventricular ejection fraction is within the normal range. There is normal LV segmental wall motion. Transmitral Doppler flow pattern is Grade I-abnormal relaxation pattern. The aortic valve is not well visualized, otherwise, no vegitation seen
[2017-06-23] MEDS: Insulin Regular 100 units/ml SC SCH ×4 (06:33→22:47)
[2017-06-23] MEDS: Albuterol-Ipratrop 3 mg / 0.5 (3 ml) UD INH SCH ×4 (08:00→19:14)
--- NOTE | 2017-06-23 08:44 | CP.PCM.PN ---
Subjective - Date & Time of Evaluation Date of Evaluation: 06/23/17 Time of Evaluation: 08:39 - Subjective Subjective: Pt appears to be doing a little better today. His appetite is good. but he suddenly ets depressed and starts crying when he thinks of his son who 3 days ago.His hgb today was 8.1gms. Will transfuse 1 unit today and 1 unit tomorrow, Objective - Vital Signs/Intake and Output Vital Signs (last 24 hours): Temp Pulse Resp BP Pulse Ox 97.3 F L 80 20 149/70 100 06/23/17 08:08 06/23/17 08:08 06/23/17 08:08 06/23/17 08:08 06/23/17 08:08 - Medications Medications: Current Medications Acetaminophen (Tylenol 325mg Tab) 650 mg PO Q4 PRN PRN Reason: Pain, Mild (1-3) Acetaminophen (Tylenol 325mg Tab) 650 mg PO Q4 PRN PRN Reason: Pain, Mild (1-3) Acetaminophen (Tylenol 325mg Tab) 650 mg PO Q6 PRN PRN Reason: Fever >100.4 F Last Admin: 06/20/17 16:37 Dose: 650 mg Albuterol/Ipratropium (Duoneb 3 Mg/0.5 Mg (3 Ml) Ud) 3 ml INH RQID [facility] Last Admin: 06/23/17 08:00 Dose: 3 ml Atorvastatin Calcium (Lipitor) 10 mg PO DAILY [facility] Last Admin: 06/22/17 08:54 Dose: 10 mg Enoxaparin Sodium (Lovenox) 40 mg SC DAILY [facility] PRN Reason: Protocol Last Admin: 06/22/17 08:53 Dose: 40 mg Ferrous Sulfate (Feosol) 325 mg PO BID [facility] Last Admin: 06/22/17 16:54 Dose: 325 mg Gabapentin (Neurontin) 100 mg PO TID [facility] Last Admin: 06/22/17 16:54 Dose: 100 mg Glipizide (Glucotrol) 5 mg PO BID [facility] Last Admin: 06/22/17 16:54 Dose: 5 mg Vancomycin HCl 750 mg/ Sodium (Chloride) 250 mls @ 166.667 mls/hr IVPB Q12 [facility] PRN Reason: Protocol Last Admin: 06/22/17 21:07 Dose: 166.667 mls/hr Insulin Human Regular (Humulin R) 0 units SC ACHS [facility] PRN Reason: Protocol Last Admin: 06/23/17 06:33 Dose: 2 units Lactic Acid (Lac-Hydrin 12% Cream (140 G)) 1 ea TOP DAILY [facility] Last Admin: 06/22/17 08:52 Dose: 1 unit Lactobacillus Acidophilus (Bacid Acidophilus) 1 cap PO BID [facility] Last Admin: 06/22/17 16:53 Dose: 1 cap Nystatin (Nystop Topical Powder) 1 applic TOP TID [facility] Last Admin: 06/22/17 16:54 Dose: 1 applic Oxycodone/Acetaminophen (Percocet 5/325 Mg Tab) 1 tab PO Q4 PRN PRN Reason: Pain, moderate (4-7) Stop: 06/24/17 14:08 Last Admin: 06/23/17 05:23 Dose: 1 tab Oxycodone/Acetaminophen (Percocet 5/325 Mg Tab) 2 tab PO Q4 PRN PRN Reason: Pain, severe (8-10) Stop: 06/24/17 14:23 Last Admin: 06/22/17 21:08 Dose: 2 tab Pantoprazole Sodium (Protonix Ec Tab) 40 mg PO DAILY [facility] Last Admin: 06/22/17 08:54 Dose: 40 mg - Labs Labs: 06/21/17 11:00 06/20/17 15:20
--- NOTE | 2017-06-23 09:30 | CP.PCM.PN ---
Subjective - Date & Time of Evaluation Date of Evaluation: 06/23/17 Time of Evaluation: 09:28 - Subjective Subjective: 81 year old male seen at bedside with attending Dr. Avila 7 days s/p failed internal fixation of right fibular fx with IM ashanti as patient's bone was too brittle to handle ashanti. Patient states that he is feeling well today but is very sad every time he thinks of his son who three days ago. Patient's wound vac seen to be working properly at 125 mmHg of constant pressure. 200 cc of drainage seen in the canister. Patient denies any further pedal complaints at this time. Patient is AAO x3 and NAD resting comfortably in bed. Patient denies any recent N/V/F/C/CP/SOB. Objective - Vital Signs/Intake and Output Vital Signs (last 24 hours): Temp Pulse Resp BP Pulse Ox 97.3 F L 80 20 149/70 100 06/23/17 08:08 06/23/17 08:08 06/23/17 08:08 06/23/17 08:08 06/23/17 08:08 - Medications Medications: Current Medications Acetaminophen (Tylenol 325mg Tab) 650 mg PO Q4 PRN PRN Reason: Pain, Mild (1-3) Acetaminophen (Tylenol 325mg Tab) 650 mg PO Q4 PRN PRN Reason: Pain, Mild (1-3) Acetaminophen (Tylenol 325mg Tab) 650 mg PO Q6 PRN PRN Reason: Fever >100.4 F Last Admin: 06/20/17 16:37 Dose: 650 mg Albuterol/Ipratropium (Duoneb 3 Mg/0.5 Mg (3 Ml) Ud) 3 ml INH RQID [facility] Last Admin: 06/23/17 08:00 Dose: 3 ml Atorvastatin Calcium (Lipitor) 10 mg PO DAILY [facility] Last Admin: 06/22/17 08:54 Dose: 10 mg Enoxaparin Sodium (Lovenox) 40 mg SC DAILY [facility] PRN Reason: Protocol Last Admin: 06/22/17 08:53 Dose: 40 mg Ferrous Sulfate (Feosol) 325 mg PO BID [facility] Last Admin: 06/22/17 16:54 Dose: 325 mg Gabapentin (Neurontin) 100 mg PO TID [facility] Last Admin: 06/22/17 16:54 Dose: 100 mg Glipizide (Glucotrol) 5 mg PO BID [facility] Last Admin: 06/22/17 16:54 Dose: 5 mg Vancomycin HCl 750 mg/ Sodium (Chloride) 250 mls @ 166.667 mls/hr IVPB Q12 [facility] PRN Reason: Protocol Last Admin: 06/22/17 21:07 Dose: 166.667 mls/hr Insulin Human Regular (Humulin R) 0 units SC ACHS [facility] PRN Reason: Protocol Last Admin: 06/23/17 06:33 Dose: 2 units Lactic Acid (Lac-Hydrin 12% Cream (140 G)) 1 ea TOP DAILY [facility] Last Admin: 06/22/17 08:52 Dose: 1 unit Lactobacillus Acidophilus (Bacid Acidophilus) 1 cap PO BID [facility] Last Admin: 06/22/17 16:53 Dose: 1 cap Nystatin (Nystop Topical Powder) 1 applic TOP TID [facility] Last Admin: 06/22/17 16:54 Dose: 1 applic Oxycodone/Acetaminophen (Percocet 5/325 Mg Tab) 1 tab PO Q4 PRN PRN Reason: Pain, moderate (4-7) Stop: 06/24/17 14:08 Last Admin: 06/23/17 05:23 Dose: 1 tab Oxycodone/Acetaminophen (Percocet 5/325 Mg Tab) 2 tab PO Q4 PRN PRN Reason: Pain, severe (8-10) Stop: 06/24/17 14:23 Last Admin: 06/22/17 21:08 Dose: 2 tab Pantoprazole Sodium (Protonix Ec Tab) 40 mg PO DAILY [facility] Last Admin: 06/22/17 08:54 Dose: 40 mg - Labs Labs: 06/21/17 11:00 06/20/17 15:20 - Constitutional Appears: Well, Non-toxic, No Acute Distress - Extremities Exam Additional comments: Dressing is clean, dry, intact with no strikethrough noted to the dressing. External fixation is intact and stable with no backing out Wound VAC on continously at 125mmHg Vasc: temperature to the right foot is warm, skin color normal, CFT is delayed to digits at 5 seconds but present - Neurological Exam Neurological Exam: Alert, Awake, Oriented x3 - Psychiatric Exam Psychiatric exam: Normal Affect, Normal Mood Assessment and Plan - Assessment and Plan (Free Text) Assessment: 81 year old male seen at bedside for displaced fibular fx 7 days s/p failed fibular fx IM ashanti placement Plan: Patient seen and evaluated at bedside Charts, labs and vitals reviewed Patient is to be STRICT NWB for 6-8 weeks. No further internal fixation will be attempted Podiatry will change wound vac in [address] Avila to speak with Dr. Singh about possibility of skin graft for patient 's anterior leg wound Podiatry will continue to follow while patient in house
[2017-06-23] MEDS: Lactobacillus Acidophilus 500 MU Cap PO SCH ×3 (09:31→17:45)
[2017-06-23] MEDS: Pantoprazole 40 mg EC Tab PO SCH (09:32)
[2017-06-23] MEDS: Ammonium Lactate 12% Cream (140 g) TOP SCH (09:32)
[2017-06-23] MEDS: Enoxaparin 40 mg Syringe SC SCH (09:32)
[2017-06-23] MEDS: Oxycodone/Acetaminophen 5/325 mg Tab PO PRN (10:02)
--- NOTE | 2017-06-23 11:53 | CP.PCM.PN ---
Subjective - Date & Time of Evaluation Date of Evaluation: 06/23/17 Time of Evaluation: 11:51 - Subjective Subjective: patient seen and examined at bedside for failed internal fixation right hip fracture. Patient is tearful as son 3 days ago. He also complains of pain especially with wound care and wound VAC changes, we will appropriately adjust pain management. Patient to go for blood transfusion 1 unit today and 1 unit tomorrow per hematology oncology. Blood culture did come back gram- positive cocci sized, will await infectious disease recommendations. Hemodynamically stable. No acute distress. Objective - Vital Signs/Intake and Output Vital Signs (last 24 hours): Temp Pulse Resp BP Pulse Ox 97.3 F L 80 20 149/70 100 06/23/17 08:08 06/23/17 08:08 06/23/17 08:08 06/23/17 08:08 06/23/17 08:08 Physical exam: Constitutional- cooperative, awake, alert. tearful. Head- NCAT, PERRL Eye- PERRL, normal accommodation ENT- normal exam, MMM. Neck- normal inspection, supple, no JVD Respiratory- CTAB, no wheezes rales rhonchi Cardiovascular- RRR, +S1, +S2 no MRG GI/Abdominal- normal bowel sounds, soft, no mass, no hsm Skin- warm, dry Extremities Exam- wound VAC in place, draining. good peripheral pulses neurovascularly intact. Neurological Exam- alert, stable gait Psych- normal mood, normal affect - Medications Medications: Current Medications Acetaminophen (Tylenol 325mg Tab) 650 mg PO Q4 PRN PRN Reason: Pain, Mild (1-3) Acetaminophen (Tylenol 325mg Tab) 650 mg PO Q4 PRN PRN Reason: Pain, Mild (1-3) Acetaminophen (Tylenol 325mg Tab) 650 mg PO Q6 PRN PRN Reason: Fever >100.4 F Last Admin: 06/20/17 16:37 Dose: 650 mg Albuterol/Ipratropium (Duoneb 3 Mg/0.5 Mg (3 Ml) Ud) 3 ml INH RQID [facility] Last Admin: 06/23/17 11:44 Dose: 3 ml Atorvastatin Calcium (Lipitor) 10 mg PO DAILY [facility] Last Admin: 06/23/17 09:32 Dose: 10 mg Enoxaparin Sodium (Lovenox) 40 mg SC DAILY [facility] PRN Reason: Protocol Last Admin: 06/23/17 09:32 Dose: 40 mg Ferrous Sulfate (Feosol) 325 mg PO BID [facility] Last Admin: 06/23/17 09:31 Dose: 325 mg Gabapentin (Neurontin) 100 mg PO TID [facility] Last Admin: 06/23/17 09:32 Dose: 100 mg Glipizide (Glucotrol) 5 mg PO BID [facility] Last Admin: 06/23/17 09:31 Dose: 5 mg Vancomycin HCl 750 mg/ Sodium (Chloride) 250 mls @ 166.667 mls/hr IVPB Q12 [facility] PRN Reason: Protocol Last Admin: 06/23/17 09:47 Dose: 166.667 mls/hr Insulin Human Regular (Humulin R) 0 units SC ACHS [facility] PRN Reason: Protocol Last Admin: 06/23/17 11:36 Dose: 2 units Lactic Acid (Lac-Hydrin 12% Cream (140 G)) 1 ea TOP DAILY [facility] Last Admin: 06/23/17 09:32 Dose: 1 unit Lactobacillus Acidophilus (Bacid Acidophilus) 1 cap PO BID [facility] Last Admin: 06/23/17 09:31 Dose: 1 cap Nystatin (Nystop Topical Powder) 1 applic TOP TID [facility] Last Admin: 06/23/17 09:32 Dose: 1 applic Oxycodone/Acetaminophen (Percocet 5/325 Mg Tab) 1 tab PO Q4 PRN PRN Reason: Pain, moderate (4-7) Stop: 06/24/17 14:08 Last Admin: 06/23/17 05:23 Dose: 1 tab Oxycodone/Acetaminophen (Percocet 5/325 Mg Tab) 2 tab PO Q4 PRN PRN Reason: Pain, severe (8-10) Stop: 06/24/17 14:23 Last Admin: 06/23/17 10:02 Dose: 2 tab Pantoprazole Sodium (Protonix Ec Tab) 40 mg PO DAILY [facility] Last Admin: 06/23/17 09:32 Dose: 40 mg - Labs Labs: 06/21/17 11:00 06/20/17 15:20 Assessment and Plan - Assessment and Plan (Free Text) Plan: 81 year old male patient PMHx HTN, CHF, CAD/CABG, Myelodysplastic Syndrome, Cirrhosis and DMII seen at bedside in TCU 5 days s/p failed internal fixation of right fibular fx with IM ashanti. Patient underwent a right ankle closed reduction external fixation and wound debridement (DOS: 05/30/17) followed with wound washout and debridement and wound vac placement (DOS 06/13/17). Patient's son 3 days ago, consider grief counseling. (1) Ankle fracture Assessment & Plan: Podiatry consult on board - Dr. Avila 7 days s/p failed internal fixation right fibular fx with IM ashanti & WoundVAC application (DOS: 06/16/17) 10 days s/p right ankle wound wash out, debridement, and wound vac placement ( DOS: 06/13/17) by Dr. Benson 14 days s/p right ankle closed reduction external fixation and wound debridement (DOS: 06/09/17) Per podiatry, STRICT NWB RLE; no further internal fixation Wound care per podiatry (plan to change 3-4x/week) IN 2 DAYS WoundVAC noted to have sanguinous drainage Continue pain management, additional for wound VAC changes Last dose of Vanc today, however BCx +gm + cocci, will await ID recs -ID consulted, recs appreciated Status: Acute (2) Myelodysplasia (myelodysplastic syndrome) Assessment & Plan: Dr. Salma Yanes consulted, recs appreciated Hgb 9.6 Continue to follow CBC patient for 1 unit PRBC today and 1 unit PRBC tomorrow Status: Chronic (3) DM2 (diabetes mellitus, type 2) Assessment & Plan: A1c = 6.1 Continue Glipizide 5 mg PO BID Regular insulin sliding scale according to Accucheck - ACHS Heart healthy diet Status: Chronic (4) CAD (coronary artery disease) Assessment & Plan: Continue statin Status: Chronic (5) Cirrhosis of liver 9 liters of ascitic fluid removed on 06/15/2017 Status: Chronic (6) DVT prophylaxis continue Lovenox 40mg SC daily but hold when platelets is below 80,000 Status: Acute (7) Grief Consider grief counseling as patient's son 3 days ago
[2017-06-23] MEDS ORDERED: HYDROmorphone 0.5 mg/0.5 ml ISec IVP PRN (11:57)
[2017-06-24] MEDS: Oxycodone/Acetaminophen 5/325 mg Tab PO PRN ×4 (01:56→21:57)
[2017-06-24] MEDS: Insulin Regular 100 units/ml SC SCH ×4 (06:35→21:27)
[2017-06-24] MEDS: Albuterol-Ipratrop 3 mg / 0.5 (3 ml) UD INH SCH ×4 (07:13→19:54)
[2017-06-24] MEDS: Lactobacillus Acidophilus 500 MU Cap PO SCH ×2 (08:42→18:16)
[2017-06-24] MEDS: Ammonium Lactate 12% Cream (140 g) TOP SCH (08:42)
[2017-06-24] MEDS: Enoxaparin 40 mg Syringe SC SCH (08:43)
[2017-06-24] MEDS: Pantoprazole 40 mg EC Tab PO SCH (08:43)
--- NOTE | 2017-06-24 09:47 | CP.PCM.PN ---
Subjective - Date & Time of Evaluation Date of Evaluation: 06/24/17 Time of Evaluation: 09:47 - Subjective Subjective: Pt is feeling better, appetite improving slowly. He however has coagulase negative staph in the blood. May need antibiotics for a long time. Will transfuse him another unit of packed cells today. Objective - Vital Signs/Intake and Output Vital Signs (last 24 hours): Temp Pulse Resp BP Pulse Ox 97.3 F L 88 20 154/81 H 95 06/24/17 08:18 06/24/17 08:18 06/24/17 08:18 06/24/17 08:18 06/24/17 08:18 - Medications Medications: Current Medications Acetaminophen (Tylenol 325mg Tab) 650 mg PO Q4 PRN PRN Reason: Pain, Mild (1-3) Acetaminophen (Tylenol 325mg Tab) 650 mg PO Q4 PRN PRN Reason: Pain, Mild (1-3) Acetaminophen (Tylenol 325mg Tab) 650 mg PO Q6 PRN PRN Reason: Fever >100.4 F Last Admin: 06/20/17 16:37 Dose: 650 mg Albuterol/Ipratropium (Duoneb 3 Mg/0.5 Mg (3 Ml) Ud) 3 ml INH RQID [facility] Last Admin: 06/24/17 07:13 Dose: 3 ml Atorvastatin Calcium (Lipitor) 10 mg PO DAILY [facility] Last Admin: 06/24/17 08:43 Dose: 10 mg Enoxaparin Sodium (Lovenox) 40 mg SC DAILY [facility] PRN Reason: Protocol Last Admin: 06/24/17 08:43 Dose: 40 mg Ferrous Sulfate (Feosol) 325 mg PO BID [facility] Last Admin: 06/24/17 08:43 Dose: 325 mg Gabapentin (Neurontin) 100 mg PO TID [facility] Last Admin: 06/24/17 08:43 Dose: 100 mg Glipizide (Glucotrol) 5 mg PO BID [facility] Last Admin: 06/24/17 08:43 Dose: 5 mg Hydromorphone HCl (Dilaudid) 0.25 mg IVP DAILY PRN PRN Reason: PAIN PRIOR TO WOUND VAC CHANGE Vancomycin HCl 750 mg/ Sodium (Chloride) 250 mls @ 166.667 mls/hr IVPB Q12 [facility] PRN Reason: Protocol Last Admin: 06/24/17 08:48 Dose: 166.667 mls/hr Insulin Human Regular (Humulin R) 0 units SC ACHS [facility] PRN Reason: Protocol Last Admin: 06/24/17 06:35 Dose: 3 units Lactic Acid (Lac-Hydrin 12% Cream (140 G)) 1 ea TOP DAILY [facility] Last Admin: 06/24/17 08:42 Dose: 1 unit Lactobacillus Acidophilus (Bacid Acidophilus) 1 cap PO BID [facility] Last Admin: 06/24/17 08:42 Dose: 1 cap Nystatin (Nystop Topical Powder) 1 applic TOP TID [facility] Last Admin: 06/24/17 08:42 Dose: 1 applic Oxycodone/Acetaminophen (Percocet 5/325 Mg Tab) 1 tab PO Q4 PRN PRN Reason: Pain, moderate (4-7) Stop: 06/24/17 14:08 Last Admin: 06/23/17 05:23 Dose: 1 tab Oxycodone/Acetaminophen (Percocet 5/325 Mg Tab) 2 tab PO Q4 PRN PRN Reason: Pain, severe (8-10) Stop: 06/24/17 14:23 Last Admin: 06/24/17 08:47 Dose: 2 tab Pantoprazole Sodium (Protonix Ec Tab) 40 mg PO DAILY [facility] Last Admin: 06/24/17 08:43 Dose: 40 mg - Labs Labs: 06/21/17 11:00 06/20/17 15:20
--- NOTE | 2017-06-24 12:54 | CP.PCM.PN ---
Subjective - Date & Time of Evaluation Date of Evaluation: 06/24/17 Time of Evaluation: 12:54 - Subjective Subjective: ID Note- Pt. seen and examined today. pt. denies any fever or chills. ansari cath removed and pt. doing ok without it. no more fevers. denies any diarrhea. Objective - Vital Signs/Intake and Output Vital Signs (last 24 hours): Temp Pulse Resp BP Pulse Ox 97.3 F L 88 20 154/81 H 95 06/24/17 08:18 06/24/17 08:18 06/24/17 08:18 06/24/17 08:18 06/24/17 08:18 - Medications Medications: Current Medications Acetaminophen (Tylenol 325mg Tab) 650 mg PO Q4 PRN PRN Reason: Pain, Mild (1-3) Acetaminophen (Tylenol 325mg Tab) 650 mg PO Q4 PRN PRN Reason: Pain, Mild (1-3) Acetaminophen (Tylenol 325mg Tab) 650 mg PO Q6 PRN PRN Reason: Fever >100.4 F Last Admin: 06/20/17 16:37 Dose: 650 mg Albuterol/Ipratropium (Duoneb 3 Mg/0.5 Mg (3 Ml) Ud) 3 ml INH RQID [facility] Last Admin: 06/24/17 11:08 Dose: Not Given Atorvastatin Calcium (Lipitor) 10 mg PO DAILY [facility] Last Admin: 06/24/17 08:43 Dose: 10 mg Enoxaparin Sodium (Lovenox) 40 mg SC DAILY [facility] PRN Reason: Protocol Last Admin: 06/24/17 08:43 Dose: 40 mg Ferrous Sulfate (Feosol) 325 mg PO BID [facility] Last Admin: 06/24/17 08:43 Dose: 325 mg Gabapentin (Neurontin) 100 mg PO TID [facility] Last Admin: 06/24/17 08:43 Dose: 100 mg Glipizide (Glucotrol) 5 mg PO BID [facility] Last Admin: 06/24/17 08:43 Dose: 5 mg Hydromorphone HCl (Dilaudid) 0.25 mg IVP DAILY PRN PRN Reason: PAIN PRIOR TO WOUND VAC CHANGE Vancomycin HCl 750 mg/ Sodium (Chloride) 250 mls @ 166.667 mls/hr IVPB Q12 [facility] PRN Reason: Protocol Last Admin: 06/24/17 08:48 Dose: 166.667 mls/hr Insulin Human Regular (Humulin R) 0 units SC ACHS [facility] PRN Reason: Protocol Last Admin: 06/24/17 06:35 Dose: 3 units Lactic Acid (Lac-Hydrin 12% Cream (140 G)) 1 ea TOP DAILY [facility] Last Admin: 06/24/17 08:42 Dose: 1 unit Lactobacillus Acidophilus (Bacid Acidophilus) 1 cap PO BID [facility] Last Admin: 06/24/17 08:42 Dose: 1 cap Nystatin (Nystop Topical Powder) 1 applic TOP TID [facility] Last Admin: 06/24/17 08:42 Dose: 1 applic Oxycodone/Acetaminophen (Percocet 5/325 Mg Tab) 1 tab PO Q4 PRN PRN Reason: Pain, moderate (4-7) Stop: 06/24/17 14:08 Last Admin: 06/23/17 05:23 Dose: 1 tab Oxycodone/Acetaminophen (Percocet 5/325 Mg Tab) 2 tab PO Q4 PRN PRN Reason: Pain, severe (8-10) Stop: 06/24/17 14:23 Last Admin: 06/24/17 08:47 Dose: 2 tab Pantoprazole Sodium (Protonix Ec Tab) 40 mg PO DAILY [facility] Last Admin: 06/24/17 08:43 Dose: 40 mg - Labs Labs: - Additional Findings Additional findings: - Constitutional Appears: No Acute Distress - Head Exam Head Exam: ATRAUMATIC - Eye Exam Eye Exam: EOMI, PERRL - ENT Exam ENT Exam: Normal Oropharynx - Neck Exam Neck Exam: Full ROM - Respiratory Exam Respiratory Exam: NORMAL BREATHING PATTERN Additional comments: good aeration b/l - Cardiovascular Exam Cardiovascular Exam: RRR, +S1, +S2 - GI/Abdominal Exam GI & Abdominal Exam: Soft, Normal Bowel Sounds Additional comments: NT, ND - Extremities Exam Additional comments: left LE with chronic venous stasis changes RLE in external fixator Dressing appears to be dry, clean, and intact with no strikethrough noted to the dressing. wound vac also in pace and draining sanguinous fluid - Neurological Exam Neurological Exam: Alert, Awake, Oriented x 3 Laboratory Results - last 72 hr 06/21/17 06/21/17 06/21/17 15:27 16:16 16:16 POC Glucose (mg/dL) 209 H 209 H Urine Color Yellow Urine Clarity Turbid Urine pH 5.0 Ur Specific [place] 1.021 Urine Protein 30 Urine Glucose (UA) Neg Urine Ketones Negative Urine Blood Moderate Urine Nitrate Negative Urine Bilirubin Negative Urine Urobilinogen 0.2-1.0 Ur Leukocyte Esterase Trace Urine RBC (Auto) 22 H Urine Microscopic WBC 17 H Ur Squamous Epith Cells < 1 Uric Acid Crystals Few H Urine Bacteria Rare Blood Type Antibody Screen Crossmatch BBK History Checked 06/21/17 06/21/17 06/22/17 21:35 21:35 01:41 POC Glucose (mg/dL) 225 H 225 H 231 H Urine Color Urine Clarity Urine pH Ur Specific [place] Urine Protein Urine Glucose (UA) Urine Ketones Urine Blood Urine Nitrate Urine Bilirubin Urine Urobilinogen Ur Leukocyte Esterase Urine RBC (Auto) Urine Microscopic WBC Ur Squamous Epith Cells Uric Acid Crystals Urine Bacteria Blood Type Antibody Screen Crossmatch BBK History Checked 06/22/17 06/22/17 06/22/17 01:41 06:50 10:50 POC Glucose (mg/dL) 231 H 196 H 278 H Urine Color Urine Clarity Urine pH Ur Specific [place] Urine Protein Urine Glucose (UA) Urine Ketones Urine Blood Urine Nitrate Urine Bilirubin Urine Urobilinogen Ur Leukocyte Esterase Urine RBC (Auto) Urine Microscopic WBC Ur Squamous Epith Cells Uric Acid Crystals Urine Bacteria Blood Type Antibody Screen Crossmatch BBK History Checked 06/22/17 06/22/17 06/23/17 15:41 20:54 04:59 POC Glucose (mg/dL) 267 H 218 H 175 H Urine Color Urine Clarity Urine pH Ur Specific [place] Urine Protein Urine Glucose (UA) Urine Ketones Urine Blood Urine Nitrate Urine Bilirubin Urine Urobilinogen Ur Leukocyte Esterase Urine RBC (Auto) Urine Microscopic WBC Ur Squamous Epith Cells Uric Acid Crystals Urine Bacteria Blood Type Antibody Screen Crossmatch BBK History Checked 06/23/17 06/23/17 06/23/17 10:23 10:45 20:35 POC Glucose (mg/dL) 194 H 219 H Urine Color Urine Clarity Urine pH Ur Specific [place] Urine Protein Urine Glucose (UA) Urine Ketones Urine Blood Urine Nitrate Urine Bilirubin Urine Urobilinogen Ur Leukocyte Esterase Urine RBC (Auto) Urine Microscopic WBC Ur Squamous Epith Cells Uric Acid Crystals Urine Bacteria Blood Type O POSITIVE Antibody Screen Negative Crossmatch See Detail BBK History Checked Patient has bt 06/24/17 05:26 POC Glucose (mg/dL) 214 H Urine Color Urine Clarity Urine pH Ur Specific [place] Urine Protein Urine Glucose (UA) Urine Ketones Urine Blood Urine Nitrate Urine Bilirubin Urine Urobilinogen Ur Leukocyte Esterase Urine RBC (Auto) Urine Microscopic WBC Ur Squamous Epith Cells Uric Acid Crystals Urine Bacteria Blood Type Antibody Screen Crossmatch BBK History Checked Microbiology 06/22/17 11:50 Blood-Thru Central Line Blood Culture - Preliminary NO GROWTH AFTER 48 HOURS 06/22/17 11:55 Blood-Venous Blood Culture - Preliminary NO GROWTH AFTER 48 HOURS 06/20/17 18:40 Blood S.aureus & Coag-Neg Staph PNA FISH - Final 06/20/17 18:40 Blood Blood Culture - Final Coagulase Neg Staphylococcus 06/20/17 18:40 Blood Gram Stain - Final 06/20/17 18:23 Urine,Ansari Urine Culture - Final No Growth (<1,000 CFU/ML) Assessment and Plan (1) History of bacteremia Status: Acute (2) Ankle fracture Status: Acute - Assessment and Plan (Free Text) Assessment: A/P- 81 year old male with multiple medical conditions including CAD, MDS, DM II, Obesity admitted with right ankle fracture s/p closed reduction and external fixation by podiatry last week ands/p wpun debridement and wound vac last week now transferred to TCU for PT. afebrile past 3 days. blood cx- coag neg staph x 1 06/20/2017 blood cx from port and peripheral- remain negative x 2 06/22 urine cx 06/20- negative minimal leukopenia blood cx from this admission all negative except 1 from 06/20- coag neg staph ( most likely a contaminant specially since pt. was already on IV vanco empiricallY0 TTE- no vegetations as per report 1. right ankle fracture s/p closed reduction and external fixation 2.MDS 3.DM II 4.CAD Plan- has been on empiric vanco for past 14 days prevention of any wound infection since pt. does have h/o bacteremia on previous admission and since he has open wound and wound vac in place. coag neg staph in 1 blood cx from 06/20 most likely contaminant. repeat blood cx from both port and peripheral are all negative. advise to d/c vanco. wound vac management as per surgical/podiatry teams. all above d/w Hospitalist .
[2017-06-24] MEDS ORDERED: Oxycodone/Acetaminophen 5/325 mg Tab PO PRN (18:19)
--- NOTE | 2017-06-24 18:57 | CP.PCM.PN ---
Subjective - Date & Time of Evaluation Date of Evaluation: 06/24/17 Time of Evaluation: 18:53 - Subjective Subjective: 81 year old male seen at bedside 8 days s/p failed internal fixation of right fibular fx with IM ashanti as patient's bone was too brittle to handle ashanti. Patient states that he is feeling well today and says pain in left leg is well controlled. He states that he received a blood transfusion earlier today. He is NAD and AAO x3 resting comfortably in bed. Patient's wound vac seen to be working properly at 125 mmHg of constant pressure. Patient states that he does not want his wound vac changed today because the pain is unbearable. Patient denies any further pedal complaints at this time. Patient denies any recent N/V/ F/C/CP/SOB. Objective - Vital Signs/Intake and Output Vital Signs (last 24 hours): Temp Pulse Resp BP Pulse Ox 97.4 F L 86 20 150/80 96 06/24/17 17:45 06/24/17 17:45 06/24/17 17:45 06/24/17 17:45 06/24/17 17:45 - Medications Medications: Current Medications Acetaminophen (Tylenol 325mg Tab) 650 mg PO Q4 PRN PRN Reason: Pain, Mild (1-3) Acetaminophen (Tylenol 325mg Tab) 650 mg PO Q4 PRN PRN Reason: Pain, Mild (1-3) Acetaminophen (Tylenol 325mg Tab) 650 mg PO Q6 PRN PRN Reason: Fever >100.4 F Last Admin: 06/20/17 16:37 Dose: 650 mg Albuterol/Ipratropium (Duoneb 3 Mg/0.5 Mg (3 Ml) Ud) 3 ml INH RQID [facility] Last Admin: 06/24/17 15:13 Dose: Not Given Atorvastatin Calcium (Lipitor) 10 mg PO DAILY [facility] Last Admin: 06/24/17 08:43 Dose: 10 mg Enoxaparin Sodium (Lovenox) 40 mg SC DAILY [facility] PRN Reason: Protocol Ferrous Sulfate (Feosol) 325 mg PO BID [facility] Last Admin: 06/24/17 18:16 Dose: 325 mg Gabapentin (Neurontin) 100 mg PO TID [facility] Last Admin: 06/24/17 18:16 Dose: 100 mg Glipizide (Glucotrol) 5 mg PO BID [facility] Last Admin: 06/24/17 18:16 Dose: 5 mg Hydromorphone HCl (Dilaudid) 0.25 mg IVP DAILY PRN PRN Reason: PAIN PRIOR TO WOUND VAC CHANGE Insulin Human Regular (Humulin R) 0 units SC ACHS [facility] PRN Reason: Protocol Last Admin: 06/24/17 18:15 Dose: 2 units Lactic Acid (Lac-Hydrin 12% Cream (140 G)) 1 ea TOP DAILY [facility] Last Admin: 06/24/17 08:42 Dose: 1 unit Lactobacillus Acidophilus (Bacid Acidophilus) 1 cap PO BID [facility] Last Admin: 06/24/17 18:16 Dose: 1 cap Nystatin (Nystop Topical Powder) 1 applic TOP TID [facility] Last Admin: 06/24/17 18:15 Dose: 1 applic Oxycodone/Acetaminophen (Percocet 5/325 Mg Tab) 1 tab PO Q4 PRN PRN Reason: Pain, moderate (4-7) Stop: 06/27/17 18:20 Oxycodone/Acetaminophen (Percocet 5/325 Mg Tab) 2 tab PO Q4 PRN PRN Reason: Pain, severe (8-10) Stop: 06/27/17 18:21 Last Admin: 06/24/17 17:45 Dose: 2 tab Pantoprazole Sodium (Protonix Ec Tab) 40 mg PO DAILY [facility] Last Admin: 06/24/17 08:43 Dose: 40 mg - Labs Labs: 06/21/17 11:00 06/20/17 15:20 - Constitutional Appears: Well, Non-toxic, No Acute Distress - Extremities Exam Additional comments: Wound vac of right leg changed: Vasc: DP/PT pulses palpable to RLE. CFT < 3 seconds to all digits. Bleeding noticed to anterior leg wound. Skin temperature warm to right foot, WNL. Neuro: Epicritic and protective sensation grossly intact b/l Derm: Open wound spanning from patient's medial leg to lateral leg and extending proximal to distal roughly 6 cm. Wound site is noted to be granulating in. Tibia and fibular exposure still present. No periwound erythema , no malodor, no other clinical signs of infection. No signs of pin tract infection. Healthy tissue bleed noted. MSK: POP to wound site. POP to fibular fracture. External fixation in proper place. - Neurological Exam Neurological Exam: Alert, Awake, Oriented x3 - Psychiatric Exam Psychiatric exam: Normal Affect, Normal Mood Assessment and Plan - Assessment and Plan (Free Text) Assessment: 81 year old male seen in bed for wound vac change s/p 15 days open fibular fracture and 8 days failed fibular IM ashanti placement Plan: Patient seen and evaluated at bedside Charts, labs and vitals reviewed Plan discussed with attending Dr. Avila Wound vac successfully changed Pressure setting at 125 mmHg continuous applied Pins washed with betadine and xeroform was wrapped at their bases Leg dressed with gauze, kirlix and light TIN dressing Podiatry will change wound vac in 3 days Podiatry will continue to follow patient while in house
[2017-06-25] MEDS: Oxycodone/Acetaminophen 5/325 mg Tab PO PRN ×2 (06:05→09:47)
[2017-06-25] MEDS: Insulin Regular 100 units/ml SC SCH ×4 (07:06→22:25)
[2017-06-25] MEDS: Enoxaparin 40 mg Syringe SC SCH (08:59)
[2017-06-25] MEDS: Pantoprazole 40 mg EC Tab PO SCH (08:59)
[2017-06-25] MEDS: Ammonium Lactate 12% Cream (140 g) TOP SCH (09:01)
[2017-06-25] MEDS: Lactobacillus Acidophilus 500 MU Cap PO SCH ×2 (09:02→17:11)
[2017-06-25] MEDS: Albuterol-Ipratrop 3 mg / 0.5 (3 ml) UD INH SCH ×4 (09:30→20:05)
--- NOTE | 2017-06-25 10:48 | CP.PCM.PN ---
Subjective - Date & Time of Evaluation Date of Evaluation: 06/25/17 Time of Evaluation: 11:31 - Subjective Subjective: 81 year old male seen at bedside 9 days s/p failed internal fixation of right fibular fx with IM ashanti as patient's bone was too brittle to handle ashanti. Patient states that he is feeling well today and says pain in left leg is well controlled. He states that he does not want the wound vac changed today due to pain. Patient denies any further pedal complaints at this time. Patient denies any recent N/V/F/C/CP/SOB. Objective - Vital Signs/Intake and Output Vital Signs (last 24 hours): Temp Pulse Resp BP Pulse Ox 97.5 F L 92 H 20 116/69 93 L 06/25/17 09:26 06/25/17 09:26 06/25/17 09:26 06/25/17 09:26 06/25/17 09:26 - Medications Medications: Current Medications Acetaminophen (Tylenol 325mg Tab) 650 mg PO Q4 PRN PRN Reason: Pain, Mild (1-3) Acetaminophen (Tylenol 325mg Tab) 650 mg PO Q4 PRN PRN Reason: Pain, Mild (1-3) Acetaminophen (Tylenol 325mg Tab) 650 mg PO Q6 PRN PRN Reason: Fever >100.4 F Last Admin: 06/20/17 16:37 Dose: 650 mg Albuterol/Ipratropium (Duoneb 3 Mg/0.5 Mg (3 Ml) Ud) 3 ml INH RQID [facility] Last Admin: 06/25/17 09:30 Dose: 3 ml Atorvastatin Calcium (Lipitor) 10 mg PO DAILY [facility] Last Admin: 06/25/17 09:00 Dose: 10 mg Enoxaparin Sodium (Lovenox) 40 mg SC DAILY [facility] PRN Reason: Protocol Last Admin: 06/25/17 08:59 Dose: 40 mg Ferrous Sulfate (Feosol) 325 mg PO BID [facility] Last Admin: 06/25/17 09:00 Dose: 325 mg Gabapentin (Neurontin) 100 mg PO TID [facility] Last Admin: 06/25/17 09:00 Dose: 100 mg Glipizide (Glucotrol) 5 mg PO BID [facility] Last Admin: 06/25/17 09:02 Dose: 5 mg Hydromorphone HCl (Dilaudid) 0.25 mg IVP DAILY PRN PRN Reason: PAIN PRIOR TO WOUND VAC CHANGE Insulin Human Regular (Humulin R) 0 units SC ACHS [facility] PRN Reason: Protocol Last Admin: 06/25/17 07:06 Dose: 2 units Lactic Acid (Lac-Hydrin 12% Cream (140 G)) 1 ea TOP DAILY [facility] Last Admin: 06/25/17 09:01 Dose: 1 unit Lactobacillus Acidophilus (Bacid Acidophilus) 1 cap PO BID [facility] Last Admin: 06/25/17 09:02 Dose: 1 cap Nystatin (Nystop Topical Powder) 1 applic TOP TID [facility] Last Admin: 06/25/17 09:01 Dose: 1 applic Oxycodone/Acetaminophen (Percocet 5/325 Mg Tab) 1 tab PO Q4 PRN PRN Reason: Pain, moderate (4-7) Stop: 06/27/17 18:20 Oxycodone/Acetaminophen (Percocet 5/325 Mg Tab) 2 tab PO Q4 PRN PRN Reason: Pain, severe (8-10) Stop: 06/27/17 18:21 Last Admin: 06/25/17 09:47 Dose: 2 tab Pantoprazole Sodium (Protonix Ec Tab) 40 mg PO DAILY [facility] Last Admin: 06/25/17 08:59 Dose: 40 mg - Labs Labs: 06/21/17 11:00 06/20/17 15:20 - Constitutional Appears: Non-toxic, No Acute Distress - Extremities Exam Additional comments: Dressing c/d/i to RLE wound vac output at 400 mL - Neurological Exam Neurological Exam: Alert, Awake, Oriented x3 - Psychiatric Exam Psychiatric exam: Normal Affect, Normal Mood Assessment and Plan - Assessment and Plan (Free Text) Assessment: 81 year old male seen in bed for wound vac change s/p 16 days open fibular fracture and 9 days failed fibular IM ashanti placement Plan: Patient seen and evaluated at bedside Charts, labs and vitals reviewed Plan discussed with attending Dr. Avila Wound vac canister changed Cont wound vac at 125 mmHg continuous applied Cont pain medication prn Podiatry will change wound vac in 2 days Podiatry will continue to follow patient while in house
--- NOTE | 2017-06-25 13:23 | RAD ---
PROCEDURE: Right Ankle Radiographs. HISTORY: R open fibular fracture with external fixation COMPARISON: Comparison made with radiographs of the right ankle dated 06/17/2017. FINDINGS: BONES: Re- demonstrated is a oblique/diagonal fracture traversing the distal fibula. Also again noted is a external fixation pin traversing the calcaneus. Apparent overlying drainage catheter JOINTS: Normal. No osteoarthritis. Ankle mortise maintained. Talar dome intact SOFT TISSUES: Normal. OTHER FINDINGS: None. IMPRESSION: No significant interval change in the appearance right ankle.
[2017-06-26] MEDS: Insulin Regular 100 units/ml SC SCH ×4 (07:21→22:12)
[2017-06-26] MEDS: Albuterol-Ipratrop 3 mg / 0.5 (3 ml) UD INH SCH ×4 (08:43→19:40)
[2017-06-26] MEDS: Pantoprazole 40 mg EC Tab PO SCH (09:40)
[2017-06-26] MEDS: Enoxaparin 40 mg Syringe SC SCH (09:41)
[2017-06-26] MEDS: Lactobacillus Acidophilus 500 MU Cap PO SCH ×2 (09:43→17:22)
[2017-06-26] MEDS: Ammonium Lactate 12% Cream (140 g) TOP SCH (09:44)
--- NOTE | 2017-06-26 10:18 | CP.PCM.PN ---
Subjective - Date & Time of Evaluation Date of Evaluation: 06/26/17 Time of Evaluation: 10:18 - Subjective Subjective: 81 year old male seen at bedside 10 days s/p failed internal fixation of right fibular fx with IM ashanti. Patient states that he is feeling well today and says pain in left leg is well controlled. Patient denies any further pedal complaints at this time. Patient denies any recent N/V/F/C/CP/SOB. Objective - Vital Signs/Intake and Output Vital Signs (last 24 hours): Temp Pulse Resp BP Pulse Ox 97.5 F L 77 20 115/65 10 L 06/26/17 08:25 06/26/17 08:25 06/26/17 08:25 06/26/17 08:25 06/26/17 08:25 - Medications Medications: Current Medications Acetaminophen (Tylenol 325mg Tab) 650 mg PO Q4 PRN PRN Reason: Pain, Mild (1-3) Acetaminophen (Tylenol 325mg Tab) 650 mg PO Q4 PRN PRN Reason: Pain, Mild (1-3) Acetaminophen (Tylenol 325mg Tab) 650 mg PO Q6 PRN PRN Reason: Fever >100.4 F Last Admin: 06/20/17 16:37 Dose: 650 mg Albuterol/Ipratropium (Duoneb 3 Mg/0.5 Mg (3 Ml) Ud) 3 ml INH RQID [facility] Last Admin: 06/26/17 08:43 Dose: 3 ml Atorvastatin Calcium (Lipitor) 10 mg PO DAILY [facility] Last Admin: 06/26/17 09:40 Dose: 10 mg Enoxaparin Sodium (Lovenox) 40 mg SC DAILY [facility] PRN Reason: Protocol Last Admin: 06/26/17 09:41 Dose: 40 mg Ferrous Sulfate (Feosol) 325 mg PO BID [facility] Last Admin: 06/26/17 09:40 Dose: 325 mg Gabapentin (Neurontin) 100 mg PO TID [facility] Last Admin: 06/26/17 09:40 Dose: 100 mg Glipizide (Glucotrol) 5 mg PO BID [facility] Last Admin: 06/26/17 09:40 Dose: 5 mg Hydromorphone HCl (Dilaudid) 0.25 mg IVP DAILY PRN PRN Reason: PAIN PRIOR TO WOUND VAC CHANGE Insulin Human Regular (Humulin R) 0 units SC [facility] PRN Reason: Protocol Last Admin: 06/26/17 07:21 Dose: 2 units Lactic Acid (Lac-Hydrin 12% Cream (140 G)) 1 ea TOP DAILY [facility] Last Admin: 06/26/17 09:44 Dose: 1 unit Lactobacillus Acidophilus (Bacid Acidophilus) 1 cap PO BID [facility] Last Admin: 06/26/17 09:43 Dose: 1 cap Nystatin (Nystop Topical Powder) 1 applic TOP TID [facility] Last Admin: 06/26/17 09:43 Dose: 1 applic Oxycodone/Acetaminophen (Percocet 5/325 Mg Tab) 1 tab PO Q4 PRN PRN Reason: Pain, moderate (4-7) Stop: 06/27/17 18:20 Last Admin: 06/26/17 02:59 Dose: 1 tab Oxycodone/Acetaminophen (Percocet 5/325 Mg Tab) 2 tab PO Q4 PRN PRN Reason: Pain, severe (8-10) Stop: 06/27/17 18:21 Last Admin: 06/25/17 09:47 Dose: 2 tab Pantoprazole Sodium (Protonix Ec Tab) 40 mg PO DAILY [facility] Last Admin: 06/26/17 09:40 Dose: 40 mg - Labs Labs: 06/21/17 11:00 06/20/17 15:20 - Constitutional Appears: Non-toxic, No Acute Distress - Extremities Exam Additional comments: Dressing c/d/i to RLE wound vac output at 100 mL - Neurological Exam Neurological Exam: Alert, Awake, Oriented x3 - Psychiatric Exam Psychiatric exam: Normal Affect, Normal Mood Assessment and Plan - Assessment and Plan (Free Text) Assessment: 81 year old male seen in bed for wound vac change s/p 17 days open fibular fracture and 10 days failed fibular IM ashanti placement Plan: Patient seen and evaluated at bedside Charts, labs and vitals reviewed Plan discussed with attending Dr. Avila Cont wound vac at 125 mmHg continuous applied Cont pain medication prn Podiatry will change wound vac in 1 days Podiatry will continue to follow patient while in house
[2017-06-26] MEDS: Oxycodone/Acetaminophen 5/325 mg Tab PO PRN ×2 (11:29→22:16)
--- NOTE | 2017-06-26 11:39 | CP.PCM.PN ---
Subjective - Date & Time of Evaluation Date of Evaluation: 06/26/17 Time of Evaluation: 11:31 - Subjective Subjective: Pt was transfused 2 units of packed cells over the weekend. Will repeat cbc tomorrow am. he is very depressed today because his son is being viewed and buried today. He again has a lot of ascitic fluid. Will do a paracentesis sometime next week Objective - Vital Signs/Intake and Output Vital Signs (last 24 hours): Temp Pulse Resp BP Pulse Ox 97.5 F L 77 20 115/65 10 L 06/26/17 08:25 06/26/17 08:25 06/26/17 08:25 06/26/17 08:25 06/26/17 08:25 - Medications Medications: Current Medications Acetaminophen (Tylenol 325mg Tab) 650 mg PO Q4 PRN PRN Reason: Pain, Mild (1-3) Acetaminophen (Tylenol 325mg Tab) 650 mg PO Q4 PRN PRN Reason: Pain, Mild (1-3) Acetaminophen (Tylenol 325mg Tab) 650 mg PO Q6 PRN PRN Reason: Fever >100.4 F Last Admin: 06/20/17 16:37 Dose: 650 mg Albuterol/Ipratropium (Duoneb 3 Mg/0.5 Mg (3 Ml) Ud) 3 ml INH RQID [facility] Last Admin: 06/26/17 08:43 Dose: 3 ml Atorvastatin Calcium (Lipitor) 10 mg PO DAILY [facility] Last Admin: 06/26/17 09:40 Dose: 10 mg Enoxaparin Sodium (Lovenox) 40 mg SC DAILY [facility] PRN Reason: Protocol Last Admin: 06/26/17 09:41 Dose: 40 mg Ferrous Sulfate (Feosol) 325 mg PO BID [facility] Last Admin: 06/26/17 09:40 Dose: 325 mg Gabapentin (Neurontin) 100 mg PO TID [facility] Last Admin: 06/26/17 09:40 Dose: 100 mg Glipizide (Glucotrol) 5 mg PO BID [facility] Last Admin: 06/26/17 09:40 Dose: 5 mg Hydromorphone HCl (Dilaudid) 0.25 mg IVP DAILY PRN PRN Reason: PAIN PRIOR TO WOUND VAC CHANGE Insulin Human Regular (Humulin R) 0 units SC [facility] PRN Reason: Protocol Last Admin: 06/26/17 07:21 Dose: 2 units Lactic Acid (Lac-Hydrin 12% Cream (140 G)) 1 ea TOP DAILY [facility] Last Admin: 06/26/17 09:44 Dose: 1 unit Lactobacillus Acidophilus (Bacid Acidophilus) 1 cap PO BID [facility] Last Admin: 06/26/17 09:43 Dose: 1 cap Nystatin (Nystop Topical Powder) 1 applic TOP TID [facility] Last Admin: 06/26/17 09:43 Dose: 1 applic Oxycodone/Acetaminophen (Percocet 5/325 Mg Tab) 1 tab PO Q4 PRN PRN Reason: Pain, moderate (4-7) Stop: 06/27/17 18:20 Last Admin: 06/26/17 02:59 Dose: 1 tab Oxycodone/Acetaminophen (Percocet 5/325 Mg Tab) 2 tab PO Q4 PRN PRN Reason: Pain, severe (8-10) Stop: 06/27/17 18:21 Last Admin: 06/25/17 09:47 Dose: 2 tab Pantoprazole Sodium (Protonix Ec Tab) 40 mg PO DAILY [facility] Last Admin: 06/26/17 09:40 Dose: 40 mg - Labs Labs: 06/21/17 11:00 06/20/17 15:20
[2017-06-27 06:40] LABS: BASO % 0.8 % (0.0-2.0); EOS % 1.3 % (0.0-4.0); LYMPH # 0.6 K/uL (1.0-4.3); LYMPH % 19.5 % (20.0-40.0); MEAN CORPUSCULAR HEMOGLOBIN 28.5 pg (27.0-31.0); MEAN CORPUSCULAR HGB CONC 33.5 g/dL (33.0-37.0); MEAN PLATELET VOLUME 5.9 fl (7.2-11.7); MONO # 0.4 K/uL (0.0-0.8); MONO % 14.3 % (0.0-10.0); NEUT % 64.1 % (50.0-75.0); NRBC % 0.2 % (0.0-0.0); RED CELL DISTRIBUTION WIDTH 17.4 % (11.5-14.5); WHITE BLOOD COUNT 3.1 K/uL (4.8-10.8)
[2017-06-27] MEDS: Insulin Regular 100 units/ml SC SCH ×4 (07:16→22:17)
[2017-06-27] MEDS: Albuterol-Ipratrop 3 mg / 0.5 (3 ml) UD INH SCH ×4 (07:19→19:47)
[2017-06-27] MEDS: Ammonium Lactate 12% Cream (140 g) TOP SCH (09:34)
[2017-06-27] MEDS: Enoxaparin 40 mg Syringe SC SCH (09:34)
[2017-06-27] MEDS: Lactobacillus Acidophilus 500 MU Cap PO SCH ×2 (09:35→17:21)
[2017-06-27] MEDS: Pantoprazole 40 mg EC Tab PO SCH (09:35)
[2017-06-27] MEDS: Oxycodone/Acetaminophen 5/325 mg Tab PO PRN (12:50)
--- NOTE | 2017-06-27 17:01 | CP.PCM.PN ---
Subjective - Date & Time of Evaluation Date of Evaluation: 06/27/17 Time of Evaluation: 16:59 - Subjective Subjective: Patient seen and evaluated at bedside. Patient states that his pain is well controlled at this time. He states that he is very sad today because he is missing the burial of his son who last week. Patient states that he doesn't feel like his has the energy to carry out physical therapy anymore. Patient denies any further pedal complaints at this time. Patient denies recent N/V/F/C/CP/SOB Objective - Vital Signs/Intake and Output Vital Signs (last 24 hours): Temp Pulse Resp BP Pulse Ox 98.1 F 90 20 118/75 96 06/27/17 15:51 06/27/17 15:51 06/27/17 15:51 06/27/17 15:51 06/27/17 15:51 - Medications Medications: Current Medications Acetaminophen (Tylenol 325mg Tab) 650 mg PO Q4 PRN PRN Reason: Pain, Mild (1-3) Acetaminophen (Tylenol 325mg Tab) 650 mg PO Q4 PRN PRN Reason: Pain, Mild (1-3) Acetaminophen (Tylenol 325mg Tab) 650 mg PO Q6 PRN PRN Reason: Fever >100.4 F Last Admin: 06/20/17 16:37 Dose: 650 mg Albuterol/Ipratropium (Duoneb 3 Mg/0.5 Mg (3 Ml) Ud) 3 ml INH RQID [facility] Last Admin: 06/27/17 15:36 Dose: 3 ml Atorvastatin Calcium (Lipitor) 10 mg PO HS [facility] Enoxaparin Sodium (Lovenox) 40 mg SC DAILY [facility] PRN Reason: Protocol Last Admin: 06/27/17 09:34 Dose: 40 mg Ferrous Sulfate (Feosol) 325 mg PO BID [facility] Last Admin: 06/27/17 09:35 Dose: 325 mg Gabapentin (Neurontin) 100 mg PO TID [facility] Last Admin: 06/27/17 12:42 Dose: 100 mg Glipizide (Glucotrol) 5 mg PO BID [facility] Last Admin: 06/27/17 09:35 Dose: 5 mg Insulin Human Regular (Humulin R) 0 units SC ACHS [facility] PRN Reason: Protocol Last Admin: 06/27/17 12:42 Dose: 4 units Lactic Acid (Lac-Hydrin 12% Cream (140 G)) 1 ea TOP DAILY [facility] Last Admin: 06/27/17 09:34 Dose: 1 unit Lactobacillus Acidophilus (Bacid Acidophilus) 1 cap PO BID [facility] Last Admin: 06/27/17 09:35 Dose: 1 cap Nystatin (Nystop Topical Powder) 1 applic TOP TID [facility] Last Admin: 06/27/17 12:42 Dose: 1 applic Oxycodone/Acetaminophen (Percocet 5/325 Mg Tab) 1 tab PO Q4 PRN PRN Reason: Pain, moderate (4-7) Stop: 06/27/17 18:20 Last Admin: 06/26/17 02:59 Dose: 1 tab Oxycodone/Acetaminophen (Percocet 5/325 Mg Tab) 2 tab PO Q4 PRN PRN Reason: Pain, severe (8-10) Stop: 06/27/17 18:21 Last Admin: 06/27/17 12:50 Dose: 2 tab Pantoprazole Sodium (Protonix Ec Tab) 40 mg PO DAILY [facility] Last Admin: 06/27/17 09:35 Dose: 40 mg - Labs Labs: 06/27/17 06:05 06/20/17 15:20 - Constitutional Appears: Non-toxic, No Acute Distress - Extremities Exam Additional comments: Dressing c/d/i to RLE wound vac output at 120 cc - Neurological Exam Neurological Exam: Alert, Awake, Oriented x3 - Psychiatric Exam Psychiatric exam: Depressed, Normal Affect Assessment and Plan - Assessment and Plan (Free Text) Assessment: 81 year old male seen in bed 18 days s/p open fibular fracture and 11 days failed fibular IM ashanti placement Plan: Patient seen and evaluated at bedside with attending Dr. Avila Charts, labs and vitals reviewed Cont wound vac at 125 mmHg continuous applied Cont pain medication prn Podiatry will change wound vac tomorrow Podiatry will continue to follow patient while in house
[2017-06-28] MEDS: Oxycodone/Acetaminophen 5/325 mg Tab PO PRN ×2 (01:03→16:51)
[2017-06-28] MEDS: Insulin Regular 100 units/ml SC SCH ×4 (06:42→21:51)
[2017-06-28] MEDS: Albuterol-Ipratrop 3 mg / 0.5 (3 ml) UD INH SCH ×4 (08:33→19:21)
[2017-06-28] MEDS: Enoxaparin 40 mg Syringe SC SCH (08:41)
[2017-06-28] MEDS: Lactobacillus Acidophilus 500 MU Cap PO SCH (08:41)
[2017-06-28] MEDS: Pantoprazole 40 mg EC Tab PO SCH (08:41)
[2017-06-28] MEDS: Ammonium Lactate 12% Cream (140 g) TOP SCH (08:51)
--- NOTE | 2017-06-28 12:15 | CP.PCM.PN ---
Subjective - Date & Time of Evaluation Date of Evaluation: 06/28/17 Time of Evaluation: 12:00 - Subjective Subjective: Patient seen and evaluated bedside.Lying in bed in NAD. Elderly male of stated age appears pale and tired. pain to RLE controlled Denies any abdominal pain , or SOB Abdomen appears distended Hemodynamically stable, afebrile Objective - Vital Signs/Intake and Output Vital Signs (last 24 hours): Temp Pulse Resp BP Pulse Ox 97.0 F L 86 20 148/71 93 L 06/28/17 08:29 06/28/17 08:29 06/28/17 08:29 06/28/17 08:29 06/28/17 08:29 - Medications Medications: Current Medications Acetaminophen (Tylenol 325mg Tab) 650 mg PO Q4 PRN PRN Reason: Pain, Mild (1-3) Acetaminophen (Tylenol 325mg Tab) 650 mg PO Q4 PRN PRN Reason: Pain, Mild (1-3) Acetaminophen (Tylenol 325mg Tab) 650 mg PO Q6 PRN PRN Reason: Fever >100.4 F Last Admin: 06/20/17 16:37 Dose: 650 mg Albuterol/Ipratropium (Duoneb 3 Mg/0.5 Mg (3 Ml) Ud) 3 ml INH RQID [facility] Last Admin: 06/28/17 08:33 Dose: 3 ml Atorvastatin Calcium (Lipitor) 10 mg PO HS [facility] Last Admin: 06/27/17 22:19 Dose: 10 mg Ferrous Sulfate (Feosol) 325 mg PO BID [facility] Last Admin: 06/28/17 08:41 Dose: 325 mg Gabapentin (Neurontin) 100 mg PO TID [facility] Last Admin: 06/28/17 08:41 Dose: 100 mg Glipizide (Glucotrol) 5 mg PO BID [facility] Last Admin: 06/28/17 08:42 Dose: 5 mg Insulin Human Regular (Humulin R) 0 units SC ACHS [facility] PRN Reason: Protocol Last Admin: 06/28/17 06:42 Dose: 2 units Lactic Acid (Lac-Hydrin 12% Cream (140 G)) 1 ea TOP DAILY [facility] Last Admin: 06/28/17 08:51 Dose: 1 unit Lactobacillus Acidophilus (Bacid Acidophilus) 1 cap PO BID [facility] Last Admin: 06/28/17 08:41 Dose: 1 cap Nystatin (Nystop Topical Powder) 1 applic TOP TID [facility] Last Admin: 06/28/17 08:49 Dose: 1 applic Oxycodone/Acetaminophen (Percocet 5/325 Mg Tab) 2 tab PO Q4 PRN PRN Reason: Pain, severe (8-10) Stop: 06/30/17 23:01 Last Admin: 06/28/17 01:03 Dose: 2 tab Oxycodone/Acetaminophen (Percocet 5/325 Mg Tab) 1 tab PO Q4 PRN PRN Reason: Pain, moderate (4-7) Stop: 06/30/17 23:01 Pantoprazole Sodium (Protonix Ec Tab) 40 mg PO DAILY [facility] Last Admin: 06/28/17 08:41 Dose: 40 mg - Labs Labs: 06/27/17 06:05 06/20/17 15:20 PT 16.8 Seconds (9.8-13.1) H 06/28/17 11:20 INR 1.5 (0.9-1.2) H 06/28/17 11:20 - Constitutional Appears: Non-toxic, No Acute Distress, Chronically Ill - Head Exam Head Exam: ATRAUMATIC, NORMAL INSPECTION, NORMOCEPHALIC - Eye Exam Eye Exam: EOMI, Normal appearance, PERRL Pupil Exam: NORMAL ACCOMODATION - ENT Exam ENT Exam: Mucous Membranes Moist, Normal Exam - Neck Exam Neck Exam: Normal Inspection - Respiratory Exam Respiratory Exam: Clear to Ausculation Bilateral, NORMAL BREATHING PATTERN. absent: Wheezes, Respiratory Distress - Cardiovascular Exam Cardiovascular Exam: REGULAR RHYTHM. absent: JVD - GI/Abdominal Exam GI & Abdominal Exam: Distended (with ascites), Soft. absent: Guarding, Rigid, Tenderness, Rebound - Rectal Exam Rectal Exam: Deferred - Extremities Exam Extremities Exam: Pedal Edema (2 +) Additional comments: Right lower extremity with dressing in place, wound vac and external fixators able to move toes bilaterally and warm to touch with LLE chronic venous stasis discoloration and warm to touch - Neurological Exam Neurological Exam: Alert, Awake, CN II-XII Intact, Oriented x3 - Psychiatric Exam Psychiatric exam: Flat Affect - Skin Skin Exam: Dry, Pallor, Warm Assessment and Plan - Assessment and Plan (Free Text) Assessment: 81 year old male patient PMHx HTN, CHF, CAD/CABG, Myelodysplastic Syndrome, 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 Patient underwent right ankle closed reduction external fixation and wound debridement (DOS: 05/30/17) followed with wound washout and debridement and wound vac placement (DOS ). s/p failed internal fixation of right fibular fx with IM ashanti. He was started and given vancomycin IV for 14 days empirically since he had open wound and history of bacteremia in the past . At present in TCU for continuation of treatment and PT . 1. Ankle fracture Podiatry consult on board - Dr. Avila s/p failed internal fixation right fibular fx with IM ashanti (DOS: 06/16/17) s/p right ankle wound wash out, debridement, and wound vac placement (DOS: 06/13) by Dr. Benson s/p right ankle closed reduction external fixation and wound debridement (DOS: 06/09/17) Per podiatry, STRICT NWB RLE; no further internal fixation Continue wound care per podiatry (plan to change wound vac 3-4x/week) WoundVAC noted to have sanguinous drainage Continue pain management finished 14 days of vanco IV as per Id recommendations , empirically 2.Myelodysplasia (myelodysplastic syndrome) Dr. Salma Yanes hem/onc consulted, recs appreciated Hgb 10.7 Continue to follow CBC PRBC transfusions PRN 3. 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 DVT prophylaxis continue Lovenox 40mg SC daily but hold when platelets is below 80,000 7. Grief patient's son 1 week ago
--- NOTE | 2017-06-28 12:19 | CP.PCM.PN ---
Subjective - Date & Time of Evaluation Date of Evaluation: 06/28/17 Time of Evaluation: 12:13 - Subjective Subjective: Pt is still very depressed, and not very cooperative with the nurses and physical therapists. He has a large ascitis and nees a paracentesis so it will be easier for him to move in bed, for bedpans, exercise etc. Objective - Vital Signs/Intake and Output Vital Signs (last 24 hours): Temp Pulse Resp BP Pulse Ox 97.0 F L 86 20 148/71 93 L 06/28/17 08:29 06/28/17 08:29 06/28/17 08:29 06/28/17 08:29 06/28/17 08:29 - Medications Medications: Current Medications Acetaminophen (Tylenol 325mg Tab) 650 mg PO Q4 PRN PRN Reason: Pain, Mild (1-3) Acetaminophen (Tylenol 325mg Tab) 650 mg PO Q4 PRN PRN Reason: Pain, Mild (1-3) Acetaminophen (Tylenol 325mg Tab) 650 mg PO Q6 PRN PRN Reason: Fever >100.4 F Last Admin: 06/20/17 16:37 Dose: 650 mg Albuterol/Ipratropium (Duoneb 3 Mg/0.5 Mg (3 Ml) Ud) 3 ml INH RQID [facility] Last Admin: 06/28/17 08:33 Dose: 3 ml Atorvastatin Calcium (Lipitor) 10 mg PO HS [facility] Last Admin: 06/27/17 22:19 Dose: 10 mg Ferrous Sulfate (Feosol) 325 mg PO BID [facility] Last Admin: 06/28/17 08:41 Dose: 325 mg Gabapentin (Neurontin) 100 mg PO TID [facility] Last Admin: 06/28/17 08:41 Dose: 100 mg Glipizide (Glucotrol) 5 mg PO BID [facility] Last Admin: 06/28/17 08:42 Dose: 5 mg Insulin Human Regular (Humulin R) 0 units SC ACHS [facility] PRN Reason: Protocol Last Admin: 06/28/17 06:42 Dose: 2 units Lactic Acid (Lac-Hydrin 12% Cream (140 G)) 1 ea TOP DAILY [facility] Last Admin: 06/28/17 08:51 Dose: 1 unit Lactobacillus Acidophilus (Bacid Acidophilus) 1 cap PO BID [facility] Last Admin: 06/28/17 08:41 Dose: 1 cap Nystatin (Nystop Topical Powder) 1 applic TOP TID [facility] Last Admin: 06/28/17 08:49 Dose: 1 applic Oxycodone/Acetaminophen (Percocet 5/325 Mg Tab) 2 tab PO Q4 PRN PRN Reason: Pain, severe (8-10) Stop: 06/30/17 23:01 Last Admin: 06/28/17 01:03 Dose: 2 tab Oxycodone/Acetaminophen (Percocet 5/325 Mg Tab) 1 tab PO Q4 PRN PRN Reason: Pain, moderate (4-7) Stop: 06/30/17 23:01 Pantoprazole Sodium (Protonix Ec Tab) 40 mg PO DAILY [facility] Last Admin: 06/28/17 08:41 Dose: 40 mg - Labs Labs: 06/27/17 06:05 06/20/17 15:20 PT 16.8 Seconds (9.8-13.1) H 06/28/17 11:20 INR 1.5 (0.9-1.2) H 06/28/17 11:20
--- NOTE | 2017-06-28 16:27 | CP.PCM.PN ---
Subjective - Date & Time of Evaluation Date of Evaluation: 06/28/17 Time of Evaluation: 16:24 - Subjective Subjective: 81 year old male seen at bedside 12 days s/p failed internal fixation of right fibular fx with IM ashanti as patient's bone was too brittle to handle ashanti. Patient states that he is feeling well today and says pain in left leg is well controlled. He is NAD and AAO x3 resting comfortably in bed. Patient's wound vac seen to be working properly at 125 mmHg of constant pressure. Patient says that he is very upset about having to have his wound vac changed today. Patient denies any further pedal complaints at this time. Patient denies any recent N/V/ F/C/CP/SOB. Objective - Vital Signs/Intake and Output Vital Signs (last 24 hours): Temp Pulse Resp BP Pulse Ox 97.0 F L 86 20 148/71 93 L 06/28/17 08:29 06/28/17 08:29 06/28/17 08:29 06/28/17 08:29 06/28/17 08:29 - Medications Medications: Current Medications Acetaminophen (Tylenol 325mg Tab) 650 mg PO Q4 PRN PRN Reason: Pain, Mild (1-3) Acetaminophen (Tylenol 325mg Tab) 650 mg PO Q4 PRN PRN Reason: Pain, Mild (1-3) Acetaminophen (Tylenol 325mg Tab) 650 mg PO Q6 PRN PRN Reason: Fever >100.4 F Last Admin: 06/20/17 16:37 Dose: 650 mg Albuterol/Ipratropium (Duoneb 3 Mg/0.5 Mg (3 Ml) Ud) 3 ml INH RQID [facility] Last Admin: 06/28/17 16:03 Dose: 3 ml Atorvastatin Calcium (Lipitor) 10 mg PO HS [facility] Last Admin: 06/27/17 22:19 Dose: 10 mg Enoxaparin Sodium (Lovenox) 40 mg SC DAILY [facility] PRN Reason: Protocol Ferrous Sulfate (Feosol) 325 mg PO BID [facility] Last Admin: 06/28/17 08:41 Dose: 325 mg Gabapentin (Neurontin) 100 mg PO TID [facility] Last Admin: 06/28/17 13:33 Dose: Not Given Glipizide (Glucotrol) 5 mg PO BID [facility] Last Admin: 06/28/17 08:42 Dose: 5 mg Insulin Human Regular (Humulin R) 0 units SC ACHS [facility] PRN Reason: Protocol Last Admin: 06/28/17 06:42 Dose: 2 units Lactic Acid (Lac-Hydrin 12% Cream (140 G)) 1 ea TOP DAILY [facility] Last Admin: 06/28/17 08:51 Dose: 1 unit Nystatin (Nystop Topical Powder) 1 applic TOP TID [facility] Last Admin: 06/28/17 13:33 Dose: 1 applic Oxycodone/Acetaminophen (Percocet 5/325 Mg Tab) 2 tab PO Q4 PRN PRN Reason: Pain, severe (8-10) Stop: 06/30/17 23:01 Last Admin: 06/28/17 01:03 Dose: 2 tab Oxycodone/Acetaminophen (Percocet 5/325 Mg Tab) 1 tab PO Q4 PRN PRN Reason: Pain, moderate (4-7) Stop: 06/30/17 23:01 Pantoprazole Sodium (Protonix Ec Tab) 40 mg PO DAILY [facility] Last Admin: 06/28/17 08:41 Dose: 40 mg - Labs Labs: 06/27/17 06:05 06/20/17 15:20 PT 16.8 Seconds (9.8-13.1) H 06/28/17 11:20 INR 1.5 (0.9-1.2) H 06/28/17 11:20 - Constitutional Appears: Well, Non-toxic, No Acute Distress - Extremities Exam Additional comments: Wound vac of right leg changed: Vasc: DP/PT pulses palpable to RLE. CFT < 3 seconds to all digits. Bleeding noticed to anterior leg wound. Skin temperature warm to right foot, WNL. Neuro: Epicritic and protective sensation grossly intact b/l Derm: Open wound spanning from patient's medial leg to lateral leg and extending proximal to distal roughly 6 cm. Wound site is noted to be granulating in more with each dressing change. Tibia and fibular exposure still present but decreasing. No periwound erythema, no malodor, no other clinical signs of infection. No signs of pin tract infection. Healthy tissue bleed noted. MSK: POP to wound site. POP to fibular fracture. External fixation in proper place. - Neurological Exam Neurological Exam: Alert, Awake, Oriented x3 - Psychiatric Exam Psychiatric exam: Normal Affect, Normal Mood Assessment and Plan - Assessment and Plan (Free Text) Assessment: 81 year old male seen in bed for wound vac change s/p 19 days open fibular fracture and 12 days failed fibular IM ashanti placement Plan: Patient seen and evaluated at bedside Charts, labs and vitals reviewed Plan discussed with attending Dr. Avila Wound vac successfully changed Pressure setting at 125 mmHg continuous applied Pins washed with betadine and xeroform was wrapped at their bases Leg dressed with gauze, kirlix and light TIN dressing Patient to be DC to [facility] in next day or two, will follow up with Dr. Avila in wound care center for vac changes and continued care Podiatry will continue to follow patient while in house
[2017-06-29] MEDS: Oxycodone/Acetaminophen 5/325 mg Tab PO PRN ×3 (05:49→21:29)
[2017-06-29] MEDS: Insulin Regular 100 units/ml SC SCH ×4 (07:01→21:37)
[2017-06-29 07:12] LABS: BLOOD UREA NITROGEN 31 mg/dl (9-20); CARBON DIOXIDE 26 mmol/L (22-30); CHLORIDE 102 mmol/L (98-107); GFR AFRICAN-AMERICAN > 60; GLUCOSE,RANDOM 179 mg/dL (75-110); POTASSIUM 5.4 MMOL/L (3.6-5.0); SODIUM 133 mmol/l (132-148)
[2017-06-29 07:53] LABS: HEMATOCRIT 33.9 % (35.0-51.0); MEAN CELL VOLUME 85.9 fl (80.0-94.0); MEAN CORPUSCULAR HGB CONC 32.6 g/dL (33.0-37.0); RED CELL DISTRIBUTION WIDTH 18.2 % (11.5-14.5); WHITE BLOOD COUNT 4.2 K/uL (4.8-10.8)
[2017-06-29] MEDS: Albuterol-Ipratrop 3 mg / 0.5 (3 ml) UD INH SCH ×4 (08:29→19:19)
[2017-06-29] MEDS: Enoxaparin 40 mg Syringe SC SCH (08:55)
[2017-06-29] MEDS: Pantoprazole 40 mg EC Tab PO SCH (08:56)
[2017-06-29] MEDS: Ammonium Lactate 12% Cream (140 g) TOP SCH (09:13)
--- NOTE | 2017-06-29 09:24 | CP.PCM.PN ---
Subjective - Date & Time of Evaluation Date of Evaluation: 06/29/17 Time of Evaluation: 09:20 - Subjective Subjective: 81 year old male seen bedside 20 days s/p right closed reduction external fixation with wound debridement, 13 days s/p failed fibular ashanti placement and one day s/p wound vac change. Patient states that he experiences pain in his leg whenever he is being washed or moved, especially during physical therapy. He states that otherwise his pain is well controlled. He states that he is very sad due to the recent of his son. He denies any further pedal complaints at this time. He denies N/V/F/C/CP/SOB Objective - Vital Signs/Intake and Output Vital Signs (last 24 hours): Temp Pulse Resp BP Pulse Ox 97.5 F L 81 20 127/74 96 06/29/17 08:08 06/29/17 08:08 06/29/17 08:08 06/29/17 08:08 06/29/17 08:08 - Medications Medications: Current Medications Acetaminophen (Tylenol 325mg Tab) 650 mg PO Q4 PRN PRN Reason: Pain, Mild (1-3) Acetaminophen (Tylenol 325mg Tab) 650 mg PO Q4 PRN PRN Reason: Pain, Mild (1-3) Acetaminophen (Tylenol 325mg Tab) 650 mg PO Q6 PRN PRN Reason: Fever >100.4 F Last Admin: 06/20/17 16:37 Dose: 650 mg Albuterol/Ipratropium (Duoneb 3 Mg/0.5 Mg (3 Ml) Ud) 3 ml INH RQID [facility] Last Admin: 06/29/17 08:29 Dose: 3 ml Atorvastatin Calcium (Lipitor) 10 mg PO HS [facility] Last Admin: 06/28/17 21:51 Dose: 10 mg Enoxaparin Sodium (Lovenox) 40 mg SC DAILY [facility] PRN Reason: Protocol Last Admin: 06/29/17 08:55 Dose: Not Given Ferrous Sulfate (Feosol) 325 mg PO BID [facility] Last Admin: 06/29/17 08:55 Dose: 325 mg Gabapentin (Neurontin) 100 mg PO TID [facility] Last Admin: 06/29/17 08:55 Dose: 100 mg Glipizide (Glucotrol) 5 mg PO BID [facility] Last Admin: 06/29/17 08:56 Dose: 5 mg Insulin Human Regular (Humulin R) 0 units SC ACHS [facility] PRN Reason: Protocol Last Admin: 06/29/17 07:01 Dose: 2 units Lactic Acid (Lac-Hydrin 12% Cream (140 G)) 1 ea TOP DAILY [facility] Last Admin: 06/29/17 09:13 Dose: 1 unit Nystatin (Nystop Topical Powder) 1 applic TOP TID [facility] Last Admin: 06/29/17 08:56 Dose: 1 applic Oxycodone/Acetaminophen (Percocet 5/325 Mg Tab) 2 tab PO Q4 PRN PRN Reason: Pain, severe (8-10) Stop: 06/30/17 23:01 Last Admin: 06/29/17 05:49 Dose: 2 tab Oxycodone/Acetaminophen (Percocet 5/325 Mg Tab) 1 tab PO Q4 PRN PRN Reason: Pain, moderate (4-7) Stop: 06/30/17 23:01 Last Admin: 06/28/17 16:51 Dose: 1 tab Pantoprazole Sodium (Protonix Ec Tab) 40 mg PO DAILY [facility] Last Admin: 06/29/17 08:56 Dose: 40 mg - Labs Labs: 06/29/17 05:55 06/29/17 05:55 PT 17.1 Seconds (9.8-13.1) H 06/29/17 05:55 INR 1.5 (0.9-1.2) H 06/29/17 05:55 - Extremities Exam Additional comments: Dressing c/d/i to RLE wound vac output at 250 cc Wound vac running continuously at 125 mmHg Assessment and Plan - Assessment and Plan (Free Text) Assessment: 81 year old male seen in bed 20 days s/p open fibular fracture and 13 days failed fibular IM ashanti placement Plan: Patient seen and evaluated at bedside Charts, labs and vitals reviewed Cont wound vac at 125 mmHg continuous applied Cont pain medication prn Per Dr. Avila, patient should be transfered to [facility] after DC and follow up with him in wound care center for regular wound vac changes and continued care Patient should be strict NWB to right leg Podiatry will continue to follow patient while in house
--- NOTE | 2017-06-29 10:36 | CP.PCM.PN ---
Subjective - Date & Time of Evaluation Date of Evaluation: 06/29/17 Time of Evaluation: 10:33 - Subjective Subjective: Pt seems to be doing better, . He is to have a abdominal paracentesis today, and will probably be moved to sub acute rehab tomorrow. CBC is satble. Objective - Vital Signs/Intake and Output Vital Signs (last 24 hours): Temp Pulse Resp BP Pulse Ox 97.5 F L 81 20 127/74 96 06/29/17 08:08 06/29/17 08:08 06/29/17 08:08 06/29/17 08:08 06/29/17 08:08 - Medications Medications: Current Medications Acetaminophen (Tylenol 325mg Tab) 650 mg PO Q4 PRN PRN Reason: Pain, Mild (1-3) Acetaminophen (Tylenol 325mg Tab) 650 mg PO Q4 PRN PRN Reason: Pain, Mild (1-3) Acetaminophen (Tylenol 325mg Tab) 650 mg PO Q6 PRN PRN Reason: Fever >100.4 F Last Admin: 06/20/17 16:37 Dose: 650 mg Albuterol/Ipratropium (Duoneb 3 Mg/0.5 Mg (3 Ml) Ud) 3 ml INH RQID [facility] Last Admin: 06/29/17 08:29 Dose: 3 ml Atorvastatin Calcium (Lipitor) 10 mg PO HS [facility] Last Admin: 06/28/17 21:51 Dose: 10 mg Enoxaparin Sodium (Lovenox) 40 mg SC DAILY [facility] PRN Reason: Protocol Last Admin: 06/29/17 08:55 Dose: Not Given Ferrous Sulfate (Feosol) 325 mg PO BID [facility] Last Admin: 06/29/17 08:55 Dose: 325 mg Gabapentin (Neurontin) 100 mg PO TID [facility] Last Admin: 06/29/17 08:55 Dose: 100 mg Glipizide (Glucotrol) 5 mg PO BID [facility] Last Admin: 06/29/17 08:56 Dose: 5 mg Insulin Human Regular (Humulin R) 0 units SC ACHS [facility] PRN Reason: Protocol Last Admin: 06/29/17 07:01 Dose: 2 units Lactic Acid (Lac-Hydrin 12% Cream (140 G)) 1 ea TOP DAILY [facility] Last Admin: 06/29/17 09:13 Dose: 1 unit Nystatin (Nystop Topical Powder) 1 applic TOP TID [facility] Last Admin: 06/29/17 08:56 Dose: 1 applic Oxycodone/Acetaminophen (Percocet 5/325 Mg Tab) 2 tab PO Q4 PRN PRN Reason: Pain, severe (8-10) Stop: 06/30/17 23:01 Last Admin: 06/29/17 05:49 Dose: 2 tab Oxycodone/Acetaminophen (Percocet 5/325 Mg Tab) 1 tab PO Q4 PRN PRN Reason: Pain, moderate (4-7) Stop: 06/30/17 23:01 Last Admin: 06/28/17 16:51 Dose: 1 tab Pantoprazole Sodium (Protonix Ec Tab) 40 mg PO DAILY [facility] Last Admin: 06/29/17 08:56 Dose: 40 mg - Labs Labs: 06/29/17 05:55 06/29/17 05:55 PT 17.1 Seconds (9.8-13.1) H 06/29/17 05:55 INR 1.5 (0.9-1.2) H 06/29/17 05:55
[2017-06-29] MEDS ORDERED: Albumin Human 25% (12.5 gm/50 ml) IV ONE (14:22)
--- NOTE | 2017-06-29 14:22 | PCM.SURG1 ---
Surgeon's Initial Post Op Note - Surgeon's Notes Surgeon: Amando Reynolds MD Propellant Charge Loader: None Type of Anesthesia: Local Pre-Operative Diagnosis: Ascites Operative Findings: Large volume ascites Post-Operative Diagnosis: same Operation Performed: US guided paracentesis Specimen/Specimens Removed: 11.3 straw colored fluid removed Estimated Blood Loss: EBL {In ML}: 0 Date of Surgery/Procedure: 06/29/17 Time of Surgery/Procedure: 14:22
[2017-06-29] MEDS ORDERED: Sod Polystyrene Sulf 15 gm/60 ml Susp PO ONE (22:51)
[2017-06-30] MEDS: Insulin Regular 100 units/ml SC SCH ×4 (06:46→22:08)
[2017-06-30] MEDS: Albuterol-Ipratrop 3 mg / 0.5 (3 ml) UD INH SCH ×4 (07:48→20:02)
[2017-06-30 07:51] LABS: BLOOD UREA NITROGEN 30 mg/dl (9-20); CALCIUM 8.1 mg/dL (8.4-10.2); CARBON DIOXIDE 27 mmol/L (22-30); CHLORIDE 102 mmol/L (98-107); GFR AFRICAN-AMERICAN > 60; GLUCOSE,RANDOM 164 mg/dL (75-110); POTASSIUM 5.1 MMOL/L (3.6-5.0); SODIUM 133 mmol/l (132-148)
--- NOTE | 2017-06-30 08:32 | CP.PCM.PN ---
Subjective - Date & Time of Evaluation Date of Evaluation: 06/30/17 Time of Evaluation: 08:32 - Subjective Subjective: Podiatry Progress Note - Dr. Avila 81 y/o male seen at bedside in TCU 3 weeks s/p right ankle closed reduction with external fixation and wound debridement and 2 weeks s/p failed fibular IM ashanti placement. Pt last had a wound vac change two days ago. Pt says he feels fine in regards to the leg today. Pt says he just regurgitated and is having no appetite at this time after his paracentesis procedure yesterday. Pt says he has no pedal complaints at this time and has not tampered with the dressing or external fixator. Pt denies F/C/CP/SOB. Objective - Vital Signs/Intake and Output Vital Signs (last 24 hours): Temp Pulse Resp BP Pulse Ox 97.7 F 83 20 129/69 95 06/30/17 08:17 06/30/17 08:17 06/30/17 08:17 06/30/17 08:17 06/30/17 08:17 - Medications Medications: Current Medications Acetaminophen (Tylenol 325mg Tab) 650 mg PO Q4 PRN PRN Reason: Pain, Mild (1-3) Acetaminophen (Tylenol 325mg Tab) 650 mg PO Q4 PRN PRN Reason: Pain, Mild (1-3) Acetaminophen (Tylenol 325mg Tab) 650 mg PO Q6 PRN PRN Reason: Fever >100.4 F Last Admin: 06/20/17 16:37 Dose: 650 mg Albuterol/Ipratropium (Duoneb 3 Mg/0.5 Mg (3 Ml) Ud) 3 ml INH RQID [facility] Last Admin: 06/30/17 07:48 Dose: Not Given Atorvastatin Calcium (Lipitor) 10 mg PO HS [facility] Last Admin: 06/29/17 21:27 Dose: 10 mg Enoxaparin Sodium (Lovenox) 40 mg SC DAILY [facility] PRN Reason: Protocol Last Admin: 06/29/17 08:55 Dose: Not Given Ferrous Sulfate (Feosol) 325 mg PO BID [facility] Last Admin: 06/29/17 17:00 Dose: Not Given Gabapentin (Neurontin) 100 mg PO TID [facility] Last Admin: 06/29/17 17:00 Dose: Not Given Glipizide (Glucotrol) 5 mg PO BID [facility] Last Admin: 06/29/17 17:01 Dose: Not Given Insulin Human Regular (Humulin R) 0 units SC ACHS [facility] PRN Reason: Protocol Last Admin: 06/30/17 06:46 Dose: 2 units Lactic Acid (Lac-Hydrin 12% Cream (140 G)) 1 ea TOP DAILY [facility] Last Admin: 06/29/17 09:13 Dose: 1 unit Nystatin (Nystop Topical Powder) 1 applic TOP TID [facility] Last Admin: 06/29/17 19:04 Dose: Not Given Ondansetron HCl (Zofran Inj) 4 mg IVP Q4 PRN PRN Reason: Nausea/Vomiting Last Admin: 06/30/17 08:21 Dose: 4 mg Oxycodone/Acetaminophen (Percocet 5/325 Mg Tab) 2 tab PO Q4 PRN PRN Reason: Pain, severe (8-10) Stop: 06/30/17 23:01 Last Admin: 06/29/17 21:29 Dose: 2 tab Oxycodone/Acetaminophen (Percocet 5/325 Mg Tab) 1 tab PO Q4 PRN PRN Reason: Pain, moderate (4-7) Stop: 06/30/17 23:01 Last Admin: 06/29/17 11:54 Dose: 1 tab Pantoprazole Sodium (Protonix Ec Tab) 40 mg PO DAILY [facility] Last Admin: 06/29/17 08:56 Dose: 40 mg - Labs Labs: 06/29/17 05:55 06/30/17 06:30 PT 17.1 Seconds (9.8-13.1) H 06/29/17 05:55 INR 1.5 (0.9-1.2) H 06/29/17 05:55 - Constitutional Appears: Well, Non-toxic, No Acute Distress - Extremities Exam Additional comments: Dressing and external fixator are clean, dry and intact to RLE Wound vac output at 350cc today Wound vac running continuously at 125 mmHg, leak check confirms no leaks - Neurological Exam Neurological Exam: Alert, Awake, Oriented x3 - Psychiatric Exam Psychiatric exam: Normal Affect, Normal Mood Assessment and Plan - Assessment and Plan (Free Text) Assessment: 81 year old male seen in bed 3 weeks s/p closed reduction and application of external fixator with wound debridement of open fibular fracture and 2 weeks s/ p failed fibular IM ashanti placement, with wound vac and external fixator in place to RLE Plan: Patient seen and evaluated at bedside Charts, labs and vitals reviewed - afebrile, NNL Continue wound vac at 125 mmHg continuous applied Continue pain medication prn Per Dr. Avila, patient should be transferred to [facility] after D/D Pt to follow up with him in wound care center for regular wound vac changes and continued care Patient should be strictly NWB to right leg Podiatry will continue to follow patient while in house
[2017-06-30 09:42] LABS: BASO % 0.4 % (0.0-2.0); EOS % 0.3 % (0.0-4.0); HEMATOCRIT 35.9 % (35.0-51.0); LYMPH # 0.4 K/uL (1.0-4.3); LYMPH % 8.3 % (20.0-40.0); MEAN CELL VOLUME 85.1 fl (80.0-94.0); MEAN CORPUSCULAR HGB CONC 32.9 g/dL (33.0-37.0); MONO # 0.5 K/uL (0.0-0.8); NEUT # 4.3 K/uL (1.8-7.0); NRBC % 0.1 % (0.0-0.0); PLATELET COUNT 119 K/uL (130-400); RED CELL DISTRIBUTION WIDTH 17.8 % (11.5-14.5); WHITE BLOOD COUNT 5.2 K/uL (4.8-10.8)
[2017-06-30 09:49] LABS: BILIRUBIN,TOTAL 1.5 mg/dl (0.2-1.3); TOTAL PROTEIN 5.5 G/DL (6.3-8.2)
[2017-06-30] MEDS: Ammonium Lactate 12% Cream (140 g) TOP SCH (10:03)
[2017-06-30] MEDS: Enoxaparin 40 mg Syringe SC SCH (10:03)
[2017-06-30] MEDS: Pantoprazole 40 mg EC Tab PO SCH (10:04)
[2017-06-30 10:06] LABS: ALB/GLOB RATIO 0.9 (1.0-2.1)
[2017-06-30 10:36] LABS: NEUTROPHIL 88 % (42-75); TOTAL CELLS COUNTED 100
--- NOTE | 2017-06-30 10:41 | CP.PCM.PN ---
Subjective - Date & Time of Evaluation Date of Evaluation: 06/30/17 Time of Evaluation: 10:33 - Subjective Subjective: Pt had a abdominal paracentesis yesterday and 11.3 liters wer removed. Following that he received 100 mg of albumin. Today he is feeling nauseous and abdomen is distended He is unable to keep anything down. Will give him some pepcid and iv fluids at 50 cc/hr. I dont want to over hydrate him because of his past h/o CHFHe does not feel well at all at this time. Vital signs ae stable,,and cbc is stable as well. He is moving his lower extremities a little better because the swelling is lesser. Objective - Vital Signs/Intake and Output Vital Signs (last 24 hours): Temp Pulse Resp BP Pulse Ox 97.7 F 83 20 129/69 95 06/30/17 08:17 06/30/17 08:17 06/30/17 08:17 06/30/17 08:17 06/30/17 08:17 - Medications Medications: Current Medications Acetaminophen (Tylenol 325mg Tab) 650 mg PO Q4 PRN PRN Reason: Pain, Mild (1-3) Acetaminophen (Tylenol 325mg Tab) 650 mg PO Q4 PRN PRN Reason: Pain, Mild (1-3) Acetaminophen (Tylenol 325mg Tab) 650 mg PO Q6 PRN PRN Reason: Fever >100.4 F Last Admin: 06/20/17 16:37 Dose: 650 mg Albuterol/Ipratropium (Duoneb 3 Mg/0.5 Mg (3 Ml) Ud) 3 ml INH RQID [facility] Last Admin: 06/30/17 07:48 Dose: Not Given Atorvastatin Calcium (Lipitor) 10 mg PO HS [facility] Last Admin: 06/29/17 21:27 Dose: 10 mg Enoxaparin Sodium (Lovenox) 40 mg SC DAILY [facility] PRN Reason: Protocol Last Admin: 06/30/17 10:03 Dose: 40 mg Ferrous Sulfate (Feosol) 325 mg PO BID [facility] Last Admin: 06/30/17 10:05 Dose: Not Given Gabapentin (Neurontin) 100 mg PO TID [facility] Last Admin: 06/30/17 10:04 Dose: Not Given Glipizide (Glucotrol) 5 mg PO BID [facility] Last Admin: 06/30/17 10:05 Dose: Not Given Insulin Human Regular (Humulin R) 0 units SC ACHS [facility] PRN Reason: Protocol Last Admin: 06/30/17 06:46 Dose: 2 units Lactic Acid (Lac-Hydrin 12% Cream (140 G)) 1 ea TOP DAILY [facility] Last Admin: 06/30/17 10:03 Dose: 1 unit Nystatin (Nystop Topical Powder) 1 applic TOP TID [facility] Last Admin: 06/30/17 10:02 Dose: 1 applic Ondansetron HCl (Zofran Inj) 4 mg IVP Q4 PRN PRN Reason: Nausea/Vomiting Last Admin: 06/30/17 08:21 Dose: 4 mg Oxycodone/Acetaminophen (Percocet 5/325 Mg Tab) 2 tab PO Q4 PRN PRN Reason: Pain, severe (8-10) Stop: 06/30/17 23:01 Last Admin: 06/29/17 21:29 Dose: 2 tab Oxycodone/Acetaminophen (Percocet 5/325 Mg Tab) 1 tab PO Q4 PRN PRN Reason: Pain, moderate (4-7) Stop: 06/30/17 23:01 Last Admin: 06/29/17 11:54 Dose: 1 tab Pantoprazole Sodium (Protonix Ec Tab) 40 mg PO DAILY [facility] Last Admin: 06/30/17 10:04 Dose: 40 mg - Labs Labs: 06/30/17 09:00 06/30/17 06:30 PT 17.1 Seconds (9.8-13.1) H 06/29/17 05:55 INR 1.5 (0.9-1.2) H 06/29/17 05:55
[2017-06-30] MEDS: Lactated Ringer's 500 ML IV SCH ×2 (11:00→21:52)
--- NOTE | 2017-06-30 11:48 | CP.PCM.PN ---
Subjective - Date & Time of Evaluation Date of Evaluation: 06/30/17 Time of Evaluation: 10:30 - Subjective Subjective: Patient seen and examined bedside.Feeling sad. With episodes of nausea and vomiting this AM and poor PO intake.Hemodynamically stable, afebrile. pain is controlled s/p abdominal parasenthesis yesterday with removal of 11.3 L ascitic fluid Objective - Vital Signs/Intake and Output Vital Signs (last 24 hours): Temp Pulse Resp BP Pulse Ox 97.7 F 83 20 129/69 95 06/30/17 08:17 06/30/17 08:17 06/30/17 08:17 06/30/17 08:17 06/30/17 08:17 - Medications Medications: Current Medications Acetaminophen (Tylenol 325mg Tab) 650 mg PO Q4 PRN PRN Reason: Pain, Mild (1-3) Acetaminophen (Tylenol 325mg Tab) 650 mg PO Q4 PRN PRN Reason: Pain, Mild (1-3) Acetaminophen (Tylenol 325mg Tab) 650 mg PO Q6 PRN PRN Reason: Fever >100.4 F Last Admin: 06/20/17 16:37 Dose: 650 mg Albuterol/Ipratropium (Duoneb 3 Mg/0.5 Mg (3 Ml) Ud) 3 ml INH RQID [facility] Last Admin: 06/30/17 07:48 Dose: Not Given Atorvastatin Calcium (Lipitor) 10 mg PO HS [facility] Last Admin: 06/29/17 21:27 Dose: 10 mg Enoxaparin Sodium (Lovenox) 40 mg SC DAILY [facility] PRN Reason: Protocol Last Admin: 06/30/17 10:03 Dose: 40 mg Famotidine (Pepcid) 20 mg IVP Q12 [facility] Ferrous Sulfate (Feosol) 325 mg PO BID [facility] Last Admin: 06/30/17 10:05 Dose: Not Given Gabapentin (Neurontin) 100 mg PO TID [facility] Last Admin: 06/30/17 10:04 Dose: Not Given Glipizide (Glucotrol) 5 mg PO BID [facility] Last Admin: 06/30/17 10:05 Dose: Not Given Lactated Ringer's (Lactated Ringer's 500ml) 500 mls @ 50 mls/hr IV .Q10H [facility] Insulin Human Regular (Humulin R) 0 units SC ACHS [facility] PRN Reason: Protocol Last Admin: 06/30/17 06:46 Dose: 2 units Lactic Acid (Lac-Hydrin 12% Cream (140 G)) 1 ea TOP DAILY [facility] Last Admin: 06/30/17 10:03 Dose: 1 unit Nystatin (Nystop Topical Powder) 1 applic TOP TID [facility] Last Admin: 06/30/17 10:02 Dose: 1 applic Ondansetron HCl (Zofran Inj) 4 mg IVP Q4 PRN PRN Reason: Nausea/Vomiting Last Admin: 06/30/17 08:21 Dose: 4 mg Oxycodone/Acetaminophen (Percocet 5/325 Mg Tab) 2 tab PO Q4 PRN PRN Reason: Pain, severe (8-10) Stop: 06/30/17 23:01 Last Admin: 06/29/17 21:29 Dose: 2 tab Oxycodone/Acetaminophen (Percocet 5/325 Mg Tab) 1 tab PO Q4 PRN PRN Reason: Pain, moderate (4-7) Stop: 06/30/17 23:01 Last Admin: 06/29/17 11:54 Dose: 1 tab Pantoprazole Sodium (Protonix Ec Tab) 40 mg PO DAILY [facility] Last Admin: 06/30/17 10:04 Dose: 40 mg - Labs Labs: 06/30/17 09:00 06/30/17 06:30 PT 17.1 Seconds (9.8-13.1) H 06/29/17 05:55 INR 1.5 (0.9-1.2) H 06/29/17 05:55 - Constitutional Appears: Non-toxic, No Acute Distress - Head Exam Head Exam: ATRAUMATIC, NORMOCEPHALIC - Eye Exam Eye Exam: EOMI, Normal appearance, PERRL Pupil Exam: NORMAL ACCOMODATION - ENT Exam ENT Exam: Mucous Membranes Moist, Normal Exam - Neck Exam Neck Exam: Normal Inspection - Respiratory Exam Respiratory Exam: Clear to Ausculation Bilateral, NORMAL BREATHING PATTERN. absent: Rhonchi, Wheezes, Respiratory Distress - Cardiovascular Exam Cardiovascular Exam: REGULAR RHYTHM, RRR, +S1, +S2. absent: JVD - GI/Abdominal Exam GI & Abdominal Exam: Distended, Soft. absent: Guarding, Rigid, Tenderness, Rebound - Rectal Exam Rectal Exam: Deferred - Extremities Exam Additional comments: RLE with dressing in place, external fixator hardware and wound vac with serosanguinous output LLE with chronic venous stasis skin changes , warm to touch - Back Exam Back Exam: NORMAL INSPECTION - Neurological Exam Neurological Exam: Alert, Awake, CN II-XII Intact, Oriented x3 - Psychiatric Exam Psychiatric exam: Flat Affect - Skin Skin Exam: Dry, Warm Assessment and Plan - Assessment and Plan (Free Text) Assessment: 81 year old male patient PMHx HTN, CHF, CAD/CABG, Myelodysplastic Syndrome, 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 Patient underwent right ankle closed reduction external fixation and wound debridement (DOS: 05/30/17) followed with wound washout and debridement and wound vac placement (DOS ). s/p failed internal fixation of right fibular fx with IM ashanti. He was started and given vancomycin IV for 14 days empirically since he had open wound and history of bacteremia in the past . At present in TCU for continuation of treatment and PT . 1. Ankle fracture Podiatry consult on board - Dr. Avila s/p failed internal fixation right fibular fx with IM ashanti (DOS: 06/16/17) s/p right ankle wound wash out, debridement, and wound vac placement (DOS: 06/13) by Dr. Benson s/p right ankle closed reduction external fixation and wound debridement (DOS: 06/09/17) Per podiatry, STRICT NWB RLE; no further internal fixation Continue wound care per podiatry (plan to change wound vac 3-4x/week) Wound VAC noted to have sanguinous drainage Continue pain management finished 14 days of vanco IV as per Id recommendations , empirically For possible discharge to [facility] over the weekend 2.Myelodysplasia (myelodysplastic syndrome) Dr. Salma Yanes hem/onc consulted, recs appreciated Hgb 10.7 Continue to follow CBC PRBC transfusions PRN 3. 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 DVT prophylaxis continue Lovenox 40mg SC daily but hold when platelets is below 80,000 7. Grief patient's son 1 week ago and patient is very sad Will call psychology consult
[2017-07-01] MEDS: Lactated Ringer's 500 ML IV SCH ×3 (06:30→23:00)
[2017-07-01] MEDS: Insulin Regular 100 units/ml SC SCH ×4 (08:04→22:07)
--- NOTE | 2017-07-01 08:05 | CP.PCM.CON ---
History of Present Illness - History of Present Illness History of Present Illness: Pt is an 81 year old male admitted to [place] [facility] and referred to the credit underwriter for evaluation. Pt known to the credit underwriter as he was treated at [facility] within the last year. Social History: pt lives in [place] with his of 55+ years. He had three children. His son reportedly unexpectedly this past week. Pt indicated the was days ago. Pt reported very positive relationships with family members. He reported closeness with his , children, grandchildren and greatgrands. Ed/Voc: pt raised in [place], he left . Pt has a [employer] business. Psych hx denied though he reported seeing the credit underwriter when at [facility] to address adjustment issues. Pt also discussed the recent ill health of his . Pt negative for a history of alc/sub abuse. On interview, pt overhwhelmed with multiple current stressors- his fall, recent surgery, of son, 's illness. Pt spoke of his desire for recovery, awareness of need for rehab and discussed his desire for decline in nausea. MSE: pt alert, oriented x3, relevant/coherent, no psychosis, affect constricted , mood depressed, no si no hi ideation. Dx: Depression plan: Continued Sup therapy Thank you for this referral, Dr. Macias Past Patient History - Tetanus Immunizations Tetanus Immunization: Unknown - Past Medical History & Family History Past Medical History?: Yes - Past Social History Smoking Status: Never Smoked Alcohol: None - CARDIAC Hx Cardiac Disorders: Yes Hx Congestive Heart Failure: Yes Hx Hypercholesterolemia: Yes Hx Hypertension: Yes - PULMONARY Hx Respiratory Disorders: No - NEUROLOGICAL Hx Neurological Disorder: No - HEENT Hx HEENT Problems: Yes Hx Cataracts: Yes (left) - RENAL Hx Chronic Kidney Disease: No - ENDOCRINE/METABOLIC Hx Endocrine Disorders: Yes Hx Diabetes Mellitus Type 2: Yes - HEMATOLOGICAL/ONCOLOGICAL Hx Anemia: Yes - INTEGUMENTARY Hx Dermatological Problems: No - MUSCULOSKELETAL/RHEUMATOLOGICAL Hx Arthritis: Yes - GASTROINTESTINAL Hx Gastritis: Yes - GENITOURINARY/GYNECOLOGICAL Hx Genitourinary Disorders: No - PSYCHIATRIC Hx Psychophysiologic Disorder: No Hx Substance Use: No - SURGICAL HISTORY Hx Cholecystectomy: Yes Hx Coronary Artery Bypass Graft: Yes - ANESTHESIA Hx Anesthesia: Yes Hx Anesthesia Reactions: No Hx Malignant Hyperthermia: No Meds Allergies/Adverse Reactions: Allergies Allergy/AdvReac Type Severity Reaction Status Date / Time tape Allergy Mild RASH Uncoded 11/04/17 12:27 - Medications Medications: Current Medications Acetaminophen (Tylenol 325mg Tab) 650 mg PO Q4 PRN PRN Reason: Pain, Mild (1-3) Acetaminophen (Tylenol 325mg Tab) 650 mg PO Q4 PRN PRN Reason: Pain, Mild (1-3) Acetaminophen (Tylenol 325mg Tab) 650 mg PO Q6 PRN PRN Reason: Fever >100.4 F Last Admin: 06/20/17 16:37 Dose: 650 mg Albuterol/Ipratropium (Duoneb 3 Mg/0.5 Mg (3 Ml) Ud) 3 ml INH RQID [facility] Last Admin: 06/30/17 20:02 Dose: Not Given Atorvastatin Calcium (Lipitor) 10 mg PO HS [facility] Last Admin: 06/30/17 21:53 Dose: Not Given Enoxaparin Sodium (Lovenox) 40 mg SC DAILY [facility] PRN Reason: Protocol Last Admin: 06/30/17 10:03 Dose: 40 mg Famotidine (Pepcid) 20 mg IVP Q12 [facility] Last Admin: 06/30/17 21:48 Dose: 20 mg Ferrous Sulfate (Feosol) 325 mg PO BID [facility] Last Admin: 06/30/17 20:02 Dose: Not Given Gabapentin (Neurontin) 100 mg PO TID [facility] Last Admin: 06/30/17 20:03 Dose: Not Given Glipizide (Glucotrol) 5 mg PO BID [facility] Last Admin: 06/30/17 20:03 Dose: Not Given Lactated Ringer's (Lactated Ringer's 500ml) 500 mls @ 50 mls/hr IV .Q10H [facility] Last Admin: 06/30/17 21:52 Dose: 50 mls/hr Insulin Human Regular (Humulin R) 0 units SC ACHS [facility] PRN Reason: Protocol Last Admin: 06/30/17 22:08 Dose: Not Given Lactic Acid (Lac-Hydrin 12% Cream (140 G)) 1 ea TOP DAILY [facility] Last Admin: 06/30/17 10:03 Dose: 1 unit Nystatin (Nystop Topical Powder) 1 applic TOP TID [facility] Last Admin: 06/30/17 18:04 Dose: 1 applic Ondansetron HCl (Zofran Inj) 4 mg IVP Q4 PRN PRN Reason: Nausea/Vomiting Last Admin: 06/30/17 14:35 Dose: 4 mg Pantoprazole Sodium (Protonix Ec Tab) 40 mg PO DAILY [facility] Last Admin: 06/30/17 10:04 Dose: 40 mg Results - Vital Signs Recent Vital Signs: Last Vital Signs Temp 98.1 F 06/30/17 20:21 Pulse 87 06/30/17 20:21 Resp 20 06/30/17 20:21 BP 135/84 06/30/17 20:21 Pulse Ox 97 06/30/17 20:21 - Labs Result Diagrams: 06/30/17 09:00 06/30/17 06:30 Labs: Laboratory Results - last 24 hr 06/30/17 06/30/17 06/30/17 09:00 09:00 10:59 WBC 5.2 RBC 4.21 L Hgb 11.8 L Hct 35.9 MCV 85.1 MCH 28.0 MCHC 32.9 L RDW 17.8 H Plt Count 119 L MPV 6.0 L Neut % (Auto) 82.0 H Lymph % (Auto) 8.3 L Nolan % (Auto) 9.0 Eos % (Auto) 0.3 Baso % (Auto) 0.4 Neut # 4.3 Lymph # 0.4 L Nolan # 0.5 Eos # 0.0 Baso # 0.0 Neutrophils % (Manual) 88 H Lymphocytes % (Manual) 5 L Monocytes % (Manual) 7 Platelet Estimate Decreased L Hypochromasia (manual) Slight Anisocytosis (manual) Slight Tear Drop Cells Slight Ovalocytes Slight Schistocytes Slight POC Glucose (mg/dL) 192 H Total Bilirubin 1.5 H Direct Bilirubin 0.3 AST 20 ALT 32 Alkaline Phosphatase 92 Total Protein 5.5 L Albumin 2.6 L Globulin 2.8 Albumin/Globulin Ratio 0.9 L 06/30/17 06/30/17 07/01/17 15:51 20:34 07:12 WBC RBC Hgb Hct MCV MCH MCHC RDW Plt Count MPV Neut % (Auto) Lymph % (Auto) Nolan % (Auto) Eos % (Auto) Baso % (Auto) Neut # Lymph # Nolan # Eos # Baso # Neutrophils % (Manual) Lymphocytes % (Manual) Monocytes % (Manual) Platelet Estimate Hypochromasia (manual) Anisocytosis (manual) Tear Drop Cells Ovalocytes Schistocytes POC Glucose (mg/dL) 171 H 169 H 165 H Total Bilirubin Direct Bilirubin AST ALT Alkaline Phosphatase Total Protein Albumin Globulin Albumin/Globulin Ratio
[2017-07-01] MEDS: Enoxaparin 40 mg Syringe SC SCH (08:42)
[2017-07-01] MEDS: Ammonium Lactate 12% Cream (140 g) TOP SCH (10:17)
[2017-07-01] MEDS: Pantoprazole 40 mg EC Tab PO SCH (10:18)
--- NOTE | 2017-07-01 10:47 | RAD ---
HISTORY: vomiting COMPARISON: No prior. FINDINGS: BOWEL: There is gaseous distension of the stomach and small bowel loops. BONES: Within normal limits for the patient's age. Status post left hip arthroplasty. OTHER FINDINGS: None. IMPRESSION: Gaseous distension of the stomach and small bowel loops which could be related to ileus or obstruction. Follow-up is advised. .
[2017-07-01] MEDS ORDERED: Chlorhexidine Gluconate 1 APPL/PKT TP ONE (11:23)
[2017-07-01] MEDS: Albuterol-Ipratrop 3 mg / 0.5 (3 ml) UD INH SCH ×4 (11:44→20:26)
--- NOTE | 2017-07-01 12:14 | CP.PCM.PN ---
Subjective - Date & Time of Evaluation Date of Evaluation: 07/01/17 Time of Evaluation: 12:11 - Subjective Subjective: Pt's abdomen is still distended but is lesser than before. he has had bowel movements, The the flat plate of the abdomen shows dilatation of the stomach and small intestine, seems to be ileus.? obstruction. Will keep a close eye on it. CBC is stable. Objective - Vital Signs/Intake and Output Vital Signs (last 24 hours): Temp Pulse Resp BP Pulse Ox 97.5 F L 83 20 142/67 95 07/01/17 08:15 07/01/17 08:15 07/01/17 08:15 07/01/17 08:15 07/01/17 08:15 - Medications Medications: Current Medications Acetaminophen (Tylenol 325mg Tab) 650 mg PO Q4 PRN PRN Reason: Pain, Mild (1-3) Acetaminophen (Tylenol 325mg Tab) 650 mg PO Q4 PRN PRN Reason: Pain, Mild (1-3) Acetaminophen (Tylenol 325mg Tab) 650 mg PO Q6 PRN PRN Reason: Fever >100.4 F Last Admin: 06/20/17 16:37 Dose: 650 mg Albuterol/Ipratropium (Duoneb 3 Mg/0.5 Mg (3 Ml) Ud) 3 ml INH RQID [facility] Last Admin: 07/01/17 11:45 Dose: Not Given Atorvastatin Calcium (Lipitor) 10 mg PO HS [facility] Last Admin: 06/30/17 21:53 Dose: Not Given Enoxaparin Sodium (Lovenox) 40 mg SC DAILY [facility] PRN Reason: Protocol Last Admin: 07/01/17 08:42 Dose: 40 mg Famotidine (Pepcid) 20 mg IVP Q12 [facility] Last Admin: 07/01/17 08:44 Dose: 20 mg Ferrous Sulfate (Feosol) 325 mg PO BID [facility] Last Admin: 07/01/17 10:17 Dose: Not Given Gabapentin (Neurontin) 100 mg PO TID [facility] Last Admin: 07/01/17 10:17 Dose: Not Given Glipizide (Glucotrol) 5 mg PO BID [facility] Last Admin: 07/01/17 10:19 Dose: Not Given Lactated Ringer's (Lactated Ringer's 500ml) 500 mls @ 50 mls/hr IV .Q10H [facility] Last Admin: 07/01/17 06:30 Dose: 50 mls/hr Insulin Human Regular (Humulin R) 0 units SC ACHS [facility] PRN Reason: Protocol Last Admin: 07/01/17 08:04 Dose: Not Given Lactic Acid (Lac-Hydrin 12% Cream (140 G)) 1 ea TOP DAILY [facility] Last Admin: 07/01/17 10:17 Dose: 1 unit Metoclopramide HCl (Reglan) 5 mg IVP Q6 PRN PRN Reason: Nausea/Vomiting Last Admin: 07/01/17 08:41 Dose: 5 mg Nystatin (Nystop Topical Powder) 1 applic TOP TID [facility] Last Admin: 07/01/17 10:18 Dose: 1 applic Ondansetron HCl (Zofran Inj) 4 mg IVP Q4 PRN PRN Reason: Nausea/Vomiting Last Admin: 06/30/17 14:35 Dose: 4 mg Pantoprazole Sodium (Protonix Ec Tab) 40 mg PO DAILY [facility] Last Admin: 07/01/17 10:18 Dose: 40 mg - Labs Labs: 06/30/17 09:00 06/30/17 06:30 PT 17.1 Seconds (9.8-13.1) H 06/29/17 05:55 INR 1.5 (0.9-1.2) H 06/29/17 05:55
--- NOTE | 2017-07-01 12:17 | CP.PCM.PN ---
Subjective - Date & Time of Evaluation Date of Evaluation: 07/01/17 Time of Evaluation: 10:00 - Subjective Subjective: Patient seen and examined bedside.Chronically ill male lying in bed in NAD. Appears weak, pale with flat affect. With 4 episodes of bilious vomiting this AM. Abdomen Xray showed dilated bowel loops and stomach; possible ileus. NGT placed with 1 L bilious output kept NPO and IVF patient denies abdominal weathers or discomfort, passing flatus and had BM yesterday Objective - Vital Signs/Intake and Output Vital Signs (last 24 hours): Temp Pulse Resp BP Pulse Ox 97.5 F L 83 20 142/67 95 07/01/17 08:15 07/01/17 08:15 07/01/17 08:15 07/01/17 08:15 07/01/17 08:15 - Medications Medications: Current Medications Acetaminophen (Tylenol 325mg Tab) 650 mg PO Q4 PRN PRN Reason: Pain, Mild (1-3) Acetaminophen (Tylenol 325mg Tab) 650 mg PO Q4 PRN PRN Reason: Pain, Mild (1-3) Acetaminophen (Tylenol 325mg Tab) 650 mg PO Q6 PRN PRN Reason: Fever >100.4 F Last Admin: 06/20/17 16:37 Dose: 650 mg Albuterol/Ipratropium (Duoneb 3 Mg/0.5 Mg (3 Ml) Ud) 3 ml INH RQID [facility] Last Admin: 07/01/17 11:45 Dose: Not Given Atorvastatin Calcium (Lipitor) 10 mg PO HS [facility] Last Admin: 06/30/17 21:53 Dose: Not Given Enoxaparin Sodium (Lovenox) 40 mg SC DAILY [facility] PRN Reason: Protocol Last Admin: 07/01/17 08:42 Dose: 40 mg Famotidine (Pepcid) 20 mg IVP Q12 [facility] Last Admin: 07/01/17 08:44 Dose: 20 mg Ferrous Sulfate (Feosol) 325 mg PO BID [facility] Last Admin: 07/01/17 10:17 Dose: Not Given Gabapentin (Neurontin) 100 mg PO TID [facility] Last Admin: 07/01/17 10:17 Dose: Not Given Glipizide (Glucotrol) 5 mg PO BID [facility] Last Admin: 07/01/17 10:19 Dose: Not Given Lactated Ringer's (Lactated Ringer's 500ml) 500 mls @ 50 mls/hr IV .Q10H [facility] Last Admin: 07/01/17 06:30 Dose: 50 mls/hr Insulin Human Regular (Humulin R) 0 units SC ACHS [facility] PRN Reason: Protocol Last Admin: 07/01/17 08:04 Dose: Not Given Lactic Acid (Lac-Hydrin 12% Cream (140 G)) 1 ea TOP DAILY [facility] Last Admin: 07/01/17 10:17 Dose: 1 unit Metoclopramide HCl (Reglan) 5 mg IVP Q6 PRN PRN Reason: Nausea/Vomiting Last Admin: 07/01/17 08:41 Dose: 5 mg Nystatin (Nystop Topical Powder) 1 applic TOP TID [facility] Last Admin: 07/01/17 10:18 Dose: 1 applic Ondansetron HCl (Zofran Inj) 4 mg IVP Q4 PRN PRN Reason: Nausea/Vomiting Last Admin: 06/30/17 14:35 Dose: 4 mg Pantoprazole Sodium (Protonix Ec Tab) 40 mg PO DAILY [facility] Last Admin: 07/01/17 10:18 Dose: 40 mg - Labs Labs: 06/30/17 09:00 06/30/17 06:30 PT 17.1 Seconds (9.8-13.1) H 06/29/17 05:55 INR 1.5 (0.9-1.2) H 06/29/17 05:55 - Constitutional Appears: Non-toxic, No Acute Distress, Chronically Ill - Head Exam Head Exam: ATRAUMATIC, NORMAL INSPECTION, NORMOCEPHALIC - Eye Exam Eye Exam: EOMI, PERRL Pupil Exam: NORMAL ACCOMODATION - ENT Exam ENT Exam: Mucous Membranes Moist, Normal Exam - Respiratory Exam Respiratory Exam: Clear to Ausculation Bilateral. absent: Rhonchi, Wheezes, Respiratory Distress - GI/Abdominal Exam GI & Abdominal Exam: Distended, Soft, Hypoactive Bowel Sounds. 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 Patient underwent right ankle closed reduction external fixation and wound debridement (DOS: 05/30/17) followed with wound washout and debridement and wound vac placement (DOS ). s/p failed internal fixation of right fibular fx with IM ashanti. He was started and given vancomycin IV for 14 days empirically since he had open wound and history of bacteremia in the past . At present in TCU for continuation of treatment and PT . 1. Vomiting / suspected ileus Flat abdominal xary showed dilated bowel loops and stomach with 4 episodes of vomiting this AM , passing flatus and last BM yesterday NGT placed with 1 l bilious output . Discontinued NGT after no putput recorded for > 6 hours and patient requesting removal D/c diludid and start toradol IV PRN for pain Keep NPO Continue IVF surgery eval appreciated 2 Ankle fracture Podiatry consult on board - Dr. Avila s/p failed internal fixation right fibular fx with IM ashanti (DOS: 06/16/17) s/p right ankle wound wash out, debridement, and wound vac placement (DOS: 06/13) by Dr. Benson s/p right ankle closed reduction external fixation and wound debridement (DOS: 06/09/17) Per podiatry, STRICT NWB RLE; no further internal fixation Continue wound care per podiatry (plan to change wound vac 3-4x/week) Wound VAC noted to have sanguinous drainage Continue pain management finished 14 days of vanco IV as per Id recommendations , empirically For possible discharge to [facility] 3.Myelodysplasia (myelodysplastic syndrome) Dr. Salma Yanes hem/onc consulted, recs appreciated Hgb 10.7 Continue to follow CBC PRBC transfusions PRN 4. 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 DVT prophylaxis continue Lovenox 40mg SC daily will hold when platelets is below 80,000 8. Grief patient's son 1 week ago and patient is very sad psychology consult appreciated
--- NOTE | 2017-07-01 13:45 | CP.PCM.CON ---
History of Present Illness - History of Present Illness History of Present Illness: General Surgery- Dr. Curry 81 year old male w/ hx of right lower extremity fracture, liver cirrhosis, paracentesis. Surgery was consulted for possible obstruction. On Tuesday patient had 11 liters of fluid removed via paracentesis, the following day patient developed nausea and vomiting. NGT was placed. Opioid medication is used everyday for pain management and for dressing changes. In addition dilated loops of bowel was seen on imaging. at bedside during encounter; stated that patient had normal bowel movement yesterday. Currently passing flatus. Denies current: Nausea, vomiting, chest pain, shortness of breath, fevers, chills, numbness/tingling in extremities PMH: HTN, CHF, CAD/CABG, Myelodysplastic Syndrome, Cirrhosis and DMII PSH: closed reduction external fixation of RLE, CABG, Lap moy, paracentesis, hip replacement ALL: Adhesive tape SocialHx: denies etoh, tobacco, or recreational drug use Review of Systems - Review of Systems All systems: reviewed and no additional remarkable complaints except - Constitutional Constitutional: As Per HPI Past Patient History - Tetanus Immunizations Tetanus Immunization: Unknown - Past Medical History & Family History Past Medical History?: Yes - Past Social History Smoking Status: Never Smoked Alcohol: None - CARDIAC Hx Cardiac Disorders: Yes Hx Congestive Heart Failure: Yes Hx Hypercholesterolemia: Yes Hx Hypertension: Yes - PULMONARY Hx Respiratory Disorders: No - NEUROLOGICAL Hx Neurological Disorder: No - HEENT Hx HEENT Problems: Yes Hx Cataracts: Yes (left) - RENAL Hx Chronic Kidney Disease: No - ENDOCRINE/METABOLIC Hx Endocrine Disorders: Yes Hx Diabetes Mellitus Type 2: Yes - HEMATOLOGICAL/ONCOLOGICAL Hx Anemia: Yes - INTEGUMENTARY Hx Dermatological Problems: No - MUSCULOSKELETAL/RHEUMATOLOGICAL Hx Arthritis: Yes - GASTROINTESTINAL Hx Gastritis: Yes - GENITOURINARY/GYNECOLOGICAL Hx Genitourinary Disorders: No - PSYCHIATRIC Hx Psychophysiologic Disorder: No Hx Substance Use: No - SURGICAL HISTORY Hx Cholecystectomy: Yes Hx Coronary Artery Bypass Graft: Yes - ANESTHESIA Hx Anesthesia: Yes Hx Anesthesia Reactions: No Hx Malignant Hyperthermia: No Meds Allergies/Adverse Reactions: Allergies Allergy/AdvReac Type Severity Reaction Status Date / Time tape Allergy Mild RASH Uncoded 06/18/17 12:27 - Medications Medications: Current Medications Acetaminophen (Tylenol 325mg Tab) 650 mg PO Q4 PRN PRN Reason: Pain, Mild (1-3) Acetaminophen (Tylenol 325mg Tab) 650 mg PO Q4 PRN PRN Reason: Pain, Mild (1-3) Acetaminophen (Tylenol 325mg Tab) 650 mg PO Q6 PRN PRN Reason: Fever >100.4 F Last Admin: 06/20/17 16:37 Dose: 650 mg Albuterol/Ipratropium (Duoneb 3 Mg/0.5 Mg (3 Ml) Ud) 3 ml INH RQID [facility] Last Admin: 07/01/17 11:45 Dose: Not Given Atorvastatin Calcium (Lipitor) 10 mg PO HS [facility] Last Admin: 06/30/17 21:53 Dose: Not Given Enoxaparin Sodium (Lovenox) 40 mg SC DAILY [facility] PRN Reason: Protocol Last Admin: 07/01/17 08:42 Dose: 40 mg Famotidine (Pepcid) 20 mg IVP Q12 [facility] Last Admin: 07/01/17 08:44 Dose: 20 mg Ferrous Sulfate (Feosol) 325 mg PO BID [facility] Last Admin: 07/01/17 10:17 Dose: Not Given Gabapentin (Neurontin) 100 mg PO TID [facility] Last Admin: 07/01/17 12:51 Dose: Not Given Glipizide (Glucotrol) 5 mg PO BID [facility] Last Admin: 07/01/17 10:19 Dose: Not Given Lactated Ringer's (Lactated Ringer's 500ml) 500 mls @ 50 mls/hr IV .Q10H [facility] Last Admin: 07/01/17 06:30 Dose: 50 mls/hr Insulin Human Regular (Humulin R) 0 units SC ACHS [facility] PRN Reason: Protocol Last Admin: 07/01/17 12:51 Dose: Not Given Lactic Acid (Lac-Hydrin 12% Cream (140 G)) 1 ea TOP DAILY [facility] Last Admin: 07/01/17 10:17 Dose: 1 unit Metoclopramide HCl (Reglan) 5 mg IVP Q6 PRN PRN Reason: Nausea/Vomiting Last Admin: 07/01/17 08:41 Dose: 5 mg Nystatin (Nystop Topical Powder) 1 applic TOP TID [facility] Last Admin: 07/01/17 12:54 Dose: 1 applic Ondansetron HCl (Zofran Inj) 4 mg IVP Q4 PRN PRN Reason: Nausea/Vomiting Last Admin: 06/30/17 14:35 Dose: 4 mg Pantoprazole Sodium (Protonix Ec Tab) 40 mg PO DAILY [facility] Last Admin: 07/01/17 10:18 Dose: 40 mg Physical Exam - Constitutional Appears: Non-toxic, No Acute Distress - Head Exam Head Exam: ATRAUMATIC Additional comments: NGT in place on suction - Eye Exam Eye Exam: EOMI. absent: Scleral icterus - ENT Exam ENT Exam: Mucous Membranes Moist - Respiratory Exam Respiratory Exam: NORMAL BREATHING PATTERN. absent: Accessory Muscle Use, Respiratory Distress - Cardiovascular Exam Cardiovascular Exam: +S1, +S2. absent: Bradycardia, Tachycardia - GI/Abdominal Exam GI & Abdominal Exam: Distended, Hernia, Soft. absent: Firm, Guarding, Mass, Organomegaly, Rebound, Rigid, Tenderness Additional comments: patients abdomen is soft, non-tender, distended. laparoscopic scars noted. CABG scar noted down sternum. paracentesis bandage noted in RLQ. - Extremities Exam Additional comments: RLE wound vac in place, and dressing C/D/I - Neurological Exam Neurological exam: Alert, Oriented x3 - Psychiatric Exam Psychiatric exam: Normal Affect - Skin Skin Exam: Intact, Warm Results - Vital Signs Recent Vital Signs: Last Vital Signs Temp 97.5 F L 07/01/17 08:15 Pulse 83 07/01/17 08:15 Resp 20 07/01/17 08:15 BP 142/67 07/01/17 08:15 Pulse Ox 95 07/01/17 08:15 - Labs Result Diagrams: 06/30/17 09:00 06/30/17 06:30 Labs: Laboratory Results - last 24 hr 06/30/17 06/30/17 06/30/17 10:59 15:51 20:34 POC Glucose (mg/dL) 192 H 171 H 169 H 07/01/17 07/01/17 07:12 10:49 POC Glucose (mg/dL) 165 H 180 H Assessment & Plan - Assessment and Plan (Free Text) Assessment: 81M w/ opioid induced ileus Plan: - recommend decreasing opioid dosage - continue PT and ambulation as tolerated. - serial abdominal exams - monitor NGT output - further recs per Dr. Patricio Romero PGY1
--- NOTE | 2017-07-01 16:14 | RAD ---
HISTORY: NGT placement COMPARISON: 07/01/2017 at 8:53 a.m. FINDINGS: BOWEL: The nasogastric tube terminates in the stomach. Portable radiograph is of nondiagnostic quality due to patient motion and exclusion of right abdomen. BONES: Normal. OTHER FINDINGS: None. IMPRESSION: No is a gastric tube terminates in the stomach. Otherwise, the radiograph is of nondiagnostic quality due to patient motion and exclusion of right abdomen.
[2017-07-02] MEDS: Insulin Regular 100 units/ml SC SCH ×4 (06:54→22:00)
[2017-07-02] MEDS: Albuterol-Ipratrop 3 mg / 0.5 (3 ml) UD INH SCH ×4 (07:11→19:32)
[2017-07-02 07:54] LABS: HEMATOCRIT 31.9 % (35.0-51.0); MEAN CELL VOLUME 85.6 fl (80.0-94.0); MEAN CORPUSCULAR HEMOGLOBIN 27.9 pg (27.0-31.0); MEAN CORPUSCULAR HGB CONC 32.6 g/dL (33.0-37.0); WHITE BLOOD COUNT 3.9 K/uL (4.8-10.8)
[2017-07-02 08:12] LABS: ALB/GLOB RATIO 0.8 (1.0-2.1); ALKALINE PHOSPHATASE 90 U/L (38-126); ALT/SGPT 33 U/L (21-72); AST/SGOT 24 U/L (17-59); BILIRUBIN,TOTAL 1.1 mg/dl (0.2-1.3); BLOOD UREA NITROGEN 37 mg/dl (9-20); CARBON DIOXIDE 26 mmol/L (22-30); CHLORIDE 103 mmol/L (98-107); GFR AFRICAN-AMERICAN > 60; GLUCOSE,RANDOM 145 mg/dL (75-110); POTASSIUM 4.8 MMOL/L (3.6-5.0); SODIUM 137 mmol/l (132-148); TOTAL PROTEIN 5.2 G/DL (6.3-8.2)
[2017-07-02] MEDS: Enoxaparin 40 mg Syringe SC SCH (09:43)
[2017-07-02] MEDS: Pantoprazole 40 mg EC Tab PO SCH (09:46)
--- NOTE | 2017-07-02 10:15 | CP.PCM.PN ---
Subjective - Date & Time of Evaluation Date of Evaluation: 07/02/17 Time of Evaluation: 10:13 - Subjective Subjective: Pt just woke up ans is a little disoriented. but slowly has come around to where he is and what he has been through Hr had no vomiting last night or this morning. His abdomen looks less distended after the NGT was placed yesterday, It was removed last night. CBC stable. Objective - Vital Signs/Intake and Output Vital Signs (last 24 hours): Temp Pulse Resp BP Pulse Ox 97.2 F L 76 20 126/59 L 98 07/02/17 10:03 07/02/17 10:03 07/02/17 10:03 07/02/17 10:03 07/02/17 10:03 - Medications Medications: Current Medications Acetaminophen (Tylenol 325mg Tab) 650 mg PO Q4 PRN PRN Reason: Pain, Mild (1-3) Last Admin: 07/02/17 06:52 Dose: 650 mg Acetaminophen (Tylenol 325mg Tab) 650 mg PO Q4 PRN PRN Reason: Pain, Mild (1-3) Acetaminophen (Tylenol 325mg Tab) 650 mg PO Q6 PRN PRN Reason: Fever >100.4 F Last Admin: 06/20/17 16:37 Dose: 650 mg Albuterol/Ipratropium (Duoneb 3 Mg/0.5 Mg (3 Ml) Ud) 3 ml INH RQID [facility] Last Admin: 07/02/17 07:11 Dose: 3 ml Atorvastatin Calcium (Lipitor) 10 mg PO HS [facility] Last Admin: 07/01/17 22:11 Dose: 10 mg Enoxaparin Sodium (Lovenox) 40 mg SC DAILY [facility] PRN Reason: Protocol Last Admin: 07/02/17 09:43 Dose: 40 mg Famotidine (Pepcid) 20 mg IVP Q12 [facility] Last Admin: 07/01/17 22:08 Dose: 20 mg Ferrous Sulfate (Feosol) 325 mg PO BID [facility] Last Admin: 07/02/17 09:40 Dose: 325 mg Gabapentin (Neurontin) 100 mg PO TID [facility] Last Admin: 07/02/17 09:44 Dose: 100 mg Glipizide (Glucotrol) 5 mg PO BID [facility] Last Admin: 07/02/17 09:41 Dose: Not Given Lactated Ringer's (Lactated Ringer's 500ml) 500 mls @ 50 mls/hr IV .Q10H [facility] Last Admin: 07/01/17 23:00 Dose: 50 mls/hr Insulin Human Regular (Humulin R) 0 units SC ACHS [facility] PRN Reason: Protocol Last Admin: 07/02/17 06:54 Dose: 2 units Lactic Acid (Lac-Hydrin 12% Cream (140 G)) 1 ea TOP DAILY [facility] Last Admin: 07/01/17 10:17 Dose: 1 unit Metoclopramide HCl (Reglan) 5 mg IVP Q6 PRN PRN Reason: Nausea/Vomiting Last Admin: 07/01/17 08:41 Dose: 5 mg Nystatin (Nystop Topical Powder) 1 applic TOP TID [facility] Last Admin: 07/01/17 17:24 Dose: 1 applic Ondansetron HCl (Zofran Inj) 4 mg IVP Q4 PRN PRN Reason: Nausea/Vomiting Last Admin: 06/30/17 14:35 Dose: 4 mg Pantoprazole Sodium (Protonix Ec Tab) 40 mg PO DAILY [facility] Last Admin: 07/02/17 09:46 Dose: 40 mg - Labs Labs: 07/02/17 07:00 07/02/17 07:00 PT 17.1 Seconds (9.8-13.1) H 06/29/17 05:55 INR 1.5 (0.9-1.2) H 06/29/17 05:55
[2017-07-02] MEDS: Ammonium Lactate 12% Cream (140 g) TOP SCH (10:22)
--- NOTE | 2017-07-02 15:46 | CP.PCM.PN ---
Subjective - Date & Time of Evaluation Date of Evaluation: 07/02/17 Time of Evaluation: 11:40 - Subjective Subjective: Podiatry Progress Note - Dr. Avila 81 y/o male seen at bedside in TCU 3 weeks s/p right ankle closed reduction with external fixation and wound debridement and 2 weeks s/p failed fibular IM ashanti placement. Pt is in good spirits at time of visit. Pt last had a wound vac change 3 days ago. Pt says he feels fine in regards to the leg today. Pt says he has not vomited in last 24 hours and has been able to urinate and defecate without issue. . Pt says he has no pedal complaints at this time and has not tampered with the dressing or external fixator. Pt denies F/C/CP/SOB/N/V. Objective - Vital Signs/Intake and Output Vital Signs (last 24 hours): Temp Pulse Resp BP Pulse Ox 97.2 F L 76 20 126/59 L 98 07/02/17 10:03 07/02/17 10:03 07/02/17 10:03 07/02/17 10:03 07/02/17 10:03 - Medications Medications: Current Medications Acetaminophen (Tylenol 325mg Tab) 650 mg PO Q4 PRN PRN Reason: Pain, Mild (1-3) Last Admin: 07/02/17 06:52 Dose: 650 mg Acetaminophen (Tylenol 325mg Tab) 650 mg PO Q4 PRN PRN Reason: Pain, Mild (1-3) Acetaminophen (Tylenol 325mg Tab) 650 mg PO Q6 PRN PRN Reason: Fever >100.4 F Last Admin: 06/20/17 16:37 Dose: 650 mg Albuterol/Ipratropium (Duoneb 3 Mg/0.5 Mg (3 Ml) Ud) 3 ml INH RQID [facility] Last Admin: 07/02/17 11:03 Dose: 3 ml Atorvastatin Calcium (Lipitor) 10 mg PO HS [facility] Last Admin: 07/01/17 22:11 Dose: 10 mg Enoxaparin Sodium (Lovenox) 40 mg SC DAILY [facility] PRN Reason: Protocol Last Admin: 07/02/17 09:43 Dose: 40 mg Famotidine (Pepcid) 20 mg IVP Q12 [facility] Last Admin: 07/02/17 10:18 Dose: 20 mg Ferrous Sulfate (Feosol) 325 mg PO BID [facility] Last Admin: 07/02/17 09:40 Dose: 325 mg Gabapentin (Neurontin) 100 mg PO TID [facility] Last Admin: 07/02/17 12:49 Dose: 100 mg Glipizide (Glucotrol) 5 mg PO BID [facility] Last Admin: 07/02/17 09:41 Dose: Not Given Lactated Ringer's (Lactated Ringer's 500ml) 500 mls @ 50 mls/hr IV .Q10H [facility] Last Admin: 07/01/17 23:00 Dose: 50 mls/hr Insulin Human Regular (Humulin R) 0 units SC ACHS [facility] PRN Reason: Protocol Last Admin: 07/02/17 12:48 Dose: Not Given Lactic Acid (Lac-Hydrin 12% Cream (140 G)) 1 ea TOP DAILY [facility] Last Admin: 07/02/17 10:22 Dose: 1 unit Metoclopramide HCl (Reglan) 5 mg IVP Q6 PRN PRN Reason: Nausea/Vomiting Last Admin: 07/01/17 08:41 Dose: 5 mg Nystatin (Nystop Topical Powder) 1 applic TOP TID [facility] Last Admin: 07/02/17 12:49 Dose: 1 applic Ondansetron HCl (Zofran Inj) 4 mg IVP Q4 PRN PRN Reason: Nausea/Vomiting Last Admin: 06/30/17 14:35 Dose: 4 mg Pantoprazole Sodium (Protonix Ec Tab) 40 mg PO DAILY [facility] Last Admin: 07/02/17 09:46 Dose: 40 mg - Labs Labs: 07/02/17 07:00 07/02/17 07:00 PT 17.1 Seconds (9.8-13.1) H 06/29/17 05:55 INR 1.5 (0.9-1.2) H 06/29/17 05:55 - Constitutional Appears: Well, Non-toxic, No Acute Distress - Extremities Exam Additional comments: Dressing and external fixator are clean, dry and intact to RLE Wound vac output at <50cc today Wound vac running continuously at 125 mmHg, leak check confirms no leaks - Neurological Exam Neurological Exam: Alert, Awake, Oriented x3 - Psychiatric Exam Psychiatric exam: Normal Affect, Normal Mood Assessment and Plan - Assessment and Plan (Free Text) Assessment: 81 year old male seen in bed 3 weeks s/p closed reduction and application of external fixator with wound debridement of open fibular fracture and 2 weeks s/ p failed fibular IM ashanti placement, with wound vac and external fixator in place to RLE Plan: Patient seen and evaluated at bedside Charts, labs and vitals reviewed - afebrile, NNL Continue wound vac at 125 mmHg continuous applied. Continue Tylenol 650mg as analgesic control; noted General Surgery recommendation to avoid opiods and induced Ileus. Per Dr. Avila, patient should be transferred to [facility] after D/D Pt to follow up with him in wound care center for regular wound vac changes and continued care Patient should be strictly NWB to right leg Pt verbalized understanding to all of the above. Podiatry will continue to follow patient while in house
[2017-07-02] MEDS: Lactated Ringer's 500 ML IV SCH ×2 (17:54→22:30)
[2017-07-03] MEDS: Insulin Regular 100 units/ml SC SCH ×4 (07:16→22:24)
[2017-07-03] MEDS: Albuterol-Ipratrop 3 mg / 0.5 (3 ml) UD INH SCH ×4 (07:38→19:25)
[2017-07-03] MEDS: Enoxaparin 40 mg Syringe SC SCH (09:14)
[2017-07-03] MEDS: Pantoprazole 40 mg EC Tab PO SCH (09:14)
[2017-07-03] MEDS: Lactated Ringer's 500 ML IV SCH ×2 (09:37→18:30)
--- NOTE | 2017-07-03 10:52 | CP.PCM.PN ---
Subjective - Date & Time of Evaluation Date of Evaluation: 07/03/17 Time of Evaluation: 10:46 - Subjective Subjective: Pt feels better. No nausea and vomiting since yesterday. He is on a clear liquid diet and tolerating it well. I feel he may tolerate a more advanced diet. His abdomen is soft, no masses. Objective - Vital Signs/Intake and Output Vital Signs (last 24 hours): Temp Pulse Resp BP Pulse Ox 97.7 F 79 20 144/46 L 100 07/03/17 08:21 07/03/17 08:21 07/03/17 08:21 07/03/17 08:21 07/03/17 08:21 - Medications Medications: Current Medications Acetaminophen (Tylenol 325mg Tab) 650 mg PO Q4 PRN PRN Reason: Pain, Mild (1-3) Last Admin: 07/02/17 06:52 Dose: 650 mg Acetaminophen (Tylenol 325mg Tab) 650 mg PO Q4 PRN PRN Reason: Pain, Mild (1-3) Acetaminophen (Tylenol 325mg Tab) 650 mg PO Q6 PRN PRN Reason: Fever >100.4 F Last Admin: 06/20/17 16:37 Dose: 650 mg Albuterol/Ipratropium (Duoneb 3 Mg/0.5 Mg (3 Ml) Ud) 3 ml INH RQID [facility] Last Admin: 07/03/17 07:38 Dose: Not Given Atorvastatin Calcium (Lipitor) 10 mg PO HS [facility] Last Admin: 07/02/17 21:56 Dose: 10 mg Enoxaparin Sodium (Lovenox) 40 mg SC DAILY [facility] PRN Reason: Protocol Last Admin: 07/03/17 09:14 Dose: 40 mg Famotidine (Pepcid) 20 mg IVP Q12 [facility] Last Admin: 07/03/17 09:33 Dose: 20 mg Ferrous Sulfate (Feosol) 325 mg PO BID [facility] Last Admin: 07/03/17 09:15 Dose: 325 mg Gabapentin (Neurontin) 100 mg PO TID [facility] Last Admin: 07/03/17 09:13 Dose: 100 mg Glipizide (Glucotrol) 5 mg PO BID [facility] Last Admin: 07/02/17 09:41 Dose: Not Given Lactated Ringer's (Lactated Ringer's 500ml) 500 mls @ 50 mls/hr IV .Q10H [facility] Last Admin: 07/03/17 09:37 Dose: Not Given Insulin Human Regular (Humulin R) 0 units SC ACHS [facility] PRN Reason: Protocol Last Admin: 07/03/17 07:16 Dose: Not Given Lactic Acid (Lac-Hydrin 12% Cream (140 G)) 1 ea TOP DAILY [facility] Last Admin: 07/02/17 10:22 Dose: 1 unit Metoclopramide HCl (Reglan) 5 mg IVP Q6 PRN PRN Reason: Nausea/Vomiting Last Admin: 07/01/17 08:41 Dose: 5 mg Nystatin (Nystop Topical Powder) 1 applic TOP TID [facility] Last Admin: 07/02/17 17:31 Dose: 1 applic Ondansetron HCl (Zofran Inj) 4 mg IVP Q4 PRN PRN Reason: Nausea/Vomiting Last Admin: 06/30/17 14:35 Dose: 4 mg Pantoprazole Sodium (Protonix Ec Tab) 40 mg PO DAILY [facility] Last Admin: 07/03/17 09:14 Dose: 40 mg - Labs Labs: 07/02/17 07:00 07/02/17 07:00 PT 17.1 Seconds (9.8-13.1) H 06/29/17 05:55 INR 1.5 (0.9-1.2) H 06/29/17 05:55
--- NOTE | 2017-07-03 10:57 | CP.PCM.PN ---
Subjective - Date & Time of Evaluation Date of Evaluation: 07/03/17 Time of Evaluation: 13:50 - Subjective Subjective: Podiatry Progress Note - Dr. Avila 81 y/o male seen at bedside in TCU 3 weeks s/p right ankle closed reduction with external fixation and wound debridement and 2 weeks s/p failed fibular IM ashanti placement. Pt is in good spirits at time of visit. Pt last had a wound vac change 5 days ago. Pt says he feels fine in regards to the leg today. Pt says he has n been able to urinate and defecate without issue, and is tolerating his diet. Pt says he has no pedal complaints at this time and has not tampered with the dressing or external fixator. Pt denies F/C/CP/SOB/N/V. Objective - Vital Signs/Intake and Output Vital Signs (last 24 hours): Temp Pulse Resp BP Pulse Ox 97.7 F 79 20 144/46 L 100 07/03/17 08:21 07/03/17 08:21 07/03/17 08:21 07/03/17 08:21 07/03/17 08:21 - Medications Medications: Current Medications Acetaminophen (Tylenol 325mg Tab) 650 mg PO Q4 PRN PRN Reason: Pain, Mild (1-3) Last Admin: 07/02/17 06:52 Dose: 650 mg Acetaminophen (Tylenol 325mg Tab) 650 mg PO Q4 PRN PRN Reason: Pain, Mild (1-3) Acetaminophen (Tylenol 325mg Tab) 650 mg PO Q6 PRN PRN Reason: Fever >100.4 F Last Admin: 06/20/17 16:37 Dose: 650 mg Albuterol/Ipratropium (Duoneb 3 Mg/0.5 Mg (3 Ml) Ud) 3 ml INH RQID [facility] Last Admin: 07/03/17 07:38 Dose: Not Given Atorvastatin Calcium (Lipitor) 10 mg PO HS [facility] Last Admin: 07/02/17 21:56 Dose: 10 mg Enoxaparin Sodium (Lovenox) 40 mg SC DAILY [facility] PRN Reason: Protocol Last Admin: 07/03/17 09:14 Dose: 40 mg Famotidine (Pepcid) 20 mg IVP Q12 [facility] Last Admin: 07/03/17 09:33 Dose: 20 mg Ferrous Sulfate (Feosol) 325 mg PO BID [facility] Last Admin: 07/03/17 09:15 Dose: 325 mg Gabapentin (Neurontin) 100 mg PO TID [facility] Last Admin: 07/03/17 09:13 Dose: 100 mg Glipizide (Glucotrol) 5 mg PO BID [facility] Last Admin: 07/02/17 09:41 Dose: Not Given Lactated Ringer's (Lactated Ringer's 500ml) 500 mls @ 50 mls/hr IV .Q10H [facility] Last Admin: 07/03/17 09:37 Dose: Not Given Insulin Human Regular (Humulin R) 0 units SC ACHS [facility] PRN Reason: Protocol Last Admin: 07/03/17 07:16 Dose: Not Given Lactic Acid (Lac-Hydrin 12% Cream (140 G)) 1 ea TOP DAILY [facility] Last Admin: 07/02/17 10:22 Dose: 1 unit Metoclopramide HCl (Reglan) 5 mg IVP Q6 PRN PRN Reason: Nausea/Vomiting Last Admin: 07/01/17 08:41 Dose: 5 mg Nystatin (Nystop Topical Powder) 1 applic TOP TID [facility] Last Admin: 07/02/17 17:31 Dose: 1 applic Ondansetron HCl (Zofran Inj) 4 mg IVP Q4 PRN PRN Reason: Nausea/Vomiting Last Admin: 06/30/17 14:35 Dose: 4 mg Pantoprazole Sodium (Protonix Ec Tab) 40 mg PO DAILY [facility] Last Admin: 07/03/17 09:14 Dose: 40 mg - Labs Labs: 07/02/17 07:00 07/02/17 07:00 PT 17.1 Seconds (9.8-13.1) H 06/29/17 05:55 INR 1.5 (0.9-1.2) H 06/29/17 05:55 - Constitutional Appears: Well, Non-toxic, No Acute Distress - Extremities Exam Additional comments: Dressing and external fixator are clean, dry and intact to RLE Wound vac output at 40cc today Wound vac running continuously at 125 mmHg, leak check confirms no leaks - Neurological Exam Neurological Exam: Alert, Awake, Oriented x3 - Psychiatric Exam Psychiatric exam: Normal Affect, Normal Mood Assessment and Plan - Assessment and Plan (Free Text) Assessment: 81 year old male seen in bed 3 weeks s/p closed reduction and application of external fixator with wound debridement of open fibular fracture and 2 weeks s/ p failed fibular IM ashanti placement, with wound vac and external fixator in place to RLE Plan: Patient seen and evaluated at bedside Charts, labs and vitals reviewed - afebrile, NNL Continue wound vac at 125 mmHg continuous applied. Continue Tylenol 650mg as analgesic control; noted General Surgery recommendation to avoid opiods and induced Ileus. Discussed with patient need to change Wound VAC today. pt refused to allow VAC to be changed to day. He states he will tolerate the dressing being changed tomorrow with attending, Dr. Avila present. Per Dr. Avila, patient should be transferred to [facility] after D/D Pt to follow up with him in wound care center for regular wound vac changes and continued care Patient should be strictly NWB to right leg Pt verbalized understanding to all of the above. Podiatry will continue to follow patient while in house
[2017-07-03] MEDS: Ammonium Lactate 12% Cream (140 g) TOP SCH (13:48)
[2017-07-04] MEDS: Insulin Regular 100 units/ml SC SCH ×3 (06:48→18:01)
[2017-07-04] MEDS: Albuterol-Ipratrop 3 mg / 0.5 (3 ml) UD INH SCH ×4 (07:20→19:17)
[2017-07-04] MEDS: Pantoprazole 40 mg EC Tab PO SCH (08:40)
[2017-07-04] MEDS: Enoxaparin 40 mg Syringe SC SCH (08:40)
[2017-07-04] MEDS: Ammonium Lactate 12% Cream (140 g) TOP SCH (08:42)
--- NOTE | 2017-07-04 12:01 | RAD ---
PROCEDURE: Radiographs of the right tibia and fibula. HISTORY: R open fibular fracture with external fixation COMPARISON: None available. TECHNIQUE: Frontal and lateral views obtained. FINDINGS: BONES: Anatomic alignment of major fracture fragments distal right fibula. No evidence of orthopedic hardware failure. JOINT SPACES: Unremarkable. OTHER FINDINGS: None. IMPRESSION: Satisfactory postoperative status.
[2017-07-04] MEDS: Lactated Ringer's 500 ML IV SCH (15:05)
--- NOTE | 2017-07-04 15:09 | CP.PCM.PN ---
Subjective - Date & Time of Evaluation Date of Evaluation: 07/04/17 Time of Evaluation: 15:09 - Subjective Subjective: 81 y/o male seen at bedside with attending Dr. Avila for right leg open fibular fracture with wound vac in place. Pt says he does not have much pain when resting but when he tries to move the leg or we perform vac changes he feels severe pain. Pt states he feels generally weak overall and is still very sad over the loss of his son. Pt is eager to leave the hospital as soon as he is allowed. Pt denies any F/C/N/V/CP/SOB at this time. Objective - Vital Signs/Intake and Output Vital Signs (last 24 hours): Temp Pulse Resp BP Pulse Ox 97.8 F 76 20 142/69 98 07/04/17 08:08 07/04/17 08:08 07/04/17 08:08 07/04/17 08:08 07/04/17 08:08 - Medications Medications: Current Medications Acetaminophen (Tylenol 325mg Tab) 650 mg PO Q4 PRN PRN Reason: Pain, Mild (1-3) Last Admin: 07/02/17 06:52 Dose: 650 mg Acetaminophen (Tylenol 325mg Tab) 650 mg PO Q6 PRN PRN Reason: Fever >100.4 F Last Admin: 06/20/17 16:37 Dose: 650 mg Albuterol/Ipratropium (Duoneb 3 Mg/0.5 Mg (3 Ml) Ud) 3 ml INH RQID [facility] Last Admin: 07/04/17 11:43 Dose: Not Given Atorvastatin Calcium (Lipitor) 10 mg PO HS [facility] Last Admin: 07/03/17 22:28 Dose: 10 mg Famotidine (Pepcid) 20 mg PO BID [facility] Stop: 07/05/17 17:01 Last Admin: 07/04/17 08:40 Dose: 20 mg Ferrous Sulfate (Feosol) 325 mg PO BID [facility] Last Admin: 07/04/17 08:39 Dose: 325 mg Gabapentin (Neurontin) 100 mg PO TID [facility] Last Admin: 07/04/17 12:19 Dose: 100 mg Glipizide (Glucotrol) 5 mg PO BID [facility] Last Admin: 07/02/17 09:41 Dose: Not Given Lactated Ringer's (Lactated Ringer's 500ml) 500 mls @ 50 mls/hr IV .Q10H [facility] Last Admin: 07/03/17 18:30 Dose: 50 mls/hr Insulin Human Regular (Humulin R) 0 units SC ACHS [facility] PRN Reason: Protocol Last Admin: 07/04/17 12:19 Dose: 3 units Lactic Acid (Lac-Hydrin 12% Cream (140 G)) 1 ea TOP DAILY [facility] Last Admin: 07/04/17 08:42 Dose: 1 applic Metoclopramide HCl (Reglan) 5 mg IVP Q6 PRN PRN Reason: Nausea/Vomiting Last Admin: 07/01/17 08:41 Dose: 5 mg Nystatin (Nystop Topical Powder) 1 applic TOP TID [facility] Last Admin: 07/04/17 12:19 Dose: 1 applic Ondansetron HCl (Zofran Inj) 4 mg IVP Q4 PRN PRN Reason: Nausea/Vomiting Last Admin: 06/30/17 14:35 Dose: 4 mg Pantoprazole Sodium (Protonix Ec Tab) 40 mg PO DAILY [facility] Last Admin: 07/04/17 08:40 Dose: 40 mg Tramadol HCl (Ultram) 25 mg PO Q4 PRN PRN Reason: Pain, moderate (4-7) Tramadol HCl (Ultram) 50 mg PO Q6 PRN PRN Reason: Pain, severe (8-10) Last Admin: 07/03/17 22:56 Dose: 50 mg - Labs Labs: 07/02/17 07:00 07/02/17 07:00 PT 17.1 Seconds (9.8-13.1) H 06/29/17 05:55 INR 1.5 (0.9-1.2) H 06/29/17 05:55 - Constitutional Appears: Well, Non-toxic, No Acute Distress - Extremities Exam Additional comments: Wound vac of right leg running continuous at 125mmHg. Vac change today. Vasc: DP/PT pulses palpable to RLE. CFT < 3 seconds to all digits. Active bleeding noticed to anterior leg wound. Skin temperature warm to right foot, WNL. Neuro: Epicritic and protective sensation grossly intact B/L Derm: Open wound spanning from patient's medial leg to lateral leg approx 14cm and extending proximal to distal roughly 6 cm. Wound site is noted to be granulating in more with each dressing change. Tibia and fibular exposure still present but decreasing. No periwound erythema, no malodor, no other clinical signs of infection. No signs of pin tract infection. Healthy tissue bleed noted. MSK: Moderate to severe tenderness noted at wound site. Tenderness to palpation of fibular fracture. External fixation in proper place. - Neurological Exam Neurological Exam: Alert, Awake, Oriented x3 - Psychiatric Exam Psychiatric exam: Normal Affect, Normal Mood Assessment and Plan - Assessment and Plan (Free Text) Assessment: 81 year old male seen in bed for wound vac change s/p 25 days open fibular fracture and 18 days failed fibular IM ashanti placement Plan: Patient seen and evaluated at bedside with attending Dr. Avila Charts, labs and vitals reviewed Wound vac successfully changed to RLE Pressure setting at 125 mmHg continuous applied Pins washed with betadine and xeroform was wrapped at their bases Leg dressed with 4x4 gauze, ABD, kerlix and light TIN dressing Patient to be DC to [facility] within the week Pt will follow up with Dr. Avila in wound care center for vac changes and continued care Podiatry will continue to follow patient while in house
[2017-07-04] MEDS: Lactated Ringer's 1,000 ML IV SCH (21:30)
[2017-07-05] MEDS: Insulin Regular 100 units/ml SC SCH ×5 (03:04→21:47)
[2017-07-05] MEDS: Albuterol-Ipratrop 3 mg / 0.5 (3 ml) UD INH SCH ×4 (08:02→20:46)
--- NOTE | 2017-07-05 08:45 | CP.PCM.CON ---
History of Present Illness - History of Present Illness History of Present Illness: Psychiatry Consult to evalute for depression CC: "Sometimes I get confused at night." HPI: 82 year old male w/ hx of right lower extremity fracture, liver cirrhosis, paracentesis. Patient reports that sometimes he feels sad, but overall does not feel anxious or depressed. He does not believe he needs medications for depression at this time. He does report that sometimes he wakes up in the middle of the night and is confused about where he is. Denied AH/VH/SI/HI/ paranoia/delusions. PMH: HTN, CHF, CAD/CABG, Myelodysplastic Syndrome, Cirrhosis and DMII PSH: closed reduction external fixation of RLE, CABG, Lap moy, paracentesis, hip replacement ALL: Adhesive tape SocialHx: Lives w/ , has 3 kids, is a retired qualitative researcher; denies etoh, tobacco , or recreational drug use MSE: A + O x 3, calm, cooperative, good eye contact, speech normal, mood/affect- neutral, no delusions/hallucinations, no SI/HI, thought process-linear/coherent , fair I/J Impression: 82 yo male does not meet criteria for major depressive disorder or an anxiety disorder at this time. No need for psychiatric medications or psychiatric admission. Past Patient History - Tetanus Immunizations Tetanus Immunization: Unknown - Past Medical History & Family History Past Medical History?: Yes - Past Social History Smoking Status: Never Smoked Alcohol: None - CARDIAC Hx Cardiac Disorders: Yes Hx Congestive Heart Failure: Yes Hx Hypercholesterolemia: Yes Hx Hypertension: Yes - PULMONARY Hx Respiratory Disorders: No - NEUROLOGICAL Hx Neurological Disorder: No - HEENT Hx HEENT Problems: Yes Hx Cataracts: Yes (left) - RENAL Hx Chronic Kidney Disease: No - ENDOCRINE/METABOLIC Hx Endocrine Disorders: Yes Hx Diabetes Mellitus Type 2: Yes - HEMATOLOGICAL/ONCOLOGICAL Hx Anemia: Yes - INTEGUMENTARY Hx Dermatological Problems: No - MUSCULOSKELETAL/RHEUMATOLOGICAL Hx Arthritis: Yes - GASTROINTESTINAL Hx Gastritis: Yes - GENITOURINARY/GYNECOLOGICAL Hx Genitourinary Disorders: No - PSYCHIATRIC Hx Psychophysiologic Disorder: No Hx Substance Use: No - SURGICAL HISTORY Hx Cholecystectomy: Yes Hx Coronary Artery Bypass Graft: Yes - ANESTHESIA Hx Anesthesia: Yes Hx Anesthesia Reactions: No Hx Malignant Hyperthermia: No Meds Home Medications: Home Medication List Medication Instructions Recorded Confirmed Type Acetaminophen [Tylenol 325mg tab] 650 mg PO Q4 PRN tab 07/05/17 Rx Acetaminophen [Tylenol 325mg tab] 650 mg PO Q6 PRN tab 07/05/17 Rx Enoxaparin [Lovenox] 40 mg SC DAILY syr 07/05/17 Rx Famotidine [Pepcid] 20 mg PO BID tab 07/05/17 Rx Insulin Human Regular [HumuLIN R] 0 units SC ACHS ml 07/05/17 Rx Metoclopramide [Reglan] 5 mg IVP Q6 PRN vial 07/05/17 Rx Ondansetron [Zofran Inj] 4 mg IVP Q4 PRN vial 07/05/17 Rx traMADol [Ultram] 25 mg PO Q4 PRN tab 07/05/17 Rx traMADol [Ultram] 50 mg PO Q6 PRN tab 07/05/17 Rx Allergies/Adverse Reactions: Allergies Allergy/AdvReac Type Severity Reaction Status Date / Time tape Allergy Mild RASH Uncoded 06/18/17 12:27 - Medications Medications: Current Medications Acetaminophen (Tylenol 325mg Tab) 650 mg PO Q4 PRN PRN Reason: Pain, Mild (1-3) Last Admin: 07/04/17 23:36 Dose: 650 mg Acetaminophen (Tylenol 325mg Tab) 650 mg PO Q6 PRN PRN Reason: Fever >100.4 F Last Admin: 06/20/17 16:37 Dose: 650 mg Albuterol/Ipratropium (Duoneb 3 Mg/0.5 Mg (3 Ml) Ud) 3 ml INH RQID [facility] Last Admin: 07/05/17 08:02 Dose: Not Given Atorvastatin Calcium (Lipitor) 10 mg PO HS [facility] Last Admin: 07/04/17 21:50 Dose: 10 mg Enoxaparin Sodium (Lovenox) 40 mg SC DAILY [facility] PRN Reason: Protocol Famotidine (Pepcid) 20 mg PO BID [facility] Stop: 07/05/17 17:01 Last Admin: 07/04/17 18:02 Dose: 20 mg Ferrous Sulfate (Feosol) 325 mg PO BID [facility] Last Admin: 07/04/17 18:02 Dose: 325 mg Gabapentin (Neurontin) 100 mg PO TID [facility] Last Admin: 07/04/17 18:02 Dose: 100 mg Glipizide (Glucotrol) 5 mg PO BID [facility] Last Admin: 07/02/17 09:41 Dose: Not Given Lactated Ringer's (Lactated Ringer's) 1,000 mls @ 50 mls/hr IV .Q20H [facility] Last Admin: 07/04/17 21:30 Dose: 50 mls/hr Insulin Human Regular (Humulin R) 0 units SC ACHS [facility] PRN Reason: Protocol Last Admin: 07/05/17 07:58 Dose: Not Given Lactic Acid (Lac-Hydrin 12% Cream (140 G)) 1 ea TOP DAILY [facility] Last Admin: 07/04/17 08:42 Dose: 1 applic Metoclopramide HCl (Reglan) 5 mg IVP Q6 PRN PRN Reason: Nausea/Vomiting Last Admin: 07/01/17 08:41 Dose: 5 mg Nystatin (Nystop Topical Powder) 1 applic TOP TID [facility] Last Admin: 07/04/17 18:01 Dose: 1 applic Ondansetron HCl (Zofran Inj) 4 mg IVP Q4 PRN PRN Reason: Nausea/Vomiting Last Admin: 06/30/17 14:35 Dose: 4 mg Pantoprazole Sodium (Protonix Ec Tab) 40 mg PO DAILY [facility] Last Admin: 07/04/17 08:40 Dose: 40 mg Tramadol HCl (Ultram) 25 mg PO Q4 PRN PRN Reason: Pain, moderate (4-7) Tramadol HCl (Ultram) 50 mg PO Q6 PRN PRN Reason: Pain, severe (8-10) Last Admin: 07/05/17 03:28 Dose: 50 mg Results - Vital Signs Recent Vital Signs: Last Vital Signs Temp 96.1 F L 07/05/17 08:16 Pulse 78 07/05/17 08:16 Resp 20 07/05/17 08:16 BP 117/66 07/05/17 08:16 Pulse Ox 96 07/05/17 08:16 - Labs Result Diagrams: 07/02/17 07:00 07/02/17 07:00 Labs: Laboratory Results - last 24 hr 07/04/17 07/04/17 07/04/17 10:37 15:40 20:50 POC Glucose (mg/dL) 208 H 161 H 218 H 07/05/17 06:04 POC Glucose (mg/dL) 172 H
--- NOTE | 2017-07-05 09:29 | CP.PCM.PN ---
Subjective - Date & Time of Evaluation Date of Evaluation: 07/05/17 Time of Evaluation: 09:24 - Subjective Subjective: 82 y/o male seen at bedside this morning in TCU for right open fibular fracture with wound vac and external fixator in place, 26 days s/p closed reduction with external fixator application and 19 days s/p failed fibular ashanti placement. Pt is in better spirits today and is resting comfortably at time of visit. Pt says he is not in any pain at this time in the right leg or foot. Pt denies F/C/N/V/ CP/SOB. Objective - Vital Signs/Intake and Output Vital Signs (last 24 hours): Temp Pulse Resp BP Pulse Ox 96.1 F L 78 20 117/66 96 07/05/17 08:16 07/05/17 08:16 07/05/17 08:16 07/05/17 08:16 07/05/17 08:16 - Medications Medications: Current Medications Acetaminophen (Tylenol 325mg Tab) 650 mg PO Q4 PRN PRN Reason: Pain, Mild (1-3) Last Admin: 07/04/17 23:36 Dose: 650 mg Acetaminophen (Tylenol 325mg Tab) 650 mg PO Q6 PRN PRN Reason: Fever >100.4 F Last Admin: 06/20/17 16:37 Dose: 650 mg Albuterol/Ipratropium (Duoneb 3 Mg/0.5 Mg (3 Ml) Ud) 3 ml INH RQID [facility] Last Admin: 07/05/17 08:02 Dose: Not Given Atorvastatin Calcium (Lipitor) 10 mg PO HS [facility] Last Admin: 07/04/17 21:50 Dose: 10 mg Enoxaparin Sodium (Lovenox) 40 mg SC DAILY [facility] PRN Reason: Protocol Famotidine (Pepcid) 20 mg PO BID [facility] Stop: 07/05/17 17:01 Last Admin: 07/04/17 18:02 Dose: 20 mg Ferrous Sulfate (Feosol) 325 mg PO BID [facility] Last Admin: 07/04/17 18:02 Dose: 325 mg Gabapentin (Neurontin) 100 mg PO TID [facility] Last Admin: 07/04/17 18:02 Dose: 100 mg Glipizide (Glucotrol) 5 mg PO BID [facility] Last Admin: 07/02/17 09:41 Dose: Not Given Lactated Ringer's (Lactated Ringer's) 1,000 mls @ 50 mls/hr IV .Q20H [facility] Last Admin: 07/04/17 21:30 Dose: 50 mls/hr Insulin Human Regular (Humulin R) 0 units SC ACHS [facility] PRN Reason: Protocol Last Admin: 07/05/17 07:58 Dose: Not Given Lactic Acid (Lac-Hydrin 12% Cream (140 G)) 1 ea TOP DAILY [facility] Last Admin: 07/04/17 08:42 Dose: 1 applic Metoclopramide HCl (Reglan) 5 mg IVP Q6 PRN PRN Reason: Nausea/Vomiting Last Admin: 07/01/17 08:41 Dose: 5 mg Nystatin (Nystop Topical Powder) 1 applic TOP TID [facility] Last Admin: 07/04/17 18:01 Dose: 1 applic Ondansetron HCl (Zofran Inj) 4 mg IVP Q4 PRN PRN Reason: Nausea/Vomiting Last Admin: 06/30/17 14:35 Dose: 4 mg Pantoprazole Sodium (Protonix Ec Tab) 40 mg PO DAILY [facility] Last Admin: 07/04/17 08:40 Dose: 40 mg Tramadol HCl (Ultram) 25 mg PO Q4 PRN PRN Reason: Pain, moderate (4-7) Tramadol HCl (Ultram) 50 mg PO Q6 PRN PRN Reason: Pain, severe (8-10) Last Admin: 07/05/17 03:28 Dose: 50 mg - Labs Labs: 07/02/17 07:00 07/02/17 07:00 PT 17.1 Seconds (9.8-13.1) H 06/29/17 05:55 INR 1.5 (0.9-1.2) H 06/29/17 05:55 - Constitutional Appears: Well, Non-toxic, No Acute Distress - Extremities Exam Additional comments: RLE dressing intact with wound vac running on continuous 125mm Hg pressure, leak check indicates no leaks - Neurological Exam Neurological Exam: Alert, Awake, Oriented x3 - Psychiatric Exam Psychiatric exam: Normal Affect, Normal Mood Assessment and Plan - Assessment and Plan (Free Text) Assessment: 81 year old male 25 days s/p right leg open fibular fracture and 18 days s/p failed fibular IM ashanti placement with wound vac and external fixator in place Plan: Patient seen and evaluated at bedside Discussed plan with attending Dr. Avila Charts, labs and vitals reviewed - afebrile, NNL Wound vac remains in place and functioning properly to RLE open wound Pt is stable for discharge to [facility] from podiatry standpoint Pt will follow up with Dr. Avila in wound care center for vac changes and continued care Podiatry will continue to follow patient while in house
[2017-07-05] MEDS: Pantoprazole 40 mg EC Tab PO SCH (09:46)
[2017-07-05] MEDS: Enoxaparin 40 mg Syringe SC SCH (09:47)
[2017-07-05] MEDS: Ammonium Lactate 12% Cream (140 g) TOP SCH (09:53)
--- NOTE | 2017-07-05 16:20 | RAD ---
PROCEDURE: Right Ankle Radiographs. HISTORY: s/p ex fix placement COMPARISON: 06/25/2017 FINDINGS: BONES: Oblique fracture distal fibula, displaced. Possible nondisplaced posterior malleolar fracture. No definite medial malleolar fracture appreciated. There is an external fixator traversing the calcaneus. . JOINTS: Tibiotalar articulation grossly intact. Limited evaluation. SOFT TISSUES: There is lateral soft tissue swelling. OTHER FINDINGS: None. IMPRESSION: Displaced oblique distal fibular fracture with external fixation.
--- NOTE | 2017-07-05 16:21 | RAD ---
PROCEDURE: Radiographs of the right tibia and fibula. HISTORY: s/p open fx with ex fix placement COMPARISON: Right tibia and fibula radiographs dated 06/29/2017. TECHNIQUE: Frontal and lateral views obtained. FINDINGS: BONES: Displaced distal fibular fracture redemonstrated. External fixation hardware in place. JOINT SPACES: Unremarkable. OTHER FINDINGS: Prominent soft tissue swelling, unchanged. IMPRESSION: Similar appearance of distal right fibular fracture status post external fixation.
--- NOTE | 2017-07-05 17:23 | CP.PCM.CON ---
History of Present Illness - History of Present Illness History of Present Illness: 82 yo M, RHD, with pmhx of Myelodysplastic Syndrome, Htn, CHF, CAD/CABG, Cirrhosis, and DMII admitted for rt ankle injury presents with left shoulder pain and swelling. Pt is s/p closed reduction and application of external fixator for right ankle fx with subsequent wound washout and application of wound vac. Orthopaedics is consulted for evaluation and tx of his left shoulder pain and swelling. Pt states his left shoulder symptoms have been ongoing for about the last year, however have become progressively worse since this summer and over these last few weeks. He denies any injury or trauma to his left shoulder. He states he awoke one day months ago and noticed swelling in his left shoulder about the size of an orange. The pt went to an outpt orthopaedist and states his left shoulder was aspirated a few months ago, with inconclusive results, as per the pt. He states the swelling/soft tissue lesion has incresed in size and he is having difficult, painful and limited range of motion, which has worsened since his admission in the hospital. He is unable to carry or lift items. He reports weakness of his left arm. He denies any paresthesia to LUE. Past Patient History - Tetanus Immunizations Tetanus Immunization: Unknown - Past Medical History & Family History Past Medical History?: Yes - Past Social History Smoking Status: Never Smoked Alcohol: None - CARDIAC Hx Cardiac Disorders: Yes Hx Congestive Heart Failure: Yes Hx Hypercholesterolemia: Yes Hx Hypertension: Yes - PULMONARY Hx Respiratory Disorders: No - NEUROLOGICAL Hx Neurological Disorder: No - HEENT Hx HEENT Problems: Yes Hx Cataracts: Yes (left) - RENAL Hx Chronic Kidney Disease: No - ENDOCRINE/METABOLIC Hx Endocrine Disorders: Yes Hx Diabetes Mellitus Type 2: Yes - HEMATOLOGICAL/ONCOLOGICAL Hx Anemia: Yes - INTEGUMENTARY Hx Dermatological Problems: No - MUSCULOSKELETAL/RHEUMATOLOGICAL Hx Arthritis: Yes - GASTROINTESTINAL Hx Gastritis: Yes - GENITOURINARY/GYNECOLOGICAL Hx Genitourinary Disorders: No - PSYCHIATRIC Hx Psychophysiologic Disorder: No Hx Substance Use: No - SURGICAL HISTORY Hx Cholecystectomy: Yes Hx Coronary Artery Bypass Graft: Yes - ANESTHESIA Hx Anesthesia: Yes Hx Anesthesia Reactions: No Hx Malignant Hyperthermia: No Meds Home Medications: Home Medication List Medication Instructions Recorded Confirmed Type Acetaminophen [Tylenol 325mg tab] 650 mg PO Q4 PRN tab 07/05/17 Rx Acetaminophen [Tylenol 325mg tab] 650 mg PO Q6 PRN tab 07/05/17 Rx Enoxaparin [Lovenox] 40 mg SC DAILY syr 07/05/17 Rx Famotidine [Pepcid] 20 mg PO BID tab 07/05/17 Rx Insulin Human Regular [HumuLIN R] 0 units SC ACHS ml 07/05/17 Rx Metoclopramide [Reglan] 5 mg IVP Q6 PRN vial 07/05/17 Rx Ondansetron [Zofran Inj] 4 mg IVP Q4 PRN vial 07/05/17 Rx traMADol [Ultram] 25 mg PO Q4 PRN tab 07/05/17 Rx traMADol [Ultram] 50 mg PO Q6 PRN tab 07/05/17 Rx Allergies/Adverse Reactions: Allergies Allergy/AdvReac Type Severity Reaction Status Date / Time tape Allergy Mild RASH Uncoded 06/18/17 12:27 - Medications Medications: Current Medications Acetaminophen (Tylenol 325mg Tab) 650 mg PO Q4 PRN PRN Reason: Pain, Mild (1-3) Last Admin: 07/04/17 23:36 Dose: 650 mg Acetaminophen (Tylenol 325mg Tab) 650 mg PO Q6 PRN PRN Reason: Fever >100.4 F Last Admin: 06/20/17 16:37 Dose: 650 mg Albuterol/Ipratropium (Duoneb 3 Mg/0.5 Mg (3 Ml) Ud) 3 ml INH RQID [facility] Last Admin: 07/05/17 11:03 Dose: 3 ml Atorvastatin Calcium (Lipitor) 10 mg PO HS [facility] Last Admin: 07/04/17 21:50 Dose: 10 mg Enoxaparin Sodium (Lovenox) 40 mg SC DAILY [facility] PRN Reason: Protocol Last Admin: 07/05/17 09:47 Dose: 40 mg Ferrous Sulfate (Feosol) 325 mg PO BID [facility] Last Admin: 07/05/17 09:46 Dose: 325 mg Gabapentin (Neurontin) 100 mg PO TID [facility] Last Admin: 07/05/17 12:50 Dose: 100 mg Glipizide (Glucotrol) 5 mg PO BID [facility] Last Admin: 07/02/17 09:41 Dose: Not Given Lactated Ringer's (Lactated Ringer's) 1,000 mls @ 50 mls/hr IV .Q20H [facility] Last Admin: 07/04/17 21:30 Dose: 50 mls/hr Insulin Human Regular (Humulin R) 0 units SC ACHS [facility] PRN Reason: Protocol Last Admin: 07/05/17 12:49 Dose: 3 units Lactic Acid (Lac-Hydrin 12% Cream (140 G)) 1 ea TOP DAILY [facility] Last Admin: 07/05/17 09:53 Dose: 1 applic Metoclopramide HCl (Reglan) 5 mg IVP Q6 PRN PRN Reason: Nausea/Vomiting Last Admin: 07/01/17 08:41 Dose: 5 mg Nystatin (Nystop Topical Powder) 1 applic TOP TID [facility] Last Admin: 07/05/17 12:50 Dose: 1 applic Ondansetron HCl (Zofran Inj) 4 mg IVP Q4 PRN PRN Reason: Nausea/Vomiting Last Admin: 06/30/17 14:35 Dose: 4 mg Pantoprazole Sodium (Protonix Ec Tab) 40 mg PO DAILY [facility] Last Admin: 07/05/17 09:46 Dose: 40 mg Tramadol HCl (Ultram) 25 mg PO Q4 PRN PRN Reason: Pain, moderate (4-7) Tramadol HCl (Ultram) 50 mg PO Q6 PRN PRN Reason: Pain, severe (8-10) Last Admin: 07/05/17 10:46 Dose: 50 mg Physical Exam - Constitutional Appears: Well, No Acute Distress - Respiratory Exam Respiratory Exam: Clear to Auscultation Bilateral, NORMAL BREATHING PATTERN - Cardiovascular Exam Cardiovascular Exam: REGULAR RHYTHM, RRR - Extremities Exam Additional comments: Left shoulder: +difffuse swelling/soft tissue lesion over shoulder joint, more prominent over anterior lateral aspect No ttp over swelling/lesion ROM limited due to pain and weakness Pt unable to lift arm, passive flexion to 100deg N/V intact distally Sensation intact, motor strength decreased Radial and ulna pulses wnl Results - Vital Signs Recent Vital Signs: Last Vital Signs Temp 97.0 F L 07/05/17 16:40 Pulse 81 07/05/17 16:40 Resp 20 07/05/17 16:40 BP 153/86 H 07/05/17 16:40 Pulse Ox 98 07/05/17 16:40 - Labs Result Diagrams: 07/02/17 07:00 07/02/17 07:00 Labs: Laboratory Results - last 24 hr 11/20/17 11/21/17 11/21/17 20:50 06:04 10:32 POC Glucose (mg/dL) 218 H 172 H 200 H 07/05/17 15:33 POC Glucose (mg/dL) 192 H Assessment & Plan - Assessment and Plan (Free Text) Assessment: 82 yo M, RHD, with pmhx of Myelodysplastic Syndrome, Htn, CHF, CAD/CABG, Cirrhosis, and DMII admitted for rt ankle injury presents with left shoulder pain and swelling Plan: Recommend AP and lat xrays of left shoulder for further assessment Pain Control Orhto to follow
[2017-07-05] MEDS: Lactated Ringer's 1,000 ML IV SCH (17:28)
--- NOTE | 2017-07-05 19:34 | CP.PCM.PN ---
Subjective - Date & Time of Evaluation Date of Evaluation: 07/05/17 Time of Evaluation: 19:00 - Subjective Subjective: Patient was seen and examined at bedside. He is a chronically ill male in no apparent distress. He complains of severe pain when he has dressing change. Patient has been eating well and having BM. His main complaint continues to be his right leg pain. Also complaining of some abdominal distension, although not more than before. Denies abdominal pain. Objective - Vital Signs/Intake and Output Vital Signs (last 24 hours): Temp Pulse Resp BP Pulse Ox 97.0 F L 81 20 153/86 H 98 07/05/17 16:40 07/05/17 16:40 07/05/17 16:40 07/05/17 16:40 07/05/17 16:40 - Medications Medications: Current Medications Acetaminophen (Tylenol 325mg Tab) 650 mg PO Q4 PRN PRN Reason: Pain, Mild (1-3) Last Admin: 07/04/17 23:36 Dose: 650 mg Acetaminophen (Tylenol 325mg Tab) 650 mg PO Q6 PRN PRN Reason: Fever >100.4 F Last Admin: 06/20/17 16:37 Dose: 650 mg Albuterol/Ipratropium (Duoneb 3 Mg/0.5 Mg (3 Ml) Ud) 3 ml INH RQID [facility] Last Admin: 07/05/17 11:03 Dose: 3 ml Atorvastatin Calcium (Lipitor) 10 mg PO HS [facility] Last Admin: 07/04/17 21:50 Dose: 10 mg Enoxaparin Sodium (Lovenox) 40 mg SC DAILY [facility] PRN Reason: Protocol Last Admin: 07/05/17 09:47 Dose: 40 mg Ferrous Sulfate (Feosol) 325 mg PO BID [facility] Last Admin: 07/05/17 17:26 Dose: 325 mg Gabapentin (Neurontin) 100 mg PO TID [facility] Last Admin: 07/05/17 17:27 Dose: 100 mg Glipizide (Glucotrol) 5 mg PO BID [facility] Last Admin: 07/02/17 09:41 Dose: Not Given Lactated Ringer's (Lactated Ringer's) 1,000 mls @ 50 mls/hr IV .Q20H [facility] Last Admin: 07/05/17 17:28 Dose: 50 mls/hr Insulin Human Regular (Humulin R) 0 units SC [facility] PRN Reason: Protocol Last Admin: 07/05/17 17:30 Dose: 2 units Lactic Acid (Lac-Hydrin 12% Cream (140 G)) 1 ea TOP DAILY [facility] Last Admin: 07/05/17 09:53 Dose: 1 applic Metoclopramide HCl (Reglan) 5 mg IVP Q6 PRN PRN Reason: Nausea/Vomiting Last Admin: 07/01/17 08:41 Dose: 5 mg Nystatin (Nystop Topical Powder) 1 applic TOP TID [facility] Last Admin: 07/05/17 17:25 Dose: 1 applic Ondansetron HCl (Zofran Inj) 4 mg IVP Q4 PRN PRN Reason: Nausea/Vomiting Last Admin: 06/30/17 14:35 Dose: 4 mg Pantoprazole Sodium (Protonix Ec Tab) 40 mg PO DAILY [facility] Last Admin: 07/05/17 09:46 Dose: 40 mg Tramadol HCl (Ultram) 25 mg PO Q4 PRN PRN Reason: Pain, moderate (4-7) Tramadol HCl (Ultram) 50 mg PO Q6 PRN PRN Reason: Pain, severe (8-10) Last Admin: 07/05/17 10:46 Dose: 50 mg - Labs Labs: 07/02/17 07:00 07/02/17 07:00 PT 17.1 Seconds (9.8-13.1) H 06/29/17 05:55 INR 1.5 (0.9-1.2) H 06/29/17 05:55 - Additional Findings Additional findings: Physical exam: Constitutional- cooperative, awake, alert. Head- NCAT, PERRL. Poor dentition Eye- PERRL, normal accommodation ENT- normal exam, MMM. Neck- normal inspection, supple, no JVD Respiratory- CTAB, no wheezes rales rhonchi Cardiovascular- RRR, +S1, +S2 no MRG GI/Abdominal- normal bowel sounds, soft, + Ascites, no hsm Skin- warm, dry Extremities Exam- Right lower extremity dressing c/d/i, wound vac, external fixator in place, normal capillary refill. 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 Patient underwent right ankle closed reduction external fixation and wound debridement (DOS: 05/30/17) followed with wound washout and debridement and wound vac placement (DOS ). s/p failed internal fixation of right fibular fx with IM ashanti. He was started and given vancomycin IV for 14 days empirically since he had open wound and history of bacteremia in the past . At present in TCU for continuation of treatment and PT . 1 Right open fibular fx with wound vac and external fixator Podiatry consult on board - Dr. Avila s/p failed internal fixation right fibular fx with IM ashanti (DOS: 06/16/17) s/p right ankle wound wash out, debridement, and wound vac placement (DOS: 06/13) by Dr. Benson s/p right ankle closed reduction external fixation and wound debridement (DOS: 06/09/17) Per podiatry, STRICT NWB RLE; no further internal fixation Continue wound care per podiatry (plan to change wound vac 3-4x/week) Wound VAC noted to have sanguinous drainage- managed as per podiatry Continue pain management Stable for discharge to [facility] from podiatry standpoint For possible discharge to [facility] 2. Ileus- resolved - No further workup from surgery - Tolerated regular diet and having good bowel movements 3.Myelodysplasia (myelodysplastic syndrome) Dr. Salma Yanes hem/onc consulted, recs appreciated Hgb 10.7 Continue to follow CBC PRBC transfusions PRN 4. 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 DVT prophylaxis continue Lovenox 40mg SC daily will hold when platelets is below 80,000 8. Grief patient's son 1 week ago and patient is very sad psychology and psychiatry consults appreciated
[2017-07-06] MEDS: Insulin Regular 100 units/ml SC SCH ×4 (06:45→21:55)
[2017-07-06] MEDS: Albuterol-Ipratrop 3 mg / 0.5 (3 ml) UD INH SCH ×4 (07:14→19:37)
--- NOTE | 2017-07-06 08:29 | CP.PCM.PN ---
Subjective - Date & Time of Evaluation Date of Evaluation: 07/06/17 Time of Evaluation: 08:25 - Subjective Subjective: UROLOGY called to see this 82 yr male because of post op retention . Ansari was initall replaced but then removed he began to redevelop significant difficulty voiding with urine incontinence. RE attempt to insert ansari by house staff was impossible. I was called to insert ansari. I was able to insert an 18 fr cath. When he bec omes more ambuaitory would advise cysto eval of prostate and bladder Till then flomax tx Objective - Vital Signs/Intake and Output Vital Signs (last 24 hours): Temp Pulse Resp BP Pulse Ox 98.2 F 96 H 20 130/70 97 07/06/17 08:17 07/06/17 08:17 07/06/17 08:17 07/06/17 08:17 07/06/17 08:17 - Medications Medications: Current Medications Acetaminophen (Tylenol 325mg Tab) 650 mg PO Q4 PRN PRN Reason: Pain, Mild (1-3) Last Admin: 07/04/17 23:36 Dose: 650 mg Acetaminophen (Tylenol 325mg Tab) 650 mg PO Q6 PRN PRN Reason: Fever >100.4 F Last Admin: 06/20/17 16:37 Dose: 650 mg Albuterol/Ipratropium (Duoneb 3 Mg/0.5 Mg (3 Ml) Ud) 3 ml INH RQID [facility] Last Admin: 07/06/17 07:14 Dose: 3 ml Atorvastatin Calcium (Lipitor) 10 mg PO HS [facility] Last Admin: 07/05/17 21:46 Dose: 10 mg Enoxaparin Sodium (Lovenox) 40 mg SC DAILY [facility] PRN Reason: Protocol Last Admin: 07/05/17 09:47 Dose: 40 mg Ferrous Sulfate (Feosol) 325 mg PO BID [facility] Last Admin: 07/05/17 17:26 Dose: 325 mg Gabapentin (Neurontin) 100 mg PO TID [facility] Last Admin: 07/05/17 17:27 Dose: 100 mg Glipizide (Glucotrol) 5 mg PO BID [facility] Last Admin: 07/02/17 09:41 Dose: Not Given Lactated Ringer's (Lactated Ringer's) 1,000 mls @ 50 mls/hr IV .Q20H [facility] Last Admin: 07/05/17 17:28 Dose: 50 mls/hr Insulin Human Regular (Humulin R) 0 units SC ACHS [facility] PRN Reason: Protocol Last Admin: 07/06/17 06:45 Dose: 3 units Lactic Acid (Lac-Hydrin 12% Cream (140 G)) 1 ea TOP DAILY [facility] Last Admin: 07/05/17 09:53 Dose: 1 applic Metoclopramide HCl (Reglan) 5 mg IVP Q6 PRN PRN Reason: Nausea/Vomiting Last Admin: 07/01/17 08:41 Dose: 5 mg Nystatin (Nystop Topical Powder) 1 applic TOP TID [facility] Last Admin: 07/05/17 17:25 Dose: 1 applic Ondansetron HCl (Zofran Inj) 4 mg IVP Q4 PRN PRN Reason: Nausea/Vomiting Last Admin: 06/30/17 14:35 Dose: 4 mg Pantoprazole Sodium (Protonix Ec Tab) 40 mg PO DAILY [facility] Last Admin: 07/05/17 09:46 Dose: 40 mg Tramadol HCl (Ultram) 25 mg PO Q4 PRN PRN Reason: Pain, moderate (4-7) Tramadol HCl (Ultram) 50 mg PO Q6 PRN PRN Reason: Pain, severe (8-10) Last Admin: 07/05/17 10:46 Dose: 50 mg - Labs Labs: 07/02/17 07:00 07/02/17 07:00 PT 17.1 Seconds (9.8-13.1) H 06/29/17 05:55 INR 1.5 (0.9-1.2) H 06/29/17 05:55
[2017-07-06] MEDS: Enoxaparin 40 mg Syringe SC SCH (09:54)
[2017-07-06] MEDS: Pantoprazole 40 mg EC Tab PO SCH (09:55)
[2017-07-06] MEDS: Ammonium Lactate 12% Cream (140 g) TOP SCH (09:56)
[2017-07-06] MEDS: Lactated Ringer's 1,000 ML IV SCH (12:16)
--- NOTE | 2017-07-06 15:57 | RAD ---
PROCEDURE: Radiographs of the Left Shoulder HISTORY: left shoulder pain COMPARISON: No prior. FINDINGS: BONES: Examination technically limited. Suspect impacted fracture of humeral head. Nondisplaced fracture distal left clavicle. 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 There is mild degenerative arthritis of the acromioclavicular articulation. SOFT TISSUES: Normal. OTHER FINDINGS: None. IMPRESSION: Limited examination. Suspect impaction fracture of the humeral head as well as non displaced distal clavicular fracture.
[2017-07-07] MEDS: Insulin Regular 100 units/ml SC SCH ×4 (06:51→22:38)
[2017-07-07] MEDS: Albuterol-Ipratrop 3 mg / 0.5 (3 ml) UD INH SCH ×4 (07:18→19:41)
--- NOTE | 2017-07-07 08:06 | CP.PCM.PN ---
Subjective - Date & Time of Evaluation Date of Evaluation: 07/07/17 Time of Evaluation: 10:00 - Subjective Subjective: Patient seen and evaluated bedside. Elderly, chronically ill male lying in bed in NAD . With flat affect , stating that feels tired ,weak all his body aches , gets confused sometimes about timing if it is morning or night time, has no appetite . Hemodynamicfally stable, afebrile. No acute issues overnight Patient is medically stable for discharge to [facility] and has been cleared by podiatry . Plan for family meeting tomorrow with all consultants to answer all the questions and discharge planning. Objective - Vital Signs/Intake and Output Vital Signs (last 24 hours): Temp Pulse Resp BP Pulse Ox 97.7 F 87 20 128/71 98 07/07/17 07:40 07/07/17 07:40 07/07/17 07:40 07/07/17 07:40 07/07/17 07:40 Intake and Output: 07/07/17 07/07/17 06:59 18:59 Intake Total 720 Output Total 250 Balance 470 - Medications Medications: Current Medications Acetaminophen (Tylenol 325mg Tab) 650 mg PO Q4 PRN PRN Reason: Pain, Mild (1-3) Last Admin: 07/04/17 23:36 Dose: 650 mg Acetaminophen (Tylenol 325mg Tab) 650 mg PO Q6 PRN PRN Reason: Fever >100.4 F Last Admin: 06/20/17 16:37 Dose: 650 mg Albuterol/Ipratropium (Duoneb 3 Mg/0.5 Mg (3 Ml) Ud) 3 ml INH RQID [facility] Last Admin: 07/07/17 07:18 Dose: 3 ml Atorvastatin Calcium (Lipitor) 10 mg PO HS [facility] Last Admin: 07/06/17 21:55 Dose: 10 mg Enoxaparin Sodium (Lovenox) 40 mg SC DAILY [facility] PRN Reason: Protocol Last Admin: 07/06/17 09:54 Dose: 40 mg Ferrous Sulfate (Feosol) 325 mg PO BID [facility] Last Admin: 07/06/17 17:04 Dose: 325 mg Gabapentin (Neurontin) 100 mg PO TID [facility] Last Admin: 07/06/17 17:03 Dose: 100 mg Glipizide (Glucotrol) 5 mg PO BID [facility] Last Admin: 07/02/17 09:41 Dose: Not Given Lactated Ringer's (Lactated Ringer's) 1,000 mls @ 50 mls/hr IV .Q20H [facility] Last Admin: 07/06/17 12:16 Dose: 50 mls/hr Insulin Human Regular (Humulin R) 0 units SC ACHS [facility] PRN Reason: Protocol Last Admin: 07/07/17 06:51 Dose: 4 units Lactic Acid (Lac-Hydrin 12% Cream (140 G)) 1 ea TOP DAILY [facility] Last Admin: 07/06/17 09:56 Dose: 1 applic Metoclopramide HCl (Reglan) 5 mg IVP Q6 PRN PRN Reason: Nausea/Vomiting Last Admin: 07/01/17 08:41 Dose: 5 mg Nystatin (Nystop Topical Powder) 1 applic TOP TID [facility] Last Admin: 07/06/17 17:08 Dose: 1 applic Ondansetron HCl (Zofran Inj) 4 mg IVP Q4 PRN PRN Reason: Nausea/Vomiting Last Admin: 06/30/17 14:35 Dose: 4 mg Pantoprazole Sodium (Protonix Ec Tab) 40 mg PO DAILY [facility] Last Admin: 07/06/17 09:55 Dose: 40 mg Tamsulosin HCl (Flomax) 0.4 mg PO DAILY [facility] Last Admin: 07/06/17 09:54 Dose: 0.4 mg Tramadol HCl (Ultram) 25 mg PO Q4 PRN PRN Reason: Pain, moderate (4-7) Tramadol HCl (Ultram) 50 mg PO Q6 PRN PRN Reason: Pain, severe (8-10) Last Admin: 07/07/17 07:15 Dose: 50 mg - Labs Labs: 07/02/17 07:00 07/02/17 07:00 PT 17.1 Seconds (9.8-13.1) H 06/29/17 05:55 INR 1.5 (0.9-1.2) H 06/29/17 05:55 - Constitutional Appears: Non-toxic, No Acute Distress, Chronically Ill, Other (overweight ) - Head Exam Head Exam: ATRAUMATIC, NORMAL INSPECTION, NORMOCEPHALIC - Eye Exam Eye Exam: EOMI, Normal appearance, PERRL Pupil Exam: NORMAL ACCOMODATION - ENT Exam ENT Exam: Mucous Membranes Dry, Normal Exam - Neck Exam Neck Exam: Normal Inspection - Respiratory Exam Respiratory Exam: Clear to Ausculation Bilateral, NORMAL BREATHING PATTERN. absent: Rhonchi, Wheezes, Respiratory Distress - Cardiovascular Exam Cardiovascular Exam: REGULAR RHYTHM, RRR, +S1, +S2. absent: JVD - GI/Abdominal Exam GI & Abdominal Exam: Distended (ascites), Soft. absent: Guarding, Tenderness, Rebound - Rectal Exam Rectal Exam: Deferred - Exam Additional comments: ansari in place - Extremities Exam Extremities Exam: Pedal Edema (1 + to LLE with chronic venous stasis) Additional comments: RLE with dressing , external fixator and wound vac in place left shoulder anterior protrusion present since admission with decreased ROM ( chronic as per patient ) - Neurological Exam Neurological Exam: Alert, Awake, CN II-XII Intact, Oriented x3 - Psychiatric Exam Psychiatric exam: Flat Affect - Skin Skin Exam: Dry, Warm Assessment and Plan - Assessment and Plan (Free Text) Assessment: 81 year old male patient PMHx HTN, CHF, CAD/CABG, Myelodysplastic Syndrome, 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 Patient underwent right ankle closed reduction external fixation and wound debridement (DOS: 05/30/17) followed with wound washout and debridement and wound vac placement (DOS ). s/p failed internal fixation of right fibular fx with IM ashanti. He was started and given vancomycin IV for 14 days empirically since he had open wound and history of bacteremia in the past . Transferred to TCU for continuation of treatment and PT . Patient has been in TCU since 06/18/17. At present he is stable and cleared by all consultants to go to low level of care [facility] but family is refusing. He is chronically ill with multiple medical problems and guarded prognosis but medically stable at present. Plan to have meeting with family about discharge planning in AM to d/c patient to [facility] or home. 1 Right open fibular fx with wound vac and external fixator Podiatry consult on board - Dr. Avila s/p failed internal fixation right fibular fx with IM ashanti (DOS: 06/16/17) s/p right ankle wound wash out, debridement, and wound vac placement (DOS: 06/13) by Dr. Benson s/p right ankle closed reduction external fixation and wound debridement (DOS: 06/09/17) Per podiatry, STRICT NWB RLE; no further internal fixation Continue wound care per podiatry (plan to change wound vac 3-4x/week) Wound VAC noted to have sanguinous drainage- managed as per podiatry Continue pain management wound vac to be changed tomorrow by podiatry Stable for discharge to [facility] from podiatry standpoint For possible discharge to [facility] patient to follow up with Dr. Avila at wound care center 2. Ileus- resolved Tolerating diet and having good bowel movements 3.Myelodysplasia (myelodysplastic syndrome) Dr. Salma Yanes hem/onc consulted, recs appreciated Hgb 10.4 no further interventions 4. 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 DVT prophylaxis continue Lovenox 40mg SC daily will hold when platelets is below 80,000 8. Grief/ depression / adjustment disorder patient's son 2 weeks ago and patient is very sad psychology and psychiatry consults appreciated 9.Left shoulder chronic anterior deformity As per patient and ;left shoulder deformity has been there for 1 year and was evaluated months ago by a orthopedist imaging showed Suspect impaction fracture of the humeral head as well as non displaced distal clavicular fracture. ortho was consulted 10.Urinary retention urology was consulted Dr.Cacace isaak Ansari in Continue Flomax Po
[2017-07-07] MEDS: Pantoprazole 40 mg EC Tab PO SCH (09:18)
[2017-07-07] MEDS: Enoxaparin 40 mg Syringe SC SCH (09:18)
[2017-07-07] MEDS: Ammonium Lactate 12% Cream (140 g) TOP SCH (09:19)
[2017-07-07] MEDS: Lactated Ringer's 1,000 ML IV SCH (09:28)
--- NOTE | 2017-07-07 09:30 | CP.PCM.PN ---
Subjective - Date & Time of Evaluation Date of Evaluation: 07/07/17 Time of Evaluation: 09:30 - Subjective Subjective: 82 y/o male seen at bedside this morning in TCU for right open fibular fracture with wound vac and external fixator in place Patient is now 4 weeks s/p closed reduction with external fixator application and 3 weeks s/p failed fibular ashanti placement. Pt says he is not feeling well today and his neuropathy is flaring up. Pt feels weaker than normal today. Pt offers no new pedal complaints but says he is fed up with having the fixator on. Pt denies F/C/N/V/CP/SOB. Objective - Vital Signs/Intake and Output Vital Signs (last 24 hours): Temp Pulse Resp BP Pulse Ox 97.7 F 87 20 128/71 98 07/07/17 07:40 07/07/17 07:40 07/07/17 07:40 07/07/17 07:40 07/07/17 07:40 Intake and Output: 07/07/17 07/07/17 06:59 18:59 Intake Total 720 Output Total 250 Balance 470 - Medications Medications: Current Medications Acetaminophen (Tylenol 325mg Tab) 650 mg PO Q4 PRN PRN Reason: Pain, Mild (1-3) Last Admin: 07/04/17 23:36 Dose: 650 mg Acetaminophen (Tylenol 325mg Tab) 650 mg PO Q6 PRN PRN Reason: Fever >100.4 F Last Admin: 06/20/17 16:37 Dose: 650 mg Albuterol/Ipratropium (Duoneb 3 Mg/0.5 Mg (3 Ml) Ud) 3 ml INH RQID [facility] Last Admin: 07/07/17 07:18 Dose: 3 ml Atorvastatin Calcium (Lipitor) 10 mg PO HS [facility] Last Admin: 07/06/17 21:55 Dose: 10 mg Enoxaparin Sodium (Lovenox) 40 mg SC DAILY [facility] PRN Reason: Protocol Last Admin: 07/07/17 09:18 Dose: 40 mg Ferrous Sulfate (Feosol) 325 mg PO BID [facility] Last Admin: 07/07/17 09:18 Dose: 325 mg Gabapentin (Neurontin) 100 mg PO TID [facility] Last Admin: 07/07/17 09:18 Dose: 100 mg Glipizide (Glucotrol) 5 mg PO BID [facility] Last Admin: 07/02/17 09:41 Dose: Not Given Lactated Ringer's (Lactated Ringer's) 1,000 mls @ 50 mls/hr IV .Q20H [facility] Last Admin: 07/07/17 09:28 Dose: 50 mls/hr Insulin Human Regular (Humulin R) 0 units SC ACHS [facility] PRN Reason: Protocol Last Admin: 07/07/17 06:51 Dose: 4 units Lactic Acid (Lac-Hydrin 12% Cream (140 G)) 1 ea TOP DAILY [facility] Last Admin: 07/07/17 09:19 Dose: 1 applic Metoclopramide HCl (Reglan) 5 mg IVP Q6 PRN PRN Reason: Nausea/Vomiting Last Admin: 07/01/17 08:41 Dose: 5 mg Nystatin (Nystop Topical Powder) 1 applic TOP TID [facility] Last Admin: 07/07/17 09:21 Dose: 1 applic Ondansetron HCl (Zofran Inj) 4 mg IVP Q4 PRN PRN Reason: Nausea/Vomiting Last Admin: 06/30/17 14:35 Dose: 4 mg Pantoprazole Sodium (Protonix Ec Tab) 40 mg PO DAILY [facility] Last Admin: 07/07/17 09:18 Dose: 40 mg Tamsulosin HCl (Flomax) 0.4 mg PO DAILY [facility] Last Admin: 07/07/17 09:18 Dose: 0.4 mg Tramadol HCl (Ultram) 25 mg PO Q4 PRN PRN Reason: Pain, moderate (4-7) Tramadol HCl (Ultram) 50 mg PO Q6 PRN PRN Reason: Pain, severe (8-10) Last Admin: 07/07/17 07:15 Dose: 50 mg - Labs Labs: 07/02/17 07:00 07/02/17 07:00 PT 17.1 Seconds (9.8-13.1) H 06/29/17 05:55 INR 1.5 (0.9-1.2) H 06/29/17 05:55 - Constitutional Appears: Well, Non-toxic, No Acute Distress - Extremities Exam Additional comments: RLE dressing intact with external fixator in place Wound vac running on continuous 125mm Hg pressure, leak check indicates no leaks Wound vac output at 200cc today Pt able to wiggle toes without difficulty CFT < 3 seconds to all digits of R foot - Neurological Exam Neurological Exam: Alert, Awake, Oriented x3 - Psychiatric Exam Psychiatric exam: Flat Affect Assessment and Plan - Assessment and Plan (Free Text) Assessment: 81 year old male 4 weeks s/p right leg open fibular fracture and 3 weeks s/p failed fibular IM ashanti placement with wound vac and external fixator in place Plan: Patient seen and evaluated at bedside Discussed plan with attending Dr. Avila Charts, labs and vitals reviewed - afebrile, NNL Wound vac remains in place and functioning properly to RLE open wound, continuous at 125 mm Hg with no leaks Plan for possible wound vac change tomorrow at bedside Pt is stable to D/C to [facility] from podiatry standpoint Pt will follow up with Dr. Avila in wound care center as outpatient for vac changes and continued care Podiatry will continue to follow patient while in house
[2017-07-08] MEDS: Lactated Ringer's 1,000 ML IV SCH (02:08)
[2017-07-08] MEDS: Insulin Regular 100 units/ml SC SCH ×3 (06:55→18:27)
[2017-07-08] MEDS: Albuterol-Ipratrop 3 mg / 0.5 (3 ml) UD INH SCH ×4 (07:43→19:29)
[2017-07-08 07:47] LABS: HEMATOCRIT 36.7 % (35.0-51.0); MEAN CELL VOLUME 85.9 fl (80.0-94.0); MEAN CORPUSCULAR HEMOGLOBIN 27.7 pg (27.0-31.0); MEAN CORPUSCULAR HGB CONC 32.2 g/dL (33.0-37.0); RED CELL DISTRIBUTION WIDTH 18.3 % (11.5-14.5); WHITE BLOOD COUNT 8.5 K/uL (4.8-10.8)
[2017-07-08 08:07] LABS: ALB/GLOB RATIO 0.7 (1.0-2.1); ALKALINE PHOSPHATASE 112 U/L (38-126); ALT/SGPT 35 U/L (21-72); AST/SGOT 22 U/L (17-59); BILIRUBIN,TOTAL 1.3 mg/dl (0.2-1.3); BLOOD UREA NITROGEN 40 mg/dl (9-20); CALCIUM 8.2 mg/dL (8.4-10.2); CARBON DIOXIDE 26 mmol/L (22-30); CHLORIDE 100 mmol/L (98-107); GFR AFRICAN-AMERICAN > 60; GLUCOSE,RANDOM 199 mg/dL (75-110); POTASSIUM 5.4 MMOL/L (3.6-5.0); SODIUM 134 mmol/l (132-148); TOTAL PROTEIN 5.9 G/DL (6.3-8.2)
--- NOTE | 2017-07-08 08:54 | CP.PCM.CON ---
History of Present Illness - History of Present Illness History of Present Illness: Pt seen for supportive therapy today 7:50-8:10. Pt discussed upcoming meeting of MD's and family members to determine his needs/plan for the future. Pt spoke of comfort with the above, trusting all. Pt discussed the positive effect of his family visit and needing the above for his mental health. Pt continues to be focused on physical symptoms and his desire for relief/gains. Support provided overall and feelings normalized. plan: Continued Supportive therapy Past Patient History - Tetanus Immunizations Tetanus Immunization: Unknown - Past Medical History & Family History Past Medical History?: Yes - Past Social History Smoking Status: Never Smoked Alcohol: None - CARDIAC Hx Cardiac Disorders: Yes Hx Congestive Heart Failure: Yes Hx Hypercholesterolemia: Yes Hx Hypertension: Yes - PULMONARY Hx Respiratory Disorders: No - NEUROLOGICAL Hx Neurological Disorder: No - HEENT Hx HEENT Problems: Yes Hx Cataracts: Yes (left) - RENAL Hx Chronic Kidney Disease: No - ENDOCRINE/METABOLIC Hx Endocrine Disorders: Yes Hx Diabetes Mellitus Type 2: Yes - HEMATOLOGICAL/ONCOLOGICAL Hx Anemia: Yes - INTEGUMENTARY Hx Dermatological Problems: No - MUSCULOSKELETAL/RHEUMATOLOGICAL Hx Arthritis: Yes - GASTROINTESTINAL Hx Gastritis: Yes - GENITOURINARY/GYNECOLOGICAL Hx Genitourinary Disorders: No - PSYCHIATRIC Hx Psychophysiologic Disorder: No Hx Substance Use: No - SURGICAL HISTORY Hx Cholecystectomy: Yes Hx Coronary Artery Bypass Graft: Yes - ANESTHESIA Hx Anesthesia: Yes Hx Anesthesia Reactions: No Hx Malignant Hyperthermia: No Meds Home Medications: Home Medication List Medication Instructions Recorded Confirmed Type Acetaminophen [Tylenol 325mg tab] 650 mg PO Q4 PRN tab 07/05/17 Rx Acetaminophen [Tylenol 325mg tab] 650 mg PO Q6 PRN tab 07/05/17 Rx Enoxaparin [Lovenox] 40 mg SC DAILY [facility] 07/05/17 Rx Famotidine [Pepcid] 20 mg PO BID tab 07/05/17 Rx Insulin Human Regular [HumuLIN R] 0 units SC ACHS ml 07/05/17 Rx Metoclopramide [Reglan] 5 mg IVP Q6 PRN vial 07/05/17 Rx Ondansetron [Zofran Inj] 4 mg IVP Q4 PRN vial 07/05/17 Rx traMADol [Ultram] 25 mg PO Q4 PRN tab 07/05/17 Rx traMADol [Ultram] 50 mg PO Q6 PRN tab 07/05/17 Rx Allergies/Adverse Reactions: Allergies Allergy/AdvReac Type Severity Reaction Status Date / Time tape Allergy Mild RASH Uncoded 06/18/17 12:27 - Medications Medications: Current Medications Acetaminophen (Tylenol 325mg Tab) 650 mg PO Q4 PRN PRN Reason: Pain, Mild (1-3) Last Admin: 07/04/17 23:36 Dose: 650 mg Acetaminophen (Tylenol 325mg Tab) 650 mg PO Q6 PRN PRN Reason: Fever >100.4 F Last Admin: 06/20/17 16:37 Dose: 650 mg Albuterol/Ipratropium (Duoneb 3 Mg/0.5 Mg (3 Ml) Ud) 3 ml INH RQID [facility] Last Admin: 07/08/17 07:43 Dose: 3 ml Atorvastatin Calcium (Lipitor) 10 mg PO HS [facility] Last Admin: 07/07/17 22:32 Dose: 10 mg Enoxaparin Sodium (Lovenox) 40 mg SC DAILY [facility] PRN Reason: Protocol Last Admin: 07/07/17 09:18 Dose: 40 mg Ferrous Sulfate (Feosol) 325 mg PO BID [facility] Last Admin: 07/07/17 17:19 Dose: 325 mg Gabapentin (Neurontin) 100 mg PO TID [facility] Last Admin: 07/07/17 17:19 Dose: 100 mg Glipizide (Glucotrol) 5 mg PO BID [facility] Last Admin: 07/07/17 17:50 Dose: 5 mg Lactated Ringer's (Lactated Ringer's) 1,000 mls @ 50 mls/hr IV .Q20H [facility] Last Admin: 07/08/17 02:08 Dose: 50 mls/hr Insulin Human Regular (Humulin R) 0 units SC ACHS [facility] PRN Reason: Protocol Last Admin: 07/08/17 06:55 Dose: 3 units Lactic Acid (Lac-Hydrin 12% Cream (140 G)) 1 ea TOP DAILY [facility] Last Admin: 07/07/17 09:19 Dose: 1 applic Nystatin (Nystop Topical Powder) 1 applic TOP TID [facility] Last Admin: 07/07/17 19:00 Dose: 1 applic Ondansetron HCl (Zofran Inj) 4 mg IVP Q4 PRN PRN Reason: Nausea/Vomiting Last Admin: 07/08/17 03:13 Dose: 4 mg Pantoprazole Sodium (Protonix Ec Tab) 40 mg PO DAILY [facility] Last Admin: 07/07/17 09:18 Dose: 40 mg Tamsulosin HCl (Flomax) 0.4 mg PO DAILY [facility] Last Admin: 07/07/17 09:18 Dose: 0.4 mg Tramadol HCl (Ultram) 25 mg PO Q4 PRN PRN Reason: Pain, moderate (4-7) Tramadol HCl (Ultram) 50 mg PO Q6 PRN PRN Reason: Pain, severe (8-10) Last Admin: 07/07/17 07:15 Dose: 50 mg Results - Vital Signs Recent Vital Signs: Last Vital Signs Temp 96.6 F L 07/08/17 08:26 Pulse 90 07/08/17 08:26 Resp 20 07/08/17 08:26 BP 130/75 07/08/17 08:26 Pulse Ox 96 07/08/17 08:26 - Labs Result Diagrams: 07/08/17 07:40 07/08/17 07:40 Labs: Laboratory Results - last 24 hr 07/07/17 07/07/17 07/07/17 10:46 15:25 20:27 WBC RBC Hgb Hct MCV MCH MCHC RDW Plt Count Sodium Potassium Chloride Carbon Dioxide Anion Gap BUN Creatinine Est GFR ( Amer) Est GFR (Non-Af Amer) POC Glucose (mg/dL) 241 H 211 H 196 H Random Glucose Calcium Total Bilirubin AST ALT Alkaline Phosphatase Total Protein Albumin Globulin Albumin/Globulin Ratio 07/08/17 07/08/17 07/08/17 05:59 07:40 07:40 WBC 8.5 D RBC 4.27 L Hgb 11.8 L Hct 36.7 MCV 85.9 MCH 27.7 MCHC 32.2 L RDW 18.3 H Plt Count 127 L Sodium 134 Potassium 5.4 H Chloride 100 Carbon Dioxide 26 Anion Gap 13 BUN 40 H Creatinine 1.3 Est GFR ( Amer) > 60 Est GFR (Non-Af Amer) 53 POC Glucose (mg/dL) 215 H Random Glucose 199 H Calcium 8.2 L Total Bilirubin 1.3 AST 22 ALT 35 Alkaline Phosphatase 112 Total Protein 5.9 L Albumin 2.5 L Globulin 3.4 Albumin/Globulin Ratio 0.7 L
[2017-07-08] MEDS: Enoxaparin 40 mg Syringe SC SCH (09:18)
[2017-07-08] MEDS: Pantoprazole 40 mg EC Tab PO SCH (09:18)
[2017-07-08] MEDS: Ammonium Lactate 12% Cream (140 g) TOP SCH (09:19)
--- NOTE | 2017-07-08 12:23 | CP.PCM.PN ---
Subjective - Date & Time of Evaluation Date of Evaluation: 07/08/17 Time of Evaluation: 12:20 - Subjective Subjective: Pt is very depressed because he is still having pain every time he starts to move. He has a ansari in place because he was unable to use a urinal. His abdomen is ditended bur it is more from gas than ascitic fluid at this time. Have asked him to tell the nurse if he he gets constipated, and he is on pantoprazole to prevent acidity. Had a 1 hr long discussion with the family, hospitalist and podiatary re his discharge , bee worker was there as well and we told them that his treatment would be as an outpatient, but that he will be seen by a [facility] prior to discharge. Objective - Vital Signs/Intake and Output Vital Signs (last 24 hours): Temp Pulse Resp BP Pulse Ox 96.6 F L 90 20 130/75 96 07/08/17 08:26 07/08/17 08:26 07/08/17 08:26 07/08/17 08:26 07/08/17 08:26 Intake and Output: 07/08/17 07/08/17 06:59 18:59 Intake Total 600 Output Total 450 Balance 150 - Medications Medications: Current Medications Acetaminophen (Tylenol 325mg Tab) 650 mg PO Q4 PRN PRN Reason: Pain, Mild (1-3) Last Admin: 07/04/17 23:36 Dose: 650 mg Acetaminophen (Tylenol 325mg Tab) 650 mg PO Q6 PRN PRN Reason: Fever >100.4 F Last Admin: 06/20/17 16:37 Dose: 650 mg Albuterol/Ipratropium (Duoneb 3 Mg/0.5 Mg (3 Ml) Ud) 3 ml INH RQID [facility] Last Admin: 07/08/17 07:43 Dose: 3 ml Atorvastatin Calcium (Lipitor) 10 mg PO HS [facility] Last Admin: 07/07/17 22:32 Dose: 10 mg Enoxaparin Sodium (Lovenox) 40 mg SC DAILY [facility] PRN Reason: Protocol Last Admin: 07/08/17 09:18 Dose: 40 mg Ferrous Sulfate (Feosol) 325 mg PO BID [facility] Last Admin: 07/08/17 09:19 Dose: 325 mg Gabapentin (Neurontin) 100 mg PO TID [facility] Last Admin: 07/08/17 09:19 Dose: 100 mg Glipizide (Glucotrol) 5 mg PO BID [facility] Last Admin: 07/08/17 09:18 Dose: 5 mg Lactated Ringer's (Lactated Ringer's) 1,000 mls @ 50 mls/hr IV .Q20H [facility] Last Admin: 07/08/17 02:08 Dose: 50 mls/hr Insulin Human Regular (Humulin R) 0 units SC ACHS [facility] PRN Reason: Protocol Last Admin: 07/08/17 06:55 Dose: 3 units Lactic Acid (Lac-Hydrin 12% Cream (140 G)) 1 ea TOP DAILY [facility] Last Admin: 07/08/17 09:19 Dose: 1 applic Nystatin (Nystop Topical Powder) 1 applic TOP TID [facility] Last Admin: 07/08/17 09:20 Dose: 1 applic Ondansetron HCl (Zofran Inj) 4 mg IVP Q4 PRN PRN Reason: Nausea/Vomiting Last Admin: 07/08/17 03:13 Dose: 4 mg Pantoprazole Sodium (Protonix Ec Tab) 40 mg PO DAILY [facility] Last Admin: 07/08/17 09:18 Dose: 40 mg Tamsulosin HCl (Flomax) 0.4 mg PO DAILY [facility] Last Admin: 07/08/17 09:19 Dose: 0.4 mg Tramadol HCl (Ultram) 25 mg PO Q4 PRN PRN Reason: Pain, moderate (4-7) Tramadol HCl (Ultram) 50 mg PO Q6 PRN PRN Reason: Pain, severe (8-10) Last Admin: 07/07/17 07:15 Dose: 50 mg - Labs Labs: 07/08/17 07:40 07/08/17 07:40 PT 17.1 Seconds (9.8-13.1) H 06/29/17 05:55 INR 1.5 (0.9-1.2) H 06/29/17 05:55
--- NOTE | 2017-07-08 22:32 | CP.PCM.PN ---
Subjective - Date & Time of Evaluation Date of Evaluation: 07/08/17 Time of Evaluation: 10:30 - Subjective Subjective: 82 y/o male seen at bedside this morning in TCU for right open fibular fracture with wound vac and external fixator in place Patient is now 29 days s/p closed reduction with external fixator application and 22 days s/p failed fibular ashanti placement. Pt is nauseous at time of visit and is unable to offer any explanation as to how he is feeling. Pt's family is bedside and has requested a meeting with all medical consultants to discuss patient's condition and discharge plan. Objective - Vital Signs/Intake and Output Vital Signs (last 24 hours): Temp Pulse Resp BP Pulse Ox 97.7 F 88 20 127/74 94 L 07/08/17 19:18 07/08/17 19:18 07/08/17 19:18 07/08/17 19:18 07/08/17 19:18 - Medications Medications: Current Medications Acetaminophen (Tylenol 325mg Tab) 650 mg PO Q4 PRN PRN Reason: Pain, Mild (1-3) Last Admin: 07/04/17 23:36 Dose: 650 mg Acetaminophen (Tylenol 325mg Tab) 650 mg PO Q6 PRN PRN Reason: Fever >100.4 F Last Admin: 06/20/17 16:37 Dose: 650 mg Albuterol/Ipratropium (Duoneb 3 Mg/0.5 Mg (3 Ml) Ud) 3 ml INH RQID [facility] Last Admin: 07/08/17 19:29 Dose: 3 ml Atorvastatin Calcium (Lipitor) 10 mg PO HS [facility] Last Admin: 07/08/17 21:00 Dose: 10 mg Enoxaparin Sodium (Lovenox) 40 mg SC DAILY [facility] PRN Reason: Protocol Last Admin: 07/08/17 09:18 Dose: 40 mg Ferrous Sulfate (Feosol) 325 mg PO BID [facility] Last Admin: 07/08/17 17:12 Dose: 325 mg Gabapentin (Neurontin) 100 mg PO TID [facility] Last Admin: 07/08/17 17:12 Dose: 100 mg Glipizide (Glucotrol) 5 mg PO BID [facility] Last Admin: 07/08/17 17:12 Dose: 5 mg Lactated Ringer's (Lactated Ringer's) 1,000 mls @ 50 mls/hr IV .Q20H [facility] Last Admin: 07/08/17 02:08 Dose: 50 mls/hr Insulin Human Regular (Humulin R) 0 units SC ACHS [facility] PRN Reason: Protocol Last Admin: 07/08/17 18:27 Dose: Not Given Lactic Acid (Lac-Hydrin 12% Cream (140 G)) 1 ea TOP DAILY [facility] Last Admin: 07/08/17 09:19 Dose: 1 applic Nystatin (Nystop Topical Powder) 1 applic TOP TID [facility] Last Admin: 07/08/17 17:11 Dose: 1 applic Ondansetron HCl (Zofran Inj) 4 mg IVP Q4 PRN PRN Reason: Nausea/Vomiting Last Admin: 07/08/17 03:13 Dose: 4 mg Pantoprazole Sodium (Protonix Ec Tab) 40 mg PO DAILY [facility] Last Admin: 07/08/17 09:18 Dose: 40 mg Tamsulosin HCl (Flomax) 0.4 mg PO DAILY [facility] Last Admin: 07/08/17 09:19 Dose: 0.4 mg Tramadol HCl (Ultram) 25 mg PO Q4 PRN PRN Reason: Pain, moderate (4-7) Tramadol HCl (Ultram) 50 mg PO Q6 PRN PRN Reason: Pain, severe (8-10) Last Admin: 07/08/17 21:00 Dose: 50 mg - Labs Labs: 07/08/17 07:40 07/08/17 07:40 PT 17.1 Seconds (9.8-13.1) H 06/29/17 05:55 INR 1.5 (0.9-1.2) H 06/29/17 05:55 - Constitutional Appears: Well, Non-toxic, No Acute Distress - Extremities Exam Additional comments: RLE dressing intact with external fixator in place Wound vac running on continuous 125mm Hg pressure, leak check indicates no leaks Wound vac output at 240 cc today Pt able to wiggle toes without difficulty CFT < 3 seconds to all digits of R foot - Neurological Exam Neurological Exam: Alert, Awake, Oriented x3 - Psychiatric Exam Psychiatric exam: Flat Affect Assessment and Plan - Assessment and Plan (Free Text) Assessment: 81 year old male 29 days s/p right leg open fibular fracture and 22 days s/p failed fibular IM ashanti placement with wound vac and external fixator in place Plan: Patient seen and evaluated at bedside Discussed plan with attending Dr. Avila Charts, labs and vitals reviewed - afebrile, WBC 8.5 Wound vac remains in place and functioning properly to RLE open wound, continuous at 125 mm Hg with no leaks Plan for possible wound vac change tomorrow at bedside Participated in 1 hour long family meeting to discuss patient's condition and plan, explaining carefully to pt's and daughter the nature of patient's condition, as he is currently experiencing multiple chronic medical conditions, but his condition is not acute in nature to warrant remaining on the hospital floors Discussed the plan with pt's family to discharge patient to an appropriate [facility] facility with attentive care to all medical conditions Pt is stable to D/C to [facility] from podiatry standpoint Per podiatry, wound vac should not be changed or adjusted at [facility] facility, and patient should routinely follow up 1-2 times per week in the wound care center with Dr. Avila for wound vac changes and continued care of open wound with vac and external fixator Podiatry will continue to follow patient while in house
[2017-07-09] MEDS: Insulin Regular 100 units/ml SC SCH ×5 (00:15→21:37)
[2017-07-09] MEDS: Lactated Ringer's 1,000 ML IV SCH (00:37)
[2017-07-09] MEDS: Albuterol-Ipratrop 3 mg / 0.5 (3 ml) UD INH SCH ×4 (07:36→19:41)
[2017-07-09] MEDS: Pantoprazole 40 mg EC Tab PO SCH (08:47)
[2017-07-09] MEDS: Enoxaparin 40 mg Syringe SC SCH (08:47)
[2017-07-09] MEDS: Ammonium Lactate 12% Cream (140 g) TOP SCH (08:49)
--- NOTE | 2017-07-09 10:23 | CP.PCM.CON ---
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 He has since had an external right ankle fixation and wound vac placed on the right LE. Pt has subsequently had 2 abdominal paracentesis in the hospital: 06/15/17 (9L) and 07/05/17 (11L). Pt has had an EGD on 03/[address] Neri and at the time did not reveal any esophageal varicies. He had not been medically optimized on diuretics. According to hospitalist, he has had extensive liver work-up as an oupt including a liver biopsy, but the pt could not recall the GI physician or the tests. He denies any hx of significant alcohol use and Hep C antibody was neg. Pt states that he has chronic constipation and has been diagnosed with IBS. He notes that his last colonscopy was 3-5 years ago and normal according to him. Denies any hematemesis or coffee-ground emesis. States that he has intermittent nausea. PMH: HTN, CHF, CAD/CABG, Myelodysplastic Syndrome, Cirrhosis and DMII PSH: closed reduction external fixation of RLE, CABG, Lap moy, paracentesis, hip replacement SocialHx: denies etoh, tobacco, or recreational drug use ROS: 12-point ROS conducted, neg other than above Past Patient History - Tetanus Immunizations Tetanus Immunization: Unknown - Past Medical History & Family History Past Medical History?: Yes - Past Social History Smoking Status: Never Smoked Alcohol: None - CARDIAC Hx Cardiac Disorders: Yes Hx Congestive Heart Failure: Yes Hx Hypercholesterolemia: Yes Hx Hypertension: Yes - PULMONARY Hx Respiratory Disorders: No - NEUROLOGICAL Hx Neurological Disorder: No - HEENT Hx HEENT Problems: Yes Hx Cataracts: Yes (left) - RENAL Hx Chronic Kidney Disease: No - ENDOCRINE/METABOLIC Hx Endocrine Disorders: Yes Hx Diabetes Mellitus Type 2: Yes - HEMATOLOGICAL/ONCOLOGICAL Hx Anemia: Yes - INTEGUMENTARY Hx Dermatological Problems: No - MUSCULOSKELETAL/RHEUMATOLOGICAL Hx Arthritis: Yes - GASTROINTESTINAL Hx Gastritis: Yes - GENITOURINARY/GYNECOLOGICAL Hx Genitourinary Disorders: No - PSYCHIATRIC Hx Psychophysiologic Disorder: No Hx Substance Use: No - SURGICAL HISTORY Hx Cholecystectomy: Yes Hx Coronary Artery Bypass Graft: Yes - ANESTHESIA Hx Anesthesia: Yes Hx Anesthesia Reactions: No Hx Malignant Hyperthermia: No Meds Home Medications: Home Medication List Medication Instructions Recorded Confirmed Type Acetaminophen [Tylenol 325mg tab] 650 mg PO Q4 PRN tab 07/05/17 Rx Acetaminophen [Tylenol 325mg tab] 650 mg PO Q6 PRN tab 07/05/17 Rx Enoxaparin [Lovenox] 40 mg SC DAILY syr 07/05/17 Rx Famotidine [Pepcid] 20 mg PO BID tab 07/05/17 Rx Insulin Human Regular [HumuLIN R] 0 units SC ACHS ml 07/05/17 Rx Metoclopramide [Reglan] 5 mg IVP Q6 PRN vial 07/05/17 Rx Ondansetron [Zofran Inj] 4 mg IVP Q4 PRN vial 07/05/17 Rx traMADol [Ultram] 25 mg PO Q4 PRN tab 07/05/17 Rx traMADol [Ultram] 50 mg PO Q6 PRN tab 07/05/17 Rx Allergies/Adverse Reactions: Allergies Allergy/AdvReac Type Severity Reaction Status Date / Time tape Allergy Mild RASH Uncoded 06/18/17 12:27 - Medications Medications: Current Medications Acetaminophen (Tylenol 325mg Tab) 650 mg PO Q4 PRN PRN Reason: Pain, Mild (1-3) Last Admin: 07/04/17 23:36 Dose: 650 mg Acetaminophen (Tylenol 325mg Tab) 650 mg PO Q6 PRN PRN Reason: Fever >100.4 F Last Admin: 06/20/17 16:37 Dose: 650 mg Albuterol/Ipratropium (Duoneb 3 Mg/0.5 Mg (3 Ml) Ud) 3 ml INH RQID [facility] Last Admin: 07/09/17 07:36 Dose: 3 ml Atorvastatin Calcium (Lipitor) 10 mg PO HS [facility] Last Admin: 07/08/17 21:00 Dose: 10 mg Enoxaparin Sodium (Lovenox) 40 mg SC DAILY [facility] PRN Reason: Protocol Last Admin: 07/09/17 08:47 Dose: 40 mg Ferrous Sulfate (Feosol) 325 mg PO BID [facility] Last Admin: 07/09/17 08:46 Dose: 325 mg Gabapentin (Neurontin) 100 mg PO TID [facility] Last Admin: 07/09/17 08:47 Dose: 100 mg Glipizide (Glucotrol) 5 mg PO BID [facility] Last Admin: 07/09/17 08:47 Dose: 5 mg Lactated Ringer's (Lactated Ringer's) 1,000 mls @ 50 mls/hr IV .Q20H [facility] Last Admin: 07/09/17 00:37 Dose: 50 mls/hr Insulin Human Regular (Humulin R) 0 units SC ACHS [facility] PRN Reason: Protocol Last Admin: 07/09/17 06:30 Dose: 2 units Lactic Acid (Lac-Hydrin 12% Cream (140 G)) 1 ea TOP DAILY [facility] Last Admin: 07/09/17 08:49 Dose: 1 applic Nystatin (Nystop Topical Powder) 1 applic TOP TID [facility] Last Admin: 07/09/17 08:48 Dose: 1 applic Ondansetron HCl (Zofran Inj) 4 mg IVP Q4 PRN PRN Reason: Nausea/Vomiting Last Admin: 07/08/17 03:13 Dose: 4 mg Pantoprazole Sodium (Protonix Ec Tab) 40 mg PO DAILY [facility] Last Admin: 07/09/17 08:47 Dose: 40 mg Tamsulosin HCl (Flomax) 0.4 mg PO DAILY [facility] Last Admin: 07/09/17 08:47 Dose: 0.4 mg Tramadol HCl (Ultram) 25 mg PO Q4 PRN PRN Reason: Pain, moderate (4-7) Tramadol HCl (Ultram) 50 mg PO Q6 PRN PRN Reason: Pain, severe (8-10) Last Admin: 07/08/17 21:00 Dose: 50 mg Physical Exam - Constitutional Appears: Non-toxic, No Acute Distress - Head Exam Head Exam: ATRAUMATIC, NORMOCEPHALIC - Eye Exam Eye Exam: Normal appearance - ENT Exam ENT Exam: Mucous Membranes Moist - Neck Exam Neck exam: Positive for: Normal Inspection - Respiratory Exam Respiratory Exam: Clear to Auscultation Bilateral, NORMAL BREATHING PATTERN. absent: Rales, Rhonchi, Wheezes, Respiratory Distress - Cardiovascular Exam Cardiovascular Exam: REGULAR RHYTHM, +S1, +S2 - GI/Abdominal Exam GI & Abdominal Exam: Distended, Hypoactive Bowel Sounds. absent: Guarding, Hernia, Rigid, Tenderness Additional comments: tense, + fluid wave - Extremities Exam Additional comments: ext fixator on RLE and wound vac - Neurological Exam Neurological exam: Alert, Oriented x3 - Psychiatric Exam Psychiatric exam: Depressed, Normal Affect - Skin Skin Exam: Dry, Intact, Normal Color, Warm Results - Vital Signs Recent Vital Signs: Last Vital Signs Temp 97.7 F 07/08/17 19:18 Pulse 88 07/08/17 19:18 Resp 20 07/08/17 19:18 BP 127/74 07/08/17 19:18 Pulse Ox 94 L 07/08/17 19:18 - Labs Result Diagrams: 07/08/17 07:40 07/08/17 07:40 Labs: Laboratory Results - last 24 hr 07/08/17 07/08/17 07/08/17 10:56 15:50 20:01 POC Glucose (mg/dL) 197 H 182 H 194 H 07/09/17 05:48 POC Glucose (mg/dL) 160 H Assessment & Plan - Assessment and Plan (Free Text) Assessment: Garo Camarillo is a 82M w/ hx of HTN, CHF, CAD/CABG, Myelodysplastic Syndrome, Cirrhosis and DMII who presented to [facility] for closed reduction external fixation of RLE after fall. He had underlying cirrhosis 2/2 FERRER, though previous W/U is unknown. He had required 2 large volume paracentesis during hospitalization. 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 Large volume Acsities, s/p 2 abd paracentesis RLE ankle fracture Plan: -would recommend another abd paracentesis for therapuetic and diagnostic -send for SAAG, cell count, culture, and cytology -recommend abd u/s to r/i HCC -EGD doen on 05/2017. neg esophageal varicies -start on lasix 40mg daily and Spironolactone 100mg daily -continue abx as per primary team -Do not recommend abdominal catheter at this time -will need records from outside Gi physcian -send for INR -if able to tolerate diuretics and abd paracentesis can be send to [facility] from GI standpoint -can f/u with Dr. Sevilla as an oupt D/W Dr. Solorzano <Nirmal Solorzano Y - Last Filed: 07/09/17 11:01> Meds - Medications Medications: Current Medications Acetaminophen (Tylenol 325mg Tab) 650 mg PO Q4 PRN PRN Reason: Pain, Mild (1-3) Last Admin: 07/04/17 23:36 Dose: 650 mg Acetaminophen (Tylenol 325mg Tab) 650 mg PO Q6 PRN PRN Reason: Fever >100.4 F Last Admin: 06/20/17 16:37 Dose: 650 mg Albuterol/Ipratropium (Duoneb 3 Mg/0.5 Mg (3 Ml) Ud) 3 ml INH RQID [facility] Last Admin: 07/09/17 07:36 Dose: 3 ml Atorvastatin Calcium (Lipitor) 10 mg PO HS [facility] Last Admin: 07/08/17 21:00 Dose: 10 mg Enoxaparin Sodium (Lovenox) 40 mg SC DAILY [facility] PRN Reason: Protocol Last Admin: 07/09/17 08:47 Dose: 40 mg Ferrous Sulfate (Feosol) 325 mg PO BID [facility] Last Admin: 07/09/17 08:46 Dose: 325 mg Furosemide (Lasix) 40 mg PO DAILY [facility] Gabapentin (Neurontin) 100 mg PO TID [facility] Last Admin: 07/09/17 08:47 Dose: 100 mg Glipizide (Glucotrol) 5 mg PO BID [facility] Last Admin: 07/09/17 08:47 Dose: 5 mg Lactated Ringer's (Lactated Ringer's) 1,000 mls @ 50 mls/hr IV .Q20H [facility] Last Admin: 07/09/17 00:37 Dose: 50 mls/hr Insulin Human Regular (Humulin R) 0 units SC ACHS [facility] PRN Reason: Protocol Last Admin: 07/09/17 06:30 Dose: 2 units Lactic Acid (Lac-Hydrin 12% Cream (140 G)) 1 ea TOP DAILY [facility] Last Admin: 07/09/17 08:49 Dose: 1 applic Morphine Sulfate (Morphine) 4 mg IVP ONCE ONE Stop: 07/09/17 10:36 Nystatin (Nystop Topical Powder) 1 applic TOP TID [facility] Last Admin: 07/09/17 08:48 Dose: 1 applic Ondansetron HCl (Zofran Inj) 4 mg IVP Q4 PRN PRN Reason: Nausea/Vomiting Last Admin: 07/08/17 03:13 Dose: 4 mg Pantoprazole Sodium (Protonix Ec Tab) 40 mg PO DAILY [facility] Last Admin: 07/09/17 08:47 Dose: 40 mg Spironolactone (Aldactone) 100 mg PO DAILY [facility] Tamsulosin HCl (Flomax) 0.4 mg PO DAILY [facility] Last Admin: 07/09/17 08:47 Dose: 0.4 mg Tramadol HCl (Ultram) 25 mg PO Q4 PRN PRN Reason: Pain, moderate (4-7) Tramadol HCl (Ultram) 50 mg PO Q6 PRN PRN Reason: Pain, severe (8-10) Last Admin: 07/08/17 21:00 Dose: 50 mg Results - Vital Signs Recent Vital Signs: Last Vital Signs Temp 96.6 F L 07/09/17 08:00 Pulse 84 07/09/17 08:00 Resp 18 07/09/17 08:00 BP 120/71 07/09/17 08:00 Pulse Ox 95 07/09/17 08:00 - Labs Result Diagrams: 07/08/17 07:40 07/08/17 07:40 Labs: Laboratory Results - last 24 hr 07/08/17 07/08/17 07/08/17 10:56 15:50 20:01 POC Glucose (mg/dL) 197 H 182 H 194 H 07/09/17 05:48 POC Glucose (mg/dL) 160 H Attending/Attestation - Attestation I have personally seen and examined this patient.: Yes I have fully participated in the care of the patient.: Yes I have reviewed all pertinent clinical information: Yes Notes (Text): 07/09/17 10:48 I have seen and examined patient with GI fellow. Agree with above documentation with the following additions. In brief, this is an 82 year old male with history of DM, hyperlipidemia, HTN, cirrhosis, MDS, CAD/CABG who presented to hospital with complaint of fall s/p operative intervention and RLE wound vac placement. GI is called for management of chronic liver disease. While in hospital he has undergone two large volume paracentesis, continues to reaccumulate ascitic fluid, though is not currently on diuretic therapy. He is seen resting in bed, complains of mild generalized abdominal discomfort particularly on movement but otherwise denies nausea, vomiting, fever/chills, weight loss, or change in bowel habits. He had an EGD in March [address] Neri which did not show presence of esophageal varices. Family history: reviewed, no history of colon cancer Additional physical exam, abdomen: distended, +ascites, unable to appreciate for hepato/splenomegaly due to body habitus DM / HTN CAD / CABG MDS Decompensated cirrhosis - admission MELD 17 Progressive ascites - Low sodium diet as tolerated - After discussion with hospitalist, patient has apparently had extensive outpatient workup of underlying cirrhosis including liver biopsy which showed etiology of FERRER. Will need to obtain copies of biopsy report. - LFTs stable, viral hepatitis panel negative. Obtain autoimmune serologies. - Obtain abdominal US, AFP - Begin lactulose therapy for HE prevention - Will initiate diuretic therapy with lasix, aldactone since he has not been optimized, monitor creatinine - Suggest diagnostic and therapeutic paracentesis - fluid analysis was not performed on prior taps - Overall prognosis for patient is poor given multiple medical comorbidities, will continue to monitor patient clinical course
[2017-07-09 11:42] LABS: BASO % 0.3 % (0.0-2.0); EOS % 0.4 % (0.0-4.0); HEMATOCRIT 33.6 % (35.0-51.0); LYMPH # 0.6 K/uL (1.0-4.3); LYMPH % 9.6 % (20.0-40.0); MEAN CELL VOLUME 85.9 fl (80.0-94.0); MEAN CORPUSCULAR HEMOGLOBIN 28.3 pg (27.0-31.0); MEAN CORPUSCULAR HGB CONC 32.9 g/dL (33.0-37.0); MEAN PLATELET VOLUME 6.7 fl (7.2-11.7); MONO # 0.6 K/uL (0.0-0.8); MONO % 9.2 % (0.0-10.0); NEUT # 5.2 K/uL (1.8-7.0); NEUT % 80.5 % (50.0-75.0); NRBC % 0.1 % (0.0-0.0); PLATELET COUNT 93 K/uL (130-400); RED CELL DISTRIBUTION WIDTH 18.4 % (11.5-14.5); WHITE BLOOD COUNT 6.4 K/uL (4.8-10.8)
[2017-07-09 11:48] LABS: ALKALINE PHOSPHATASE 103 U/L (38-126); ALT/SGPT 34 U/L (21-72); AST/SGOT 26 U/L (17-59); BILIRUBIN,TOTAL 1.2 mg/dl (0.2-1.3); BLOOD UREA NITROGEN 45 mg/dl (9-20); CARBON DIOXIDE 26 mmol/L (22-30); CHLORIDE 100 mmol/L (98-107); GFR AFRICAN-AMERICAN > 60; GLUCOSE,RANDOM 183 mg/dL (75-110); POTASSIUM 5.7 MMOL/L (3.6-5.0); SODIUM 132 mmol/l (132-148); TOTAL PROTEIN 5.8 G/DL (6.3-8.2)
[2017-07-09 11:52] LABS: ALB/GLOB RATIO 0.7 (1.0-2.1)
--- NOTE | 2017-07-09 12:12 | CP.PCM.PN ---
Subjective - Date & Time of Evaluation Date of Evaluation: 07/09/17 Time of Evaluation: 12:09 - Subjective Subjective: Podiatry progress note - Dr. Avila 82 y/o male seen at bedside this morning in TCU for right open fibular fracture with wound vac and external fixator in place Patient is now 4 weeks s/p closed reduction with external fixator application and 3 weeks s/p failed fibular ashanti placement. Patient is AAOx3 and is in NAD. Patient appears to be resting comfortably in his bed. Denies of any pedal complains at this time. Denies of any recent F/N/V/C/SOB/CP. Objective - Vital Signs/Intake and Output Vital Signs (last 24 hours): Temp Pulse Resp BP Pulse Ox 96.6 F L 84 18 120/71 95 07/09/17 08:00 07/09/17 08:00 07/09/17 08:00 07/09/17 08:00 07/09/17 08:00 - Medications Medications: Current Medications Acetaminophen (Tylenol 325mg Tab) 650 mg PO Q4 PRN PRN Reason: Pain, Mild (1-3) Last Admin: 07/04/17 23:36 Dose: 650 mg Acetaminophen (Tylenol 325mg Tab) 650 mg PO Q6 PRN PRN Reason: Fever >100.4 F Last Admin: 06/20/17 16:37 Dose: 650 mg Albuterol/Ipratropium (Duoneb 3 Mg/0.5 Mg (3 Ml) Ud) 3 ml INH RQID [facility] Last Admin: 07/09/17 10:59 Dose: 3 ml Atorvastatin Calcium (Lipitor) 10 mg PO HS [facility] Last Admin: 07/08/17 21:00 Dose: 10 mg Enoxaparin Sodium (Lovenox) 40 mg SC DAILY [facility] PRN Reason: Protocol Last Admin: 07/09/17 08:47 Dose: 40 mg Ferrous Sulfate (Feosol) 325 mg PO BID [facility] Last Admin: 07/09/17 08:46 Dose: 325 mg Furosemide (Lasix) 40 mg PO DAILY [facility] Gabapentin (Neurontin) 100 mg PO TID [facility] Last Admin: 07/09/17 08:47 Dose: 100 mg Glipizide (Glucotrol) 5 mg PO BID [facility] Last Admin: 07/09/17 08:47 Dose: 5 mg Lactated Ringer's (Lactated Ringer's) 1,000 mls @ 50 mls/hr IV .Q20H [facility] Last Admin: 07/09/17 00:37 Dose: 50 mls/hr Insulin Human Regular (Humulin R) 0 units SC ACHS [facility] PRN Reason: Protocol Last Admin: 07/09/17 06:30 Dose: 2 units Lactic Acid (Lac-Hydrin 12% Cream (140 G)) 1 ea TOP DAILY [facility] Last Admin: 07/09/17 08:49 Dose: 1 applic Lactulose (Enulose) 20 gm PO DAILY PRN PRN Reason: Constipation Nystatin (Nystop Topical Powder) 1 applic TOP TID [facility] Last Admin: 07/09/17 08:48 Dose: 1 applic Ondansetron HCl (Zofran Inj) 4 mg IVP Q4 PRN PRN Reason: Nausea/Vomiting Last Admin: 07/08/17 03:13 Dose: 4 mg Pantoprazole Sodium (Protonix Ec Tab) 40 mg PO DAILY [facility] Last Admin: 07/09/17 08:47 Dose: 40 mg Spironolactone (Aldactone) 100 mg PO DAILY [facility] Tamsulosin HCl (Flomax) 0.4 mg PO DAILY [facility] Last Admin: 07/09/17 08:47 Dose: 0.4 mg Tramadol HCl (Ultram) 25 mg PO Q4 PRN PRN Reason: Pain, moderate (4-7) Tramadol HCl (Ultram) 50 mg PO Q6 PRN PRN Reason: Pain, severe (8-10) Last Admin: 07/08/17 21:00 Dose: 50 mg - Labs Labs: 07/09/17 11:00 07/09/17 11:00 PT 17.1 Seconds (9.8-13.1) H 07/09/17 11:00 INR 1.5 (0.9-1.2) H 07/09/17 11:00 - Constitutional Appears: Well, Non-toxic, No Acute Distress - Extremities Exam Additional comments: Wound vac of right leg running continuous at 125mmHg. Vac change today. Vasc: DP/PT pulses palpable to RLE. CFT < 3 seconds to all digits. Active bleeding noticed to anterior leg wound. Skin temperature warm to right foot, WNL. Derm: Open wound spanning from patient's medial leg to lateral leg approx 14cm and extending proximal to distal roughly 6 cm. Wound site is noted to be granulating in more with each dressing change. Tibia and fibular exposure still present but decreasing. No periwound erythema, no malodor, no other clinical signs of infection. No signs of pin tract infection. Healthy tissue bleed noted. Neuro: Epicritic and protective sensation grossly intact B/L Ortho: Moderate to severe tenderness noted at wound site. Tenderness to palpation of fibular fracture. External fixation in proper place. - Neurological Exam Neurological Exam: Alert, Awake, Oriented x3 - Psychiatric Exam Psychiatric exam: Normal Affect, Normal Mood Assessment and Plan - Assessment and Plan (Free Text) Assessment: 81 year old male 4 weeks s/p right leg open fibular fracture and 3 weeks s/p failed fibular IM ashanti placement with wound vac and external fixator in place Plan: Patient seen and evaluated at bedside Discussed plan with attending Dr. Avila Charts, labs and vitals reviewed - afebrile, WNC @ 6.4 Wound vac dressing changed and pin site dressed with xeroform, DSD, wound vac set at continuous at 125 mm Hg with no leaks Patient is stable to D/C to [facility] from podiatry standpoint Pt will follow up with Dr. Avila in wound care center as outpatient for vac changes and continued care Podiatry will continue to follow patient while in house
[2017-07-09 13:07] LABS: EOSINOPHIL 2 % (0-7); NEUTROPHIL 83 % (42-75); TOTAL CELLS COUNTED 100
[2017-07-09] MEDS ORDERED: Sod Polystyrene Sulf 15 gm/60 ml Susp PO ONE (14:10)
[2017-07-09] MEDS ORDERED: Albuterol-Ipratrop 3 mg / 0.5 (3 ml) UD INH STA (14:33)
[2017-07-09] MEDS ORDERED: Calcium Gluconate 4.65 mEq/10 ml Inj IV ONE (14:33)
[2017-07-09] MEDS ORDERED: Dextrose 50% SYRINGE Inj (50 ml) IVP ONE (14:36)
[2017-07-09] MEDS ORDERED: Insulin Regular 100 units/ml IV ONE (14:37)
[2017-07-09 19:57] LABS: CALCIUM 8.3 mg/dL (8.4-10.2); POTASSIUM 5.6 MMOL/L (3.6-5.0)
[2017-07-10 00:16] LABS: POTASSIUM 5.5 MMOL/L (3.6-5.0)
[2017-07-10] MEDS: Insulin Regular 100 units/ml SC SCH ×4 (07:06→22:00)
[2017-07-10] MEDS: Albuterol-Ipratrop 3 mg / 0.5 (3 ml) UD INH SCH ×4 (08:30→19:00)
--- NOTE | 2017-07-10 08:45 | CP.PCM.PN ---
<Thea David - Last Filed: 07/10/17 11:09> Subjective - Date & Time of Evaluation Date of Evaluation: 07/10/17 Time of Evaluation: 08:30 - Subjective Subjective: PGY4 GI Follow-up Pt seen and examined still complaining of abd pain Denies any BM yesterday decreased appetite denies any fever, chills or diaphoresis ROS: 12 point ROS conducted, neg other than above Objective - Vital Signs/Intake and Output Vital Signs (last 24 hours): Temp Pulse Resp BP Pulse Ox 97.5 F L 84 20 113/62 92 L 07/10/17 08:16 07/10/17 08:16 07/10/17 08:16 07/10/17 08:16 07/10/17 08:16 - Medications Medications: Current Medications Acetaminophen (Tylenol 325mg Tab) 650 mg PO Q4 PRN PRN Reason: Pain, Mild (1-3) Last Admin: 07/04/17 23:36 Dose: 650 mg Acetaminophen (Tylenol 325mg Tab) 650 mg PO Q6 PRN PRN Reason: Fever >100.4 F Last Admin: 06/20/17 16:37 Dose: 650 mg Albuterol/Ipratropium (Duoneb 3 Mg/0.5 Mg (3 Ml) Ud) 3 ml INH RQID [facility] Last Admin: 07/09/17 19:41 Dose: 3 ml Atorvastatin Calcium (Lipitor) 10 mg PO HS [facility] Last Admin: 07/09/17 21:00 Dose: 10 mg Enoxaparin Sodium (Lovenox) 40 mg SC DAILY [facility] PRN Reason: Protocol Last Admin: 07/09/17 08:47 Dose: 40 mg Ferrous Sulfate (Feosol) 325 mg PO BID [facility] Last Admin: 07/09/17 16:06 Dose: 325 mg Furosemide (Lasix) 40 mg PO DAILY [facility] Last Admin: 07/09/17 12:37 Dose: 40 mg Gabapentin (Neurontin) 100 mg PO TID [facility] Last Admin: 07/09/17 16:06 Dose: 100 mg Glipizide (Glucotrol) 5 mg PO BID [facility] Last Admin: 07/09/17 16:06 Dose: 5 mg Insulin Human Regular (Humulin R) 0 units SC ACHS [facility] PRN Reason: Protocol Last Admin: 07/10/17 07:06 Dose: 2 units Lactic Acid (Lac-Hydrin 12% Cream (140 G)) 1 ea TOP DAILY [facility] Last Admin: 07/09/17 08:49 Dose: 1 applic Lactulose (Enulose) 20 gm PO DAILY PRN PRN Reason: Constipation Nystatin (Nystop Topical Powder) 1 applic TOP TID [facility] Last Admin: 07/09/17 12:32 Dose: 1 applic Ondansetron HCl (Zofran Inj) 4 mg IVP Q4 PRN PRN Reason: Nausea/Vomiting Last Admin: 07/08/17 03:13 Dose: 4 mg Pantoprazole Sodium (Protonix Ec Tab) 40 mg PO DAILY [facility] Last Admin: 07/09/17 08:47 Dose: 40 mg Spironolactone (Aldactone) 100 mg PO DAILY [facility] Last Admin: 07/09/17 12:29 Dose: 100 mg Tamsulosin HCl (Flomax) 0.4 mg PO DAILY [facility] Last Admin: 07/09/17 08:47 Dose: 0.4 mg Tramadol HCl (Ultram) 25 mg PO Q4 PRN PRN Reason: Pain, moderate (4-7) Tramadol HCl (Ultram) 50 mg PO Q6 PRN PRN Reason: Pain, severe (8-10) Last Admin: 07/10/17 00:02 Dose: 50 mg - Labs Labs: 07/09/17 11:00 07/10/17 00:04 PT 17.1 Seconds (9.8-13.1) H 07/09/17 11:00 INR 1.5 (0.9-1.2) H 07/09/17 11:00 - Constitutional Appears: No Acute Distress - Head Exam Head Exam: ATRAUMATIC, NORMOCEPHALIC - Eye Exam Eye Exam: Normal appearance - ENT Exam ENT Exam: Mucous Membranes Moist - Respiratory Exam Respiratory Exam: Clear to Ausculation Bilateral, NORMAL BREATHING PATTERN. absent: Rales, Rhonchi, Wheezes, Respiratory Distress - Cardiovascular Exam Cardiovascular Exam: REGULAR RHYTHM, +S1, +S2 - GI/Abdominal Exam GI & Abdominal Exam: Distended, Firm, Normal Bowel Sounds. absent: Guarding, Rigid, Tenderness, Organomegaly - Extremities Exam Extremities Exam: absent: Joint Swelling, Pedal Edema - Neurological Exam Neurological Exam: Alert, Awake, Oriented x3 - Psychiatric Exam Psychiatric exam: Normal Affect, Normal Mood - Skin Skin Exam: Intact, Normal Color, Warm Assessment and Plan - Assessment and Plan (Free Text) Assessment: Garo Camarillo is a 82M w/ hx of HTN, CHF, CAD/CABG, Myelodysplastic Syndrome, Cirrhosis and DMII who presented to [facility] for closed reduction external fixation of RLE after fall. He had underlying cirrhosis 2/2 FERRER, though previous W/U is unknown. He had required 2 large volume paracentesis during hospitalization. 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 Large volume Acsities, s/p 2 abd paracentesis RLE ankle fracture Plan: -abd paracentesis for therapuetic and diagnostic -send for SAAG, cell count, culture, and cytology -recommend abd u/s to r/o HCC -EGD done on 03/2017. neg esophageal varicies -continue lasix 40mg daily and Spironolactone 100mg daily -continue abx as per primary team -Do not recommend abdominal catheter at this time -will need records from outside Gi physcian -if able to tolerate diuretics and abd paracentesis can be send to [facility] from GI standpoint - autoimmune and alpha feto protein pending -can f/u with Dr. Sevilla as an oupt D/W Dr. Solorzano <Nirmal Solorzano - Last Filed: 07/10/17 11:15> Objective - Vital Signs/Intake and Output Vital Signs (last 24 hours): Temp Pulse Resp BP Pulse Ox 97.5 F L 84 20 113/62 92 L 07/10/17 08:16 07/10/17 08:16 07/10/17 08:16 07/10/17 08:55 07/10/17 08:16 - Medications Medications: Current Medications Acetaminophen (Tylenol 325mg Tab) 650 mg PO Q4 PRN PRN Reason: Pain, Mild (1-3) Last Admin: 07/04/17 23:36 Dose: 650 mg Acetaminophen (Tylenol 325mg Tab) 650 mg PO Q6 PRN PRN Reason: Fever >100.4 F Last Admin: 06/20/17 16:37 Dose: 650 mg Albuterol/Ipratropium (Duoneb 3 Mg/0.5 Mg (3 Ml) Ud) 3 ml INH RQID [facility] Last Admin: 07/10/17 11:02 Dose: 3 ml Atorvastatin Calcium (Lipitor) 10 mg PO HS [facility] Last Admin: 07/09/17 21:00 Dose: 10 mg Enoxaparin Sodium (Lovenox) 40 mg SC DAILY [facility] PRN Reason: Protocol Last Admin: 07/10/17 08:55 Dose: 40 mg Ferrous Sulfate (Feosol) 325 mg PO BID [facility] Last Admin: 07/10/17 08:55 Dose: 325 mg Furosemide (Lasix) 40 mg PO DAILY [facility] Last Admin: 07/10/17 08:55 Dose: 40 mg Gabapentin (Neurontin) 100 mg PO TID [facility] Last Admin: 07/10/17 08:55 Dose: 100 mg Glipizide (Glucotrol) 5 mg PO BID [facility] Last Admin: 07/10/17 08:55 Dose: 5 mg Insulin Human Regular (Humulin R) 0 units SC [facility] PRN Reason: Protocol Last Admin: 07/10/17 07:06 Dose: 2 units Lactic Acid (Lac-Hydrin 12% Cream (140 G)) 1 ea TOP DAILY [facility] Last Admin: 07/10/17 08:56 Dose: 1 applic Lactulose (Enulose) 20 gm PO DAILY [facility] Last Admin: 07/10/17 10:30 Dose: 20 gm Nystatin (Nystop Topical Powder) 1 applic TOP TID [facility] Last Admin: 07/10/17 09:16 Dose: 1 applic Ondansetron HCl (Zofran Inj) 4 mg IVP Q4 PRN PRN Reason: Nausea/Vomiting Last Admin: 07/08/17 03:13 Dose: 4 mg Pantoprazole Sodium (Protonix Ec Tab) 40 mg PO DAILY [facility] Last Admin: 07/10/17 08:55 Dose: 40 mg Spironolactone (Aldactone) 100 mg PO DAILY [facility] Last Admin: 07/10/17 08:54 Dose: 100 mg Tamsulosin HCl (Flomax) 0.4 mg PO DAILY [facility] Last Admin: 07/10/17 08:55 Dose: 0.4 mg Tramadol HCl (Ultram) 25 mg PO Q4 PRN PRN Reason: Pain, moderate (4-7) Tramadol HCl (Ultram) 50 mg PO Q6 PRN PRN Reason: Pain, severe (8-10) Last Admin: 07/10/17 00:02 Dose: 50 mg - Labs Labs: 07/09/17 11:00 07/10/17 00:04 PT 17.1 Seconds (9.8-13.1) H 07/09/17 11:00 INR 1.5 (0.9-1.2) H 07/09/17 11:00 Attending/Attestation - Attestation I have personally seen and examined this patient.: Yes I have fully participated in the care of the patient.: Yes I have reviewed all pertinent clinical information, including history, physical exam and plan: Yes Notes (Text): 07/10/17 11:11 I have seen and examined patient with GI fellow. No acute events overnight, he is seen resting in bed comfortably. He denies abdominal pain, nausea, vomiting , fever/chills. Tolerating PO diet without difficulty. Review of vitals from today are normal. Decompensated cirrhosis, presumably due to FERRER based on history provided DM / HTN CAD/CABG MDS acute ankle fracture s/p fall with surgical operative intervention - Low sodium diet as tolerated - Continue with diuretic therapy, monitor electrolytes and creatinine - Obtain abdominal US, AFP - Patient scheduled for diagnostic/therapeutic paracentesis tomorrow, will likely require albumin replacement therapy - Obtain ascitic fluid studies (cytology, cell count, total protein, albumin) - Obtain prior liver biopsy results - LFTs stable, awaiting autoimmune serologies - No further planned GI intervention, will sign off case. Following subacute rehabilitation, patient should follow up with Dr. Sevilla as outpatient for ongoing cirrhosis management and workup. Please reconsult as necessary, thank you.
[2017-07-10] MEDS: Pantoprazole 40 mg EC Tab PO SCH (08:55)
[2017-07-10] MEDS: Enoxaparin 40 mg Syringe SC SCH (08:55)
[2017-07-10] MEDS: Ammonium Lactate 12% Cream (140 g) TOP SCH (08:56)
--- NOTE | 2017-07-10 13:28 | CP.PCM.PN ---
Subjective - Date & Time of Evaluation Date of Evaluation: 07/10/17 Time of Evaluation: 13:25 - Subjective Subjective: Podiatry progress note - Dr. Avila 82 y/o male seen at bedside this morning in TCU for right open fibular fracture with wound vac and external fixator in place Patient is now 4 weeks s/p closed reduction with external fixator application and 3 weeks s/p failed fibular ashanti placement. Patient is AAOx3 and is in NAD. Patient appears to be resting comfortably in his bed. Denies of any pedal complains at this time. Denies of any recent F/N/V/C/SOB/CP. Objective - Vital Signs/Intake and Output Vital Signs (last 24 hours): Temp Pulse Resp BP Pulse Ox 97.5 F L 84 20 113/62 92 L 07/10/17 08:16 07/10/17 08:16 07/10/17 08:16 07/10/17 08:55 07/10/17 08:16 - Medications Medications: Current Medications Acetaminophen (Tylenol 325mg Tab) 650 mg PO Q4 PRN PRN Reason: Pain, Mild (1-3) Last Admin: 07/04/17 23:36 Dose: 650 mg Acetaminophen (Tylenol 325mg Tab) 650 mg PO Q6 PRN PRN Reason: Fever >100.4 F Last Admin: 06/20/17 16:37 Dose: 650 mg Albuterol/Ipratropium (Duoneb 3 Mg/0.5 Mg (3 Ml) Ud) 3 ml INH RQID [facility] Last Admin: 07/10/17 11:02 Dose: 3 ml Atorvastatin Calcium (Lipitor) 10 mg PO HS [facility] Last Admin: 07/09/17 21:00 Dose: 10 mg Enoxaparin Sodium (Lovenox) 40 mg SC DAILY [facility] PRN Reason: Protocol Last Admin: 07/10/17 08:55 Dose: 40 mg Ferrous Sulfate (Feosol) 325 mg PO BID [facility] Last Admin: 07/10/17 08:55 Dose: 325 mg Furosemide (Lasix) 40 mg PO DAILY [facility] Last Admin: 07/10/17 08:55 Dose: 40 mg Gabapentin (Neurontin) 100 mg PO TID [facility] Last Admin: 07/10/17 12:26 Dose: 100 mg Glipizide (Glucotrol) 5 mg PO BID [facility] Last Admin: 07/10/17 08:55 Dose: 5 mg Insulin Human Regular (Humulin R) 0 units SC ACHS [facility] PRN Reason: Protocol Last Admin: 07/10/17 12:26 Dose: 2 units Lactic Acid (Lac-Hydrin 12% Cream (140 G)) 1 ea TOP DAILY [facility] Last Admin: 07/10/17 08:56 Dose: 1 applic Lactulose (Enulose) 20 gm PO DAILY [facility] Last Admin: 07/10/17 10:30 Dose: 20 gm Nystatin (Nystop Topical Powder) 1 applic TOP TID [facility] Last Admin: 07/10/17 12:30 Dose: 1 applic Ondansetron HCl (Zofran Inj) 4 mg IVP Q4 PRN PRN Reason: Nausea/Vomiting Last Admin: 07/08/17 03:13 Dose: 4 mg Pantoprazole Sodium (Protonix Ec Tab) 40 mg PO DAILY [facility] Last Admin: 07/10/17 08:55 Dose: 40 mg Spironolactone (Aldactone) 100 mg PO DAILY [facility] Last Admin: 07/10/17 08:54 Dose: 100 mg Tamsulosin HCl (Flomax) 0.4 mg PO DAILY [facility] Last Admin: 07/10/17 08:55 Dose: 0.4 mg Tramadol HCl (Ultram) 25 mg PO Q4 PRN PRN Reason: Pain, moderate (4-7) Tramadol HCl (Ultram) 50 mg PO Q6 PRN PRN Reason: Pain, severe (8-10) Last Admin: 07/10/17 00:02 Dose: 50 mg - Labs Labs: 07/09/17 11:00 07/10/17 00:04 PT 17.1 Seconds (9.8-13.1) H 07/09/17 11:00 INR 1.5 (0.9-1.2) H 07/09/17 11:00 - Constitutional Appears: Well, Non-toxic, No Acute Distress - Extremities Exam Additional comments: RLE dressing intact with external fixator in place Wound vac running on continuous 125mm Hg pressure, leak check indicates no leaks Wound vac output at approx 70cc today Pt able to wiggle toes without difficulty CFT < 3 seconds to all digits of R foot - Neurological Exam Neurological Exam: Alert, Awake, Oriented x3 - Psychiatric Exam Psychiatric exam: Normal Affect, Normal Mood Assessment and Plan - Assessment and Plan (Free Text) Assessment: 81 year old male 4 weeks s/p right leg open fibular fracture and 3 weeks s/p failed fibular IM ashanti placement with wound vac and external fixator in place Plan: Patient seen and evaluated at bedside Discussed plan with attending Dr. Avila Charts, labs and vitals reviewed - afebrile, WNC @ 6.4 as of 07/09 Wound vac remains in place and functioning properly to RLE open wound, continuous at 125 mm Hg with no leaks Patient is stable to D/C to [facility] from podiatry standpoint Pt will follow up with Dr. Avila in wound care center as outpatient for vac changes and continued care Podiatry will continue to follow patient while in house
--- NOTE | 2017-07-10 14:05 | CP.PCM.PN ---
Subjective - Date & Time of Evaluation Date of Evaluation: 07/10/17 Time of Evaluation: 14:03 - Subjective Subjective: Pt is very dry and is complaining of some abdominal discomfort. Hehas an extremely dixtended abdomen, and I feel there is a fair amount of ileus present / He is scheduled for abdominal paracentesis tomorrow.. Objective - Vital Signs/Intake and Output Vital Signs (last 24 hours): Temp Pulse Resp BP Pulse Ox 97.5 F L 84 20 113/62 92 L 07/10/17 08:16 07/10/17 08:16 07/10/17 08:16 07/10/17 08:55 07/10/17 08:16 - Medications Medications: Current Medications Acetaminophen (Tylenol 325mg Tab) 650 mg PO Q4 PRN PRN Reason: Pain, Mild (1-3) Last Admin: 07/04/17 23:36 Dose: 650 mg Acetaminophen (Tylenol 325mg Tab) 650 mg PO Q6 PRN PRN Reason: Fever >100.4 F Last Admin: 06/20/17 16:37 Dose: 650 mg Albuterol/Ipratropium (Duoneb 3 Mg/0.5 Mg (3 Ml) Ud) 3 ml INH RQID [facility] Last Admin: 07/10/17 11:02 Dose: 3 ml Atorvastatin Calcium (Lipitor) 10 mg PO HS [facility] Last Admin: 07/09/17 21:00 Dose: 10 mg Enoxaparin Sodium (Lovenox) 40 mg SC DAILY [facility] PRN Reason: Protocol Last Admin: 07/10/17 08:55 Dose: 40 mg Ferrous Sulfate (Feosol) 325 mg PO BID [facility] Last Admin: 07/10/17 08:55 Dose: 325 mg Furosemide (Lasix) 40 mg PO DAILY [facility] Last Admin: 07/10/17 08:55 Dose: 40 mg Gabapentin (Neurontin) 100 mg PO TID [facility] Last Admin: 07/10/17 12:26 Dose: 100 mg Glipizide (Glucotrol) 5 mg PO BID [facility] Last Admin: 07/10/17 08:55 Dose: 5 mg Insulin Human Regular (Humulin R) 0 units SC ACHS [facility] PRN Reason: Protocol Last Admin: 07/10/17 12:26 Dose: 2 units Lactic Acid (Lac-Hydrin 12% Cream (140 G)) 1 ea TOP DAILY [facility] Last Admin: 07/10/17 08:56 Dose: 1 applic Lactulose (Enulose) 20 gm PO DAILY [facility] Last Admin: 07/10/17 10:30 Dose: 20 gm Nystatin (Nystop Topical Powder) 1 applic TOP TID [facility] Last Admin: 07/10/17 12:30 Dose: 1 applic Ondansetron HCl (Zofran Inj) 4 mg IVP Q4 PRN PRN Reason: Nausea/Vomiting Last Admin: 07/08/17 03:13 Dose: 4 mg Pantoprazole Sodium (Protonix Ec Tab) 40 mg PO DAILY [facility] Last Admin: 07/10/17 08:55 Dose: 40 mg Spironolactone (Aldactone) 100 mg PO DAILY [facility] Last Admin: 07/10/17 08:54 Dose: 100 mg Tamsulosin HCl (Flomax) 0.4 mg PO DAILY [facility] Last Admin: 07/10/17 08:55 Dose: 0.4 mg Tramadol HCl (Ultram) 25 mg PO Q4 PRN PRN Reason: Pain, moderate (4-7) Tramadol HCl (Ultram) 50 mg PO Q6 PRN PRN Reason: Pain, severe (8-10) Last Admin: 07/10/17 00:02 Dose: 50 mg - Labs Labs: 07/09/17 11:00 07/10/17 00:04 PT 17.1 Seconds (9.8-13.1) H 07/09/17 11:00 INR 1.5 (0.9-1.2) H 07/09/17 11:00
--- NOTE | 2017-07-10 14:18 | CARD ---
APPROVED REPORT EKG Measurement Heart [id number] <Conclusion> Normal sinus rhythm Right bundle branch block Inferior infarct, age undetermined Abnormal ECG
[2017-07-11] MEDS: Insulin Regular 100 units/ml SC SCH ×4 (07:24→21:29)
[2017-07-11] MEDS: Albuterol-Ipratrop 3 mg / 0.5 (3 ml) UD INH SCH ×4 (08:32→19:51)
[2017-07-11] MEDS: Pantoprazole 40 mg EC Tab PO SCH (08:49)
[2017-07-11] MEDS: Ammonium Lactate 12% Cream (140 g) TOP SCH (08:50)
[2017-07-11] MEDS: Enoxaparin 40 mg Syringe SC SCH (08:51)
[2017-07-11] MEDS ORDERED: Albumin Human 25% (12.5 gm/50 ml) IV ONE (13:09)
--- NOTE | 2017-07-11 13:11 | PCM.SURG1 ---
Surgeon's Initial Post Op Note - Surgeon's Notes Surgeon: Amando Reynolds MD Employment Law Attorney: None Type of Anesthesia: Local Pre-Operative Diagnosis: Ascites Operative Findings: Large volume ascites Post-Operative Diagnosis: Same Operation Performed: US Guided paracentesis Specimen/Specimens Removed: 15.8 L straw colored fluid removed. Sample submitted. Estimated Blood Loss: EBL {In ML}: 0 Post-Op Condition: Good Date of Surgery/Procedure: 07/11/17 Time of Surgery/Procedure: 13:11
[2017-07-11 16:14] LABS: SMOOTH MUSCLE AB TITER 1:20 Titer (< 1:20)
--- NOTE | 2017-07-11 16:37 | CP.PCM.PN ---
Subjective - Date & Time of Evaluation Date of Evaluation: 07/11/17 Time of Evaluation: 16:35 - Subjective Subjective: Pt had a abdominal paracentesis and 18liters of fluid was removed. He is now getting albumin for exchange. Objective - Vital Signs/Intake and Output Vital Signs (last 24 hours): Temp Pulse Resp BP Pulse Ox 96.8 F L 83 20 111/57 L 94 L 07/11/17 15:42 07/11/17 15:42 07/11/17 15:42 07/11/17 15:42 07/11/17 15:42 Intake and Output: 07/11/17 07/11/17 06:59 18:59 Intake Total 300 Output Total 450 Balance -150 - Medications Medications: Current Medications Acetaminophen (Tylenol 325mg Tab) 650 mg PO Q4 PRN PRN Reason: Pain, Mild (1-3) Last Admin: 07/04/17 23:36 Dose: 650 mg Acetaminophen (Tylenol 325mg Tab) 650 mg PO Q6 PRN PRN Reason: Fever >100.4 F Last Admin: 06/20/17 16:37 Dose: 650 mg Albuterol/Ipratropium (Duoneb 3 Mg/0.5 Mg (3 Ml) Ud) 3 ml INH RQID [facility] Last Admin: 07/11/17 16:14 Dose: Not Given Atorvastatin Calcium (Lipitor) 10 mg PO HS [facility] Last Admin: 07/10/17 21:09 Dose: 10 mg Enoxaparin Sodium (Lovenox) 40 mg SC DAILY [facility] PRN Reason: Protocol Last Admin: 07/11/17 08:51 Dose: 40 mg Ferrous Sulfate (Feosol) 325 mg PO BID [facility] Last Admin: 07/11/17 08:50 Dose: 325 mg Furosemide (Lasix) 40 mg PO DAILY [facility] Last Admin: 07/11/17 08:50 Dose: 40 mg Gabapentin (Neurontin) 100 mg PO TID [facility] Last Admin: 07/11/17 12:21 Dose: Not Given Glipizide (Glucotrol) 5 mg PO BID [facility] Last Admin: 07/11/17 08:50 Dose: 5 mg Insulin Human Regular (Humulin R) 0 units SC ACHS [facility] PRN Reason: Protocol Last Admin: 07/11/17 11:21 Dose: Not Given Lactic Acid (Lac-Hydrin 12% Cream (140 G)) 1 ea TOP DAILY [facility] Last Admin: 07/11/17 08:50 Dose: 1 applic Lactulose (Enulose) 20 gm PO DAILY [facility] Last Admin: 07/11/17 09:40 Dose: Not Given Nystatin (Nystop Topical Powder) 1 applic TOP TID [facility] Last Admin: 07/11/17 12:22 Dose: Not Given Ondansetron HCl (Zofran Inj) 4 mg IVP Q4 PRN PRN Reason: Nausea/Vomiting Last Admin: 07/08/17 03:13 Dose: 4 mg Pantoprazole Sodium (Protonix Ec Tab) 40 mg PO DAILY [facility] Last Admin: 07/11/17 08:49 Dose: 40 mg Spironolactone (Aldactone) 100 mg PO DAILY [facility] Last Admin: 07/11/17 08:49 Dose: 100 mg Tamsulosin HCl (Flomax) 0.4 mg PO DAILY [facility] Last Admin: 07/11/17 08:49 Dose: 0.4 mg Tramadol HCl (Ultram) 25 mg PO Q4 PRN PRN Reason: Pain, moderate (4-7) Tramadol HCl (Ultram) 50 mg PO Q6 PRN PRN Reason: Pain, severe (8-10) Last Admin: 07/10/17 16:20 Dose: 50 mg - Labs Labs: 07/09/17 11:00 07/10/17 00:04 PT 17.1 Seconds (9.8-13.1) H 07/09/17 11:00 INR 1.5 (0.9-1.2) H 07/09/17 11:00
[2017-07-12] MEDS: Insulin Regular 100 units/ml SC SCH ×4 (06:44→21:00)
[2017-07-12] MEDS: Albuterol-Ipratrop 3 mg / 0.5 (3 ml) UD INH SCH ×4 (09:17→19:40)
[2017-07-12] MEDS: Pantoprazole 40 mg EC Tab PO SCH (10:49)
[2017-07-12] MEDS: Ammonium Lactate 12% Cream (140 g) TOP SCH (10:50)
[2017-07-12] MEDS: Enoxaparin 40 mg Syringe SC SCH (10:53)
--- NOTE | 2017-07-12 11:40 | CP.PCM.PN ---
Subjective - Date & Time of Evaluation Date of Evaluation: 07/12/17 Time of Evaluation: 11:40 - Subjective Subjective: Pt is feeling better, the appetite is better after the paracentesis, but still does not move because of te pain Pt is probably going to a rehab today Objective - Vital Signs/Intake and Output Vital Signs (last 24 hours): Temp Pulse Resp BP Pulse Ox 97.1 F L 90 20 134/59 L 99 07/12/17 07:28 07/12/17 07:28 07/12/17 07:28 07/12/17 10:49 07/12/17 07:28 Intake and Output: 07/12/17 07/12/17 06:59 18:59 Output Total 450 Balance -450 - Medications Medications: Current Medications Acetaminophen (Tylenol 325mg Tab) 650 mg PO Q4 PRN PRN Reason: Pain, Mild (1-3) Last Admin: 07/04/17 23:36 Dose: 650 mg Acetaminophen (Tylenol 325mg Tab) 650 mg PO Q6 PRN PRN Reason: Fever >100.4 F Last Admin: 06/20/17 16:37 Dose: 650 mg Albuterol/Ipratropium (Duoneb 3 Mg/0.5 Mg (3 Ml) Ud) 3 ml INH RQID [facility] Last Admin: 07/12/17 09:17 Dose: Not Given Atorvastatin Calcium (Lipitor) 10 mg PO HS [facility] Last Admin: 07/11/17 21:24 Dose: 10 mg Enoxaparin Sodium (Lovenox) 40 mg SC DAILY [facility] PRN Reason: Protocol Last Admin: 07/12/17 10:53 Dose: 40 mg Ferrous Sulfate (Feosol) 325 mg PO BID [facility] Last Admin: 07/12/17 10:52 Dose: 325 mg Furosemide (Lasix) 40 mg PO DAILY [facility] Last Admin: 07/12/17 10:49 Dose: 40 mg Gabapentin (Neurontin) 100 mg PO TID [facility] Last Admin: 07/12/17 10:52 Dose: 100 mg Glipizide (Glucotrol) 5 mg PO BID [facility] Last Admin: 07/12/17 10:52 Dose: 5 mg Insulin Human Regular (Humulin R) 0 units SC ACHS [facility] PRN Reason: Protocol Last Admin: 07/12/17 06:44 Dose: Not Given Lactic Acid (Lac-Hydrin 12% Cream (140 G)) 1 ea TOP DAILY [facility] Last Admin: 07/12/17 10:50 Dose: 1 applic Lactulose (Enulose) 20 gm PO DAILY [facility] Last Admin: 07/12/17 10:53 Dose: Not Given Nystatin (Nystop Topical Powder) 1 applic TOP TID [facility] Last Admin: 07/12/17 10:54 Dose: 1 applic Ondansetron HCl (Zofran Inj) 4 mg IVP Q4 PRN PRN Reason: Nausea/Vomiting Last Admin: 07/08/17 03:13 Dose: 4 mg Pantoprazole Sodium (Protonix Ec Tab) 40 mg PO DAILY [facility] Last Admin: 07/12/17 10:49 Dose: 40 mg Spironolactone (Aldactone) 100 mg PO DAILY [facility] Last Admin: 07/12/17 10:53 Dose: 100 mg Tamsulosin HCl (Flomax) 0.4 mg PO DAILY [facility] Last Admin: 07/12/17 10:49 Dose: 0.4 mg Tramadol HCl (Ultram) 25 mg PO Q4 PRN PRN Reason: Pain, moderate (4-7) Tramadol HCl (Ultram) 50 mg PO Q6 PRN PRN Reason: Pain, severe (8-10) Last Admin: 07/11/17 22:16 Dose: 50 mg - Labs Labs: 07/09/17 11:00 07/10/17 00:04 PT 17.1 Seconds (9.8-13.1) H 07/09/17 11:00 INR 1.5 (0.9-1.2) H 07/09/17 11:00
--- NOTE | 2017-07-12 16:37 | CP.PCM.PN ---
Subjective - Date & Time of Evaluation Date of Evaluation: 07/12/17 Time of Evaluation: 15:05 - Subjective Subjective: 82 y/o male seen at bedside today in TCU for right open fibular fracture with wound vac and external fixator in place Patient is now 33 days s/p closed reduction with external fixator application and 26 days s/p failed fibular ashanti placement. Pt is aware he will be getting discharged to a rehab facility either later today or tomorrow. Pt says he feels ok at time of visit but is weak. Pt denies F/C/V/CP/SOB. Pt admits to still feeling nauseous most days, but is not at time of visit. Objective - Vital Signs/Intake and Output Vital Signs (last 24 hours): Temp Pulse Resp BP Pulse Ox 97.1 F L 90 20 134/59 L 99 07/12/17 07:28 07/12/17 07:28 07/12/17 07:28 07/12/17 10:49 07/12/17 07:28 Intake and Output: 07/12/17 07/12/17 06:59 18:59 Output Total 450 Balance -450 - Medications Medications: Current Medications Acetaminophen (Tylenol 325mg Tab) 650 mg PO Q4 PRN PRN Reason: Pain, Mild (1-3) Last Admin: 07/04/17 23:36 Dose: 650 mg Acetaminophen (Tylenol 325mg Tab) 650 mg PO Q6 PRN PRN Reason: Fever >100.4 F Last Admin: 06/20/17 16:37 Dose: 650 mg Albuterol/Ipratropium (Duoneb 3 Mg/0.5 Mg (3 Ml) Ud) 3 ml INH RQID [facility] Last Admin: 07/12/17 12:09 Dose: 3 ml Atorvastatin Calcium (Lipitor) 10 mg PO HS [facility] Last Admin: 07/11/17 21:24 Dose: 10 mg Enoxaparin Sodium (Lovenox) 40 mg SC DAILY [facility] PRN Reason: Protocol Last Admin: 07/12/17 10:53 Dose: 40 mg Ferrous Sulfate (Feosol) 325 mg PO BID [facility] Last Admin: 07/12/17 10:52 Dose: 325 mg Furosemide (Lasix) 40 mg PO DAILY [facility] Last Admin: 07/12/17 10:49 Dose: 40 mg Gabapentin (Neurontin) 100 mg PO TID [facility] Last Admin: 07/12/17 13:13 Dose: 100 mg Glipizide (Glucotrol) 5 mg PO BID [facility] Last Admin: 07/12/17 10:52 Dose: 5 mg Insulin Human Regular (Humulin R) 0 units SC ACHS [facility] PRN Reason: Protocol Last Admin: 07/12/17 11:12 Dose: 3 units Lactic Acid (Lac-Hydrin 12% Cream (140 G)) 1 ea TOP DAILY [facility] Last Admin: 07/12/17 10:50 Dose: 1 applic Lactulose (Enulose) 20 gm PO DAILY [facility] Last Admin: 07/12/17 10:53 Dose: Not Given Nystatin (Nystop Topical Powder) 1 applic TOP TID [facility] Last Admin: 07/12/17 13:13 Dose: 1 applic Ondansetron HCl (Zofran Inj) 4 mg IVP Q4 PRN PRN Reason: Nausea/Vomiting Last Admin: 07/08/17 03:13 Dose: 4 mg Pantoprazole Sodium (Protonix Ec Tab) 40 mg PO DAILY [facility] Last Admin: 07/12/17 10:49 Dose: 40 mg Spironolactone (Aldactone) 100 mg PO DAILY [facility] Last Admin: 07/12/17 10:53 Dose: 100 mg Tamsulosin HCl (Flomax) 0.4 mg PO DAILY [facility] Last Admin: 07/12/17 10:49 Dose: 0.4 mg Tramadol HCl (Ultram) 25 mg PO Q4 PRN PRN Reason: Pain, moderate (4-7) Tramadol HCl (Ultram) 50 mg PO Q6 PRN PRN Reason: Pain, severe (8-10) Last Admin: 07/11/17 22:16 Dose: 50 mg - Labs Labs: 07/09/17 11:00 07/10/17 00:04 PT 17.1 Seconds (9.8-13.1) H 07/09/17 11:00 INR 1.5 (0.9-1.2) H 07/09/17 11:00 - Constitutional Appears: Well, Non-toxic, No Acute Distress - Extremities Exam Additional comments: Wound vac of right leg running continuous at 125mmHg. Vac change today. Vasc: DP/PT pulses palpable to RLE. CFT < 3 seconds to all digits. Active bleeding noticed to anterior leg wound. Skin temperature warm to right foot, WNL. Derm: Open wound spanning from patient's medial leg to lateral leg approx 12cm and extending proximal to distal roughly 5 cm. Wound site is noted to be granulating in more with each dressing change. Significant improvement in size and appearance as compared to initial wound size on admission. Bone and deep structures no longer visible. No periwound erythema, no malodor, no other clinical signs of infection. No signs of pin tract infection. Healthy tissue bleed noted. Neuro: Epicritic and protective sensation grossly intact B/L Ortho: Moderate to severe tenderness noted at wound site. Tenderness to palpation of fibular fracture. External fixation in proper place. - Neurological Exam Neurological Exam: Alert, Awake, Oriented x3 - Psychiatric Exam Psychiatric exam: Normal Affect, Normal Mood Assessment and Plan - Assessment and Plan (Free Text) Assessment: 81 year old male 33 days s/p right leg open fibular fracture and 26 days s/p failed fibular IM ashanti placement with wound vac and external fixator in place Plan: Patient seen and evaluated at bedside Discussed plan with attending Dr. Avila Charts, labs and vitals reviewed - afebrile, NNL Wound vac remains in place and functioning properly to RLE open wound, continuous at 125 mm Hg with no leaks Canister at 150 mL of output today Wound cleansed with sterile saline Wound vac to RLE changed, pin sites sterilized with betadine and dressed with xeroform, and RLE bandaged with drain sponges, kerlix and light TIN bandages Pt is stable to D/C to [facility] from podiatry standpoint Per podiatry, wound vac should not be changed or adjusted at [facility] facility, and patient should routinely follow up weekly on Mondays in the wound care center with Dr. Avila for wound vac changes and continued care of open wound with vac and external fixator Podiatry will continue to follow patient while in house
--- NOTE | 2017-07-12 16:59 | CP.PCM.PN ---
Subjective - Date & Time of Evaluation Date of Evaluation: 07/12/17 Time of Evaluation: 11:00 - Subjective Subjective: Patient seen and evaluated bedside. Elderly, chronically ill male lying in bed in NAD . With flat affect , stating that feels tired ,weak all his body aches . Had abdominal parasenthesis yesterday with removal 15.8 l fluid. Hemodynamicfally stable, afebrile. No acute issues overnight Patient is medically stable for discharge to [facility] and has been cleared by podiatry . Objective - Vital Signs/Intake and Output Vital Signs (last 24 hours): Temp Pulse Resp BP Pulse Ox 97.1 F L 90 20 134/59 L 99 07/12/17 07:28 07/12/17 07:28 07/12/17 07:28 07/12/17 10:49 07/12/17 07:28 Intake and Output: 07/12/17 07/12/17 06:59 18:59 Output Total 450 Balance -450 - Medications Medications: Current Medications Acetaminophen (Tylenol 325mg Tab) 650 mg PO Q4 PRN PRN Reason: Pain, Mild (1-3) Last Admin: 07/04/17 23:36 Dose: 650 mg Acetaminophen (Tylenol 325mg Tab) 650 mg PO Q6 PRN PRN Reason: Fever >100.4 F Last Admin: 06/20/17 16:37 Dose: 650 mg Albuterol/Ipratropium (Duoneb 3 Mg/0.5 Mg (3 Ml) Ud) 3 ml INH RQID [facility] Last Admin: 07/12/17 12:09 Dose: 3 ml Atorvastatin Calcium (Lipitor) 10 mg PO HS [facility] Last Admin: 07/11/17 21:24 Dose: 10 mg Enoxaparin Sodium (Lovenox) 40 mg SC DAILY [facility] PRN Reason: Protocol Last Admin: 07/12/17 10:53 Dose: 40 mg Ferrous Sulfate (Feosol) 325 mg PO BID [facility] Last Admin: 07/12/17 16:42 Dose: 325 mg Furosemide (Lasix) 40 mg PO DAILY [facility] Last Admin: 07/12/17 10:49 Dose: 40 mg Gabapentin (Neurontin) 100 mg PO TID [facility] Last Admin: 07/12/17 16:43 Dose: 100 mg Glipizide (Glucotrol) 5 mg PO BID [facility] Last Admin: 07/12/17 16:42 Dose: 5 mg Insulin Human Regular (Humulin R) 0 units SC ACHS [facility] PRN Reason: Protocol Last Admin: 07/12/17 16:42 Dose: 4 units Lactic Acid (Lac-Hydrin 12% Cream (140 G)) 1 ea TOP DAILY [facility] Last Admin: 07/12/17 10:50 Dose: 1 applic Lactulose (Enulose) 20 gm PO DAILY [facility] Last Admin: 07/12/17 10:53 Dose: Not Given Nystatin (Nystop Topical Powder) 1 applic TOP TID [facility] Last Admin: 07/12/17 16:41 Dose: 1 applic Ondansetron HCl (Zofran Inj) 4 mg IVP Q4 PRN PRN Reason: Nausea/Vomiting Last Admin: 07/08/17 03:13 Dose: 4 mg Pantoprazole Sodium (Protonix Ec Tab) 40 mg PO DAILY [facility] Last Admin: 07/12/17 10:49 Dose: 40 mg Spironolactone (Aldactone) 100 mg PO DAILY [facility] Last Admin: 07/12/17 10:53 Dose: 100 mg Tamsulosin HCl (Flomax) 0.4 mg PO DAILY [facility] Last Admin: 07/12/17 10:49 Dose: 0.4 mg Tramadol HCl (Ultram) 25 mg PO Q4 PRN PRN Reason: Pain, moderate (4-7) Tramadol HCl (Ultram) 50 mg PO Q6 PRN PRN Reason: Pain, severe (8-10) Last Admin: 07/11/17 22:16 Dose: 50 mg - Labs Labs: 07/09/17 11:00 07/10/17 00:04 PT 17.1 Seconds (9.8-13.1) H 07/09/17 11:00 INR 1.5 (0.9-1.2) H 07/09/17 11:00 - Constitutional Appears: Non-toxic, Chronically Ill - Head Exam Head Exam: ATRAUMATIC, NORMAL INSPECTION, NORMOCEPHALIC - Eye Exam Eye Exam: EOMI, PERRL Pupil Exam: NORMAL ACCOMODATION - ENT Exam ENT Exam: Mucous Membranes Moist, Normal Exam - Neck Exam Neck Exam: Normal Inspection - Respiratory Exam Respiratory Exam: Clear to Ausculation Bilateral, NORMAL BREATHING PATTERN. absent: Rhonchi, Wheezes, Respiratory Distress - Cardiovascular Exam Cardiovascular Exam: REGULAR RHYTHM, +S1, +S2. absent: JVD - GI/Abdominal Exam GI & Abdominal Exam: Distended (less distended than usual ), Soft, Normal Bowel Sounds. 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 Patient underwent right ankle closed reduction external fixation and wound debridement (DOS: 05/30/17) followed with wound washout and debridement and wound vac placement (DOS ). s/p failed internal fixation of right fibular fx with IM ashanti. He was started and given vancomycin IV for 14 days empirically since he had open wound and history of bacteremia in the past . Transferred to TCU for continuation of treatment and PT . Patient has been in TCU since 06/18/17. At present he is stable and cleared by all consultants to go to low level of care [facility] . He is chronically ill with multiple medical problems and guarded prognosis but medically stable at present. After family meeting with all consultants finally family agrees to discharge planning. Waiting on accepting facility 1 Right open fibular fx with wound vac and external fixator Podiatry consult on board - Dr. Avila- following s/p failed internal fixation right fibular fx with IM ashanti (DOS: 06/16/17) s/p right ankle wound wash out, debridement, and wound vac placement (DOS: 06/13) by Dr. Benson s/p right ankle closed reduction external fixation and wound debridement (DOS: 06/09/17) Per podiatry, STRICT NWB RLE; no further internal fixation Continue wound care per podiatry (plan to change wound vac 3-4x/week) Wound vac to be changed at wound center at [facility] Wound VAC still with sanguinous drainage Continue pain management Stable for discharge to [facility] from podiatry standpoint patient to follow up with Dr. Avila at wound care center 2. Ileus- resolved Tolerating diet and having good bowel movements 3.Myelodysplasia (myelodysplastic syndrome) Dr. Salma Yanes hem/onc consulted, recs appreciated Hgb 10.4 no further interventions 4. 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 DVT prophylaxis continue Lovenox 40mg SC daily will hold when platelets is below 80,000 8. Grief/ depression / adjustment disorder patient's son 2 weeks ago and patient is very sad psychology and psychiatry consults appreciated 9.Left shoulder chronic anterior deformity As per patient and ;left shoulder deformity has been there for 1 year and was evaluated months ago by a orthopedist imaging showed Suspect impaction fracture of the humeral head as well as non displaced distal clavicular fracture. ortho was consulted no interventions at this time 10.Urinary retention urology was consulted Dr.Cacace isaak Woods in Continue Flomax Po
[2017-07-12 23:54] LABS: LKM-1 Ab (IgG) <=20.0 U (<=20.0)
[2017-07-13] MEDS: Insulin Regular 100 units/ml SC SCH ×3 (06:44→17:28)
[2017-07-13 07:05] LABS: HEMATOCRIT 33.7 % (35.0-51.0); MEAN CELL VOLUME 86.8 fl (80.0-94.0); MEAN CORPUSCULAR HEMOGLOBIN 27.3 pg (27.0-31.0); MEAN CORPUSCULAR HGB CONC 31.5 g/dL (33.0-37.0); RED CELL DISTRIBUTION WIDTH 18.1 % (11.5-14.5); WHITE BLOOD COUNT 5.9 K/uL (4.8-10.8)
[2017-07-13 07:27] LABS: BLOOD UREA NITROGEN 34 mg/dl (9-20); CALCIUM 6.5 mg/dL (8.4-10.2); CARBON DIOXIDE 24 mmol/L (22-30); CHLORIDE 106 mmol/L (98-107); GFR AFRICAN-AMERICAN > 60; GLUCOSE,RANDOM 144 mg/dL (75-110); POTASSIUM 3.9 MMOL/L (3.6-5.0); SODIUM 134 mmol/l (132-148)
[2017-07-13] MEDS: Albuterol-Ipratrop 3 mg / 0.5 (3 ml) UD INH SCH ×4 (08:10→19:51)
[2017-07-13] MEDS: Pantoprazole 40 mg EC Tab PO SCH (09:02)
[2017-07-13] MEDS: Ammonium Lactate 12% Cream (140 g) TOP SCH (09:03)
[2017-07-13] MEDS: Enoxaparin 40 mg Syringe SC SCH (09:04)
--- NOTE | 2017-07-13 10:53 | CP.PCM.PN ---
Subjective - Date & Time of Evaluation Date of Evaluation: 07/13/17 Time of Evaluation: 10:37 - Subjective Subjective: Pt is very uncomfortable from the decubitus ulcer. He however does not want to turn on one side, or sit up so his back is not in contact with the bed. He c/o pain and is on pain medications but does not do anything with the physical therapy because of pain. He is medicated before the Physical therapy. His platelet count is gradually coming down, the WBC and Hgb is normal Objective - Vital Signs/Intake and Output Vital Signs (last 24 hours): Temp Pulse Resp BP Pulse Ox 97.3 F L 88 18 122/63 98 07/13/17 10:31 07/13/17 10:31 07/13/17 10:31 07/13/17 10:31 07/13/17 10:31 - Medications Medications: Current Medications Acetaminophen (Tylenol 325mg Tab) 650 mg PO Q4 PRN PRN Reason: Pain, Mild (1-3) Last Admin: 07/04/17 23:36 Dose: 650 mg Acetaminophen (Tylenol 325mg Tab) 650 mg PO Q6 PRN PRN Reason: Fever >100.4 F Last Admin: 06/20/17 16:37 Dose: 650 mg Albuterol/Ipratropium (Duoneb 3 Mg/0.5 Mg (3 Ml) Ud) 3 ml INH RQID [facility] Last Admin: 07/13/17 08:10 Dose: 3 ml Atorvastatin Calcium (Lipitor) 10 mg PO HS [facility] Last Admin: 07/12/17 20:59 Dose: 10 mg Enoxaparin Sodium (Lovenox) 40 mg SC DAILY [facility] PRN Reason: Protocol Last Admin: 07/13/17 09:04 Dose: 40 mg Ferrous Sulfate (Feosol) 325 mg PO BID [facility] Last Admin: 07/13/17 09:02 Dose: 325 mg Furosemide (Lasix) 40 mg PO DAILY [facility] Last Admin: 07/13/17 09:03 Dose: 40 mg Gabapentin (Neurontin) 100 mg PO TID [facility] Last Admin: 07/13/17 09:01 Dose: 100 mg Glipizide (Glucotrol) 5 mg PO BID [facility] Last Admin: 07/13/17 09:02 Dose: 5 mg Insulin Human Regular (Humulin R) 0 units SC ACHS [facility] PRN Reason: Protocol Last Admin: 07/13/17 06:44 Dose: 2 units Lactic Acid (Lac-Hydrin 12% Cream (140 G)) 1 ea TOP DAILY [facility] Last Admin: 07/13/17 09:03 Dose: 1 applic Lactulose (Enulose) 20 gm PO DAILY [facility] Last Admin: 07/13/17 09:00 Dose: 20 gm Nystatin (Nystop Topical Powder) 1 applic TOP TID [facility] Last Admin: 07/13/17 09:08 Dose: 1 applic Ondansetron HCl (Zofran Inj) 4 mg IVP Q4 PRN PRN Reason: Nausea/Vomiting Last Admin: 07/08/17 03:13 Dose: 4 mg Pantoprazole Sodium (Protonix Ec Tab) 40 mg PO DAILY [facility] Last Admin: 07/13/17 09:02 Dose: 40 mg Spironolactone (Aldactone) 100 mg PO DAILY [facility] Last Admin: 07/13/17 09:01 Dose: 100 mg Tamsulosin HCl (Flomax) 0.4 mg PO DAILY [facility] Last Admin: 07/13/17 09:02 Dose: 0.4 mg Tramadol HCl (Ultram) 25 mg PO Q4 PRN PRN Reason: Pain, moderate (4-7) Tramadol HCl (Ultram) 50 mg PO Q6 PRN PRN Reason: Pain, severe (8-10) Last Admin: 07/13/17 02:01 Dose: 50 mg - Labs Labs: 07/13/17 06:00 07/13/17 06:00 PT 17.1 Seconds (9.8-13.1) H 07/09/17 11:00 INR 1.5 (0.9-1.2) H 07/09/17 11:00
[2017-07-14] MEDS: Insulin Regular 100 units/ml SC SCH ×3 (02:44→14:02)
[2017-07-14] MEDS: Albuterol-Ipratrop 3 mg / 0.5 (3 ml) UD INH SCH ×2 (07:49→13:13)
[2017-07-14] MEDS: Enoxaparin 40 mg Syringe SC SCH (08:43)
[2017-07-14] MEDS: Pantoprazole 40 mg EC Tab PO SCH (08:44)
[2017-07-14] MEDS: Ammonium Lactate 12% Cream (140 g) TOP SCH (08:46)
[2017-07-14 08:47] VITALS: BP 128/52
[2017-07-14 09:04] VITALS: PULSE 94; RESP 18; TEMP 98.2; O2SAT 93
--- NOTE | 2017-07-14 10:19 | CP.PCM.PN ---
Subjective - Date & Time of Evaluation Date of Evaluation: 07/14/17 Time of Evaluation: 10:08 - Subjective Subjective: Pt is afebrile in no acute distress . He has some cough but is doing the incentive spirometer. He will be transferred to halfway today. He wll be back for chemo once the wound heals. Objective - Vital Signs/Intake and Output Vital Signs (last 24 hours): Temp Pulse Resp BP Pulse Ox 98.2 F 94 H 18 128/52 L 93 L 07/14/17 08:00 07/14/17 08:00 07/14/17 08:00 07/14/17 08:45 07/14/17 08:00 - Medications Medications: Current Medications Acetaminophen (Tylenol 325mg Tab) 650 mg PO Q4 PRN PRN Reason: Pain, Mild (1-3) Last Admin: 07/04/17 23:36 Dose: 650 mg Acetaminophen (Tylenol 325mg Tab) 650 mg PO Q6 PRN PRN Reason: Fever >100.4 F Last Admin: 06/20/17 16:37 Dose: 650 mg Albuterol/Ipratropium (Duoneb 3 Mg/0.5 Mg (3 Ml) Ud) 3 ml INH RQID [facility] Last Admin: 07/14/17 07:49 Dose: 3 ml Alprazolam (Xanax) 0.25 mg PO Q12 PRN PRN Reason: Anxiety Stop: 07/21/17 09:59 Atorvastatin Calcium (Lipitor) 10 mg PO HS [facility] Last Admin: 07/13/17 21:29 Dose: 10 mg Enoxaparin Sodium (Lovenox) 40 mg SC DAILY [facility] PRN Reason: Protocol Last Admin: 07/14/17 08:43 Dose: 40 mg Ferrous Sulfate (Feosol) 325 mg PO BID [facility] Last Admin: 07/14/17 08:44 Dose: 325 mg Furosemide (Lasix) 40 mg PO DAILY [facility] Last Admin: 07/14/17 08:45 Dose: 40 mg Gabapentin (Neurontin) 100 mg PO TID [facility] Last Admin: 07/14/17 08:44 Dose: 100 mg Glipizide (Glucotrol) 5 mg PO BID [facility] Last Admin: 07/14/17 08:44 Dose: 5 mg Hydromorphone HCl (Dilaudid) 1 mg IVP Q4 ONE Stop: 07/14/17 10:16 Insulin Human Regular (Humulin R) 0 units SC ACHS [facility] PRN Reason: Protocol Last Admin: 07/14/17 06:55 Dose: 2 units Lactic Acid (Lac-Hydrin 12% Cream (140 G)) 1 ea TOP DAILY [facility] Last Admin: 07/14/17 08:46 Dose: 1 applic Lactulose (Enulose) 20 gm PO DAILY [facility] Last Admin: 07/14/17 08:56 Dose: Not Given Nystatin (Nystop Topical Powder) 1 applic TOP TID [facility] Last Admin: 07/14/17 08:48 Dose: 1 applic Ondansetron HCl (Zofran Inj) 4 mg IVP Q4 PRN PRN Reason: Nausea/Vomiting Last Admin: 07/08/17 03:13 Dose: 4 mg Pantoprazole Sodium (Protonix Ec Tab) 40 mg PO DAILY [facility] Last Admin: 07/14/17 08:44 Dose: 40 mg Spironolactone (Aldactone) 100 mg PO DAILY [facility] Last Admin: 07/14/17 08:44 Dose: 100 mg Tamsulosin HCl (Flomax) 0.4 mg PO DAILY [facility] Last Admin: 07/14/17 08:45 Dose: 0.4 mg Tramadol HCl (Ultram) 25 mg PO Q4 PRN PRN Reason: Pain, moderate (4-7) Tramadol HCl (Ultram) 50 mg PO Q6 PRN PRN Reason: Pain, severe (8-10) Last Admin: 07/14/17 00:19 Dose: 50 mg - Labs Labs: 07/13/17 06:00 07/13/17 06:00 PT 17.1 Seconds (9.8-13.1) H 07/09/17 11:00 INR 1.5 (0.9-1.2) H 07/09/17 11:00
--- NOTE | 2017-07-14 10:57 | CP.PCM.PN ---
Subjective - Date & Time of Evaluation Date of Evaluation: 07/14/17 Time of Evaluation: 10:57 - Subjective Subjective: 82 y/o male seen at bedside today in TCU for right open fibular fracture with wound vac and external fixator in place Patient is now 5 weeks s/p closed reduction with external fixator application and 4 weeks s/p failed fibular ashanti placement. Pt says he feels weak today and does not know exactly what is wrong. Pt admits that the Dilaudid he was just given is making him feel funny. Pt denies F/C/V/CP/SOB. Pt is aware he will be leaving and going to a rehab facility today. Objective - Vital Signs/Intake and Output Vital Signs (last 24 hours): Temp Pulse Resp BP Pulse Ox 98.2 F 94 H 18 128/52 L 93 L 07/14/17 08:00 07/14/17 08:00 07/14/17 08:00 07/14/17 08:45 07/14/17 08:00 - Medications Medications: Current Medications Acetaminophen (Tylenol 325mg Tab) 650 mg PO Q4 PRN PRN Reason: Pain, Mild (1-3) Last Admin: 07/04/17 23:36 Dose: 650 mg Acetaminophen (Tylenol 325mg Tab) 650 mg PO Q6 PRN PRN Reason: Fever >100.4 F Last Admin: 06/20/17 16:37 Dose: 650 mg Albuterol/Ipratropium (Duoneb 3 Mg/0.5 Mg (3 Ml) Ud) 3 ml INH RQID [facility] Last Admin: 07/14/17 07:49 Dose: 3 ml Alprazolam (Xanax) 0.25 mg PO Q12 PRN PRN Reason: Anxiety Stop: 07/21/17 09:59 Atorvastatin Calcium (Lipitor) 10 mg PO HS [facility] Last Admin: 07/13/17 21:29 Dose: 10 mg Enoxaparin Sodium (Lovenox) 40 mg SC DAILY [facility] PRN Reason: Protocol Last Admin: 07/14/17 08:43 Dose: 40 mg Ferrous Sulfate (Feosol) 325 mg PO BID [facility] Last Admin: 07/14/17 08:44 Dose: 325 mg Furosemide (Lasix) 40 mg PO DAILY [facility] Last Admin: 07/14/17 08:45 Dose: 40 mg Gabapentin (Neurontin) 100 mg PO TID [facility] Last Admin: 07/14/17 08:44 Dose: 100 mg Glipizide (Glucotrol) 5 mg PO BID [facility] Last Admin: 07/14/17 08:44 Dose: 5 mg Insulin Human Regular (Humulin R) 0 units SC ACHS [facility] PRN Reason: Protocol Last Admin: 07/14/17 06:55 Dose: 2 units Lactic Acid (Lac-Hydrin 12% Cream (140 G)) 1 ea TOP DAILY [facility] Last Admin: 07/14/17 08:46 Dose: 1 applic Lactulose (Enulose) 20 gm PO DAILY [facility] Last Admin: 07/14/17 08:56 Dose: Not Given Nystatin (Nystop Topical Powder) 1 applic TOP TID [facility] Last Admin: 07/14/17 08:48 Dose: 1 applic Ondansetron HCl (Zofran Inj) 4 mg IVP Q4 PRN PRN Reason: Nausea/Vomiting Last Admin: 07/08/17 03:13 Dose: 4 mg Pantoprazole Sodium (Protonix Ec Tab) 40 mg PO DAILY [facility] Last Admin: 07/14/17 08:44 Dose: 40 mg Spironolactone (Aldactone) 100 mg PO DAILY [facility] Last Admin: 07/14/17 08:44 Dose: 100 mg Tamsulosin HCl (Flomax) 0.4 mg PO DAILY [facility] Last Admin: 07/14/17 08:45 Dose: 0.4 mg Tramadol HCl (Ultram) 25 mg PO Q4 PRN PRN Reason: Pain, moderate (4-7) Tramadol HCl (Ultram) 50 mg PO Q6 PRN PRN Reason: Pain, severe (8-10) Last Admin: 07/14/17 00:19 Dose: 50 mg - Labs Labs: 07/13/17 06:00 07/13/17 06:00 PT 17.1 Seconds (9.8-13.1) H 07/09/17 11:00 INR 1.5 (0.9-1.2) H 07/09/17 11:00 - Constitutional Appears: Well, Non-toxic, No Acute Distress - Extremities Exam Additional comments: Wound vac of right leg running continuous at 125mmHg. Wound vac removal today. Vasc: DP/PT pulses palpable to RLE. CFT < 3 seconds to all digits. Active bleeding noticed to anterior leg wound. Skin temperature warm to right foot, WNL. Derm: Open wound spanning from patient's medial right leg to lateral right leg approx 11cm and extending proximal to distal roughly 5 cm. Wound site is noted to be granulating in more with each dressing change. Significant improvement in size and appearance as compared to initial wound size on admission. Bone and deep structures no longer visible. No periwound erythema, no malodor, no other clinical signs of infection. No signs of pin tract infection. Healthy tissue bleeding is noted. Neuro: Epicritic and protective sensation grossly intact B/L Ortho: Moderate to severe tenderness noted at right leg wound site. Tenderness to palpation of right fibular fracture. External fixation in proper place to RLE. - Neurological Exam Neurological Exam: Alert, Awake, Oriented x3 - Psychiatric Exam Psychiatric exam: Normal Affect, Normal Mood Assessment and Plan - Assessment and Plan (Free Text) Assessment: 81 year old male 5 weeks s/p right leg open fibular fracture and 4 weeks s/p failed fibular IM ashanti placement with external fixator in place Plan: Patient seen and evaluated at bedside Discussed plan with attending Dr. Avila Charts, labs and vitals reviewed - afebrile, NNL Wound vac remains in place at time of visit and functioning properly to RLE open wound, continuous at 125 mm Hg with no leaks Canister at 260 mL of output today Wound cleansed with sterile saline Wound vac to RLE removed External fixator pin sites sterilized with betadine and dressed with xeroform Applied hydrogel to RLE wound and bandaged RLE with drain gauze sponges, ABD pads, kerlix and light TIN bandages Pt is stable to D/C to [facility] from podiatry standpoint Per podiatry, patient should routinely follow up weekly on Mondays in the wound care center with Dr. Avila for continued care of open wound with external fixator Patient will have additional dressing changes performed weekly on Fridays at [facility] with Hydrogel, gauze, ABD and Kerlix with light TIN bandage wrap
--- NOTE | 2017-07-14 13:25 | CP.PCM.DIS ---
<Sanjay Mo - Last Filed: 07/14/17 13:34> Provider - Provider Date of Admission: 06/18/17 12:37 Attending physician: Susan Dillon MD Primary care physician: Dr. Celis Consults: Hematology: Dr Salma kee Podiatry: Dr Avila Plastic Surg: Dr Benson ID: DR Wallis GI: Dr. Sevilla Urology: Dr. Rivero Time Spent in preparation of Discharge (in minutes): 30 Diagnosis - Discharge Diagnosis (1) Ankle fracture Status: Acute (2) Myelodysplasia (myelodysplastic syndrome) Status: Chronic (3) DM2 (diabetes mellitus, type 2) Status: Chronic (4) CAD (coronary artery disease) Status: Chronic (5) Cirrhosis of liver Status: Chronic (6) DVT prophylaxis Status: Acute Hospital Course - Lab Results Lab Results: Micro Results 06/22/17 11:50 Blood-Thru Central Line Blood Culture - Final NO GROWTH AFTER 5 DAYS 06/22/17 11:50 Blood-Thru Central Line Gram Stain - Final TEST NOT PERFORMED 06/22/17 11:55 Blood-Venous Blood Culture - Final NO GROWTH AFTER 5 DAYS 06/22/17 11:55 Blood-Venous Gram Stain - Final TEST NOT PERFORMED 06/20/17 18:40 Blood S.aureus & Coag-Neg Staph PNA FISH - Final 06/20/17 18:40 Blood Blood Culture - Final Coagulase Neg Staphylococcus 06/20/17 18:40 Blood Gram Stain - Final 06/20/17 18:23 Urine,Woods Urine Culture - Final No Growth (<1,000 CFU/ML) Most Recent Lab Values WBC 5.9 K/uL (4.8-10.8) 07/13/17 06:00 RBC 3.89 Mil/uL (4.40-5.90) L 07/13/17 06:00 Hgb 10.6 g/dL (12.0-18.0) L 07/13/17 06:00 Hct 33.7 % (35.0-51.0) L 07/13/17 06:00 MCV 86.8 fl (80.0-94.0) 07/13/17 06:00 MCH 27.3 pg (27.0-31.0) 07/13/17 06:00 MCHC 31.5 g/dL (33.0-37.0) L 07/13/17 06:00 RDW 18.1 % (11.5-14.5) H 07/13/17 06:00 Plt Count 64 K/uL (130-400) L D 07/13/17 06:00 MPV 6.7 fl (7.2-11.7) L 07/09/17 11:00 Neut % (Auto) 80.5 % (50.0-75.0) H 07/09/17 11:00 Lymph % (Auto) 9.6 % (20.0-40.0) L 07/09/17 11:00 [place] % (Auto) 9.2 % (0.0-10.0) 07/09/17 11:00 Eos % (Auto) 0.4 % (0.0-4.0) 07/09/17 11:00 Baso % (Auto) 0.3 % (0.0-2.0) 07/09/17 11:00 Neut # 5.2 K/uL (1.8-7.0) 07/09/17 11:00 Lymph # 0.6 K/uL (1.0-4.3) L 07/09/17 11:00 [place] # 0.6 K/uL (0.0-0.8) 07/09/17 11:00 Eos # 0.0 K/uL (0.0-0.7) 07/09/17 11:00 Baso # 0.0 K/uL (0.0-0.2) 07/09/17 11:00 Neutrophils % (Manual) 83 % (42-75) H 07/09/17 11:00 Lymphocytes % (Manual) 6 % (20-50) L 07/09/17 11:00 Monocytes % (Manual) 9 % (0-10) 07/09/17 11:00 Eosinophils % (Manual) 2 % (0-7) 07/09/17 11:00 Toxic Granulation Present 07/09/17 11:00 Platelet Estimate Decreased (NORMAL) L 07/09/17 11:00 Hypochromasia (manual) Slight 07/09/17 11:00 Anisocytosis (manual) Slight 07/09/17 11:00 Tear Drop Cells Slight 07/09/17 11:00 Ovalocytes Slight 07/09/17 11:00 Ashley Cells Slight 07/09/17 11:00 Schistocytes Slight 07/09/17 11:00 PT 17.1 Seconds (9.8-13.1) H 07/09/17 11:00 INR 1.5 (0.9-1.2) H 07/09/17 11:00 Sodium 134 mmol/l (132-148) 07/13/17 06:00 Potassium 3.9 MMOL/L (3.6-5.0) 07/13/17 06:00 Chloride 106 mmol/L (98-107) 07/13/17 06:00 Carbon Dioxide 24 mmol/L (22-30) 07/13/17 06:00 Anion Gap 8 (10-20) L 07/13/17 06:00 BUN 34 mg/dl (9-20) H 07/13/17 06:00 Creatinine 1.0 mg/dl (0.8-1.5) 07/13/17 06:00 Est GFR ( Amer) > 60 07/13/17 06:00 Est GFR (Non-Af Amer) > 60 07/13/17 06:00 POC Glucose (mg/dL) 287 mg/dL (65-110) H 07/14/17 11:16 Random Glucose 144 mg/dL (75-110) H 07/13/17 06:00 Calcium 6.5 mg/dL (8.4-10.2) L 07/13/17 06:00 Total Bilirubin 1.2 mg/dl (0.2-1.3) 07/09/17 11:00 Direct Bilirubin 0.3 mg/ml (0.0-0.4) 06/30/17 09:00 AST 26 U/L (17-59) 07/09/17 11:00 ALT 34 U/L (21-72) 07/09/17 11:00 Alkaline Phosphatase 103 U/L (38-126) 07/09/17 11:00 Total Protein 5.8 G/DL (6.3-8.2) L 07/09/17 11:00 Albumin 2.4 g/dL (3.5-5.0) L 07/09/17 11:00 Globulin 3.4 gm/dL (2.2-3.9) 07/09/17 11:00 Albumin/Globulin Ratio 0.7 (1.0-2.1) L 07/09/17 11:00 Ceruloplasmin 34 mg/dL (18-36) 07/10/17 08:00 Alpha Fetoprotein < 0.8 IU/mL (0.0-7.22) 07/10/17 08:00 Urine Color Yellow (YELLOW) 06/21/17 15:27 Urine Clarity Turbid (Clear) 06/21/17 15: Urine pH 5.0 (5.0-8.0) 06/21/17 15:27 Ur Specific [place] 1.021 (1.003-1.030) 06/21/17 15: Urine Protein 30 mg/dL (NEGATIVE) 06/21/17 15: Urine Glucose (UA) Neg mg/dL (Normal) 06/21/17 15: Urine Ketones Negative mg/dL (NEGATIVE) 06/21/17 15:27 Urine Blood Moderate (NEGATIVE) 06/21/17 15:27 Urine Nitrate Negative (NEGATIVE) 06/21/17 15: Urine Bilirubin Negative (NEGATIVE) 06/21/17 15:27 Urine Urobilinogen 0.2-1.0 mg/dL (0.2-1.0) 06/21/17 15:27 Ur Leukocyte Esterase Trace [place]/uL (Negative) 06/21/17 15:27 Urine RBC (Auto) 22 /hpf (0-3) H 06/21/17 15:27 Urine Microscopic WBC 17 /hpf (0-5) H 06/21/17 15:27 Ur Squamous Epith Cells < 1 /hpf (0-5) 06/21/17 15:27 Uric Acid Crystals Few /hpf (<OCC) H 06/21/17 15:27 Urine Bacteria Rare (<OCC) 06/21/17 15:27 Vancomycin Trough 12.3 ug/mL (5.0-10.0) H 06/19/17 05:30 IgG 1288.0 mg/dL (700.0-1600.0) 07/10/17 08:00 JEAN-PIERRE Screen Negative (Negative) 07/10/17 08:00 Anti-Mitochondrial Ab Negative (Negative) 07/10/17 08:00 Smooth Muscle Ab Titer 1:20 Titer (< 1:20) H 07/10/17 08:00 Anti-Smooth Muscle Ab Positive (Negative) H 07/10/17 08:00 Liver/Kid Microsomes Ab <=20.0 U (<=20.0) 07/10/17 08:00 Hep Bs Antigen Negative (NEGATIVE) 07/10/17 08:00 Blood Type O POSITIVE 06/23/17 10:23 Antibody Screen Negative 06/23/17 10:23 Crossmatch See Detail 06/23/17 10:23 BBK History Checked Patient has bt 06/23/17 10:23 - Hospital Course Hospital Course: 82 year old male patient PMHx HTN, CHF, CAD/CABG, Myelodysplastic Syndrome, 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 Patient underwent right ankle closed reduction external fixation and wound debridement (DOS: 05/30/17) followed with wound washout and debridement and wound vac placement (DOS ). s/p failed internal fixation of right fibular fx with IM ashanit on 06/16/17 as his bone was very brittle and unable to handle ashanti. He was started and given vancomycin IV for 14 days empirically since he had open wound and history of bacteremia in the past. Transferred to TCU for continuation of treatment and PT. Patient has been in TCU since 06/18/17. Patient underwent 2 US guided paracenteses, first procedure on 06/29/17 with removal of 11.3L straw colored fluid and second on 07/11/17 with 15.8L straw colored fluid removed. Wound vac was removed on 07/14/17 by podiatry. At present he is stable and cleared by all consultants to go to low level of care [facility]. He is chronically ill with multiple medical problems and guarded prognosis but medically stable at present. After family meeting with all consultants finally family agrees to discharge planning. Patient to keep RLE dressing by podiatry intact until Tuesday, , when it will be changed by Dr. Avila at [facility] wound care center; next dressing change will be perfomed by wound care nurses the following 07/22/17. Patient to be discharged with Rx Lasix, spironolactone, and lactulose. 1 Right open fibular fx with wound vac and external fixator Podiatry consult on board - Dr. Avila- following s/p failed internal fixation right fibular fx with IM ashanti (DOS: 06/16/17) s/p right ankle wound wash out, debridement, and wound vac placement (DOS: 06/13) by Dr. Benson s/p right ankle closed reduction external fixation and wound debridement (DOS: 06/09/17) Per podiatry, STRICT NWB RLE; no further internal fixation Continue wound care per podiatry (plan to change wound vac 3-4x/week) Wound vac to be changed at wound center at [facility] Wound VAC still with sanguinous drainage Continue pain management Stable for discharge to [facility] from podiatry standpoint patient to follow up with Dr. Avila at wound care center every Tuesday for dressing changes Dressing change schedule: - Mondays: dressing changed by Dr. Avila at [facility] wound care center - Fridays: dressing changed by wound care nurses at [facility] 2. Ileus- resolved Tolerating diet and having good bowel movements 3.Myelodysplasia (myelodysplastic syndrome) Dr. Salma Kee hem/onc consulted, recs appreciated Hgb 10.4 no further interventions 4. 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 DVT prophylaxis continue Lovenox 40mg SC daily will hold when platelets is below 80,000 8. Grief/ depression / adjustment disorder patient's son 2 weeks ago and patient is very sad psychology and psychiatry consults appreciated 9.Left shoulder chronic anterior deformity As per patient and ;left shoulder deformity has been there for 1 year and was evaluated months ago by a orthopedist imaging showed Suspect impaction fracture of the humeral head as well as non displaced distal clavicular fracture. ortho was consulted no interventions at this time 10.Urinary retention urology was consulted keep Woods in Continue Flomax Po Discharge Exam - Head Exam Head Exam: ATRAUMATIC, NORMAL INSPECTION, NORMOCEPHALIC - Eye Exam Eye Exam: EOMI, PERRL Pupil Exam: NORMAL ACCOMODATION - ENT Exam ENT Exam: Mucous Membranes Moist, Normal Exam - Neck Exam Neck exam: Normal Inspection - Respiratory Exam Respiratory Exam: NORMAL BREATHING PATTERN, UNREMARKABLE. absent: Rales, Rhonchi, Wheezes, Respiratory Distress - Cardiovascular Exam Cardiovascular Exam: REGULAR RHYTHM, +S1, +S2. absent: JVD - GI/Abdominal Exam GI & Abdominal Exam: Distended (less distended than usual), Normal Bowel Sounds , Soft. absent: Guarding, Rebound, Tenderness - Rectal Exam Rectal Exam: Deferred - Extremities Exam Additional comments: RLE dressing , external fixator Left shoulder anterior protrusion , decreased ROM (POA) - Neurological Exam Neurological exam: Alert, CN II-XII Intact, Oriented x3 - Psychiatric Exam Psychiatric exam: Depressed, Flat Affect - Skin Skin Exam: Dry, Pallor, Warm Discharge Plan - Discharge Medications Prescriptions: ALPRAZolam [Xanax] 0.25 mg PO Q12 PRN #60 tab PRN Reason: Anxiety Furosemide [Lasix] 40 mg PO DAILY #30 tab Lactulose [Enulose] 20 gm PO DAILY #300 udc Nystatin [Nystop Topical Powder] 1 applic TOP TID #1 bottle Spironolactone [Aldactone] 100 mg PO DAILY #30 tab Tamsulosin [Flomax] 0.4 mg PO DAILY #30 cap - Follow Up Plan Condition: GOOD Disposition: REHAB FACILITY/REHAB UNIT Patient education suggested?: Yes Instructions: Coronary Artery Disease (GEN), Cirrhosis (GEN), Urinary Retention in Men (GEN), ORIF of a Leg Fracture (DC), Grief and Loss (GEN), Diabetes Mellitus Type 2 in Adults (GEN), Sepsis (DC), Sepsis (GEN), Myelodysplastic Syndromes (DC), Myelodysplastic Syndromes (GEN), Ascites (GEN), Ileus (DC), Ileus (GEN) Additional Instructions: Follow up with referrals 1 week s/p discharge Referrals: Asya Kee MD [Staff Provider] - Jluis Avila DPM [Medical Doctor] - Karo Benson MD [Medical Doctor] - Sandy Wallis MD [Staff Provider] - Melvi Sevilla MD, MD [Medical Doctor] - Marcie Rivero MD [Medical Doctor] - Abbi Salazar - Last Filed: 07/14/17 14:44> Provider - Provider Date of Admission: 06/18/17 12:37 Attending physician: Susan Dillon MD Hospital Course - Lab Results Lab Results: Micro Results 06/22/17 11:50 Blood-Thru Central Line Blood Culture - Final NO GROWTH AFTER 5 DAYS 06/22/17 11:50 Blood-Thru Central Line Gram Stain - Final TEST NOT PERFORMED 06/22/17 11:55 Blood-Venous Blood Culture - Final NO GROWTH AFTER 5 DAYS 06/22/17 11:55 Blood-Venous Gram Stain - Final TEST NOT PERFORMED 06/20/17 18:40 Blood S.aureus & Coag-Neg Staph PNA FISH - Final 06/20/17 18:40 Blood Blood Culture - Final Coagulase Neg Staphylococcus 06/20/17 18:40 Blood Gram Stain - Final 06/20/17 18:23 Urine,Woods Urine Culture - Final No Growth (<1,000 CFU/ML) Most Recent Lab Values WBC 5.9 K/uL (4.8-10.8) 07/13/17 06:00 RBC 3.89 Mil/uL (4.40-5.90) L 07/13/17 06:00 Hgb 10.6 g/dL (12.0-18.0) L 07/13/17 06:00 Hct 33.7 % (35.0-51.0) L 07/13/17 06:00 MCV 86.8 fl (80.0-94.0) 07/13/17 06:00 MCH 27.3 pg (27.0-31.0) 07/13/17 06:00 MCHC 31.5 g/dL (33.0-37.0) L 07/13/17 06:00 RDW 18.1 % (11.5-14.5) H 07/13/17 06:00 Plt Count 64 K/uL (130-400) L D 07/13/17 06:00 MPV 6.7 fl (7.2-11.7) L 07/09/17 11:00 Neut % (Auto) 80.5 % (50.0-75.0) H 07/09/17 11:00 Lymph % (Auto) 9.6 % (20.0-40.0) L 07/09/17 11:00 [place] % (Auto) 9.2 % (0.0-10.0) 07/09/17 11:00 Eos % (Auto) 0.4 % (0.0-4.0) 07/09/17 11:00 Baso % (Auto) 0.3 % (0.0-2.0) 07/09/17 11:00 Neut # 5.2 K/uL (1.8-7.0) 07/09/17 11:00 Lymph # 0.6 K/uL (1.0-4.3) L 07/09/17 11:00 [place]uel # 0.6 K/uL (0.0-0.8) 07/09/17 11:00 Eos # 0.0 K/uL (0.0-0.7) 07/09/17 11:00 Baso # 0.0 K/uL (0.0-0.2) 07/09/17 11:00 Neutrophils % (Manual) 83 % (42-75) H 07/09/17 11:00 Lymphocytes % (Manual) 6 % (20-50) L 07/09/17 11:00 Monocytes % (Manual) 9 % (0-10) 07/09/17 11:00 Eosinophils % (Manual) 2 % (0-7) 07/09/17 11:00 Toxic Granulation Present 07/09/17 11:00 Platelet Estimate Decreased (NORMAL) L 07/09/17 11:00 Hypochromasia (manual) Slight 07/09/17 11:00 Anisocytosis (manual) Slight 07/09/17 11:00 Tear Drop Cells Slight 07/09/17 11:00 Ovalocytes Slight 07/09/17 11:00 [place] Cells Slight 07/09/17 11:00 Schistocytes Slight 07/09/17 11:00 PT 17.1 Seconds (9.8-13.1) H 07/09/17 11:00 INR 1.5 (0.9-1.2) H 07/09/17 11:00 Sodium 134 mmol/l (132-148) 07/13/17 06:00 Potassium 3.9 MMOL/L (3.6-5.0) 07/13/17 06:00 Chloride 106 mmol/L (98-107) 07/13/17 06:00 Carbon Dioxide 24 mmol/L (22-30) 07/13/17 06:00 Anion Gap 8 (10-20) L 07/13/17 06:00 BUN 34 mg/dl (9-20) H 07/13/17 06:00 Creatinine 1.0 mg/dl (0.8-1.5) 07/13/17 06:00 Est GFR ( Amer) > 60 07/13/17 06:00 Est GFR (Non-Af Amer) > 60 07/13/17 06:00 POC Glucose (mg/dL) 287 mg/dL (65-110) H 07/14/17 11:16 Random Glucose 144 mg/dL (75-110) H 07/13/17 06:00 Calcium 6.5 mg/dL (8.4-10.2) L 07/13/17 06:00 Total Bilirubin 1.2 mg/dl (0.2-1.3) 07/09/17 11:00 Direct Bilirubin 0.3 mg/ml (0.0-0.4) 06/30/17 09:00 AST 26 U/L (17-59) 07/09/17 11:00 ALT 34 U/L (21-72) 07/09/17 11:00 Alkaline Phosphatase 103 U/L (38-126) 07/09/17 11:00 Total Protein 5.8 G/DL (6.3-8.2) L 07/09/17 11:00 Albumin 2.4 g/dL (3.5-5.0) L 07/09/17 11:00 Globulin 3.4 gm/dL (2.2-3.9) 07/09/17 11:00 Albumin/Globulin Ratio 0.7 (1.0-2.1) L 07/09/17 11:00 Ceruloplasmin 34 mg/dL (18-36) 07/10/17 08:00 Alpha Fetoprotein < 0.8 IU/mL (0.0-7.22) 07/10/17 08:00 Urine Color Yellow (YELLOW) 06/21/17 15: Urine Clarity Turbid (Clear) 06/21/17 15: Urine pH 5.0 (5.0-8.0) 06/21/17 15:27 Ur Specific [place] 1.021 (1.003-1.030) 06/21/17 15:27 Urine Protein 30 mg/dL (NEGATIVE) 06/21/17 15:27 Urine Glucose (UA) Neg mg/dL (Normal) 06/21/17 15:27 Urine Ketones Negative mg/dL (NEGATIVE) 06/21/17 15:27 Urine Blood Moderate (NEGATIVE) 06/21/17 15:27 Urine Nitrate Negative (NEGATIVE) 06/21/17 15: Urine Bilirubin Negative (NEGATIVE) 06/21/17 15:27 Urine Urobilinogen 0.2-1.0 mg/dL (0.2-1.0) 06/21/17 15:27 Ur Leukocyte Esterase Trace Kameron/uL (Negative) 06/21/17 15:27 Urine RBC (Auto) 22 /hpf (0-3) H 06/21/17 15:27 Urine Microscopic WBC 17 /hpf (0-5) H 06/21/17 15:27 Ur Squamous Epith Cells < 1 /hpf (0-5) 06/21/17 15:27 Uric Acid Crystals Few /hpf (<OCC) H 06/21/17 15:27 Urine Bacteria Rare (<OCC) 06/21/17 15:27 Vancomycin Trough 12.3 ug/mL (5.0-10.0) H 06/19/17 05:30 IgG 1288.0 mg/dL (700.0-1600.0) 07/10/17 08:00 JEAN-PIERRE Screen Negative (Negative) 07/10/17 08:00 Anti-Mitochondrial Ab Negative (Negative) 07/10/17 08:00 Smooth Muscle Ab Titer 1:20 Titer (< 1:20) H 07/10/17 08:00 Anti-Smooth Muscle Ab Positive (Negative) H 07/10/17 08:00 Liver/Kid Microsomes Ab <=20.0 U (<=20.0) 07/10/17 08:00 Hep Bs Antigen Negative (NEGATIVE) 07/10/17 08:00 Blood Type O POSITIVE 06/23/17 10:23 Antibody Screen Negative 06/23/17 10:23 Crossmatch See Detail 06/23/17 10:23 BBK History Checked Patient has bt 06/23/17 10:23 Attending/Attestation - Attestation I have personally seen and examined this patient.: Yes I have fully participated in the care of the patient.: Yes I have reviewed all pertinent clinical information, including history, physical exam and plan: Yes Notes (Text): 07/14/17 14:43 seen examined discussed with resident Dr. Mo. Agree with findings and plan as above.
--- NOTE | 2017-07-15 12:05 | PQF DECUBI ---
Dr. Riddle 07/[address] Yanes documented pt had decubitus ulcer. Wound care note dated 07/12 documented sacral stage 3 pressure ulcer. Did pt have a diagnosis of decubitus ulcer? If so please document below site, stage and if decubitus ulcer was or was not present on admission. Thank you This form is a permanent part of the medical record Clarification of your documentation is requested to better reflect the severity of illness and intensity of treatment of your patient. Indicators present [x] Documented diagnosis of decubitus/pressure ulcer Location in the medical record that reflects the above clinical findings: [] Treatment Provided: PHYSICIAN'S RESPONSE Based on your medical judgment can you define the stage of the decubitus/ pressure ulcer as: Present On Admission [] Stage 1 Pressure Ulcer: Specify Location: [] Yes [] No Intact Skin with non-blanching erhythema (reddened area on skin) Painful or Itchy When compared to adjacent tissue may be firmer/softer or warmer/cooler [] Stage 2 Pressure Ulcer: Specify Location: []Yes []No Partial thickness loss of dermis Abrasion, blister or shallow open crater Red/pink wound bed without slough [x] Stage 3 Pressure Ulcer: Specify Location: sacrum [x]Yes [] No Full thickness skin loss (bone, tendon, muscle are not exposed) Damage or necrosis into subcutaneous soft tissues Slough present but does not obscure the depth of tissue loss Undermining and/or tunneling [] Stage 4 Pressure Ulcer: Specify Location: []Yes [] No Full thickness skin loss with exposed bone, tendon or muscle Slough Undermining and/or tunneling Extend into muscle and/or supporting structure (e.g. fascia, tendon, or joint capsule) [] Unstageable: Specify Location: [] Present on admission []Yes [] No Not present on admission [] Yes []No In responding to this query, please exercise your independent professional judgment. The fact that a question is asked does not imply that any particular answer is desired or expected. Thank you for your clarification on this documentation. If you have any questions please call:[ ] * Thank you, [ ]Lilia COTE Coder [facility]
== END 2017-07-14 13:45 | DRG 559 ==
LOC: H.TCU 12:37
PROVIDERS: ADMIT Internal Medicine; ATTEND Internal Medicine
PROC: F07L6ZZ Therapeutic Exercise Treatment of Musculoskeletal System - Lower Back / Lower Extremity (ICD-10-PCS; 2017-06-18)
PROC: F08Z0FZ Bathing/Showering Techniques Treatment using Assistive, Adaptive, Supportive or Protective Equipment (ICD-10-PCS; 2017-06-18)
PROC: F08Z1FZ Dressing Techniques Treatment using Assistive, Adaptive, Supportive or Protective Equipment (ICD-10-PCS; 2017-06-18)
PROC: F08Z2FZ Grooming/Personal Hygiene Treatment using Assistive, Adaptive, Supportive or Protective Equipment (ICD-10-PCS; 2017-06-18)
PROC: GZ56ZZZ Individual Psychotherapy, Supportive (ICD-10-PCS; principal; 2017-07-08)
DX: S82.401E Unspecified fracture of shaft of right fibula, subsequent encounter for open fracture type I or II with routine healing (principal); L89.153 Pressure ulcer of sacral region, stage 3; E11.40 Type 2 diabetes mellitus with diabetic neuropathy, unspecified; I11.0 Hypertensive heart disease with heart failure; R18.8 Other ascites; I50.9 Heart failure, unspecified; K56.7 Ileus, unspecified; K74.60 Unspecified cirrhosis of liver; Z95.1 Presence of aortocoronary bypass graft; I25.10 Atherosclerotic heart disease of native coronary artery without angina pectoris; D46.9 Myelodysplastic syndrome, unspecified; F32.9 Major depressive disorder, single episode, unspecified; Z91.19 Patient's noncompliance with other medical treatment and regimen; E66.9 Obesity, unspecified; Z68.33 Body mass index [BMI] 33.0-33.9, adult; Z63.4 Disappearance and death of family member; K76.0 Fatty (change of) liver, not elsewhere classified; R32 Unspecified urinary incontinence; R33.8 Other retention of urine; M21.822 Other specified acquired deformities of left upper arm; K75.81 Nonalcoholic steatohepatitis (NASH); W19.XXXD Unspecified fall, subsequent encounter; F43.20 Adjustment disorder, unspecified

== ENCOUNTER 2017-06-29 10:55 | Day surgery (SDC) | payer MEDICARE ==
[2017-06-09 00:10] VITALS: PULSE 81
[2017-06-29 11:36] VITALS: BMI 36.9
[2017-06-29] MEDS ORDERED: Lidocaine 1% Inj (20ml) ONE (12:45)
[2017-06-29 17:22] VITALS: O2SAT 98
[2017-06-29 19:00] VITALS: BP 126/56; PULSE 79; RESP 18; TEMP 98.7
--- NOTE | 2017-06-30 14:20 | US ---
PROCEDURE: ULTRASOUND-GUIDED PARACENTESIS CLINICAL HISTORY: 81-year-old male with recurrent symptomatic ascites is referred to Interventional Radiology for ultrasound-guided paracentesis. COMPARISON: Ultrasound-guided paracentesis performed 06/15/2017. PROCEDURE: 1. Ultrasound-guided paracentesis. PRE-PROCEDURE FINDINGS: 1. Large volume ascites. POST-PROCEDURE FINDINGS: 1. No evidence of post-procedural complication. INTERVENTIONAL RADIOLOGIST: Amando Reynolds M.D. (the attending was present for the entire procedure.) ANESTHESIA: None. MEDICATION: Lidocaine 1% for local subcutaneous analgesia. Albumin 25% 100 g IV. COMPLICATIONS: None. PROCEDURE DESCRIPTION AND FINDINGS: The risks, benefits, alternatives and possible complications of the procedure were fully discussed; all questions were answered and informed consent was obtained. The patient was brought into the interventional suite and a pre-procedure 'time-out' was performed. The patient was placed on the fluoroscopy table in the supine position. Preliminary ultrasound images of the right lower quadrant demonstrate a large amount of ascites. The right lower quadrant was prepped and draped in the usual sterile fashion. Maximum sterile barrier precautions were maintained throughout the entire procedure. Following subcutaneous infiltration of lidocaine 1% for local analgesia, under real-time ultrasound guidance, a 6 Nepali centesis catheter was advanced into the right lower quadrant with real-time visualization of needle entry. The ultrasound images were permanently recorded and submitted to the PACS. The inner stylet was removed and the catheter was attached to gentle vacuum suction. A total of 11.3 liters of straw-colored fluid were aspirated. The drainage catheter was then removed. A sterile adhesive bandage was placed over the puncture site. The patient tolerated the procedure well without immediate post-procedure complications and was transferred to same-day surgery in stable condition. IMPRESSION: SUCCESSFUL ULTRASOUND-GUIDED THERAPEUTIC PARACENTESIS.
== END 2017-06-29 19:22 ==
LOC: H.OPSURG 10:55
PROVIDERS: ATTEND Specialist
DX: R18.8 Other ascites (principal)
CPT/HCPCS: 49083; 96523; C1729

== ENCOUNTER 2017-07-11 10:16 | Day surgery (SDC) | payer MEDICARE ==
[2017-06-09 00:10] VITALS: PULSE 81
[2017-07-11 10:44] VITALS: BMI 33.7
[2017-07-11] MEDS ORDERED: Lidocaine 1% Inj (20ml) ONE (11:46)
[2017-07-11 13:15] VITALS: RESP 18
--- NOTE | 2017-07-11 14:09 | US ---
PROCEDURE: ULTRASOUND-GUIDED PARACENTESIS CLINICAL HISTORY: 81-year-old male with recurrent symptomatic ascites is referred to Interventional Radiology for ultrasound-guided paracentesis. COMPARISON: Ultrasound-guided paracentesis performed 06/29/2017. PROCEDURE: 1. Ultrasound-guided paracentesis. PRE-PROCEDURE FINDINGS: 1. Large volume ascites. POST-PROCEDURE FINDINGS: 1. No evidence of post-procedural complication. INTERVENTIONAL RADIOLOGIST: Amando Reynolds M.D. (the attending was present for the entire procedure.) ANESTHESIA: None. MEDICATION: Lidocaine 1% for local subcutaneous analgesia. Albumin 25% 75 gram IV. COMPLICATIONS: None. PROCEDURE DESCRIPTION AND FINDINGS: The risks, benefits, alternatives and possible complications of the procedure were fully discussed; all questions were answered and informed consent was obtained. The patient was brought into the interventional suite and a pre-procedure 'time-out' was performed. The patient was placed on the fluoroscopy table in the supine position. Preliminary ultrasound images of the right lower quadrant demonstrate a large amount of ascites. The right lower quadrant was prepped and draped in the usual sterile fashion. Maximum sterile barrier precautions were maintained throughout the entire procedure. Following subcutaneous infiltration of lidocaine 1% for local analgesia, under real-time ultrasound guidance, a 6 [place] centesis catheter was advanced into the right lower quadrant with real-time visualization of needle entry. The ultrasound images were permanently recorded and submitted to the PACS. The inner stylet was removed and the catheter was attached to gentle vacuum suction. A total of 15.8 liters of straw-colored fluid were aspirated. A sample was sent to the laboratory for analysis. The drainage catheter was then removed. A sterile adhesive bandage was placed over the puncture site. The patient tolerated the procedure well without immediate post-procedure complications and was transferred to same-day surgery in stable condition. IMPRESSION: SUCCESSFUL ULTRASOUND-GUIDED DIAGNOSTIC AND THERAPEUTIC PARACENTESIS.
[2017-07-11 14:46] LABS: BODY FLUID TYPE PERITONEAL/ASCITES
[2017-07-11] MEDS ORDERED: Albumin Human 25% (12.5 gm/50 ml) IV ONE (15:00)
[2017-07-11 15:40] LABS: BF GROSS APPEARANCE SL CLOUDY (CLEAR); BODY FLUID TOTAL COUNT 100 (0-0)
[2017-07-11 17:17] VITALS: BP 103/56; PULSE 83; TEMP 97.8; O2SAT 99
== END 2017-07-11 18:14 ==
LOC: H.OPSURG 10:16
PROVIDERS: ATTEND Specialist
DX: R18.8 Other ascites (principal); E11.9 Type 2 diabetes mellitus without complications; D46.9 Myelodysplastic syndrome, unspecified
CPT/HCPCS: 49083; 82042; 82945; 82948; 87070; 88104; 88305; 89051; 96365; 96366; C1729; P9047